=== PATIENT | male | born 1960 | race American Indian/Alaskan Native ===

== ENCOUNTER 2019-12-16 12:21 | Outpatient (CLI) | payer MEDICARE, MEDICAID, SELFPAY ==
--- NOTE | ~2019-12-16 | MR_ITS ---
EXAMINATION: MR lumbar spine wo con DATE: 12/16/2019 13:30 INDICATION: Lumbar radiculopathy. TECHNIQUE: Magnetic resonance imaging (MRI) of the lumbar spine was performed without intravenous con trast. Sequences included sagittal T2-weighted FSE, sagittal T2-weighted FS FSE, sagittal T1-weighted FSE, and axial T2-weighted FSE. COMPARISON: Lumbar spine MRI 11/07/2010 FINDINGS: Bone alignment is normal. Vertebral body heights are normal. There is mildly decreased disc height at L4-L5 and L5-S1. The distal spinal cord signal intensity is normal. The conus medullaris i s at L1. The following disc levels are specifically discussed: L1-L2: The disc does not extend beyond the endplate margin. There is mild bilateral facet joint osteo arthritis. There is no neural foraminal stenosis. There is no central canal stenosis. L2-L3: The disc is mildly bulging. There is mild bilateral facet joint osteoarthritis. There is mild bilateral neural foraminal stenosis. There is no central canal stenosis. L3-L4: The disc is bulging. There is mild bilateral facet joint osteoarthritis. There is mild bilater al neural foraminal stenosis. There is mild central canal stenosis. L4-L5: The disc is bulging with superimposed right central extrusion with 1.8 cm inferior extension. There is severe right and moderate left facet joint osteoarthritis. There is moderate right and mild left neural foraminal stenosis. There is mild central canal stenosis. L5-S1: The disc is bulging and has an annular fissure. There is severe bilateral facet joint osteoart hritis. There is moderate right and mild left neural foraminal stenosis. There is mild central canal stenosis. IMPRESSION: 1. Moderate lumbar spondylosis, worsened from 11/07/2010. Reviewed, dictated and finalized at location A.
== END 2019-12-16 12:22 | disposition home or self-care (01) ==
PROVIDERS: PCP Family Medicine; Visit Provider Psychiatry & Neurology Neurology
DX: M47.26 Other spondylosis with radiculopathy, lumbar region (principal)
CPT/HCPCS: 72148

== ENCOUNTER 2020-03-28 00:32 | Emergency (ER) | payer MEDICARE, MEDICAID, SELFPAY ==
--- NOTE | ~2020-03-28 | CT_ITS ---
EXAMINATION: CT abdomen pelvis wo con DATE: 03/28/2020 03:44 INDICATION: Left lower quadrant pain TECHNIQUE: Computed tomography (CT) of the abdomen and pelvis was performed without intravenous contr ast. The dose-length product (DLP) was 881.45 mGy-cm. Automated exposure control and iterative recons truction technique were employed. COMPARISON: 04/08/2019 FINDINGS: The lung bases are clear. The heart size is normal. Low attenuation of the left ventricular blood pool relative to the myometrium can be seen in the setting of anemia. There are surgical gillis es in the stomach. There is chronic atrophy and head of the pancreas. The liver, spleen, and right ad renal gland are normal. There is mild chronic nodularity of the left adrenal gland. The gallbladder i s surgically absent. There is a 3.6 cm cyst of the right kidney upper pole. The left kidney is unrema rkable. There is edematous fat stranding anterior to the distal descending colon and proximal sigmoid colon. A moderate volume of colonic stool is present. There is no free intraperitoneal gas or eviden ce of bowel obstruction. Chronic mild retroperitoneal lymphadenopathy is identified, likely reactive. There are mildly prominent lymph nodes of the small bowel mesentery with mild kt appearance of th e small bowel mesentery. IMPRESSION: 1. Fast stranding anterior to the distal descending/proximal sigmoid colon, consistent with focal col itis, diverticulitis, or possibly an epiploic appendagitis. 2. Kt appearance of the small bowel mesentery with prominent but nonenlarged mesenteric lymph node s, possibly related to prior pancreatitis versus sclerosing mesenteritis. Reviewed, dictated and finalized at location B. IMPRESSION: 1. Fast stranding anterior to the distal descending/proximal sigmoid colon, con sistent with focal colitis, diverticulitis, or possibly an epiploic appendagiti s. 2. Kt appearance of the small bowel mesentery with prominent but nonenlarged mesenteric lymph nodes, possibly related to prior pancreatitis versus sclerosi ng mesenteritis.
[2020-03-28 00:34] VITALS: BP 123/74; PULSE 78; RESP 18; TEMP 36.8; O2SAT 99
[2020-03-28 00:58] LABS: Basophils Absolute Auto 0.1 K/mm3 (0.0-0.1); Basophils Percent Auto 0.5 % (0.2-1.2); Eosinophils Absolute Auto 0.2 K/mm3 (0-0.3); Eosinophils Percent Auto 1.7 % (0-4.4); Hematocrit 31.1 % (42.0-52.0); Hemoglobin 9.6 g/dL (14.0-18.0); Immature Granulocyte Absolute 0.03 K/mm3 (0.00-0.031); Immature Granulocyte Percent A 0.3 % (0-0.5); Lymphocytes Absolute Auto 1.59 K/mm3 (0.9-3.2); Lymphocytes Percent Auto 17.2 % (18.3-44.2); Mean Corpuscular HGB Conc 30.9 g/dl (32-36); Mean Corpuscular Hemoglobin 21.5 pg (26-34); Mean Corpuscular Volume 69.6 fl (80-100); Monocytes Absolute Auto 0.8 K/mm3 (0.1-0.6); Monocytes Percent Auto 8.3 % (2.6-8.5); Neutrophils Absolute Auto 6.7 K/mm3 (1.3-6.7); Platelet Count Result 240 k/mm3 (150-375); Red Blood Count 4.47 M/mm3 (4.6-6.20); Red Cell Distribution Width 22.1 % (11.5-14.5); White Blood Count 9.3 K/mm3 (4.5-10.0)
[2020-03-28 01:02] LABS: Add Urine Microscopic? YES; Appearance Urine Cloudy (Clear); Bacteria Urine Trace /hpf; Bilirubin Urine Negative (Negative); Blood Urine Negative (Negative); Color Urine Yellow (Yellow); Glucose Urine UA 2+ mg/dL (Negative); Ketones Urine Trace mg/dL (Negative); Leukocyte Esterase Ur 3+ LEU/UL (Negative); Nitrate Urine Positive (Negative); Protein Urine Negative (Negative); RBC Urine 0-2 /hpf (0-2); Specific Grav Ur 1.018 (1.001-1.035); Squamous Epithelial Cell Urine Rare /hpf (Few); WBC Urine >75 /hpf
[2020-03-28 01:14] LABS: Alanine Aminotransferase 55 U/L (4-50); Albumin Level 3.8 g/dL (3.5-5.1); Alkaline Phosphatase 170 U/L (38-126); Anion Gap 9 mmol/L (8-16); Aspartate Amino Transferase 44 U/L (17-59); Bilirubin,Total 0.6 mg/dL (0.2-1.3); Blood Urea Nitrogen 14 mg/dL (9-20); Calcium 8.4 mg/dL (8.4-10.2); Carbon Dioxide 24 mmol/L (22-30); Chloride 103 mmol/L (98-107); Estimated CRCL calculation 55 ml/min; Estimated Glomerular Filt Rate 57; Glucose 198 mg/dL (75-110); Lipase 272 U/L (23-300); Potassium 4.4 mmol/L (3.4-5.0); Sodium 136 mmol/L (137-145)
--- NOTE | 2020-03-28 02:49 | ED.ABDPAIN ---
HPI - Abdominal Pain General Chief Complaint: Abdominal Pain Stated Complaint: abd pain Time Seen by Provider: 03/28/20 02:48 History of Present Illness HPI narrative: 60 yo male w/ h/o pancreatitis presents to the ED for Abdominal pain. Pain in the LLQ for the past 3 days. Started when he felt a pop. Radiates into the back. Associated with mild nausea. Feels somewhat like pancreatitis pain, but in slightly different location. He was treated for a UTI 3 weeks ago. Related Data Allergies Allergy/AdvReac Type Severity Reaction Status Date / Time ferumoxytol Allergy Severe Anaphylactic Verified 03/09/19 07:29 Shock iron dextran complex Allergy Severe Anaphylactic Verified 03/09/19 07:29 Shock Contrast Media Allergy Severe ANAPHYLACTIC Uncoded 03/09/19 07:29 SHOCK SHELLFISH Allergy Severe ANAPHYLACTIC Uncoded 03/09/19 07:29 SHOCK Review of Systems Review of Systems: All systems reviewed & are unremarkable except as noted in HPI and below Constitutional: Constitutional: Denies chills and Denies fever(s) Cardiovascular: Cardiovascular: Denies chest pain Respiratory: Respiratory: Denies dyspnea Gastrointestinal: Gastrointestinal: Reports abdominal pain, Reports diarrhea and Reports nausea Genitourinary: Genitourinary: Denies dysuria Neurologic: Denies weakness PMFSH Past Medical History Medical History (Updated 03/29/20 @ 00:00 by Rafia Pastrana) Pancreatitis Social History Social History (Updated 03/28/20 @ 03:39 by Keith Prabhakar MD) Smoking status: Never smoker Exam Const: General: healthy appearing, no acute distress and alert Orientation/consciousness: patient oriented x3 HENMT: Head: normal to inspection Resp: Effort & Inspection: normal respiratory effort Auscultation: clear to auscultation bilaterally, no rales, no rhonchi and no wheezes Cardio: Jugular venous distension: no JVD Rate: regular rate Rhythm: regular rhythm Heart sounds: no murmurs GI: Inspection: non-distended GI Palp: Yes Soft to palpation and Yes Tenderness to palpation present (GI) (LLQ ) Skin: General skin exam: normal color Neuro: General: patient oriented x3 and moves all extremities Speech: normal speech Extrem: General: no edema Psych: Appearance: well kempt Affect: normal affect Course Vital Signs Vital signs: Vital Signs Temperature 36.8 C 03/28/20 00:34 Pulse Rate 78 03/28/20 00:34 Respiratory Rate 18 03/28/20 00:34 Blood Pressure 123/74 03/28/20 00:34 Pulse Oximetry 99 03/28/20 00:34 Temperature 36.6 C 03/28/20 04:40 Pulse Rate 76 03/28/20 04:40 Respiratory Rate 16 03/28/20 04:40 Blood Pressure 124/79 03/28/20 04:40 Pulse Oximetry 100 03/28/20 04:40 MDM - Abdominal Pain MDM Narrative Medical decision making narrative: UA concerning for UTI. Lipase normal. Will obtain CT to rule out kidney stone or other abdominal pathology. CT shows signs of inflammation that could indicate diverticulitis. I will add flagyl to the treatment for his UTI. Medical Records Attestation: I reviewed the patient's medical records. Lab Data Attestation: I reviewed the patient's lab results. Result diagrams: 03/28/20 00:46 03/28/20 00:46 Labs: Lab Results 03/28/20 03/28/20 03/28/20 Range/Units 00:46 00:46 00:50 WBC 9.3 (4.5-10.0) K/mm3 RBC 4.47 L (4.6-6.20) M/mm3 Hgb 9.6 L (14.0-18.0) g/dL Hct 31.1 L (42.0-52.0) % MCV 69.6 L (80-100) fl MCH 21.5 L (26-34) pg MCHC 30.9 L (32-36) g/dl RDW 22.1 H (11.5-14.5) % Plt Count 240 (150-375) k/mm3 MPV TNP Immature Gran % (Auto) 0.3 (0-0.5) % Neut % (Auto) 72.0 (45.5-73.1) % Lymph % (Auto) 17.2 L (18.3-44.2) % [place] % (Auto) 8.3 (2.6-8.5) % Eos % (Auto) 1.7 (0-4.4) % Baso % (Auto) 0.5 (0.2-1.2) % Lymph # (Auto) 1.59 (0.9-3.2) K/mm3 [place] # (Auto) 0.8 H (0.1-0.6) K/mm3 Eos # (Auto) 0.2
[2020-03-28] MEDS: KETOROLAC (*BKC) 60 MG/2 ML VIAL IM (04:00)
[2020-03-28] MEDS: CEFDINIR 300 MG CAPSULE PO (04:01)
[2020-03-28 04:14] VITALS: BP 124/78; PULSE 78; RESP 16; O2SAT 98
[2020-03-28 04:40] VITALS: BP 124/79; PULSE 76; RESP 16; TEMP 36.6; O2SAT 100
[2020-03-28] MEDS: metroNIDAZOLE 250 MG TABLET 500 MG PO (04:40)
== END 2020-03-28 04:41 | disposition home or self-care (01) ==
PROVIDERS: Emergency Provider Emergency Medicine; PCP Family Medicine
DX: N39.0 Urinary tract infection, site not specified (principal); R93.3 Abnormal findings on diagnostic imaging of other parts of digestive tract
CPT/HCPCS: 36415; 74176; 80053; 81001; 83690; 85025; 85055; 87077; 87086; 87088; 87186; 96372; 99284; A9270; J1885

== ENCOUNTER 2020-04-06 16:49 | Emergency (ER) | payer MEDICARE, MEDICAID, SELFPAY ==
--- NOTE | ~2020-04-06 | NM_ITS ---
EXAMINATION: NM pulmonary perfusion DATE: 04/06/2020 19:37 INDICATION: Shortness of breath. TECHNIQUE: 5.1 mCi Tc-99m MAA was administered intravenously for perfusion images. Scintigraphic sudheer ges of the chest were obtained. COMPARISON: Chest single view 04/06/2020 FINDINGS: Perfusion images show a small defect in the posterobasal segment left lower lobe. ] IMPRESSION: 1. Pulmonary embolism absent (very low probability). Reviewed, dictated and finalized at location A.
--- NOTE | ~2020-04-06 | XR_ITS ---
EXAMINATION: XR chest 1V portable DATE: 04/06/2020 18:11 INDICATION: Shortness of breath. TECHNIQUE: A single frontal view of the chest was obtained. COMPARISON: Chest 2 views 04/12/2019, CT abdomen and pelvis 03/28/2020 FINDINGS: The chest demonstrates clear lungs without pneumonia, pleural effusion, or pneumothorax. Th e heart size is normal. IMPRESSION: 1. No acute cardiopulmonary disease. Reviewed, dictated and finalized at location A.
--- NOTE | ~2020-04-06 | CT_ITS ---
EXAMINATION: CT brain wo con DATE: 04/06/2020 17:45 INDICATION: Dizziness. TECHNIQUE: Computed tomography (CT) of the head was performed without intravenous contrast. The mA wa s adjusted according to patient size. Iterative reconstruction technique was employed. The dose-lengt h product was 605.33 mGy-cm. COMPARISON: Head CT 04/12/2019 FINDINGS: There is no intracranial hemorrhage, acute infarction, or abnormal intracranial mass lesion . The ventricles are normal in size. There is mild mucosal thickening in the paranasal sinuses. The o rbits are normal. The mastoid air cells are normal. IMPRESSION: 1. Normal brain. Reviewed, dictated and finalized at location A. IMPRESSION: 1. Normal brain.
[2020-04-06 16:50] VITALS: BP 156/90; PULSE 89; RESP 24; TEMP 36.8; O2SAT 99
[2020-04-06 16:54] VITALS: O2SAT 98
--- NOTE | 2020-04-06 17:03 | ECG_ITS ---
Measurements Intervals [place] Rate: 69 P: 53 ME: 185 QRS: 41 QRSD: 90 T: 39 QT: 398 QTc: 428 Interpretive Statements SINUS RHYTHM BASELINE ARTIFACT- I, II, III NORMAL ECG Electronically Signed On 04-06-2020 20:10:59 CDT by Damian Randhawa D.O.
--- NOTE | 2020-04-06 17:05 | ED.GENADULT ---
HPI - General Adult General Chief complaint: Shortness of Breath/Dyspnea <Radha Lara MD - Last Filed: 04/07/20 15:06> Stated complaint: sob/weakness <Radha Lara MD - Last Filed: 04/07/20 15:06> Time Seen by Provider: 04/06/20 16:51 <Radha Lara MD - Last Filed: 04/07/20 15:06> Source: patient <Radha Lara MD - Last Filed: 04/07/20 15:06> History of Present Illness HPI narrative: Patient is a 60 y/o male complaining of shortness of breaths starting 3 days ago. He states that his SOB was severe earlier today, but it's moderate at this time. He states that oxygen helped some when EMS applied oxygen on him. He has no fever or cough. He has been having intermittent diarrhea, dizziness and confusion for last 2 weeks. He was tested for COVID at an express facility and the result is still pending. <Radha Lara MD - Last Filed: 04/07/20 15:06> Related Data Home medications: Home Medications Medication Instructions Recorded Confirmed alprazolam 04/06/20 citalopram mg 04/06/20 ergocalciferol (vitamin D2) 04/06/20 furosemide 04/06/20 insulin aspart U-100 [Novolog 04/06/20 U-100 Insulin aspart] losartan 04/06/20 metformin mg PO 04/06/20 oxycodone 04/06/20 <Radha Lara MD - Last Filed: 04/07/20 15:06> Allergies/adverse reactions: Allergies Allergy/AdvReac Type Severity Reaction Status Date / Time ferumoxytol Allergy Severe Anaphylactic Verified 04/06/20 17:09 Shock iron dextran complex Allergy Severe Anaphylactic Verified 04/06/20 17:09 Shock Contrast Media Allergy Severe ANAPHYLACTIC Uncoded 04/06/20 17:09 SHOCK SHELLFISH Allergy Severe ANAPHYLACTIC Uncoded 04/06/20 17:09 SHOCK <Radha Lara MD - Last Filed: 04/07/20 15:06> Review of Systems Constitutional: Constitutional: Denies chills, Denies fever(s), Denies headache(s) and Denies weakness <Radha Lara MD - Last Filed: 04/07/20 15:06> Eyes: Eyes: Denies blurry vision <Radha Lara MD - Last Filed: 04/07/20 15:06> ENT: Denies headache(s) and Denies neck pain <Radha Lara MD - Last Filed: 04/07/20 15:06> Cardiovascular: Cardiovascular: Denies chest pain and Reports dyspnea <Radha Laar MD - Last Filed: 04/07/20 15:06> Respiratory: Respiratory: Denies cough and Reports dyspnea <Radha Lara MD - Last Filed: 04/07/20 15:06> Gastrointestinal: Gastrointestinal: Denies abdominal pain, Reports diarrhea, Denies nausea and Denies vomiting <Radha Lara MD - Last Filed: 04/07/20 15:06> Genitourinary: Genitourinary: Denies hematuria and Denies dysuria <Radha Lara MD - Last Filed: 04/07/20 15:06> Musculoskeletal: Musculoskeletal: Denies back pain and Denies neck pain <Radha Lara MD - Last Filed: 04/07/20 15:06> Neurologic: Reports dizziness, Denies headache(s) and Denies weakness <Radha Lara MD - Last Filed: 04/07/20 15:06> PMFSH Past Medical History Medical History: Medical History Pancreatitis <Radha Lara MD - Last Filed: 04/07/20 15:06> Social History Social History: Social History Smoking status: Never smoker <Radha Lara MD - Last Filed: 04/07/20 15:06> Exam Const: General: no acute distress and well developed <Radha Lara MD - Last Filed: 04/07/20 15:06> Orientation/consciousness: oriented to person, oriented to place, oriented to time and patient oriented x3 <Radha Lara MD - Last Filed: 04/07/20 15:06> HENMT: Head: normocephalic <Radha Lara MD - Last Filed: 04/07/20 15:06> Ears: external ears normal <Radha Lara MD - Last Filed: 04/07/20 15:06> General nose exam: Normal external nose present <Radha Lara MD - Last Filed: 04/07/20 15:06> Eyes: General: appearance normal, both eyes and all related structures <Radha Lara MD - Last Filed: 04/07/20 15:06> Conjunctivae: conju
[2020-04-06 17:09] VITALS: PULSE 79
[2020-04-06 17:29] LABS: Basophils Percent Auto 0.3 % (0.2-1.2); Eosinophils Percent Auto 0.6 % (0-4.4); Hematocrit 32.3 % (42.0-52.0); Hemoglobin 10.2 g/dL (14.0-18.0); Immature Granulocyte Absolute 0.02 K/mm3 (0.00-0.031); Immature Granulocyte Percent A 0.3 % (0-0.5); Immature Platelet Fraction Pct 7.5 % (0.9-11.2); Lymphocytes Absolute Auto 1.19 K/mm3 (0.9-3.2); Mean Corpuscular HGB Conc 31.6 g/dl (32-36); Mean Corpuscular Hemoglobin 21.7 pg (26-34); Mean Corpuscular Volume 68.6 fl (80-100); Monocytes Absolute Auto 0.5 K/mm3 (0.1-0.6); Neutrophils Absolute Auto 4.5 K/mm3 (1.3-6.7); Neutrophils Percent Auto 71.8 % (45.5-73.1); Platelet Count Result 331 k/mm3 (150-375); Red Blood Count 4.71 M/mm3 (4.6-6.20); Red Cell Distribution Width 22.5 % (11.5-14.5); White Blood Count 6.3 K/mm3 (4.5-10.0)
[2020-04-06 17:34] LABS: D Dimer 0.89 ug/mL (<0.48)
[2020-04-06 17:35] LABS: Alanine Aminotransferase 49 U/L (4-50); Albumin Level 3.6 g/dL (3.5-5.1); Alkaline Phosphatase 112 U/L (38-126); Anion Gap 10 mmol/L (8-16); Aspartate Amino Transferase 66 U/L (17-59); Bilirubin,Total 0.6 mg/dL (0.2-1.3); Blood Urea Nitrogen 18 mg/dL (9-20); Calcium 8.6 mg/dL (8.4-10.2); Carbon Dioxide 24 mmol/L (22-30); Chloride 101 mmol/L (98-107); Estimated Glomerular Filt Rate 52; Glucose 219 mg/dL (75-110); Potassium 4.4 mmol/L (3.4-5.0); Sodium 135 mmol/L (137-145)
[2020-04-06 17:46] LABS: NT Pro B Type Natriuretic Pept 54 PG/ML (5-100); Troponin I 0.019 ng/mL (0.000-0.034)
[2020-04-06 19:07] VITALS: BP 142/85; PULSE 70; RESP 12; O2SAT 98
[2020-04-06 19:57] VITALS: BP 168/92; PULSE 75; RESP 16; O2SAT 97
[2020-04-06 20:24] VITALS: BP 167/97; PULSE 73; RESP 20; O2SAT 98
== END 2020-04-06 20:25 | disposition home or self-care (01) ==
PROVIDERS: Emergency Medicine; Emergency Provider Emergency Medicine; PCP Family Medicine
DX: R06.02 Shortness of breath (principal); Z79.4 Long term (current) use of insulin; Z79.84 Long term (current) use of oral hypoglycemic drugs; Z20.828 Contact with and (suspected) exposure to other viral communicable diseases
CPT/HCPCS: 36415; 70450; 71045; 78580; 80053; 83880; 84484; 85025; 85055; 85380; 93005; 99284; A9540

== ENCOUNTER 2020-06-27 08:43 | Emergency (ER) | payer MEDICARE, MEDICAID, SELFPAY ==
--- NOTE | ~2020-06-27 | CT_ITS ---
EXAMINATION: CT abdomen pelvis wo con DATE: 06/27/2020 09:17 INDICATION: Upper abdominal pain TECHNIQUE: Computed tomography (CT) of the abdomen and pelvis was performed without intravenous contr ast. Automated exposure control and iterative reconstruction technique were employed. Exam dose: 802 .23 mGy-cm total exam DLP. COMPARISON: 03/28/2020 CT abdomen pelvis 04/08/2019 CT abdomen pelvis FINDINGS: The lung bases are clear of infiltrate or consolidation. Normal heart size. No pericardial or pleural effusion. Small sliding hiatal hernia. Postoperative change of the stomach. There is a drainage catheter extending from the pancreas into th e gastric lumen. Status post cholecystectomy. The liver, spleen appear unremarkable. The pancreatic head and neck are atrophic or possibly resected surgically. Recommend correlation with surgical history. Unremarkable adrenal glands. Probable 3.7 cm upper pole right renal cyst. No urinary tract calculus or hydroureteronephrosis. There is moderate prostate enlargement and calcification. There is moderate diffuse thickening of the urinary bladder wall. No bowel obstruction or intraperitoneal free air. Resolution of probable focal prominent soft tissue infiltration of the pericolic fat along the descending colon since 03/28/2020. There is normal caliber of the abdominal aorta, with mild atherosclerotic calcification. Persistent extensive shotty mesenteric, periaortic and aortocaval lymph nodes are again noted. Diffuse idiopathic skeletal hyperostosis of the included lower thoracic spine. No suspicious osteolytic or osteoblastic lesions are noted. IMPRESSION: Resolution of inflammatory changes adjacent to the descending colon since 03/28/2020; oth erwise no significant change Reviewed, dictated and finalized at Location [facility]. Reviewed, dictated and finalized at location A. [employer] IMPRESSION: Resolution of inflammatory changes adjacent to the descending colo n since 03/28/2020; otherwise no significant change
[2020-06-27 08:50] VITALS: BP 108/64; PULSE 85; RESP 20; TEMP 36.6; O2SAT 100
[2020-06-27] MEDS: SODIUM CHLORIDE 0.9% IV 1,000 ML 999 ML IV CONT (09:11)
--- NOTE | 2020-06-27 09:11 | PC.NURSE ---
Pt to CT scan via stretcher w/ fluids infusing.
[2020-06-27 09:17] LABS: Hematocrit 32.8 % (42.0-52.0); Hemoglobin 9.9 g/dL (14.0-18.0); Immature Platelet Fraction Pct 14.9 % (0.9-11.2); Mean Corpuscular HGB Conc 30.2 g/dl (32-36); Mean Corpuscular Hemoglobin 20.5 pg (26-34); Platelet Count Result 197 k/mm3 (150-375); Red Blood Count 4.82 M/mm3 (4.6-6.20); Red Cell Distribution Width 20.6 % (11.5-14.5); White Blood Count 9.9 K/mm3 (4.5-10.0)
[2020-06-27 09:25] LABS: Add Urine Microscopic? YES; Appearance Urine Cloudy (Clear); Bacteria Urine 3+ /hpf; Bilirubin Urine Negative (Negative); Blood Urine Negative (Negative); Color Urine Yellow (Yellow); Glucose Urine UA 2+ mg/dL (Negative); Ketones Urine Trace mg/dL (Negative); Leukocyte Esterase Ur 3+ LEU/UL (Negative); Mucus Urine Rare /lpf; Nitrate Urine Positive (Negative); Protein Urine 1+ mg/dL (Negative); Urobilinogen Urine Negative mg/dL (<2.0); WBC Clumps Urine Present /HPF; WBC Urine >75 /hpf
[2020-06-27 09:28] LABS: Alanine Aminotransferase 132 U/L (4-50); Albumin Level 4.1 g/dL (3.5-5.1); Alkaline Phosphatase 562 U/L (38-126); Anion Gap 8 mmol/L (8-16); Aspartate Amino Transferase 74 U/L (17-59); Bilirubin,Total 0.9 mg/dL (0.2-1.3); Blood Urea Nitrogen 15 mg/dL (9-20); Carbon Dioxide 28 mmol/L (22-30); Chloride 98 mmol/L (98-107); Estimated CRCL calculation 59 ml/min; Estimated Glomerular Filt Rate > 60; Glucose 287 mg/dL (75-110); Lipase 300 U/L (23-300); Potassium 4.6 mmol/L (3.4-5.0); Sodium 134 mmol/L (137-145)
[2020-06-27 09:40] LABS: Band Neutrophils Percent 5 % (0-6); Eosinophils Absolute Manual 0.19 K/mm3 (0.02-0.5); Eosinophils Percent Manual 2 % (0-4); Lymphocytes Absolute Manual 1.48 K/mm3 (1.1-4.5); Monocytes Absolute Manual 0.69 K/mm3 (0.1-0.90); Monocytes Percent Manual 7 % (3-9); Neutrophils Absolute Manual 7.52 K/mm3 (1.3-6.7); Neutrophils Percent Manual 71 % (46-73); Total Cells Counted 100
[2020-06-27 09:41] LABS: Hypochromasia 2+ (NORMAL); Large Platelets Present; Platelet Estimate Adequate (Adequate); Stomatocytes 1+ (NORMAL)
[2020-06-27 09:46] LABS: Atypical Lymphocytes Present
[2020-06-27] MEDS: FAMOTIDINE 20 MG/2 ML VIAL IV PUSH (10:05)
[2020-06-27 10:08] VITALS: BP 107/48; PULSE 65; RESP 17; O2SAT 100
--- NOTE | 2020-06-27 10:53 | ED.GENADULT ---
HPI - General Adult General Chief complaint: Abdominal Pain Stated complaint: ABD Pain Time Seen by Provider: 06/27/20 08:54 Source: patient and old records reviewed Mode of arrival: ambulatory Limitations: no limitations History of Present Illness HPI narrative: Patient is a 60-year-old male who presents to emergency department for evaluation of periumbilical abdominal pain patient with complicated history followed by GI at [facility] patient notes discomfort over the last 2 days denies vomiting fever chills URI symptoms or other complaints patient has not taken anything other than his prescribed medicines patient notes that he has had blood glucoses that typically run around 200. Patient denies rectal bleeding or melena. Patient notes on arrival moderate discomfort of the abdomen patient does not appear uncomfortable or distressed Related Data Home Medications Medication Instructions Recorded Confirmed alprazolam 04/06/20 citalopram mg 04/06/20 ergocalciferol (vitamin D2) 04/06/20 furosemide 04/06/20 insulin aspart U-100 [Novolog 04/06/20 U-100 Insulin aspart] losartan 04/06/20 metformin mg PO 04/06/20 oxycodone 04/06/20 Allergies Allergy/AdvReac Type Severity Reaction Status Date / Time ferumoxytol Allergy Severe Anaphylactic Verified 06/27/20 09:03 Shock Iodinated Contrast Media Allergy Severe Anaphylactic Verified 06/27/20 09:03 Shock iron dextran complex Allergy Severe Anaphylactic Verified 06/27/20 09:03 Shock shellfish derived Allergy Severe Anaphylactic Verified 06/27/20 09:03 Shock Review of Systems Review of Systems: All systems reviewed & are unremarkable except as noted in HPI and below PMFSH Past Medical History Medical History (Updated 06/27/20 @ 10:58 by Derrell Mccullough PA-C) Diabetes mellitus Pancreatitis Surgical History Surgical History History of gastric bypass Social History Social History Smoking status: Never smoker Exam Narrative: Exam Narrative: GENERAL: Well-appearing, well-nourished, and in no acute distress. HEAD: Normocephalic, atraumatic. EYES: PERRLA and EOMI. ENT: Nares clear, no rhinorrhea or epistaxis. Mucous membranes moist. CHEST: Clear to auscultation. No respiratory distress. No wheezes rales or rhonchi HEART: Regular rate and rhythm. No murmur heard. Normal peripheral pulses. ABDOMEN: Soft, tenderness in the upper abdomen no rebound or guarding, nondistended EXTREMITIES: Normal range of motion. No edema. SKIN: Warm, dry, no rash. NEURO: No focal deficits. Alert and oriented x3. PSYCH: Normal mood and affect. Course Course Emergency Course: Patient in the room in no distress made aware of his blood work and findings was given fluids and antibiotic in the emergency department will be treated for urinary tract infection advised that he needs to follow with his specialist by phone today to set up for reevaluation patient felt appropriate for outpatient reevaluation he is afebrile nontoxic-appearing no distress Vital Signs Vital signs: Vital Signs Temperature 97.8 F 06/27/20 08:50 Pulse Rate 85 06/27/20 08:50 Respiratory Rate 20 06/27/20 08:50 Blood Pressure 108/64 06/27/20 08:50 Pulse Oximetry 100 06/27/20 08:50 Temperature 97.8 F 06/27/20 08:50 Pulse Rate 64 06/27/20 11:04 Respiratory Rate 14 06/27/20 11:04 Blood Pressure 113/66 06/27/20 11:04 Pulse Oximetry 97 06/27/20 11:04 Medical Decision Making [facility] Narrative Medical decision making narrative: Patient found to have urinary tract infection as the etiology of his symptoms patient afebrile nontoxic-appearing no distress ABCs intact vital signs stable no emesis no rectal bleeding no other high risk changes in the blood work or imaging given medications in the emergency department and advised to follow with his
[2020-06-27 11:04] VITALS: BP 113/66; PULSE 64; RESP 14; O2SAT 97
[2020-06-27 11:36] VITALS: BP 105/60; PULSE 61; RESP 18; O2SAT 97
== END 2020-06-27 11:37 | disposition home or self-care (01) ==
PROVIDERS: Emergency Provider Emergency Medicine; PCP Family Medicine
DX: N39.0 Urinary tract infection, site not specified (principal); R10.33 Periumbilical pain; E11.9 Type 2 diabetes mellitus without complications; Z79.4 Long term (current) use of insulin; Z98.84 Bariatric surgery status
CPT/HCPCS: 36415; 74176; 80053; 81001; 83690; 85025; 85055; 87077; 87086; 87088; 87186; 96361; 96365; 96367; 96375; 99284; J0131; J0696; J7030

== ENCOUNTER 2020-07-28 19:03 | Emergency (ER) | payer MEDICARE, MEDICAID, SELFPAY ==
--- NOTE | ~2020-07-28 | CT_ITS ---
EXAMINATION: CT abdomen pelvis wo con DATE: 07/28/2020 20:12 INDICATION: Abdominal pain. Frequent urinary tract infections. TECHNIQUE: Computed tomography (CT) of the abdomen and pelvis was performed without intravenous contr ast. Automated exposure control and iterative reconstruction technique were employed. The dose-length product was 619.79 mGy-cm. COMPARISON: CT abdomen and pelvis 06/27/2020 FINDINGS: The visualized portions of the lung bases are clear without pneumonia or pleural effusion. The heart size is normal. No pericardial effusion. There are surgical changes of the stomach. There i s a stent from the pancreatic duct to the stomach. The gallbladder is absent. The adrenal glands and left kidney are normal. There is a 3.7 cm cyst in right kidney. There is no urolithiasis. The prostat e is mildly enlarged. There is a left inguinal hernia containing fat. There are no dilated loops of b owel. The appendix is not visualized. There is mild aortocaval, left para-aortic, mesenteric, and per iportal lymphadenopathy, likely reactive. There is a supraumbilical ventral hernia containing fat. Th ere is edema at the root of the small bowel mesentery and adjacent to the pancreas. There is no free intraperitoneal fluid. There is mild thoracolumbar spondylosis. IMPRESSION: 1. Mild abdominal lymphadenopathy, likely reactive. 2. Supraumbilical ventral hernia and left inguinal hernia containing fat. Reviewed, dictated and finalized at location A. NEATOR
[2020-07-28 19:13] VITALS: BP 195/97; PULSE 76; RESP 16; TEMP 36.6; O2SAT 100
--- NOTE | 2020-07-28 19:24 | PC.NURSE ---
pt c/o pain to right kidney starting 5 days ago and now having suprapubic pain and left flank pain as well. pt notes frequent urination and nausea. pt states he has an appointment with a urologist in August.
[2020-07-28 19:40] LABS: Add Urine Microscopic? YES; Amorphous Sediment Urine Few; Appearance Urine Cloudy (Clear); Bacteria Urine Trace /hpf; Bilirubin Urine Negative (Negative); Blood Urine Negative (Negative); Color Urine Yellow (Yellow); Glucose Urine UA Negative (Negative); Ketones Urine Negative (Negative); Leukocyte Esterase Ur 1+ LEU/UL (Negative); Mucus Urine Rare /lpf; Nitrate Urine Positive (Negative); Protein Urine Negative (Negative); RBC Urine 0-2 /hpf (0-2); Specific Grav Ur 1.018 (1.001-1.035); WBC Urine 31-50 /hpf
[2020-07-28 20:05] LABS: Basophils Percent Auto 0.6 % (0.2-1.2); Eosinophils Absolute Auto 0.2 K/mm3 (0-0.3); Hematocrit 28.3 % (42.0-52.0); Hemoglobin 8.2 g/dL (14.0-18.0); Immature Granulocyte Absolute 0.01 K/mm3 (0.00-0.031); Immature Granulocyte Percent A 0.2 % (0-0.5); Immature Platelet Fraction Pct 11.6 % (0.9-11.2); Mean Corpuscular Hemoglobin 20.4 pg (26-34); Mean Corpuscular Volume 70.6 fl (80-100); Monocytes Absolute Auto 0.7 K/mm3 (0.1-0.6); Monocytes Percent Auto 12.2 % (2.6-8.5); Neutrophils Absolute Auto 3.1 K/mm3 (1.3-6.7); Platelet Count Result 152 k/mm3 (150-375); Red Blood Count 4.01 M/mm3 (4.6-6.20); Red Cell Distribution Width 22.7 % (11.5-14.5); White Blood Count 5.4 K/mm3 (4.5-10.0)
[2020-07-28] MEDS: ONDANSETRON INJ 4 MG/2 ML VIAL IV PUSH (20:09)
[2020-07-28] MEDS: SODIUM CHLORIDE 0.9% IV 1,000 ML 999 ML IV CONT (20:20)
[2020-07-28 20:22] LABS: Alanine Aminotransferase 78 U/L (4-50); Albumin Level 3.8 g/dL (3.5-5.1); Alkaline Phosphatase 392 U/L (38-126); Anion Gap 6 mmol/L (8-16); Aspartate Amino Transferase 68 U/L (17-59); Bilirubin,Total 0.5 mg/dL (0.2-1.3); Blood Urea Nitrogen 19 mg/dL (9-20); Calcium 8.2 mg/dL (8.4-10.2); Carbon Dioxide 29 mmol/L (22-30); Chloride 102 mmol/L (98-107); Estimated CRCL calculation 52 ml/min; Estimated Glomerular Filt Rate 52; Glucose 136 mg/dL (75-110); Lipase 102 U/L (23-300); Potassium 4.6 mmol/L (3.4-5.0); Sodium 137 mmol/L (137-145)
[2020-07-28 20:24] LABS: Hypochromasia 1+ (NORMAL); Platelet Estimate Adequate (Adequate)
[2020-07-28 20:25] LABS: Target Cells 1+ (NORMAL)
--- NOTE | 2020-07-28 21:32 | ED.GENADULT ---
HPI - General Adult General Chief complaint: Urogenital-Male Stated complaint: I think i have a kidney infection Time Seen by Provider: 07/28/20 19:22 Source: RN notes reviewed History of Present Illness HPI narrative: Patient presents emergency department from home for possible UTI. Patient states that symptoms began approximately 5 days ago. He states he began to have some pain with urination as well as lower abdominal pain described as cramping. He states he does some radiation up into his right flank with some intermittent nausea. Patient states he does have a history of frequent UTIs and is scheduled to see a specialist at [facility] later this month. Patient states he is last treated for UTI back in June he denies any fevers or chills chest pain shortness of breath vomiting or any other symptoms. Related Data Home Medications Medication Instructions Recorded Confirmed alprazolam 04/06/20 citalopram mg 04/06/20 ergocalciferol (vitamin D2) 04/06/20 furosemide 04/06/20 insulin aspart U-100 [Novolog 04/06/20 U-100 Insulin aspart] losartan 04/06/20 metformin mg PO 04/06/20 Allergies Allergy/AdvReac Type Severity Reaction Status Date / Time ferumoxytol Allergy Severe Anaphylactic Verified 07/28/20 19:26 Shock Iodinated Contrast Media Allergy Severe Anaphylactic Verified 07/28/20 19:26 Shock iron dextran complex Allergy Severe Anaphylactic Verified 07/28/20 19:26 Shock shellfish derived Allergy Severe Anaphylactic Verified 07/28/20 19:26 Shock Review of Systems Review of Systems: Narrative: Gen.: Denies fevers or chills Eyes: Denies eye pain or visual change ENT: Denies congestion Respiratory: Denies shortness of breath or cough CV: Denies chest pain or palpitations GI: Reports abdominal pain and nausea denies emesis and diarrhea reports pain with urination Musculoskeletal: Denies back pain or muscle pain Neuro: Denies numbness, tingling, weakness or focal weakness Skin: Denies rash Except as documented, all other systems reviewed and negative REPLACED BY [facility] Past Medical History Medical History Diabetes mellitus Pancreatitis Surgical History Surgical History History of gastric bypass Social History Social History Smoking status: Never smoker Exam Narrative: Exam Narrative: APPEARANCE: No acute distress, nontoxic, resting in bed HEENT: Normocephalic, atraumatic, OMM RESPIRATORY: No respiratory distress, clear to auscultation bilaterally with no rhonchi wheezing or rales CARDIOVASCULAR: RRR s murmur ABDOMINAL: Soft, nondistended, tender palpation right lower quadrant left lower quadrant no tenderness in right upper quadrant left upper quadrant no rebound or guarding MUSCULOSKELETAl: Moves all extremities. No clubbing, cyanosis or edema. NEURO: Awake and alert. Following commands, speech normal, no focal deficits SKIN:: Warm, dry. Normal Color PSYCHIATRIC: Normal affect/mood Course Course Emergency Course: Reviewed patient's old records and patient with chronic anemia is microcytic. 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 Chavez for Dr. Panda agrees with plan for discharge request patient call the office for repeat follow-up visit this week and will recheck hemoglobin Discussed with patient results of workup and diagnosis. Discussed need for follow-up with primary care, proper use of medication, and reasons to return to the emergency department. Patient understands and agrees to current treatment plan Reviewed the
[2020-07-28] MEDS: AMOXICILLIN/CLAVULANATE K 875-125 MG TAB 1 TABLET PO (21:33)
[2020-07-28 21:37] VITALS: BP 137/85; PULSE 70; RESP 18; O2SAT 100
== END 2020-07-28 21:45 | disposition home or self-care (01) ==
PROVIDERS: Emergency Medicine Emergency Medical Services; Emergency Provider Emergency Medicine; PCP Family Medicine
DX: N39.0 Urinary tract infection, site not specified (principal); D50.9 Iron deficiency anemia, unspecified; E11.9 Type 2 diabetes mellitus without complications; K43.9 Ventral hernia without obstruction or gangrene; K40.90 Unilateral inguinal hernia, without obstruction or gangrene, not specified as recurrent; Z79.4 Long term (current) use of insulin
CPT/HCPCS: 36415; 74176; 80053; 81001; 83690; 85025; 85055; 87077; 87086; 87088; 87186; 96361; 96374; 96375; 99284; A9270; J0131; J2405; J7030

== ENCOUNTER 2020-09-04 21:59 | Emergency (ER) | payer MEDICARE, MEDICAID, SELFPAY ==
--- NOTE | ~2020-09-04 | XR_ITS ---
EXAMINATION: XR chest 1V portable EXAM DATE: 09/04/2020 22:22 INDICATION: Shortness of breath. Nausea tonight after taking iron infusion. TECHNIQUE: Portable AP frontal chest x-ray was obtained. Comparison is made to prior examination from 04/06/2020. FINDINGS: The lungs are clear. There are no pleural effusions. The cardiomediastinal silhouette is within normal limits. There is no pneumothorax suspected. The bones and soft tissues are unremarkab le. IMPRESSION: No acute cardiopulmonary findings. Reviewed, dictated and finalized at location A. TRUCTION ECONOMIST
[2020-09-04 22:02] VITALS: BP 149/82; PULSE 94; RESP 18; TEMP 37.6; O2SAT 100
[2020-09-04 22:40] LABS: Basophils Percent Auto 0.2 % (0.2-1.2); Hematocrit 33.9 % (42.0-52.0); Hemoglobin 10.3 g/dL (14.0-18.0); Immature Granulocyte Absolute 0.02 K/mm3 (0.00-0.031); Immature Granulocyte Percent A 0.3 % (0-0.5); Immature Platelet Fraction Pct 11.5 % (0.9-11.2); Lymphocytes Absolute Auto 0.51 K/mm3 (0.9-3.2); Lymphocytes Percent Auto 8.7 % (18.3-44.2); Mean Corpuscular HGB Conc 30.4 g/dl (32-36); Mean Corpuscular Hemoglobin 21.4 pg (26-34); Mean Corpuscular Volume 70.3 fl (80-100); Monocytes Absolute Auto 0.1 K/mm3 (0.1-0.6); Monocytes Percent Auto 1.2 % (2.6-8.5); Neutrophils Absolute Auto 5.3 K/mm3 (1.3-6.7); Neutrophils Percent Auto 89.6 % (45.5-73.1); Platelet Count Result 198 k/mm3 (150-375); Red Blood Count 4.82 M/mm3 (4.6-6.20); White Blood Count 5.9 K/mm3 (4.5-10.0)
[2020-09-04 22:59] LABS: NT Pro B Type Natriuretic Pept 71 PG/ML (5-100)
[2020-09-04 23:00] VITALS: BP 149/74; PULSE 85; RESP 18; O2SAT 98
[2020-09-04 23:03] LABS: Anion Gap 14 mmol/L (8-16); Blood Urea Nitrogen 15 mg/dL (9-20); Calcium 8.3 mg/dL (8.4-10.2); Carbon Dioxide 21 mmol/L (22-30); Chloride 101 mmol/L (98-107); Estimated CRCL calculation 55 ml/min; Estimated Glomerular Filt Rate 57; Glucose 557 mg/dL (75-110); Potassium 4.3 mmol/L (3.4-5.0); Sodium 136 mmol/L (137-145)
[2020-09-04 23:45] LABS: Glucose Point of Care 442 (65-105)
[2020-09-05 00:06] VITALS: BP 147/73; PULSE 87; RESP 14; O2SAT 100
[2020-09-05] MEDS: INSULIN HUMAN REGULAR (*BKC) 100 UNITS/ML 10 UNITS IV PUSH (00:07)
[2020-09-05 00:57] LABS: Glucose Point of Care 140 (65-105)
[2020-09-05 00:59] VITALS: BP 129/74; PULSE 94; RESP 20; O2SAT 100
--- NOTE | 2020-09-05 01:04 | ED.GENADULT ---
HPI - General Adult General Chief complaint: Shortness of Breath/Dyspnea Stated complaint: sob Time Seen by Provider: 09/04/20 22:00 Source: patient Mode of arrival: EMS Limitations: no limitations History of Present Illness HPI narrative: 60-year-old with a history of diabetes, iron deficiency anemia here with complaints of shortness of breath since last few hours. Patient states that he had a iron infusion earlier this afternoon at [facility] was later discharged home. Patient states that he was sitting in front of the computer started experiencing some shortness of breath thought it was anxiety took Xanax which did not help with his shortness of breath. Patient states that he was trying to climb the stairs felt extremely short winded. And then later called EMS was later brought here to the ER upon arrival she states that he is having mild symptoms however his much improved. He denied any chest pain, nausea or vomiting. Onset (ago): hour(s) (1) Radiation: non-radiation Severity: moderate Exacerbating factors: none Related Data Home Medications Medication Instructions Recorded Confirmed alprazolam 04/06/20 citalopram mg 04/06/20 ergocalciferol (vitamin D2) 04/06/20 furosemide 04/06/20 insulin aspart U-100 [Novolog 04/06/20 U-100 Insulin aspart] losartan 04/06/20 metformin mg PO 04/06/20 Allergies Allergy/AdvReac Type Severity Reaction Status Date / Time ferumoxytol Allergy Severe Anaphylactic Verified 07/28/20 19:26 Shock Iodinated Contrast Media Allergy Severe Anaphylactic Verified 07/28/20 19:26 Shock iron dextran complex Allergy Severe Anaphylactic Verified 07/28/20 19:26 Shock shellfish derived Allergy Severe Anaphylactic Verified 07/28/20 19:26 Shock Review of Systems Review of Systems: All systems reviewed & are unremarkable except as noted in HPI and below Constitutional: Constitutional: Reports no additional constitutional complaints Eyes: Eyes: Reports no additional eye complaints ENT: Reports system reviewed and no additional complaints, except as documented Cardiovascular: Cardiovascular: Reports no additional cardiovascular complaints Respiratory: Respiratory: Reports as per HPI Gastrointestinal: Gastrointestinal: Reports no additional gastrointestinal complaints Musculoskeletal: Musculoskeletal: Reports no additional musculoskeletal complaints Integumentary/Breasts: Skin/Breast: Reports system reviewed and no additional complaints, except as docu Neurologic: Reports system reviewed and no additional complaints, except as documented PMFSH Past Medical History Medical History Diabetes mellitus Pancreatitis Surgical History Surgical History History of gastric bypass Social History Social History Smoking status: Never smoker Exam Narrative: Exam Narrative: GENERAL: Well-appearing, well-nourished, and in no acute distress. HEAD: Normocephalic, atraumatic. EYES: PERRLA and EOMI.. NECK: Supple. CHEST: Clear to auscultation. No respiratory distress. HEART: Regular rate and rhythm. No murmur heard. Normal peripheral pulses. ABDOMEN: Soft, nontender, nondistended, normal active bowel sounds. EXTREMITIES: Normal range of motion. No edema. SKIN: Warm, dry, no rash. NEURO: No focal deficits. Alert and oriented x3. PSYCH: Normal mood and affect. Course Course Emergency Course: Patient started feeling much better without any intervention, informed him about his lab work however his sugars were elevated , I will give him bolus of insulin which brought him clinically. Normal see. Patient stated he is feeling better we will discharge him home advised him to continue his home medication Vital Signs Vital signs: Vital Signs Temperature 37.6 C H 09/04/20 22:02 Pulse Rate 94 09/04/20 2
== END 2020-09-05 01:25 | disposition home or self-care (01) ==
PROVIDERS: Emergency Provider Family Medicine; PCP Family Medicine
DX: R06.02 Shortness of breath (principal); F41.9 Anxiety disorder, unspecified; E11.65 Type 2 diabetes mellitus with hyperglycemia; Z98.84 Bariatric surgery status; Z79.4 Long term (current) use of insulin
CPT/HCPCS: 36415; 71045; 80048; 82948; 83880; 85025; 85055; 96374; 99284; J1815

== ENCOUNTER 2020-10-06 18:31 | Emergency (ER) | payer MEDICARE, MEDICAID, SELFPAY ==
--- NOTE | ~2020-10-06 | XR_ITS ---
Corrected Report See Bolded Text Order # associated XR hand RT min 3V DATE: 10/06/2020 19:15 INDICATION: Dog bite, laceration on the dorsum of the hand TECHNIQUE: 3 views of the right hand COMPARISON: None FINDINGS: There is a comminuted fracture of the tuft of the distal phalanx of the fifth digit. Adjacent soft tissue laceration is noted. No other fracture or dislocation is detected. No periosteal reaction or bone destruction. No erosive change or chondrocalcinosis. No radiopaque soft tissue foreign body is evident. IMPRESSION: Comminuted fracture of the tuft of the distal phalanx of the fifth digit, with evidence of adjacent soft tissue laceration; no radiopaque foreign body Reviewed, dictated and finalized at location A. MTDD IMPRESSION: Subcutaneous emphysema of the dorsum of the hand extending to the b ases of the second through fourth digits
--- NOTE | ~2020-10-06 | XR_ITS ---
Corrected Report See Bolded Text Order # associated XR hand LT min 3V DATE: 10/06/2020 19:15 INDICATION: Dog bite TECHNIQUE: 3 views of the left hand COMPARISON: None FINDINGS: There is subcutaneous emphysema of the dorsum of the hand and bases of the second through fourth digits, consistent with dog bite. No radiopaque soft tissue foreign body is evident. No fracture or dislocation, periosteal reaction or bone destruction. IMPRESSION: Subcutaneous emphysema of the dorsum of the hand extending to the bases of the second through fourth digits Reviewed, dictated and finalized at location A. MTDD IMPRESSION: Comminuted fracture of the tuft of the distal phalanx of the fifth digit, with evidence of adjacent soft tissue laceration; no radiopaque foreign body
[2020-10-06 18:31] VITALS: BP 207/95; PULSE 112; RESP 20; TEMP 36.4; O2SAT 100
--- NOTE | 2020-10-06 18:45 | ED.GENADULT ---
HPI - General Adult General Chief complaint: Wound/Laceration Stated complaint: dog bite Time Seen by Provider: 10/06/20 18:42 Source: patient and EMS Mode of arrival: EMS Limitations: no limitations History of Present Illness HPI narrative: Patient 60-year-old male who presents for EMS after sustaining dog bites to the left and right hand patient was cleaning up when his dog lunged at him biting him on the hand sustaining injury to the right pinky finger where there is avulsion of the proximal nail. Patient has flap laceration to the dorsal surface of the left hand. Patient has small puncture wound to the dorsal surface of the hand left-sided. Patient notes his tetanus is not up-to-date. Patient has not taken anything for pain. Patient denies other injuries or complaints Related Data Home Medications Medication Instructions Recorded Confirmed alprazolam 04/06/20 citalopram mg 04/06/20 ergocalciferol (vitamin D2) 04/06/20 furosemide 04/06/20 insulin aspart U-100 [Novolog 04/06/20 U-100 Insulin aspart] losartan 04/06/20 metformin mg PO 04/06/20 Allergies Allergy/AdvReac Type Severity Reaction Status Date / Time ferumoxytol Allergy Severe Anaphylactic Verified 10/06/20 18:35 Shock Iodinated Contrast Media Allergy Severe Anaphylactic Verified 10/06/20 18:35 Shock iron dextran complex Allergy Severe Anaphylactic Verified 10/06/20 18:35 Shock shellfish derived Allergy Severe Anaphylactic Verified 10/06/20 18:35 Shock Review of Systems Review of Systems: All systems reviewed & are unremarkable except as noted in HPI and below PMFSH Past Medical History Medical History Diabetes mellitus Pancreatitis Surgical History Surgical History History of gastric bypass Social History Social History Smoking status: Never smoker Exam Narrative: Exam Narrative: GENERAL: Well-appearing, well-nourished, and in no acute distress. HEAD: Normocephalic, atraumatic. EYES: PERRLA and EOMI. ENT: Nares clear, no rhinorrhea or epistaxis. Mucous membranes moist. CHEST: Clear to auscultation. No respiratory distress. No wheezes rales or rhonchi HEART: Regular rate and rhythm. No murmur heard. Normal peripheral pulses. EXTREMITIES: Normal range of motion. No edema. Flap laceration and puncture wound dorsal surface left hand. Nail avulsion laceration of the distal phalanx right pinky finger SKIN: Warm, dry, no rash. NEURO: No focal deficits. Alert and oriented x3. Cranial nerves II through XII grossly intact. Neurovascularly intact PSYCH: Normal mood and affect. Course Course Emergency Course: Patient's wounds were anesthetized cleaned in the emergency department and dressed patient will be following with plastic surgery. Patient is aware of recommendations of plastic surgery patient agrees with the treatment plan patient was given Ancef in the emergency department neurovascularly intact pre and post procedure Consultations Consultation #1: Discussed case with hand surgeon who will follow the patient in clinic gave recommendations on wound treatment would also like the patient to be placed on antibiotics Augmentin preferably case was discussed with Dr. Avalos Date: 10/06/20 Time: 20:01 Vital Signs Vital signs: Vital Signs Temperature 97.5 F L 10/06/20 18:31 Pulse Rate 112 H 10/06/20 18:31 Respiratory Rate 20 10/06/20 18:31 Blood Pressure 207/95 H 10/06/20 18:31 Pulse Oximetry 100 10/06/20 18:31 Temperature 97.5 F L 10/06/20 18:31 Pulse Rate 112 H 10/06/20 18:31 Respiratory Rate 20 10/06/20 18:31 Blood Pressure 207/95 H 10/06/20 18:31 Pulse Oximetry 100 10/06/20 18:31 Procedures Other Procedure Procedure 1: Other Procedure: Patient's left hand was prepped with technique care scrub
[2020-10-06] MEDS: MORPHINE SULFATE (*CRX) 2 MG/ML INJ IV PUSH (18:56)
[2020-10-06] MEDS: LORazepam INJ (*CRX) 2 MG/ML VIAL 1 MG IV PUSH (18:56)
[2020-10-06] MEDS: TETANUS,DIPHTHERIA,AC PERTUSSIS ADULT (0.5 ML) BOOSTRIX IM (18:56)
[2020-10-06] MEDS: ceFAZolin 2 GM/D5W 50 ML 2 GM/50 ML BAG IVPB (19:27)
[2020-10-06 20:25] VITALS: BP 142/79; PULSE 78; RESP 18; O2SAT 99
== END 2020-10-06 20:27 | disposition home or self-care (01) ==
PROVIDERS: Emergency Provider Emergency Medicine; PCP Family Medicine
DX: S62.636B Displaced fracture of distal phalanx of right little finger, initial encounter for open fracture (principal); S61.452A Open bite of left hand, initial encounter; T79.7XXA Traumatic subcutaneous emphysema, initial encounter; Z23 Encounter for immunization; E11.9 Type 2 diabetes mellitus without complications; Z79.4 Long term (current) use of insulin; Z98.84 Bariatric surgery status; W54.0XXA Bitten by dog, initial encounter
CPT/HCPCS: 11720; 12001; 73130; 90471; 90715; 96365; 96375; 99284; J0690; J2060; J2270

== ENCOUNTER → 2020-10-14 01:58 | Outpatient (CLI) | payer MEDICARE, MEDICAID, SELFPAY ==
[2020-10-14 20:13] LABS: SARS-CoV-2 RNA PCR Negative
== END ==
PROVIDERS: PCP Family Medicine; Visit Provider Plastic Surgery
DX: Z01.812 Encounter for preprocedural laboratory examination (principal); Z20.822 Contact with and (suspected) exposure to COVID-19
CPT/HCPCS: C9803; U0003; U0005

== ENCOUNTER 2020-10-15 09:55 | Outpatient (CLI) | payer MEDICARE, MEDICAID, SELFPAY ==
[2020-10-15 10:49] LABS: INR 1.1; Partial Thromboplastin Time 25.7 SECONDS (22.3-36.8); Prothrombin Time 15.2 Seconds (11.1-14.7)
== END 2020-10-15 09:56 | disposition home or self-care (01) ==
LOC: ANHSURGERY 09:59
PROVIDERS: Anesthesiology; PCP Family Medicine; Visit Provider Plastic Surgery
DX: N18.9 Chronic kidney disease, unspecified (principal); Z01.818 Encounter for other preprocedural examination
CPT/HCPCS: 36415; 85610; 85730

== ENCOUNTER 2020-10-17 02:01 | Day surgery (SDC) | payer MEDICARE, MEDICAID, SELFPAY ==
[2020-10-14 13:39] VITALS: BMI 28.6
--- NOTE | ~2020-10-17 | XR_ITS ---
EXAMINATION: XR surgery orthopedic EXAM DATE: 10/17/2020 14:18 INDICATION: Right 5th finger ORIF. TECHNIQUE: Fluoroscopy used during right 5th distal phalangeal fracture ORIF performed by Dr. Paulino Avalos MD. Radiologist was not present for the imaging or procedure. Total fluoroscopic time of 0.8 minutes. A total of 2 images obtained for the exam. The DAP for this procedure was 0.0037 mGym2 . Correlation was made with right hand x-ray 10/06/2020. FINDINGS: Frontal and lateral projections demonstrate to fixation wires bridging right 5th tuft frac ture. One of the wires also traverses the distal interphalangeal joint. There is swelling overlying t he distal phalanx. Correlate with procedure note. IMPRESSION: Fluoroscopy used during right 5th distal phalangeal ORIF. Reviewed, dictated and finalized at location A.
--- NOTE | 2020-10-17 07:30 | WPDHPUPDATE1 ---
History and Physical Update Update Date/Time: 10/17/20 07:30 History and Physical has been reviewed, including an updated exam of the patient. There are NO changes in the patient's condition. Risks, benefits, and alternatives have been discussed and questions answered. Patient agrees to proceed with procedure.
--- NOTE | 2020-10-17 12:02 | P.PNAN_ITS ---
Anes - Initial Pre Proc Eval Procedure: Operation Date: 10/17/20 13:15 Proposed Procedures p Open Reduction Internal Fixation Of The Right Fifth Finger - Paulino Avalos MD Date/Time: 10/17/20 12:02 Surgeon: Paulino Avalos MD Pre Op Diagnosis: fx of right 5th finger Patient Data Age: 60 Gender: M Height: 1.75 m Weight: 88 kg Allergies Allergy/AdvReac Type Severity Reaction Status Date / Time ferumoxytol Allergy Severe Anaphylactic Verified 10/14/20 13:33 Shock Iodinated Contrast Media Allergy Severe Anaphylactic Verified 10/14/20 13:33 Shock iodine Allergy Severe Anaphylactic Verified 10/14/20 14:05 Shock iron dextran complex Allergy Severe Anaphylactic Verified 10/14/20 13:33 Shock shellfish derived Allergy Severe Anaphylactic Verified 10/14/20 13:33 Shock Home Medications Medication Instructions Recorded Confirmed Type alprazolam [Xanax] 0.25 mg PO DAILY PRN 04/06/20 10/14/20 History citalopram 20 mg PO DAILY 04/06/20 10/14/20 History ergocalciferol (vitamin D2) 1,250 mcg PO WEEKLY 04/06/20 10/14/20 History furosemide 20 mg PO DAILY PRN 04/06/20 10/14/20 History insulin aspart U-100 [Novolog See Rx Instructions .ROUTE .COMPLEX 04/06/20 10/14/20 History U-100 Insulin aspart] losartan 100 mg PO DAILY 04/06/20 10/14/20 History metformin 1,000 mg PO DAILY 04/06/20 10/14/20 History aspirin 81 mg PO DAILY 10/14/20 10/14/20 History calcium 1,200 mg PO DAILY 10/14/20 10/14/20 History ondansetron HCl [Zofran] 4 mg PO Q8H PRN 10/14/20 10/14/20 History testosterone cypionate 100 mg IM WEEKLY 10/14/20 10/14/20 History Patient hx anesthesia problems: none Family hx anesthesia problems: none PMFSH Past Medical History Medical History (Updated 10/17/20 @ 12:04 by Navneet Dumont MD) CKD (chronic kidney disease) stage 2, GFR 60-89 ml/min Diabetes mellitus HTN (hypertension) Pancreatitis TIA (transient ischemic attack) Surgical History Surgical History (System 10/08/20 @ 09:34 by Umm Trujillo) History of gastric bypass Social History Social History (System 10/08/20 @ 09:34 by Umm Trujillo) Smoking packs per day: 1 Smoking cigarettes per day: 20.0 Years smoked: 13 Smoking pack-years: 13.00 Smoking status: Never smoker Smoking end date: 07/25/94 Alcohol intake: never Substance use: never Substance use type: does not use Living arrangements: alone Spiritual care concerns: No Anes - Eval Final PreProcedure Day of Procedure 10/17/20 12:02 Patient weight: overweight Heart: regular rate and rhythm Lungs: clear to auscultation and normal air movement Airway: Mallampati scale class II Neurological: alert and oriented Last oral intake: >/= 8 hours ASA classification: III Emergent: no Anesthetic plan: proceed Anesthesia type and monitoring: general GIVS and LMA Informed Consent: The patient's anesthetic plan and its attendant risks and b enefits were discussed with the patient/family/POA. Questions were solicited and answers provided to the satisfaction of the patient/family/POA.
[2020-10-17] MEDS: LACTATED RINGERS 1,000 ML 30 ML IV CONT (12:15)
[2020-10-17 12:29] LABS: Glucose Point of Care 208 (65-105)
[2020-10-17 12:39] VITALS: BP 118/81; PULSE 82; TEMP 37.1; O2SAT 100
[2020-10-17] MEDS: ceFAZolin 2 GM/D5W 50 ML 2 GM/50 ML BAG IVPB (12:39)
[2020-10-17] MEDS: LIDO 1%/EPINEPHRINE 1:100,000 50 ML VIAL 10 ML INFILTRATE (12:39)
[2020-10-17 14:10] VITALS: BP 85/38; PULSE 70; RESP 14; O2SAT 97
--- NOTE | 2020-10-17 14:10 | PM.OP ---
Procedure Note - Brief Procedure Note - Brief Date of procedure: 10/17/20 Pre-op diagnosis: fx of right 5th finger Post-op diagnosis: same Procedure performed: Open reduction and internal pin fixation of distal phalanx, right fifth finger. Implants: 0.028 c-wire. 0.035 c-wire. Anesthesia: MAC Surgeon: Paulino Avalos MD Radio Mechanic Apprentice: Reba Kat Estimated blood loss (mL): 1 Drains: No Packing: No Pathology: none sent Complications: No immediate complications Condition: stable Disposition: PACU
--- NOTE | 2020-10-17 14:16 | PM.PROC ---
Procedure Note - Detailed Date of procedure: 10/17/20 Pre-op diagnosis: fx of right 5th finger Open, displaced fracture of the shaft of the distal phalanx of the right 5th small finger. Post-op diagnosis: same Procedure performed: ORIF with c-wires on open displaced shaft fracture of the right small finger distal phalanx. Description of procedure: The right 5th finger was marked in the holding area as an IV was being started. The patient was then taken to the operating room placed supine on the operating table. A time-out was held and confirmed. He was given IV anesthesia and the hand was prepped and draped the usual fashion. An intrathecal digital block was placed with 1% lidocaine with epinephrine. No tourniquet was used. The fracture site was opened to remove fracture clot. Comminution was minimal. Multiple attempts were made to place a 0.0 2 8 C wire from distal to proximal. The eventually a stable pin was placed through the distal fragment from within the wound. The fracture was reduced and the pin was driven proximally. This provided sufficient stability to place our 2nd pin which was a 0.035 in C-wire. Multiple images were taken. The fracture is now fixed and the joint is stabilized with a traversing C-wire. The pins were cut short beneath the skin. The existing skin wounds were reclosed with interrupted 4-0 nylon. The pin sites were closed with interrupted 5 0 nylon. A Xeroform and gauze dressing were applied with Coban wrap. He is being discharged with instructions in wound care and follow-up. He also has prescriptions for cephalexin 500 mg t.i.d. for 5 days and Percocet 5/325 10. Anesthesia: MAC Surgeon: Paulino Avalos MD Belting And Webbing Inspector: Reba Kat Estimated blood loss (mL): 2 Drains: No Packing: No Pathology: none sent Complications: No immediate complications Condition: stable Disposition: same day
[2020-10-17 14:31] LABS: Glucose Point of Care 185 (65-105)
[2020-10-17 14:40] VITALS: BP 82/45; PULSE 63; RESP 14; O2SAT 99
[2020-10-17 15:15] VITALS: BP 100/61; PULSE 62; RESP 14
[2020-10-17 15:45] VITALS: BP 93/76; PULSE 69; RESP 14
== END 2020-10-17 16:06 | disposition home or self-care (01) ==
PROVIDERS: PCP Family Medicine; Visit Provider Plastic Surgery
PROC: (CPT 26765; principal; 2020-10-17 13:15)
DX: S62.636B Displaced fracture of distal phalanx of right little finger, initial encounter for open fracture (principal); W54.0XXA Bitten by dog, initial encounter; I12.9 Hypertensive chronic kidney disease with stage 1 through stage 4 chronic kidney disease, or unspecified chronic kidney disease; N18.2 Chronic kidney disease, stage 2 (mild); E11.22 Type 2 diabetes mellitus with diabetic chronic kidney disease; Z86.73 Personal history of transient ischemic attack (TIA), and cerebral infarction without residual deficits; Z87.891 Personal history of nicotine dependence; Z98.84 Bariatric surgery status; Z79.4 Long term (current) use of insulin; Z79.84 Long term (current) use of oral hypoglycemic drugs; Z79.82 Long term (current) use of aspirin
CPT/HCPCS: 26765; A9270; C1713; J0690; J1100; J2250; J2405; J2704; J3010; J7120

== ENCOUNTER 2020-12-09 12:03 | Outpatient (CLI) | payer MEDICARE, MEDICAID, SELFPAY ==
--- NOTE | ~2020-12-09 | XR_ITS ---
XR finger 5th RT min 2V 12/09/2020 12:29 Indication: Follow-up right fifth finger fracture Procedure: 4 views right fourth finger Comparison: 10/06/2020 Findings: There is a fracture involving the distal aspect of the right fifth distal phalanx transfixe d by 2 K wires. There is near-anatomic alignment. Mild soft tissue swelling. No significant osseous b ridging or callus formation. Mild polyarticular osteoarthritis. Impression: 1: Status post internal fixation of transverse fracture right fifth distal phalanx with 2 K wires. Fr acture fragments in near-anatomic alignment post reduction. Reviewed, dictated and finalized at location A. Impression: 1: Status post internal fixation of transverse fracture right fifth distal phal anx with 2 K wires. Fracture fragments in near-anatomic alignment post reductio n.
== END 2020-12-09 12:04 | disposition home or self-care (01) ==
LOC: ANHIMG 12:08
PROVIDERS: PCP Family Medicine; Visit Provider Plastic Surgery
DX: S62.636D Displaced fracture of distal phalanx of right little finger, subsequent encounter for fracture with routine healing (principal); Z98.890 Other specified postprocedural states
CPT/HCPCS: 73140

== ENCOUNTER 2021-01-02 14:06 | Inpatient (IN) | payer MEDICARE, MEDICAID, SELFPAY ==
[2021-01-02] VITALS (20 sets, daily range): BP systolic 135–168; BP diastolic 60–92; PULSE 85–108; RESP 10–18; TEMP 36.8–37.1; O2SAT 97–100; BMI 28.5
--- NOTE | ~2021-01-02 | XR_ITS ---
EXAMINATION: XR chest 2V EXAM DATE: 01/02/2021 14:35 INDICATION: Chest pain, pressure. TECHNIQUE: Frontal and lateral projections of the chest obtained and reviewed. Comparison is made to prior examination from 09/04/2020. FINDINGS: The lungs are clear. There are no pleural effusions. The cardiomediastinal silhouette is within normal limits. There is no pneumothorax suspected. There are mild bony degenerative changes. IMPRESSION: No acute cardiopulmonary findings. Reviewed, dictated and finalized at location B.
--- NOTE | 2021-01-02 14:21 | ED.CHESTPAIN ---
HPI - Chest Pain General Chief Complaint: Chest Pain Stated Complaint: CP Time Seen by Provider: 01/02/21 14:09 History of Present Illness HPI narrative: Left sided chest pain for about 30 minutes. Radiates down left arm. Feels like squeezing. Associated with SOB. Started while exercising. Improved mildly with aspirin and nitro per EMS. Related Data Home Medications Medication Instructions Recorded Confirmed alprazolam [Xanax] 0.25 mg PO DAILY PRN 04/06/20 10/24/20 citalopram 20 mg PO DAILY 04/06/20 10/24/20 ergocalciferol (vitamin D2) 1,250 mcg PO WEEKLY 04/06/20 10/24/20 furosemide 20 mg PO DAILY PRN 04/06/20 10/24/20 insulin aspart U-100 [Novolog See Rx Instructions .ROUTE .COMPLEX 04/06/20 10/24/20 U-100 Insulin aspart] losartan 100 mg PO DAILY 04/06/20 10/24/20 metformin 1,000 mg PO DAILY 04/06/20 10/24/20 aspirin 81 mg PO DAILY 10/14/20 10/24/20 calcium 1,200 mg PO DAILY 10/14/20 10/24/20 ondansetron HCl [Zofran] 4 mg PO Q8H PRN 10/14/20 10/24/20 testosterone cypionate 100 mg IM WEEKLY 10/14/20 10/24/20 gabapentin 400 mg capsule 400 mg PO TID 10/24/20 10/24/20 Allergies Allergy/AdvReac Type Severity Reaction Status Date / Time ferumoxytol Allergy Severe Anaphylactic Verified 01/02/21 14:19 Shock Iodinated Contrast Media Allergy Severe Anaphylactic Verified 01/02/21 14:19 Shock iodine Allergy Severe Anaphylactic Verified 01/02/21 14:19 Shock iron dextran complex Allergy Severe Anaphylactic Verified 01/02/21 14:19 Shock shellfish derived Allergy Severe Anaphylactic Verified 01/02/21 14:19 Shock Review of Systems Review of Systems: All systems reviewed & are unremarkable except as noted in HPI and below Constitutional: Constitutional: Denies chills and Denies fever(s) ENT: Reports system reviewed and no additional complaints, except as documented Cardiovascular: Cardiovascular: Reports chest pain and Reports radiating jaw, neck or arm pain Respiratory: Respiratory: Reports dyspnea Gastrointestinal: Gastrointestinal: Denies abdominal pain, Denies nausea and Denies vomiting Genitourinary: Genitourinary: Reports no additional male genitourinary complaints Neurologic: Reports system reviewed and no additional complaints, except as documented [facility] Past Medical History Medical History CKD (chronic kidney disease) stage 2, GFR 60-89 ml/min Diabetes mellitus HTN (hypertension) Pancreatitis TIA (transient ischemic attack) Surgical History Surgical History H/O laminectomy History of cholecystectomy History of gastric bypass Social History Social History Social History: former smoker Smoking packs per day: 1 Smoking cigarettes per day: 20.0 Years smoked: 13 Smoking pack-years: 13.00 Smoking status: Former smoker Smoking end date: 07/25/94 Alcohol intake: never Substance use: never Substance use type: does not use Spiritual care concerns: No Exam Const: General: no acute distress and alert Orientation/consciousness: patient oriented x3 Other: diaphoretic HENMT: Head: normal to inspection Neck: Neck: normal visual inspection Chest: Chest palpation & inspection: no tenderness Resp: Effort & Inspection: normal respiratory effort Auscultation: clear to auscultation bilaterally Cardio: Rate: regular rate Rhythm: regular rhythm GI: GI Palp: Yes Soft to palpation and No Tenderness to palpation present (GI) Skin: General skin exam: normal color Other: diaphoresis Neuro: General: patient oriented x3, moves all extremities and CN's II-XI intact bilaterally Extrem: General: normal to inspection Course Vital Signs Vital signs: Vital Signs Temperature 37.1 C 01/02/21 14:08 Pulse Rate 108 H 01/02/21 14:08 Respiratory Rate 12 01/02/21 14:08 Blood Pressure 147/
--- NOTE | 2021-01-02 14:22 | ECG_ITS ---
Measurements Intervals [place] Rate: 108 P: 65 MO: 152 QRS: 47 QRSD: 89 T: 63 QT: 325 QTc: 437 Interpretive Statements SINUS TACHYCARDIA ST ELEVATION IN ANTERIOR LEADS- CONSIDER ACUTE INFARCT ABNORMAL ECG Electronically Signed On 01-02-2021 16:11:05 CDT by Damian Randhawa D.O.
--- NOTE | 2021-01-02 14:50 | PC.NURSE ---
Pt given 1x nitro sublingual prior to going to the construction laborer per dr heredia
[2021-01-02 14:55] LABS: Basophils Percent Auto 0.5 % (0.2-1.2); Eosinophils Absolute Auto 0.1 K/mm3 (0-0.3); Eosinophils Percent Auto 1.1 % (0-4.4); Hematocrit 37.9 % (42.0-52.0); Hemoglobin 12.2 g/dL (14.0-18.0); Immature Granulocyte Absolute 0.05 K/mm3 (0.00-0.031); Immature Granulocyte Percent A 0.6 % (0-0.5); Lymphocytes Absolute Auto 1.25 K/mm3 (0.9-3.2); Lymphocytes Percent Auto 14.3 % (18.3-44.2); Mean Corpuscular HGB Conc 32.2 g/dl (32-36); Mean Corpuscular Hemoglobin 25.6 pg (26-34); Mean Corpuscular Volume 79.6 fl (80-100); Mean Platelet Volume 11.5 fl (7.4-10.4); Monocytes Absolute Auto 0.5 K/mm3 (0.1-0.6); Monocytes Percent Auto 5.3 % (2.6-8.5); Neutrophils Absolute Auto 6.8 K/mm3 (1.3-6.7); Neutrophils Percent Auto 78.2 % (45.5-73.1); Platelet Count Result 335 k/mm3 (150-375); Red Blood Count 4.76 M/mm3 (4.6-6.20); White Blood Count 8.7 K/mm3 (4.5-10.0)
[2021-01-02 15:04] LABS: INR 1.1; Prothrombin Time 14.8 Seconds (11.1-14.7)
[2021-01-02 15:10] LABS: Anion Gap 17 mmol/L (8-16); Blood Urea Nitrogen 19 mg/dL (9-20); Calcium 9.6 mg/dL (8.4-10.2); Carbon Dioxide 22 mmol/L (22-30); Chloride 100 mmol/L (98-107); Estimated CRCL calculation 43 ml/min; Estimated Glomerular Filt Rate 39; Glucose 97 mg/dL (75-110); Potassium 4.2 mmol/L (3.4-5.0); Sodium 139 mmol/L (137-145)
[2021-01-02 15:24] LABS: Troponin I 0.041 ng/mL (0.000-0.034)
--- NOTE | 2021-01-02 15:43 | WPDCARDPROC ---
Cardiac Cath Procedure Note Date of procedure:: 01/02/21 Performing physician:: Bernard Carter MD Indication:: Suspected acute anterior MN Brief clinical history:: this is a 60-year-old patient with no previous history of cardiac problems. He does have significant medical problems including a history of hemorrhagic pancreatitis which has resulted in the need for insulin pump. He started to have chest discomfort earlier today after a workout at a local health club. Prior to the Exercise he takes some sort of energy products. in the emergency room he was found to have some precordial ST elevation but with no reciprocal ST depression. In this setting and emergency angiogram has been recommended. He does report a contrast allergy and has been given 125 mg of Solu-Medrol upon being prepped in the biological lab technician. Procedure Procedure performed:: Emergency coronary angiogram emergency left ventriculogram femoral angiogram Sedation/Medication given:: no sedation 125 mg Solu-Medrol case start time 3:02 p.m. case end time 3:22 p.m. Access site:: right femoral artery Estimated blood loss:: 15-20 cc Procedure note:: patient was brought to the cardiac catheterization lab in the emergency setting described above. Patient was agitated because of ongoing chest pain and procedural anxiety. Because of the stated contrast allergy I gave him steroids prior to starting the case and did not sedate him with anything else. Following this the femoral triangle was prepped and draped in the usual fashion 1% lidocaine was infiltrated locally. Using modified Seldinger technique the femoral artery was punctured and a 6 Sammarinese vascular sheath was placed. After this I used a 5 Sammarinese JR4 catheter to engage and inject the right coronary artery in orthogonal projections. After this I engaged and injected the left coronary artery in multiple projections using a standard 5 Sammarinese FL4 catheter. After this the cineangiograms were reviewed I then performed a left ventriculogram using a 5 Sammarinese angled pigtail catheter and documented left-sided hemodynamics. After this I performed 1 more left coronary angiogram in the AP cranial projection. The case was then terminated angiogram was done of the femoral artery through the sheath after which it was determined the puncture was not suitable for Angio-Seal and I appearance for improve the ICU bed with has been arranged for him for procedure recovery and sheath removal. There was no evidence of a groin hematoma upon leaving the biological lab technician Findings:: hemodynamics: Central aortic pressure was 148 over 80 left ventricle 148 over to end-diastolic 16. No systolic gradient across the aortic valve upon pullback. Left ventricle: The apex of the left ventricle is hypodynamic this is a very small region of apical hypokinesia the remainder of the LV contracts well in all segments global ejection fraction is 55-60%. The left main coronary artery is nicely patent the LAD is a moderate caliber artery and appears to be smooth free of disease extends down to the apex. There is no atherosclerosis in the LAD the circumflex is a moderate caliber artery extending down to the lateral wall providing the marginal branch is the circumflex is smooth and angiographically free of disease. The right coronary artery is large caliber dominant to the posterior circulation the right coronary is tortuous and does have proximal trejo's crook deformity. The vessel is angiographically smooth and free of disease however. Conclusion:: 1. Right coronary dominant circulation with no angiographic abnormalities 2. very small region of apical hypokinesia with overall normal left ventricular systolic function Bernard Carter MD FACC
--- NOTE | 2021-01-02 15:46 | PM.IMHP ---
H&P: HPI History of Present Illness Date/Time: 01/02/21 15:46 Chief Complaint: Chest pain, possible STEMI Narrative: Date of service: 01/02/2021 Mr. Torito Escamilla is a 60-year-old male who is being admitted to the emergency room with chest pain, possible STEMI. Mr. Escamilla has no history of heart disease. He was working out in the gym as usual, and had discomfort from his left ear radiating down his shoulders to his fingers and later had substernal chest discomfort like someone was sitting on him. He states he collapsed in front of the gym and was brought to the emergency room. EMS gave him aspirin and 2 TNGs; the 1st seemed to help but the 2nd did not. In the emergency room he is still having 2/10 Left-sided chest discomfort. No nausea, vomiting but some shortness of breath. His EKG shows some mild and atypical ST elevation anterolaterally which is new compared to his prior tracing. The patient has a history of hypertension, TIA, dyslipidemia with a low HDL and a family history of heart disease. He also has diabetes and has an insulin pump. Review of Systems Constitutional: Constitutional: Reports lethargy and Reports weakness Eyes: Eyes: Reports no additional eye complaints ENT: Denies epistaxis Cardiovascular: Cardiovascular: Reports chest pain, Denies leg edema, Reports lightheadedness and Denies palpitations Respiratory: Respiratory: Reports dyspnea and Reports dyspnea on exertion Gastrointestinal: Gastrointestinal: Denies abdominal pain and Denies hematochezia Genitourinary: Genitourinary: Denies hematuria Musculoskeletal: Musculoskeletal: Reports back pain and Reports neck pain Integumentary/Breasts: Skin/Breast: Denies rash Neurologic: Reports system reviewed and no additional complaints, except as documented Psychiatric: Psychiatric: Reports no additional psychiatric complaints [facility] Past Medical History Medical History (Updated 01/02/21 @ 16:05 by Katie Hall MD) CKD (chronic kidney disease) stage 2, GFR 60-89 ml/min CKD stage 3 secondary to diabetes Diabetes mellitus has an insulin pump Dyslipidemia low HDL History of TIA (transient ischemic attack) 2010 HTN (hypertension) THOMPSON (nonalcoholic steatohepatitis) Pancreatitis hemorrhagic pancreatitis in 2012 leaving him with diabetes Spinal stenosis Surgical History Surgical History H/O laminectomy History of cholecystectomy History of gastric bypass Family History Family History (Updated 01/02/21 @ 15:52 by Katie Hall MD) Father No problems noted. Mother Heart disease Social History Social History (Updated 01/02/21 @ 15:55 by Katie Hall MD) Social History: former smoker, quit 1994. Infrequent alcohol, no drug use. He is accompanied by his personal lines sales executive, Giorgi. Smoking packs per day: 1 Smoking cigarettes per day: 20.0 Years smoked: 13 Smoking pack-years: 13.00 Smoking status: Former smoker Smoking end date: 07/25/94 Alcohol intake: never Substance use: never Substance use type: does not use Spiritual care concerns: No Meds Home Medications and Allergies Home Medications Medication Instructions Recorded Confirmed Type alprazolam [Xanax] 0.25 mg PO DAILY PRN 04/06/20 10/24/20 History citalopram 20 mg PO DAILY 04/06/20 10/24/20 History ergocalciferol (vitamin D2) 1,250 mcg PO WEEKLY 04/06/20 10/24/20 History furosemide 20 mg PO DAILY PRN 04/06/20 10/24/20 History insulin aspart U-100 [Novolog See Rx Instructions .ROUTE .COMPLEX 04/06/20 10/24/20 History U-100 Insulin aspart] losartan 100 mg PO DAILY 04/06/20 10/24/20 History metformin 1,000 mg PO DAILY 04/06/20 10/24/20 History aspirin 81 mg PO DAILY 10/14/20 10/24/20 History calcium 1,200 mg PO DAILY 10/14/20 10/24/20 History ondansetron HCl [Zofran] 4 mg PO Q8H PRN 10/14/20 10/24/20 History
--- NOTE | 2021-01-02 16:20 | PC.NURSE ---
This patient, Torito Escamilla III, was admitted to Intensive Care Unit-11. Patient/family oriented to hospital policies and general routines including ID bracelet, bed and alarms, visiting hours, pain management, procedures, bathroom and other care routines, personal items, smoking policy, room service/diet, and visiting hours. Information on how to activate the Rapid Response Team has been discussed. Patient/Family are encouraged to report perceived risks to care and to ask questions if they do not understand what they are told or what they should do.
[2021-01-02] MEDS: SODIUM CHLORIDE 0.9% IV 1,000 ML 125 ML IV CONT (17:08)
[2021-01-02 17:46] LABS: Glucose Point of Care 147 mg/dl (65-105)
--- NOTE | 2021-01-02 18:35 | PC.NURSE ---
REPORT OFF GIVEN TO JEREMIAH Friend RN AFTER SHEATH PULL R. GROIN SITE AND HEMOSTASIS ACHIEVED AFTER 35 MINUTES MANUAL PRESSURE HOLD BY THIS RN AND LOUIS ALLEN RN. OBSERVED R.GROIN SITE TOGETHER. BEDREST ACTIVITY RESTRICTIONS HAVE BEEN REVIEWED W/ PT. VOICED UNDERSTANDING.
[2021-01-02 19:28] LABS: Troponin I 0.056 ng/mL (0.000-0.034)
[2021-01-02 21:26] LABS: Glucose Point of Care 312 mg/dl (65-105)
[2021-01-02 21:38] LABS: Troponin I 0.057 ng/mL (0.000-0.034)
[2021-01-02] MEDS: GABAPENTIN 400 MG CAPSULE PO (23:02)
[2021-01-03] VITALS (11 sets, daily range): BP systolic 135–148; BP diastolic 48–84; PULSE 72–85; RESP 16–18; TEMP 36.6–36.8; O2SAT 97–100
--- NOTE | 2021-01-03 05:00 | ECG_ITS ---
Measurements Intervals [place] Rate: 79 P: 62 [place]: 185 QRS: 42 QRSD: 98 T: 51 QT: 377 QTc: 432 Interpretive Statements SINUS RHYTHM ST ELEVATION IN ANTEROLATERAL LEADS- PROBABLY EARLY REPOLAZIATION ABNORMALITY BORDERLINE ECG Electronically Signed On 01-03-2021 13:19:33 CDT by Damian Randhawa D.O.
[2021-01-03 05:03] LABS: Anion Gap 11 mmol/L (8-16); Blood Urea Nitrogen 24 mg/dL (9-20); Calcium 8.2 mg/dL (8.4-10.2); Carbon Dioxide 25 mmol/L (22-30); Chloride 99 mmol/L (98-107); Cholesterol 106 mg/dL (0-200); Estimated CRCL calculation 45 ml/min; Estimated Glomerular Filt Rate 44; Glucose 292 mg/dL (75-110); Potassium 5.2 mmol/L (3.4-5.0); Sodium 135 mmol/L (137-145)
--- NOTE | 2021-01-03 07:04 | PM.IMCN ---
Assessment and Plan Assessment and plan (1) ST elevation (STEMI) myocardial infarction: Qualifiers: Involved coronary artery: unspecified coronary artery Qualified Code(s): I21.3 - ST elevation (STEMI) myocardial infarction of unspecified site Code(s): I21.3 - ST elevation (STEMI) myocardial infarction of unspecified site Status: Acute Assessment and Plan: No significant coronary disease on catheterization. Management per primary service. (2) Diabetes mellitus: Qualifiers: Diabetes mellitus complication status: with other specified complication Diabetes mellitus type: type 1 Qualified Code(s): E10.69 - Type 1 diabetes mellitus with other specified complication Code(s): E11.9 - Type 2 diabetes mellitus without complications Status: Acute Assessment and Plan: The patient is moderately hyperglycemic this in part due to his insulin pump being removed during procedure and in part due to receiving Solu-Medrol prior to contrast administration. The patient's insulin pump has been resumed with his home settings. His glucoses are down to 191 this morning after reinstitution of his insulin pump. The patient's insulin infusion is 1 unit per hour for 12 hours a day and 0.9 units for the other 12 hours. His insulin to carb ratio is 1 unit for every 8 g of carbs. He receives 1 unit of insulin for every 35 mg/dL his glucoses above 125 as a correction factor. The patient's metformin will be placed on hold given his acute on chronic renal insufficiency. (3) CKD stage 3 secondary to diabetes: Code(s): E11.22 - Type 2 diabetes mellitus with diabetic chronic kidney disease; N18.30 - Chronic kidney disease, stage 3 unspecified Status: Acute Assessment and Plan: The patient's creatinine is mildly elevated above baseline. But his repeat levels for this morning have improved slightly. Would continue to hold metformin until discussed with nephrology and Endocrinology as outpatient. I have advised the patient to avoid excessive workout supplements or exceedingly high protein diet. HPI Data of Consult Consult date: 01/03/21 Requesting Physician: Katie Hall MD Primary Care Provider: Jaja ChowdaryMD Consult Narrative Reason for consult: Diabetes management Narrative: Torito Escamilla III is a 60 year old male with a past medical history of anxiety, obesity status post gastric bypass, insulin-dependent diabetes due to hemorrhagic pancreatitis and chronic kidney disease who presented to the ER after developing chest pain. The patient had been working out for about 3 hours when he had sudden onset of substernal chest pain that radiated down his left arm. He took an 81 mg aspirin at home and received 3 more aspirin per EMS. He received 2 nitro with little relief in his chest pain. When he presented to the ER it was felt that he had some ST elevation in his precordial leads. He had no reciprocal ST depression. He had an emergent cardiac catheterization which demonstrated dominant right coronary circulation without angiographic abnormalities and a very small region of apical hypokinesis with overall normal left ventricular systolic function. Had a recurrence of his chest pain. The patient had received IV Solu-Medrol prior to his procedure because he reported a contrast allergy. The patient has had diabetes since 2011 when he had hemorrhagic pancreatitis that required extensive debridement. His hemoglobin A1c is been somewhere around 8. His baseline creatinine is around 1.3-1.4. He denies any change in urinary frequency, dysuria, difficulty emptying his bladder. Review of Systems Review of Systems: Narrative: 12 systems were reviewed with pertinent positives and negatives per HPI. Except as documented in the HPI, all other systems were reviewed and are negative. [facility] Past Medical History Medical History (Updated 01/03/21 @ 08:54 by Monty Alvarez
--- NOTE | 2021-01-03 08:45 | WPDCNINT ---
Assessment and Plan Assessment and plan (1) ST elevation (STEMI) myocardial infarction: Qualifiers: Involved coronary artery: unspecified coronary artery Qualified Code(s): I21.3 - ST elevation (STEMI) myocardial infarction of unspecified site Code(s): I21.3 - ST elevation (STEMI) myocardial infarction of unspecified site Status: Acute Assessment and Plan: Patient presented with chest pain, EKG showed mild anterolateral ST-elevation, was taken for cardiac catheterization. There was no angiographic abnormalities. Is very small region of apical hypokinesia with overall normal LV systolic function, EF 55-60% -patient has been started on clopidogrel, aspirin, beta-ja and losartan (2) Diabetes mellitus: Qualifiers: Diabetes mellitus type: type 1 Diabetes mellitus complication status: with other specified complication Qualified Code(s): E10.69 - Type 1 diabetes mellitus with other specified complication Code(s): E11.9 - Type 2 diabetes mellitus without complications Status: Acute Assessment and Plan: Patient has an insulin pump as well as dexcom, (3) Acute on chronic renal failure: Code(s): N17.9 - Acute kidney failure, unspecified; N18.9 - Chronic kidney disease, unspecified Status: Acute Assessment and Plan: Patient with history of chronic kidney disease stage 3, (last creatinine was 1.3 on 09/04/2020) -patient received adequate fluids, urine output has been good, creatinine trending down (4) Dyslipidemia: Code(s): E78.5 - Hyperlipidemia, unspecified Status: Acute Assessment and Plan: Discussed with cardiology, status will be ordered Additional Plan Discussed with patient updated with his condition plan of care. Code status: Full code Critical care time spent: 39 minutes This dictation may have been done utilizing a voice recognition system. Attempts have been made to correct errors. However, there may be uncorrected grammatical, spelling, and recognition errors present. Due to a high probability of clinically significant, life threatening deterioration, the patient required my highest level of preparedness to intervene emergently and I personally spent this critical care time directly and personally managing the patient. This critical care time included obtaining a history; examining the patient; pulse oximetry; ordering and review of studies; arranging urgent treatment with development of a management plan; evaluation of patient's response to treatment; frequent reassessment; and discussions with other providers. It was exclusive of separately billable procedures and treating other patients and teaching time. Please see Assessment and Plan section and the rest of the note for further information on patient assessment and treatment [employer] Director Consult Note Consult date: 01/03/21 Time Seen: 07:09 Reason for consult: Chest pain, possible STEMI HPI: Torito Escamilla III is a 60 year old male with past medical history of chronic kidney disease stage 3, diabetes, as insulin pump, dyslipidemia, history of TIA, essential hypertension, THOMPSON, hemorrhagic pancreatitis, spinal stenosis presented the ED on 01/02/2021 with complains of chest pain while he was working out in the gym as usual. He started having discomfort on the left side of his ER and radiating down to his shoulder, to his fingers and later he had substernal chest discomfort as if someone was sitting on him. He stated he collapsed front of the gym and was brought to the ER his EKG showed mild and atypical ST-elevation anterolaterally, patient was taken for emergent cardiac catheterization angiographic abnormalities, small region of the apical hypokinesia with overall normal LV systolic function of 55-60 %. Patient was transferred to the ICU for further management Patient seen and examined the ICU this morning, denies any chest pain, shortness of breath, abdominal pain, nausea vomi
[2021-01-03] MEDS: GABAPENTIN 400 MG CAPSULE PO (08:59)
[2021-01-03] MEDS: CLOPIDOGREL BISULFATE 75 MG TABLET PO (08:59)
[2021-01-03] MEDS: LOSARTAN POTASSIUM 100 MG TABLET PO (08:59)
[2021-01-03] MEDS: ASPIRIN 81 MG CHEWABLE TABLET PO (08:59)
[2021-01-03] MEDS: CALCIUM CARBONATE (OSCAL) 500 MG TABLET 1000 MG PO (08:59)
--- NOTE | 2021-01-03 08:59 | PM.PNCARD ---
Progress Note: A&P Additional Plan 60-year-old man with: Acute coronary event in the absence of any obstructive coronary artery disease angiographically. Given his background of diabetes and hypertension he will be treated medically. Aspirin and clopidogrel have been started. He is already taking losartan for hypertension. I will start him on a modest dose of metoprolol and atorvastatin as well. Given the minimal amount of myocardial injury that has occurred he can safely be discharged later today. We will arrange follow-up in the office with Dr. Hall and he will continue to follow with his PCP of [facility] and his heel seat pounder regarding his diabetes. Bernard Carter MD [facility] Subjective Date/time seen: Date of service: 01/03/21 08:59 Interval history: Follow-up visit in this 60-year-old man with: Acute myocardial infarction occurring yesterday unusual situation. Patient presented with chest pain that began after his workout at a health club. He presented to the emergency room feeling unwell with some chest pain and anterior precordial ST elevation. There was no reciprocal depression. Emergency angiography did not show any coronary artery occlusions. He has a tiny region of akinesis at the apex of his left ventricle. Troponin levels were minimally elevated at 0.05 and remained flat. He is currently asymptomatic. Patient has history of hypertension and diabetes following an episode of hemorrhagic pancreatitis a number of years ago. He is on insulin pump for that reason. Exam Const: General: comfortable and no acute distress Other: Cooperative white male no apparent distress denies any ongoing chest pain HENMT: Mouth: Yes moist mucous membranes Eyes: Sclera: sclerae normal Pupils: Equal, round and reactive pupils present Neck: Neck: supple and no JVD Resp: Effort & Inspection: normal respiratory effort Auscultation: clear to auscultation bilaterally Cardio: Rate: regular rate Rhythm: regular rhythm GI: GI Palp: Yes Soft to palpation Auscultation: normal bowel sounds Skin: General skin exam: normal color Neuro: Cognition (Neuro): normal cognition Extrem: General: normal to inspection Other: Right groin puncture site looks fine normal pulse no hematoma no ecchymosis no bruit Objective Data Vital Signs Vital Signs: Vital Signs - 24 hr 01/02/21 14:08 01/02/21 16:00 01/02/21 16:02 Temperature 37.1 C Pulse Rate 108 H 93 93 Pulse Rate [Right Pedal (Dorsalis Pedis) Palpation] Respiratory Rate 12 13 13 Blood Pressure 147/92 H 144/76 H Pulse Oximetry 100 98 100 01/02/21 16:13 01/02/21 16:39 01/02/21 16:58 Temperature Pulse Rate 93 89 93 Pulse Rate [Right Pedal (Dorsalis Pedis) Palpation] Respiratory Rate 17 10 L 13 Blood Pressure 151/77 H 149/74 H 140/73 Pulse Oximetry 97 98 97 01/02/21 17:22 01/02/21 17:55 01/02/21 18:00 Temperature Pulse Rate 85 87 92 Pulse Rate [Right Pedal (Dorsalis Pedis) Palpation] Respiratory Rate 18 18 18 Blood Pressure 158/86 H 157/85 H 143/87 H Pulse Oximetry 97 99 98 01/02/21 18:10 01/02/21 18:15 01/02/21 18:25 Temperature Pulse Rate 90 90 91 Pulse Rate [Right Pedal (Dorsalis Pedis) Palpation] Respiratory Rate 18 18 18 Blood Pressure 144/85 H 145/80 H 168/79 H Pulse Oximetry 98 99 99 01/02/21 18:35 01/02/21 18:45 01/02/21 19:00 Temperature Pulse Rate 89 86 93 Pulse Rate [Right Pedal (Dorsalis Pedis) Palpation] Respiratory Rate 16 18 13 Blood Pressure 165/86 H 137/84 155/90 H Pulse Oximetry 98 99 98 01/02/21 20:00 01/02/21 21:00 01/02/21 22:00 Temperature 36.8 C 36.8 C Pulse Rate 89 90 85 Pulse Rate [Right Pedal (Dorsalis Pedis) Palpation] 90 90 Respiratory Rate 16 16 16 Blood Pressure 145/79 H 140/81 141/79 H Pulse Oximetry 99 100 100 01/02/21 22:30 01/02/21 23:54 01/03/21 00:00 Temperature Pulse Rate 85 85 83 Pulse Rate [Right Pedal (Dorsalis Pedis) Palpation] 90 90 Respiratory Rate 16 16 16
[2021-01-03] MEDS: METOPROLOL SUCCINATE EXT REL 25 MG TABCR PO (09:39)
[2021-01-03] MEDS: ATORVASTATIN 10 MG TABLET PO (09:40)
--- NOTE | 2021-01-03 12:25 | PM.DS ---
DS: Admitting Diagnosis Admitting Diagnosis Admitting Diagnosis: ST-elevation OR DS: Discharge Diagnosis Discharge Diagnosis (1) ST elevation (STEMI) myocardial infarction: Qualifiers: Involved coronary artery: unspecified coronary artery Qualified Code(s): I21.3 - ST elevation (STEMI) myocardial infarction of unspecified site Code(s): I21.3 - ST elevation (STEMI) myocardial infarction of unspecified site Status: Acute DS: Summary Hospital Course Reason for hospitalization: Chest pain Hospital Course: This is a 60-year-old man who came to the hospital on the afternoon of admission with chest pain that began while he was working out at a gym. Following the workout he began to experience feeling unwell with some chest pain he also had some symptoms of poor memory of what was going on and was pre syncopal outside of the gym. 911 was called and he was brought to the emergency room for evaluation. His electrocardiogram showed a sinus mechanism with some anterior ST elevation which by morphology looked suspicious for early repolarization. 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 He has medical background of hypertension and insulin-requiring diabetes. The patient has no pancreatic function because of a previous history of hemorrhagic pancreatitis. Emergency coronary angiogram did not show any significant coronary lesions. The patient had a small very discrete region of akinesis at the apex of left ventricle overall good LV systolic function. Troponin level was very slightly elevated at 0.05 and remained flat. It was presumed that he had a very small acute coronary event but once again no evidence of any significant large vessel coronary disease. He was therefore treated medically. Today he is asymptomatic and feeling well. He was placed on aspirin and clopidogrel as well as beta-ja therapy and atorvastatin. He had a ready been on losartan for hypertension. Today the patient is asymptomatic and free of complaints due to his minimal troponin rise and negative coronary angiogram I thought he was a acceptable candidate for discharge this afternoon. He will followed up in the office by Dr. 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 Status at Discharge Functional status at discharge: independent ambulation Overall status at discharge: patient is back to baseline Time Spent with Patient Time attestation: Total time spent providing and/or coordinating discharge services: Exam Const: General: comfortable and no acute distress HENMT: Mouth: Yes moist mucous membranes Eyes: Sclera: sclerae normal Pupils: Equal, round and reactive pupils present Neck: Neck: supple and no JVD Resp: Effort & Inspection: normal respiratory effort Auscultation: clear to auscultation bilaterally Cardio: Rate: regular rate Rhythm: regular rhythm Other: No murmur no gallop no rub GI: GI Palp: Yes Soft to palpation Auscultation: normal bowel sounds Skin: General skin exam: normal color Neuro: General: gait normal Extrem: General: normal to inspection Other: Right groin puncture site looks fine no hematoma no bruit no ecchymosis DS: Data Data Completed and Pending Labs on day of discharge: Labs from last 24 hours 01/03/21 01/02/21 01/02/21 04:19 21:12 20:58 WBC RBC Hgb Hct MCV MCH MCHC RDW Plt Count MPV Immature Gran % (Auto) Neut % (Auto) Lymph % (Auto) Falls % (Auto) Eos % (Auto) Baso % (Auto) Lymph # (Auto) Falls # (Auto) Eos # (Auto) Baso # (Auto) Abs Immat Gran (auto) Absolute Neuts (auto) Absolute Nucleated RBC Nucleated RBC % PT INR APTT Sodium 135 L Potassium 5.2 H Chloride 99 Carbon Dioxide 25
== END 2021-01-03 14:05 | disposition home or self-care (01) | DRG 281 ==
LOC: ANHED 14:40 → ANHCATHLAB 14:59 → ANHED 15:41 → ANHICU 01-03 09:41
PROVIDERS: Admitting Provider Internal Medicine Cardiovascular Disease; Emergency Provider Emergency Medicine; PCP Family Medicine; Visit Provider Specialist
PROC: 4A023N7 Measurement of Cardiac Sampling and Pressure, Left Heart, Percutaneous Approach (ICD-10-PCS; CPT 93452; principal; 2021-01-02 14:45)
DX: I21.3 ST elevation (STEMI) myocardial infarction of unspecified site (principal); N17.9 Acute kidney failure, unspecified; E10.22 Type 1 diabetes mellitus with diabetic chronic kidney disease; I12.9 Hypertensive chronic kidney disease with stage 1 through stage 4 chronic kidney disease, or unspecified chronic kidney disease; N18.30 Chronic kidney disease, stage 3 unspecified; K75.81 Nonalcoholic steatohepatitis (NASH); E78.5 Hyperlipidemia, unspecified; F41.8 Other specified anxiety disorders; Z96.41 Presence of insulin pump (external) (internal); Z79.4 Long term (current) use of insulin; Z79.899 Other long term (current) drug therapy; Z86.73 Personal history of transient ischemic attack (TIA), and cerebral infarction without residual deficits; Z87.891 Personal history of nicotine dependence; Z91.041 Radiographic dye allergy status
CPT/HCPCS: 36415; 71046; 80048; 82465; 82948; 84484; 85025; 85610; 85730; 93005; 93458; 99291; A9270; C1887; C1894; J0171; J0461; J1644; J2930; J7030; J7040

== ENCOUNTER 2021-01-06 19:46 | Observation (INO) | payer MEDICARE, MEDICAID, SELFPAY ==
--- NOTE | ~2021-01-06 | XR_ITS ---
EXAMINATION: XR chest 1V portable DATE: 01/06/2021 20:07 INDICATION: Shortness of breath. TECHNIQUE: A single frontal view of the chest was obtained. COMPARISON: Chest 2 views 01/02/2021, CT abdomen and pelvis 07/28/2020 FINDINGS: The chest demonstrates clear lungs without pneumonia, pleural effusion, or pneumothorax. Th e heart size is normal. IMPRESSION: 1. No acute cardiopulmonary disease. Reviewed, dictated and finalized at location A.
--- NOTE | ~2021-01-06 | NM_ITS ---
EXAMINATION: NM pulmonary perfusion DATE: 01/07/2021 13:10 INDICATION: Shortness of breath TECHNIQUE: 5.4 mCi Tc-99m MAA by intravenous route. Scintigraphic images of the chest were obtained. COMPARISON: Chest radiograph dated 01/06/2021 and pulmonary perfusion study dated 04/06/2020 FINDINGS: There is relatively homogeneous perfusion throughout the lungs. No discrete ventilation and perfusio n mismatch is identified. IMPRESSION: 1. Low probability for pulmonary embolism. Reviewed, dictated and finalized at location A.
[2021-01-06 19:46] VITALS: BP 134/76; PULSE 92; RESP 18; TEMP 36.8; O2SAT 97
--- NOTE | 2021-01-06 19:58 | ECG_ITS ---
Measurements Intervals [place] Rate: 91 P: 53 GA: 173 QRS: 17 QRSD: 96 T: 39 QT: 362 QTc: 447 Interpretive Statements SINUS RHYTHM BASELINE ARTIFACT- V1, V3-V5 NORMAL ECG Electronically Signed On 01-07-2021 6:26:08 CDT by Damian Randhawa D.O.
[2021-01-06 20:18] LABS: Basophils Percent Auto 0.3 % (0.2-1.2); Eosinophils Absolute Auto 0.2 K/mm3 (0-0.3); Eosinophils Percent Auto 1.9 % (0-4.4); Hematocrit 37.6 % (42.0-52.0); Immature Granulocyte Percent A 0.9 % (0-0.5); Lymphocytes Absolute Auto 1.57 K/mm3 (0.9-3.2); Lymphocytes Percent Auto 13.4 % (18.3-44.2); Mean Corpuscular HGB Conc 31.9 g/dl (32-36); Mean Corpuscular Hemoglobin 25.6 pg (26-34); Mean Corpuscular Volume 80.2 fl (80-100); Mean Platelet Volume 11.9 fl (7.4-10.4); Monocytes Absolute Auto 0.9 K/mm3 (0.1-0.6); Monocytes Percent Auto 7.4 % (2.6-8.5); Neutrophils Percent Auto 76.1 % (45.5-73.1); Platelet Count Result 300 k/mm3 (150-375); Red Blood Count 4.69 M/mm3 (4.6-6.20); Red Cell Distribution Width 20.3 % (11.5-14.5); White Blood Count 11.8 K/mm3 (4.5-10.0)
[2021-01-06 20:23] LABS: Alanine Aminotransferase 44 U/L (4-50); Albumin Level 3.9 g/dL (3.5-5.1); Alkaline Phosphatase 93 U/L (38-126); Anion Gap 16 mmol/L (8-16); Aspartate Amino Transferase 40 U/L (17-59); Bilirubin,Total 0.6 mg/dL (0.2-1.3); Blood Urea Nitrogen 19 mg/dL (9-20); Calcium 8.3 mg/dL (8.4-10.2); Carbon Dioxide 19 mmol/L (22-30); Chloride 103 mmol/L (98-107); Estimated CRCL calculation 51 ml/min; Estimated Glomerular Filt Rate 52; Glucose 203 mg/dL (75-110); Sodium 138 mmol/L (137-145)
[2021-01-06 20:37] LABS: Troponin I 0.046 ng/mL (0.000-0.034)
--- NOTE | 2021-01-06 20:51 | ED.GENADULT ---
HPI - General Adult General Chief complaint: Shortness of Breath/Dyspnea Stated complaint: sob-similar episode fri (seen here) Time Seen by Provider: 01/06/21 20:22 Source: patient History of Present Illness HPI narrative: Patient is a 60 y/o male complaining of severe SOB starting 1 1/2 hour ago. There is no known alleviating or exacerbating factor. However, his SOB has improved spontaneously. He states that he was talking with a friend when it happened. He has no chest pain, cough or fever. Related Data Home Medications Medication Instructions Recorded Confirmed alprazolam [Xanax] 0.25 mg PO BID PRN 04/06/20 01/07/21 ergocalciferol (vitamin D2) 1,250 mcg PO QTUTH 04/06/20 01/07/21 furosemide 20 mg PO DAILY PRN 04/06/20 01/07/21 insulin aspart U-100 [Novolog See Rx Instructions .ROUTE .COMPLEX 04/06/20 01/07/21 U-100 Insulin aspart] losartan 100 mg PO DAILY 04/06/20 01/07/21 metformin 1,000 mg PO DAILY 04/06/20 01/07/21 ondansetron HCl [Zofran] 4 mg PO Q8H PRN 10/14/20 01/07/21 testosterone cypionate 100 mg IM WEEKLY 10/14/20 01/07/21 gabapentin 400 mg capsule 400 mg PO TID 10/24/20 01/07/21 Creon 2 cap PO TIDWM 01/02/21 01/07/21 aspirin 81 mg PO DAILY 01/02/21 01/07/21 calcium carbonate-vitamin D3 1 tablet PO DAILY 01/02/21 01/07/21 oxycodone 10 mg PO Q6H PRN 01/07/21 01/07/21 Allergies Allergy/AdvReac Type Severity Reaction Status Date / Time ferumoxytol Allergy Severe Anaphylactic Verified 01/02/21 14:19 Shock Iodinated Contrast Media Allergy Severe Anaphylactic Verified 01/02/21 14:19 Shock iodine Allergy Severe Anaphylactic Verified 01/02/21 14:19 Shock iron dextran complex Allergy Severe Anaphylactic Verified 01/02/21 14:19 Shock shellfish derived Allergy Severe Anaphylactic Verified 01/02/21 14:19 Shock Review of Systems Constitutional: Constitutional: Denies chills, Denies fever(s), Denies headache(s) and Denies weakness Eyes: Eyes: Denies blurry vision ENT: Denies headache(s) and Denies neck pain Cardiovascular: Cardiovascular: Denies chest pain and Reports dyspnea Respiratory: Respiratory: Denies cough and Reports dyspnea Gastrointestinal: Gastrointestinal: Denies abdominal pain, Denies diarrhea, Denies nausea and Denies vomiting Genitourinary: Genitourinary: Denies hematuria and Denies dysuria Musculoskeletal: Musculoskeletal: Denies back pain and Denies neck pain Neurologic: Denies headache(s) and Denies weakness COUNTS INCLUDE 234 BEDS AT THE [facility] Past Medical History Medical History CKD stage 3 secondary to diabetes Depression with anxiety Diabetes mellitus has an insulin pump Dyslipidemia low HDL Essential hypertension History of TIA (transient ischemic attack) (~2010) Iron deficiency anemia With iron infusions q.3 months THOMPSON (nonalcoholic steatohepatitis) Osteopenia Pancreatitis (~2011) Resulting in insulin-dependent diabetes and exocrine pancreatic insufficiency Psoriasis Spinal stenosis Vitamin D deficiency Surgical History Surgical History H/O laminectomy (~02/2007) History of appendectomy History of cholecystectomy (~04/2012) History of colonoscopy with polypectomy History of gastric bypass (~05/2003) History of rotator cuff surgery Bilateral Status post biliopancreatic diversion with duodenal switch (~05/2003) Family History Family History Father Congestive heart failure Mother Heart disease Social History Social History Social History: He has a former smoker, quit 1994. Infrequent alcohol, no drug use. He is accompanied by his personal investment adviser, Giorgi. 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 Smoking packs per day: 1 Smoking cigarettes per day: 20.0 Years smoked: 13 Smoking pack-years: 1
[2021-01-06 23:31] LABS: NT Pro B Type Natriuretic Pept 222 pg/mL (5-100)
[2021-01-07] VITALS (16 sets, daily range): BP systolic 105–149; BP diastolic 61–85; PULSE 64–88; RESP 16–18; TEMP 36.2–36.6; O2SAT 98–100; BMI 28.6
--- NOTE | 2021-01-07 | ECHO_ITS ---
Patient Info Name: Torito Escamilla Age: 60 years : 1960 Gender: Male Ht: 70 in Wt: 196 lbs BSA: 2.11 m2 HR: 71 bpm BP: 124 / 61 mmHg Heart Rhythm: Sinus Rhythm Technical Quality: Good Exam Date: 01/07/2021 10:49 AM Exam Location: [facility] Patient Status: Outpatient Admit Date: 01/07/2021 Staff Ordering Physician: Norm Hernandez MD Craft Coordinator: Vidal Rosa, CHERI, RT Attending Provider: Azam Frederick MD Exam Type: CA echo doppler color flow Study Info Indications R06.02 - Shortness of breath Complete two-dimensional, color flow and Doppler transthoracic echocardiogram is performed. Strain analysis performed. Summary 1. Complete two-dimensional, color flow and Doppler transthoracic echocardiogram is performed. 2. Normal LV size, [id number] LVH; normal LV systolic function, LVEF about 55-60%. Grade 1 diastolic dysfunction. Mild left atrial enlargement. Trivial MR. Mildly sclerotic aortic valve, no stenosis. Trivial TR, unable to assess RVSP due to inadequate TR jet. Echogenic pericardium with trivial pericardial effusion. Sinus rhythm. Left Ventricle Left ventricular chamber dimension is normal. Left ventricular systolic function is normal, estimated at 55-60%. There is mildly increased left ventricular wall thickness. The left ventricular diastolic function is grade I diastolic dysfunction. Left Atria Left atrial chamber dimension is mildly enlarged. Right Atria Right atrial chamber dimension is normal. Aortic Valve There is mild aortic valve sclerosis. There is no aortic valve stenosis. Pulmonic Valve The pulmonic valve is normal. Mitral Valve The mitral valve has normal leaflets. There is trace mitral valve regurgitation. Tricuspid Valve The tricuspid valve leaflets are normal. There is trace tricuspid valve regurgitation. Pericardium/Pleural The pericardium appears increased echogenicity of the pericardium. There is trivial pericardial effusion. Inferior Vena Cava Normal inferior vena cava with >50% collapse upon inspiration consistent with normal right atrial pressure, 8 mmHg. Aorta The aortic root size at the sinus of Valsalva is normal. Left Ventricular Outflow Tract Name Value Normal LVOT 2D LVOT Diameter 2.1 cm LVOT Doppler LVOT Peak Gradient 4 mmHg LVOT Mean Gradient 2 mmHg LVOT VTI 18 cm LVOT VTI/AV VTI Ratio 0.9 LVOT Stroke Volume 61 ml LVOT CO 4.4 l/min LVOT CI 2.1 l/min/m2 Mitral Valve Name Value Normal MV Doppler MV Decel Alpine 262 cm/s2 MV PHT 52 ms MV Area (PHT) 4.2 cm2
--- NOTE | 2021-01-07 01:00 | ADMGEN ---
This patient, Torito Escamilla III, was admitted to IMU Room 209-01. Patient/family oriented to hospital policies and general routines including ID bracelet, bed and alarms, visiting hours, pain management, procedures, bathroom and other care routines, personal items, smoking policy, room service/diet, and visiting hours. Information on how to activate the Rapid Response Team has been discussed. Patient/Family are encouraged to report perceived risks to care and to ask questions if they do not understand what they are told or what they should do.
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
[2021-01-07 05:25] LABS: Troponin I 0.081 ng/mL (0.000-0.034)
[2021-01-07] MEDS: ASPIRIN 81 MG ENTERIC TABLET PO (07:43)
[2021-01-07] MEDS: CLOPIDOGREL BISULFATE 75 MG TABLET PO (07:44)
[2021-01-07] MEDS: METOPROLOL SUCCINATE EXT REL 25 MG TABCR PO (07:44)
[2021-01-07] MEDS: metFORMIN HCL XR 500 MG TAB.SR.24H 1000 MG PO (07:44)
[2021-01-07] MEDS: LIPASE/AMYLASE/PROTEASE 12,000 UNITS CAP 6 CAP PO ×3 (07:44→16:00)
[2021-01-07] MEDS: FUROSEMIDE 20 MG TABLET PO (07:45)
[2021-01-07] MEDS: ERGOCALCIFEROL 50,000 UNIT CAPSULE 50000 UNITS PO (07:45)
[2021-01-07] MEDS: LOSARTAN POTASSIUM 100 MG TABLET PO (07:45)
[2021-01-07] MEDS: ATORVASTATIN 10 MG TABLET PO (07:45)
[2021-01-07] MEDS: GABAPENTIN 400 MG CAPSULE PO ×3 (07:45→16:00)
--- NOTE | 2021-01-07 08:19 | PM.CNCAR ---
Assessment and Plan Assessment and plan (1) Shortness of breath: Code(s): R06.02 - Shortness of breath Status: Acute Assessment and Plan: 60-year-old male with past medical history of diabetes mellitus secondary to hemorrhagic pancreatitis, CKD. Recent hospitalization for chest pain with nonspecific ST changes and minimal troponin elevation. Coronary angiogram did not show any obstructive CAD; overall LV EF reported to be normal with apical hypokinesis. Patient presented with sudden shortness of breath. D-dimer is mildly elevated. V/Q scan is pending. Patient has been on medical treatment including dual antiplatelet therapy, beta-ja. No current symptoms of chest pain. Continue current medical treatment. Echocardiogram has been ordered, results are pending. No further cardiac testing would be anticipated if echocardiogram is unremarkable. Patient was advised to follow up as an outpatient. Patient was irritable and angry at the time of evaluation. (2) Elevated troponin: Code(s): R77.8 - Other specified abnormalities of plasma proteins Status: Acute Assessment and Plan: See above History of Present Illness History of Present Illness Consult date/time: 01/07/21 08:19 DATE OF CONSULT: 01/07/2021 REASON FOR CONSULT: Elevated troponin REQUESTING PHYSICIAN:MD Mary CHIEF COMPLAINT: Shortness of breath HPI: 60-year-old male with past medical history of hemorrhagic pancreatitis, CKD. Patient was recently hospitalized on 01/02/2021 with chest pain while he was doing exercise in the gym. His EKG showed nonspecific ST segment abnormality in the anterior leads. Emergent coronary angiogram did not show any significant obstructive CAD; LVEF was overall normal with mild apical hypokinesis. Troponins were minimally elevated. He was managed medically with medications including antiplatelets and beta-ja. Yesterday, patient states that he was sitting at home when he started having sudden shortness of breath that lasted for about 15 minutes. His symptoms were not associated with chest pain, palpitation, dizziness or syncope. His EKG upon arrival which I personally evaluated showed sinus rhythm with any significant ST-T abnormalities. Troponins minimally elevated, which is likely daily and of the recent troponin elevation. Patient's D-dimer is mildly elevated. Patient's symptoms have resolved since admission to the hospital. Reason For Visit: SOB Review of Systems Review of Systems: Narrative: General: Negative for fever, chills, fatigue Psychological: Positive for history of anxiety Ophthalmic: negative for loss of vision ENT: Negative for epistaxis, headaches Allergy and immunology: Negative for hives, nasal congestion Hematologic and lymphatic: Negative for overt bleeding problems Endocrine: Negative for hot flashes, palpitations Respiratory: Positive for shortness of breath Cardiovascular: Negative for chest pain Gastrointestinal: Negative for abdominal pain Musculoskeletal: Negative for myalgia, joint pains Neurological: Negative for weakness Dermatological: Negative for rash, skin discoloration PMFSH Past Medical History Medical History CKD stage 3 secondary to diabetes Depression with anxiety Diabetes mellitus has an insulin pump Dyslipidemia low HDL Essential hypertension History of TIA (transient ischemic attack) (~2010) Iron deficiency anemia With iron infusions q.3 months THOMPSON (nonalcoholic steatohepatitis) Osteopenia Pancreatitis (~2011) Resulting in insulin-dependent diabetes and exocrine pancreatic insufficiency Psoriasis Spinal stenosis Vitamin D deficiency Surgical History Surgical History H/O laminectomy (~02/2007) History of appendectomy History of cholecystectomy (~04/2012) History of colonoscopy with polypectomy History of gastric bypass
[2021-01-07 08:20] LABS: Glucose Point of Care 178 mg/dl (65-105)
[2021-01-07 12:32] LABS: Glucose Point of Care 154 mg/dl (65-105)
[2021-01-07] MEDS: ENOXAPARIN 40 MG/0.4 ML SYRINGE SUB-Q ×2 (13:06→21:04)
--- NOTE | 2021-01-07 13:15 | PM.IMPN ---
Progress Note: A&P Assessment and Plan (1) Shortness of breath: Code(s): R06.02 - Shortness of breath Status: Acute Assessment and Plan: Plan to obtain V/Q scan to evaluate the possible T of PE (2) Elevated troponin: Code(s): R77.8 - Other specified abnormalities of plasma proteins Status: Acute Assessment and Plan: Consult cardiology Patient had recent cardiac catheterization Aspirin, statin,, beta-ja, (3) Acute on chronic renal failure: Code(s): N17.9 - Acute kidney failure, unspecified; N18.9 - Chronic kidney disease, unspecified Status: Acute Assessment and Plan: Monitor renal functions and electrolytes Subjective Date/time seen: 01/07/21 13:15 Patient is resting comfortably denies any active complaint Exam Const: General: cooperative and no acute distress HENMT: Head: normal to inspection Eyes: General: appearance normal, both eyes and all related structures Neck: Neck: normal visual inspection Chest: Chest palpation & inspection: normal inspection of the chest Resp: Effort & Inspection: normal respiratory effort Cardio: Jugular venous distension: no JVD Rate: regular rate GI: Inspection: normal to inspection and non-distended Objective Data Vital Signs Vital Signs: Vital Signs - 24 hr 01/06/21 19:46 01/07/21 00:45 01/07/21 01:17 Temperature 98.2 F 97.4 F L Pulse Rate 92 67 72 Respiratory Rate 18 18 16 Blood Pressure 134/76 105/70 138/79 Pulse Oximetry 97 98 100 01/07/21 02:00 01/07/21 03:56 01/07/21 04:00 Temperature 97.8 F Pulse Rate 78 78 74 Respiratory Rate 16 16 Blood Pressure 124/61 Pulse Oximetry 100 100 01/07/21 05:47 01/07/21 07:44 01/07/21 08:00 Temperature 97.1 F L Pulse Rate 74 67 72 Respiratory Rate 16 Blood Pressure 131/67 Pulse Oximetry 100 01/07/21 10:00 01/07/21 12:00 Temperature 97.6 F Pulse Rate 73 67 Respiratory Rate 18 Blood Pressure 143/64 H Pulse Oximetry 100 Intake/Output Intake/Output: Intake & Output 01/04/21 01/05/21 01/06/21 01/07/21 23:59 23:59 23:59 23:59 Intake Total 240 Output Total 0 Balance 240 Meds/Results Medications: Active Medications Generic Name Dose Route Start Last Admin Trade Name Rolandq PRN Reason Stop Dose Admin Alprazolam 0.25 mg 01/07/21 03:44 Alprazolam (*Crx) 0.25 Mg Tablet PO BID PRN Anxiety Lipase/Protease/Amylase 6 cap 01/07/21 08:00 01/07/21 13:06 Lipase/Amylase/Protease 12,000 Units Cap PO 02/06/21 08:01 6 cap TIDWM KATLIN Administration Aspirin 81 mg 01/07/21 09:00 01/07/21 07:43 Aspirin 81 Mg Enteric Tablet PO 81 mg DAILY KATLIN Administration Atorvastatin Calcium 10 mg 01/07/21 09:00 01/07/21 07:45 Atorvastatin 10 Mg Tablet PO 10 mg DAILY KATLIN Administration Calcium Carbonate 500 mg 01/07/21 09:00 01/07/21 07:45 Calcium/Vitamin D 500 Mg Tablet PO 02/06/21 09:01 500 mg DAILY KATLIN Administration Clopidogrel Bisulfate 75 mg 01/07/21 09:00 01/07/21 07:44 Clopidogrel Bisulfate 75 Mg Tablet PO 75 mg QAM KATLIN Administration Enoxaparin Sodium 40 mg 01/07/21 09:00 01/07/21 13:06 Enoxaparin 40 Mg/0.4 Ml Syringe SUB-Q 40 mg Q12HR KATLIN Administration Ergocalciferol 50,000 unit 01/07/21 09:00 01/07/21 07:45 Ergocalciferol 50,000 Unit Capsule PO 50,000 unit TuTh@0900 KATLIN Administration Furosemide 20 mg 01/07/21 03:44 01/07/21 07:45 Furosemide 20 Mg Tablet PO 20 mg DAILY PRN Administration Edema Gabapentin 400 mg 01/07/21 09:00 01/07/21 13:06 Gabapentin 400 Mg Capsule PO 400 mg TID KATLIN Administration Insulin Aspart 0 units 01/07/21 06:00 01/07/21 13:06 Insulin Aspart (*Bkc) 100 Units/Ml XX Not Given Q8HR [facility] Losartan Potassium 100 mg 01/07/21 09:00 01/07/21 07:45 Losartan Potassium 100 Mg Tablet PO 100 mg DAILY KATLIN Administration Metformin HCl 1,000 mg 01/07/21 08:00
[2021-01-07] MEDS: LIPASE/AMYLASE/PROTEASE 12,000 UNITS CAP 3 CAP PO (18:37)
[2021-01-08] VITALS (8 sets, daily range): BP systolic 136–142; BP diastolic 69–72; PULSE 66–80; RESP 14–18; TEMP 36.4–36.6; O2SAT 98–100
[2021-01-08] MEDS: LIPASE/AMYLASE/PROTEASE 12,000 UNITS CAP 3 CAP PO (00:05)
[2021-01-08 05:00] LABS: Basophils Percent Auto 0.5 % (0.2-1.2); Eosinophils Absolute Auto 0.2 K/mm3 (0-0.3); Hematocrit 37.1 % (42.0-52.0); Immature Granulocyte Absolute 0.06 K/mm3 (0.00-0.031); Immature Granulocyte Percent A 0.8 % (0-0.5); Lymphocytes Absolute Auto 1.97 K/mm3 (0.9-3.2); Lymphocytes Percent Auto 25.7 % (18.3-44.2); Mean Corpuscular HGB Conc 32.3 g/dl (32-36); Mean Corpuscular Hemoglobin 25.8 pg (26-34); Mean Corpuscular Volume 79.6 fl (80-100); Mean Platelet Volume 10.6 fl (7.4-10.4); Monocytes Absolute Auto 0.5 K/mm3 (0.1-0.6); Monocytes Percent Auto 6.9 % (2.6-8.5); Neutrophils Absolute Auto 4.9 K/mm3 (1.3-6.7); Neutrophils Percent Auto 63.1 % (45.5-73.1); Platelet Count Result 260 k/mm3 (150-375); Red Blood Count 4.66 M/mm3 (4.6-6.20); Red Cell Distribution Width 20.7 % (11.5-14.5); White Blood Count 7.7 K/mm3 (4.5-10.0)
[2021-01-08 05:15] LABS: Anion Gap 10 mmol/L (8-16); Blood Urea Nitrogen 20 mg/dL (9-20); Calcium 8.1 mg/dL (8.4-10.2); Carbon Dioxide 28 mmol/L (22-30); Chloride 101 mmol/L (98-107); Estimated CRCL calculation 52 ml/min; Estimated Glomerular Filt Rate 52; Glucose 187 mg/dL (75-110); Phosphorus 3.9 mg/dL (2.5-4.5); Potassium 4.3 mmol/L (3.4-5.0); Sodium 139 mmol/L (137-145)
[2021-01-08 05:29] LABS: Troponin I 0.048 ng/mL (0.000-0.034)
[2021-01-08] MEDS: GABAPENTIN 400 MG CAPSULE PO ×2 (07:51→12:16)
[2021-01-08] MEDS: LIPASE/AMYLASE/PROTEASE 12,000 UNITS CAP 6 CAP PO ×2 (07:51→12:16)
[2021-01-08] MEDS: metFORMIN HCL XR 500 MG TAB.SR.24H 1000 MG PO (07:51)
[2021-01-08] MEDS: LOSARTAN POTASSIUM 100 MG TABLET PO (07:52)
[2021-01-08] MEDS: ATORVASTATIN 10 MG TABLET PO (07:52)
[2021-01-08] MEDS: ASPIRIN 81 MG ENTERIC TABLET PO (07:52)
[2021-01-08] MEDS: METOPROLOL SUCCINATE EXT REL 25 MG TABCR PO (07:52)
[2021-01-08] MEDS: CLOPIDOGREL BISULFATE 75 MG TABLET PO (07:52)
[2021-01-08] MEDS: ENOXAPARIN 40 MG/0.4 ML SYRINGE SUB-Q (07:52)
[2021-01-08 08:42] LABS: Glucose Point of Care 183 mg/dl (65-105)
--- NOTE | 2021-01-08 09:38 | PM.PNCARD ---
Progress Note: A&P Assessment and Plan (1) Shortness of breath: Code(s): R06.02 - Shortness of breath Status: Acute Assessment and Plan: 60-year-old male with past medical history of diabetes mellitus secondary to hemorrhagic pancreatitis, CKD. Recent hospitalization for chest pain with nonspecific ST changes and minimal troponin elevation. Coronary angiogram did not show any obstructive CAD; overall LV EF reported to be normal with apical hypokinesis. Patient presented with sudden shortness of breath. D-dimer is mildly elevated. Patient has been on medical treatment including dual antiplatelet therapy, beta-aj. No current symptoms of chest pain. Continue current medical treatment. Echocardiogram has been reviewed. Because of Pericardial echogenic material seen, will discontinue his clopidogrel but continue aspirin. Patient was advised to follow up as an outpatient. . discontinue enoxaparin (2) Elevated troponin: Code(s): R77.8 - Other specified abnormalities of plasma proteins Status: Acute Assessment and Plan: Possible myopericarditis. Consider colchicine For recurrent symptoms Okay for discharge (3) CKD stage 3 secondary to diabetes: Code(s): E11.22 - Type 2 diabetes mellitus with diabetic chronic kidney disease; N18.30 - Chronic kidney disease, stage 3 unspecified Status: Acute Assessment and Plan: will need to follow Subjective Date/time seen: 01/08/21 09:38 Interval history: 60-year-old admitted for shortness of breath. Date of service 01/08/2021: Feels well. No chest pain or shortness of breath. Review of Systems Review of Systems: All systems reviewed & are unremarkable except as noted in HPI and below Constitutional: Constitutional: Denies weakness Eyes: Eyes: Denies blurry vision ENT: Reports Normal hearing present Cardiovascular: Cardiovascular: Denies chest pain Respiratory: Respiratory: Denies dyspnea Gastrointestinal: Gastrointestinal: Denies abdominal pain Genitourinary: Genitourinary: Denies dysuria Musculoskeletal: Musculoskeletal: Denies neck pain Integumentary/Breasts: Skin/Breast: Denies dry skin Neurologic: Denies headache(s) Psychiatric: Psychiatric: Denies anxiety Endocrine: Endocrine: Denies change in body appearance Hematologic/Lymphatic: Hematologic/Lymphatic: Denies easy bleeding Allergic/Immunologic: Allergic/Immunologic: Denies GI upset with certain foods Exam Narrative: Exam Narrative: PHYSICAL EXAMINATION: GENERAL: Alert, oriented, no acute distress MENTAL STATUS: Alert, Irritable, angry EYES: Extraocular movements intact, no pallor EARS: External ears appear normal, hearing grossly normal NOSE: Normal and patent, no discharge MOUTH: Mucous membranes moist, tongue normal NECK: Supple, no JVD CHEST: Good respiratory effort, clear to auscultation HEART: Normal rate, regular rhythm, normal S1 and S2, no audible murmurs ABDOMEN: Soft, nontender NEUROLOGICAL: Alert, oriented, normal speech, no gross motor deficits MUSCULOSKELETAL: No major deformity, no amputation EXTREMITIES: No pedal edema, no clubbing, no cyanosis SKIN: no rash on the exposed area, no cyanosis PSYCHIATRIC: Irritable, angry Objective Data Vital Signs Vital Signs: Vital Signs - 24 hr 01/07/21 10:00 01/07/21 12:00 01/07/21 14:00 Temperature 36.4 C Pulse Rate 73 70 75 Respiratory Rate 18 Blood Pressure 143/64 H Pulse Oximetry 100 01/07/21 16:00 01/07/21 18:00 01/07/21 20:00 Temperature 36.4 C L 36.4 C L Pulse Rate 84 77 79 Respiratory Rate 18 16 Blood Pressure 147/85 H 141/80 H Pulse Oximetry 100 100 01/07/21 21:34 01/07/21 23:22 01/08/21 00:00 Temperature 36.4 C Pulse Rate 78 75 78 Respiratory Rate 18 Blood Pressure 149/75 H Pulse Oximetry 100 01/08/21 01:38 01/08/21 04:00 01/08/21 06:00 Temperature 36.4 C Pulse Rate 66 73 68 Respiratory R
--- NOTE | 2021-01-08 11:52 | PM.DS ---
DS: Admitting Diagnosis Admitting Diagnosis Admitting Diagnosis: Chest pain Shortness of breath DS: Discharge Diagnosis Discharge Diagnosis (1) Shortness of breath: Code(s): R06.02 - Shortness of breath Status: Acute Assessment and Plan: Echo and V/Q scan unremarkable (2) Elevated troponin: Code(s): R77.8 - Other specified abnormalities of plasma proteins Status: Acute Assessment and Plan: Consult cardiology Patient had recent cardiac catheterization Aspirin, statin,, beta-ja, (3) Acute on chronic renal failure: Code(s): N17.9 - Acute kidney failure, unspecified; N18.9 - Chronic kidney disease, unspecified Status: Acute Assessment and Plan: Stable DS: Summary Hospital Course Reason for hospitalization: Chest pain Hospital Course: Patient presented with shortness of breath and chest discomfort, associated with mildly elevated troponin, patient had recent cardiac catheterization, cardiology were consulted, they did not recommend any invasive intervention, patient symptoms resolved during this hospitalization. Echo and V/Q scan were unremarkable. Patient had a creatinine of 1.6 that improved to 1.4 at the time of discharge Patient will follow-up with cardiology, Nephrology, and PCP as an outpatient. Patient denies any active complaints at the time of discharge, and he is stable for discharge. Time Spent with Patient Time attestation: Total time spent providing and/or coordinating discharge services: Time spent: Greater than 30 minutes Exam Const: General: cooperative and no acute distress HENMT: Head: normal to inspection Eyes: General: appearance normal, both eyes and all related structures Neck: Neck: normal visual inspection Chest: Chest palpation & inspection: normal inspection of the chest Resp: Effort & Inspection: normal respiratory effort Cardio: Jugular venous distension: no JVD Rate: regular rate GI: Inspection: normal to inspection and non-distended DS: Data Data Completed and Pending Labs on day of discharge: Labs from last 24 hours 01/08/21 01/08/21 01/08/21 07:52 04:33 04:33 WBC 7.7 RBC 4.66 Hgb 12.0 L Hct 37.1 L MCV 79.6 L MCH 25.8 L MCHC 32.3 RDW 20.7 H Plt Count 260 MPV 10.6 H Immature Gran % (Auto) 0.8 H Neut % (Auto) 63.1 Lymph % (Auto) 25.7 [place] % (Auto) 6.9 Eos % (Auto) 3.0 Baso % (Auto) 0.5 Lymph # (Auto) 1.97 [place] # (Auto) 0.5 Eos # (Auto) 0.2 Baso # (Auto) 0.0 Abs Immat Gran (auto) 0.06 H Absolute Neuts (auto) 4.9 Absolute Nucleated RBC 0.0 Nucleated RBC % 0.0 Sodium 139 Potassium 4.3 Chloride 101 Carbon Dioxide 28 Anion Gap 10 BUN 20 Creatinine 1.40 H Estim Creat Clear Calc 52 Estimated GFR 52 L Glucose 187 H POC Capillary Glucose 183 H Calcium 8.1 L Phosphorus 3.9 Magnesium 2.0 Troponin I 0.048 H* 01/07/21 11:48 WBC RBC Hgb Hct MCV MCH MCHC RDW Plt Count MPV Immature Gran % (Auto) Neut % (Auto) Lymph % (Auto) [place] % (Auto) Eos % (Auto) Baso % (Auto) Lymph # (Auto) [place] # (Auto) Eos # (Auto) Baso # (Auto) Abs Immat Gran (auto) Absolute Neuts (auto) Absolute Nucleated RBC Nucleated RBC % Sodium Potassium Chloride Carbon Dioxide Anion Gap BUN Creatinine Estim Creat Clear Calc Estimated GFR Glucose POC Capillary Glucose 154 H Calcium Phosphorus Magnesium Troponin I Discharge Plan Discharge Consulting providers: Bernard Carter Discharging Clinician: Azam Frederick Patient Disposition: Home, Self-Care Activity: as tolerated Diet: regular Patient Instructions: Chronic Hypertension (DC), Type 2 Diabetes in the Older Adult (DC) Stand Alone Forms: General Discharge Information Follow-up/Referrals: Bernard Carter MD [Physician] - 2 Weeks Discharge Medications: Cont
== END 2021-01-08 13:30 | disposition home or self-care (01) ==
LOC: ANHED 20:22 → ANHIMU 01-07 00:21
PROVIDERS: Admitting Provider Internal Medicine; Emergency Provider Emergency Medicine; PCP Family Medicine; Visit Provider Emergency Medicine
DX: R06.02 Shortness of breath (principal); R77.8 Other specified abnormalities of plasma proteins; I12.9 Hypertensive chronic kidney disease with stage 1 through stage 4 chronic kidney disease, or unspecified chronic kidney disease; E11.22 Type 2 diabetes mellitus with diabetic chronic kidney disease; E78.5 Hyperlipidemia, unspecified; N18.30 Chronic kidney disease, stage 3 unspecified; Z79.02 Long term (current) use of antithrombotics/antiplatelets; Z87.891 Personal history of nicotine dependence; Z86.73 Personal history of transient ischemic attack (TIA), and cerebral infarction without residual deficits; Z96.41 Presence of insulin pump (external) (internal); Z79.4 Long term (current) use of insulin
CPT/HCPCS: 36415; 71045; 78580; 80048; 80053; 82948; 83735; 83880; 84100; 84484; 85025; 93005; 93306; 96372; 99285; A9270; A9540; G0378; J1650

== ENCOUNTER 2021-01-22 12:02 | Emergency (ER) | payer MEDICARE, MEDICAID, SELFPAY ==
--- NOTE | ~2021-01-22 | US_ITS ---
EXAMINATION: US venous doppler LE RT DATE: 01/22/2021 14:08 INDICATION: Right lower limb swelling. TECHNIQUE: Grayscale ultrasound images without and with compression and Doppler ultrasound images of the right lower extremity veins were obtained. COMPARISON: Ultrasound 03/15/2016 FINDINGS: The visualized portions of right common femoral vein, profunda (deep) femoral vein, femoral vein, pop liteal vein, peroneal veins, posterior tibial veins, and greater saphenous vein outflow are patent. IMPRESSION: 1. No deep venous thrombosis. Reviewed, dictated and finalized at location A.
--- NOTE | ~2021-01-22 | NM_ITS ---
EXAMINATION: NM pulmonary perfusion DATE: 01/22/2021 14:32 INDICATION: Shortness of breath and chest pain. TECHNIQUE: 4.7 mCi Tc-99m MAA was administered intravenously for perfusion images. Scintigraphic sudheer ges of the chest were obtained. COMPARISON: Chest 2 views 01/22/2021, perfusion scintigraphy 01/07/2021 FINDINGS: Perfusion images show no defects. IMPRESSION: 1. Normal perfusion. Pulmonary embolism absent. Reviewed, dictated and finalized at location A.
--- NOTE | ~2021-01-22 | XR_ITS ---
EXAMINATION: XR chest 2V DATE: 01/22/2021 12:35 INDICATION: Midsternal chest pain. Shortness of breath. TECHNIQUE: Frontal and lateral views of the chest were obtained. COMPARISON: Chest single view 01/06/2021 FINDINGS: The chest demonstrates clear lungs without pneumonia, pleural effusion, or pneumothorax. Th e heart size is normal. A stent overlies the stomach. There is mild chronic anterior wedging of multi ple thoracic vertebral bodies. IMPRESSION: 1. No acute cardiopulmonary disease. Reviewed, dictated and finalized at location A.
--- NOTE | 2021-01-22 12:06 | ECG_ITS ---
Measurements Intervals [place] Rate: 85 P: 55 [place]: 161 QRS: 28 QRSD: 96 T: 35 QT: 368 QTc: 439 Interpretive Statements SINUS RHYTHM POSSIBLE LEFT ATRIAL ENLARGEMENT BORDERLINE ECG Electronically Signed On 01-23-2021 11:30:16 CDT by Damian Randhawa D.O.
[2021-01-22 12:19] VITALS: BP 152/77; PULSE 86; RESP 17; TEMP 36.9; O2SAT 100
[2021-01-22 12:29] LABS: Basophils Percent Auto 0.4 % (0.2-1.2); Eosinophils Absolute Auto 0.1 K/mm3 (0-0.3); Hemoglobin 11.5 g/dL (14.0-18.0); Immature Granulocyte Absolute 0.05 K/mm3 (0.00-0.031); Immature Granulocyte Percent A 0.7 % (0-0.5); Lymphocytes Absolute Auto 0.94 K/mm3 (0.9-3.2); Lymphocytes Percent Auto 12.3 % (18.3-44.2); Mean Corpuscular HGB Conc 31.9 g/dl (32-36); Mean Corpuscular Hemoglobin 26.3 pg (26-34); Mean Corpuscular Volume 82.2 fl (80-100); Mean Platelet Volume 11.3 fl (7.4-10.4); Monocytes Absolute Auto 0.4 K/mm3 (0.1-0.6); Monocytes Percent Auto 5.5 % (2.6-8.5); Neutrophils Absolute Auto 6.1 K/mm3 (1.3-6.7); Neutrophils Percent Auto 80.1 % (45.5-73.1); Platelet Count Result 232 k/mm3 (150-375); Red Blood Count 4.38 M/mm3 (4.6-6.20); White Blood Count 7.6 K/mm3 (4.5-10.0)
[2021-01-22 12:36] LABS: Chloride 99 mmol/L (98-107)
[2021-01-22 12:37] LABS: INR 1.3; Partial Thromboplastin Time 25.9 SECONDS (22.3-36.8); Prothrombin Time 15.5 Seconds (11.1-14.7)
[2021-01-22 12:45] LABS: Anion Gap 14 mmol/L (8-16); Blood Urea Nitrogen 14 mg/dL (9-20); Carbon Dioxide 23 mmol/L (22-30); Estimated CRCL calculation 51 ml/min; Estimated Glomerular Filt Rate 52; Glucose 148 mg/dL (75-110); Potassium 4.1 mmol/L (3.4-5.0); Sodium 136 mmol/L (137-145)
[2021-01-22 12:52] LABS: Troponin I 0.043 ng/mL (0.000-0.034)
[2021-01-22 13:06] VITALS: PULSE 75
[2021-01-22 13:11] VITALS: BP 147/74; PULSE 76; RESP 13; O2SAT 100
--- NOTE | 2021-01-22 14:59 | ED.CHESTPAIN ---
HPI - Chest Pain General Chief Complaint: Chest Pain Stated Complaint: chest pain Time Seen by Provider: 01/22/21 13:05 History of Present Illness HPI narrative: Patient is a 60-year-old male who presents ER with left-sided chest pain. Occurred while at home shortly after being at the gym working out doing curls. Pain was sharp and radiated to his back. Different than the chest pain that brought him in several weeks ago. Patient was diagnosed with myopericarditis after having a cardiac catheterization that was free of coronary disease. Patient also was ruled out for pulmonary embolism. However patient reports new swelling in the right leg since he is not wearing a compression stocking. Briefly associated with nausea and dizziness. No loss of consciousness. Denies fevers or chills or sweats or productive cough. He is afebrile. Reports having his second Covid vaccination in November. Related Data Home Medications Medication Instructions Recorded Confirmed alprazolam [Xanax] 0.25 mg PO BID PRN 04/06/20 01/07/21 ergocalciferol (vitamin D2) 1,250 mcg PO QTUTH 04/06/20 01/07/21 furosemide 20 mg PO DAILY PRN 04/06/20 01/07/21 insulin aspart U-100 [Novolog See Rx Instructions .ROUTE .COMPLEX 04/06/20 01/07/21 U-100 Insulin aspart] losartan 100 mg PO DAILY 04/06/20 01/07/21 metformin 1,000 mg PO DAILY 04/06/20 01/07/21 ondansetron HCl [Zofran] 4 mg PO Q8H PRN 10/14/20 01/07/21 testosterone cypionate 100 mg IM WEEKLY 10/14/20 01/07/21 gabapentin 400 mg capsule 400 mg PO TID 10/24/20 01/07/21 Creon 2 cap PO TIDWM 01/02/21 01/07/21 aspirin 81 mg PO DAILY 01/02/21 01/07/21 calcium carbonate-vitamin D3 1 tablet PO DAILY 01/02/21 01/07/21 oxycodone 10 mg PO Q6H PRN 01/07/21 01/07/21 Allergies Allergy/AdvReac Type Severity Reaction Status Date / Time ferumoxytol Allergy Severe Anaphylactic Verified 01/02/21 14:19 Shock Iodinated Contrast Media Allergy Severe Anaphylactic Verified 01/02/21 14:19 Shock iodine Allergy Severe Anaphylactic Verified 01/02/21 14:19 Shock iron dextran complex Allergy Severe Anaphylactic Verified 01/02/21 14:19 Shock shellfish derived Allergy Severe Anaphylactic Verified 01/02/21 14:19 Shock Review of Systems Review of Systems: All systems reviewed & are unremarkable except as noted in HPI and below Constitutional: Constitutional: Denies chills, Denies fever(s) and Denies weakness ENT: Denies nasal congestion and Denies sore throat Cardiovascular: Cardiovascular: Reports chest pain, Denies rapid heart rate and Denies radiating jaw, neck or arm pain Respiratory: Respiratory: Denies cough, Denies dyspnea and Denies wheezing Gastrointestinal: Gastrointestinal: Denies abdominal pain and Reports nausea Musculoskeletal: Musculoskeletal: Denies back pain, Denies joint swelling and Denies muscle cramps Comments: Right leg swelling PMFSH Past Medical History Medical History CKD stage 3 secondary to diabetes Depression with anxiety Diabetes mellitus has an insulin pump Dyslipidemia low HDL Essential hypertension History of TIA (transient ischemic attack) (~2010) Iron deficiency anemia With iron infusions q.3 months THOMPSON (nonalcoholic steatohepatitis) Osteopenia Pancreatitis (~2011) Resulting in insulin-dependent diabetes and exocrine pancreatic insufficiency Psoriasis Spinal stenosis Vitamin D deficiency Surgical History Surgical History H/O laminectomy (~02/2007) History of appendectomy History of cholecystectomy (~04/2012) History of colonoscopy with polypectomy History of gastric bypass (~05/2003) History of rotator cuff surgery Bilateral Status post biliopancreatic diversion with duodenal switch (~05/2003) Family History Family History Father Congestive heart failure Mother Heart disease Social History
[2021-01-22 15:37] VITALS: BP 132/56; PULSE 73; RESP 13; O2SAT 100
== END 2021-01-22 16:09 | disposition home or self-care (01) ==
PROVIDERS: Emergency Provider Emergency Medicine; PCP Family Medicine
DX: I31.9 Disease of pericardium, unspecified (principal); E11.22 Type 2 diabetes mellitus with diabetic chronic kidney disease; I12.9 Hypertensive chronic kidney disease with stage 1 through stage 4 chronic kidney disease, or unspecified chronic kidney disease; N18.30 Chronic kidney disease, stage 3 unspecified; Z79.4 Long term (current) use of insulin; Z96.41 Presence of insulin pump (external) (internal); E78.5 Hyperlipidemia, unspecified; Z86.73 Personal history of transient ischemic attack (TIA), and cerebral infarction without residual deficits; D50.9 Iron deficiency anemia, unspecified; K75.81 Nonalcoholic steatohepatitis (NASH); M85.80 Other specified disorders of bone density and structure, unspecified site; E55.9 Vitamin D deficiency, unspecified; F41.8 Other specified anxiety disorders; Z98.84 Bariatric surgery status; Z87.891 Personal history of nicotine dependence; R94.31 Abnormal electrocardiogram [ECG] [EKG]
CPT/HCPCS: 36415; 71046; 78580; 80048; 84484; 85025; 85610; 85730; 93005; 93971; 99284; A9540

== ENCOUNTER 2021-01-30 14:04 | Observation (INO) | payer MEDICARE, MEDICAID, SELFPAY ==
[2021-01-30] VITALS (17 sets, daily range): BP systolic 127–142; BP diastolic 61–68; PULSE 78–93; RESP 14–16; TEMP 36.3–37; O2SAT 98–100; BMI 29.2
--- NOTE | ~2021-01-30 | NM_ITS ---
EXAMINATION: NM pulmonary perfusion DATE: 01/30/2021 18:17 INDICATION: Chest pain and syncope TECHNIQUE: 4.3 mCi Tc-99m MAA by intravenous route. Scintigraphic images of the chest were obtained. COMPARISON: Chest radiograph dated 01/30/2021 and pulmonary perfusion scan dated 01/22/2021 FINDINGS: No interval change in the homogeneous perfusion throughout the lungs. No discrete perfusion defects identified. IMPRESSION: 1. Normal perfusion. No findings to suggest pulmonary embolism. Reviewed, dictated and finalized at location A.
--- NOTE | ~2021-01-30 | XR_ITS ---
XR chest 2V DATE: 01/30/2021 14:29 INDICATION: Chest pain TECHNIQUE: PA and lateral views COMPARISON: 01/22/2021 pulmonary perfusion scan PA and lateral chest FINDINGS: Normal heart size. No hilar or mediastinal enlargement. No pulmonary infiltrate or consolidation, pleural effusion or pulmonary vascular congestion or pneumo thorax. Degenerative spurring and mild dextro scoliosis of the thoracic spine. IMPRESSION: No active cardiopulmonary disease or significant change since 01/22/2021 Reviewed, dictated and finalized at location A. IMPRESSION: No active cardiopulmonary disease or significant change since 021
--- NOTE | 2021-01-30 14:10 | ECG_ITS ---
Measurements Intervals [place] Rate: 84 P: 54 CT: 174 QRS: 31 QRSD: 98 T: 36 QT: 371 QTc: 440 Interpretive Statements SINUS RHYTHM NORMAL ECG Electronically Signed On 01-31-2021 7:03:42 CDT by Damian Randhawa D.O.
--- NOTE | 2021-01-30 14:22 | ED.CHESTPAIN ---
HPI - Chest Pain General Chief Complaint: Chest Pain Stated Complaint: Chest Pain Time Seen by Provider: 01/30/21 14:12 Source: RN notes reviewed History of Present Illness HPI narrative: Patient presents emergency department via EMS for chest pain and syncope. 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 States he is with his banking assistant and asked has a system to drive him across the street the fire department I got the fire department patient had a syncopal episode. States the chest pain is resolved at this time denies any fevers or chills abdominal pain nausea vomiting or any other symptoms. Patient recently had a cardiac catheter that showed no coronary artery disease and was diagnosed with myocarditis he is in here for chest pain on 01/22/2021 work-up for pulmonary embolism at that time that was normal Related Data Home Medications Medication Instructions Recorded Confirmed alprazolam [Xanax] 0.25 mg PO BID PRN 04/06/20 01/07/21 ergocalciferol (vitamin D2) 1,250 mcg PO QTUTH 04/06/20 01/07/21 furosemide 20 mg PO DAILY PRN 04/06/20 01/07/21 insulin aspart U-100 [Novolog See Rx Instructions .ROUTE .COMPLEX 04/06/20 01/07/21 U-100 Insulin aspart] losartan 100 mg PO DAILY 04/06/20 01/07/21 metformin 1,000 mg PO DAILY 04/06/20 01/07/21 ondansetron HCl [Zofran] 4 mg PO Q8H PRN 10/14/20 01/07/21 testosterone cypionate 100 mg IM WEEKLY 10/14/20 01/07/21 gabapentin 400 mg capsule 400 mg PO TID 10/24/20 01/07/21 Creon 2 cap PO TIDWM 01/02/21 01/07/21 aspirin 81 mg PO DAILY 01/02/21 01/07/21 calcium carbonate-vitamin D3 1 tablet PO DAILY 01/02/21 01/07/21 Allergies Allergy/AdvReac Type Severity Reaction Status Date / Time ferumoxytol Allergy Severe Anaphylactic Verified 01/27/21 15:47 Shock Iodinated Contrast Media Allergy Severe Anaphylactic Verified 01/27/21 15:47 Shock iodine Allergy Severe Anaphylactic Verified 01/27/21 15:47 Shock iron dextran complex Allergy Severe Anaphylactic Verified 01/27/21 15:47 Shock shellfish derived Allergy Severe Anaphylactic Verified 01/27/21 15:47 Shock Review of Systems Review of Systems: Narrative: Gen.: Denies fevers or chills ENT: Denies congestion Respiratory: Denies shortness of breath or cough CV: See HPI GI: Denies abdominal pain nausea, emesis or diarrhea denies burning, urgency, frequency or hematuriMusculoskeletal: Denies back pain or muscle pain Neuro: Denies numbness, tingling, weakness or focal weakness Skin: Denies rash Except as documented, all other systems reviewed and negative PMFSH Past Medical History Medical History CKD stage 3 secondary to diabetes Depression with anxiety Diabetes mellitus has an insulin pump Dyslipidemia low HDL Essential hypertension History of TIA (transient ischemic attack) (~2010) Iron deficiency anemia With iron infusions q.3 months THOMPSON (nonalcoholic steatohepatitis) Osteopenia Pancreatitis (~2011) Resulting in insulin-dependent diabetes and exocrine pancreatic insufficiency Psoriasis Spinal stenosis Vitamin D deficiency Surgical History Surgical History H/O laminectomy (~02/2007) History of appendectomy History of cholecystectomy (~04/2012) History of colonoscopy with polypectomy History of gastric bypass (~05/2003) History of rotator cuff surgery Bilateral Status post biliopancreatic diversion with duodenal switch (~05/2003) Family History Family History Father Congestive heart failure Mother Heart disease Social History Social History Social History: He has a former smoker, quit 1994. Infrequent alcohol, no drug use. He is accompanied by his celebrity chef entrepreneur media personality, Giorgi. 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
[2021-01-30 14:25] LABS: Basophils Percent Auto 0.1 % (0.2-1.2); Hematocrit 37.6 % (42.0-52.0); Hemoglobin 12.1 g/dL (14.0-18.0); Immature Granulocyte Absolute 0.11 K/mm3 (0.00-0.031); Immature Granulocyte Percent A 0.7 % (0-0.5); Immature Platelet Fraction Pct 9.5 % (0.9-11.2); Lymphocytes Percent Auto 3.3 % (18.3-44.2); Mean Corpuscular HGB Conc 32.2 g/dl (32-36); Mean Corpuscular Hemoglobin 26.8 pg (26-34); Mean Corpuscular Volume 83.2 fl (80-100); Mean Platelet Volume 11.5 fl (7.4-10.4); Monocytes Absolute Auto 0.3 K/mm3 (0.1-0.6); Monocytes Percent Auto 1.7 % (2.6-8.5); Neutrophils Absolute Auto 14.2 K/mm3 (1.3-6.7); Neutrophils Percent Auto 94.2 % (45.5-73.1); Platelet Count Result 251 k/mm3 (150-375); Red Blood Count 4.52 M/mm3 (4.6-6.20); Red Cell Distribution Width 22.5 % (11.5-14.5); White Blood Count 15.1 K/mm3 (4.5-10.0)
[2021-01-30] MEDS: ASPIRIN 81 MG CHEWABLE TABLET 324 MG PO (14:46)
[2021-01-30 15:18] LABS: Anion Gap 9 mmol/L (8-16); Blood Urea Nitrogen 17 mg/dL (9-20); Calcium 8.9 mg/dL (8.4-10.2); Carbon Dioxide 27 mmol/L (22-30); Chloride 101 mmol/L (98-107); Estimated CRCL calculation 48 ml/min; Estimated Glomerular Filt Rate 48; Glucose 101 mg/dL (75-110); Potassium 4.4 mmol/L (3.4-5.0); Sodium 137 mmol/L (137-145)
[2021-01-30 15:19] LABS: INR 1.3; Prothrombin Time 16.1 Seconds (11.1-14.7)
[2021-01-30 15:22] LABS: Partial Thromboplastin Time 31.2 SECONDS (22.3-36.8)
[2021-01-30 15:29] LABS: Troponin I 0.028 ng/mL (0.000-0.034)
[2021-01-30 15:29] LABS: Platelet Estimate Adequate (Adequate)
[2021-01-30 16:52] LABS: D Dimer 1.16 ug/mL (<0.48)
[2021-01-30 16:56] LABS: Add Urine Microscopic? YES; Appearance Urine Clear (Clear); Bacteria Urine Trace /hpf; Bilirubin Urine Negative (Negative); Blood Urine 2+ (Negative); Color Urine Yellow (Yellow); Glucose Urine UA 2+ mg/dL (Negative); Ketones Urine Negative (Negative); Leukocyte Esterase Ur Trace LEU/UL (Negative); Mucus Urine Rare /lpf; Nitrate Urine Negative (Negative); Protein Urine 1+ mg/dL (Negative); Specific Grav Ur 1.013 (1.001-1.035); Squamous Epithelial Cell Urine Rare /hpf (Few); WBC Urine 0-3 /hpf
[2021-01-30 17:23] LABS: Lactic Acid Reflex 1.2 mmol/L (0.7-2.1)
[2021-01-30 17:36] LABS: Troponin I 0.029 ng/mL (0.000-0.034)
--- NOTE | 2021-01-30 19:32 | ADMGEN ---
This patient, Torito Escamilla III, was admitted to IMU Room 202-01 at 1726. Patient/family oriented to hospital policies and general routines including ID bracelet, bed and alarms, visiting hours, pain management, procedures, bathroom and other care routines, personal items, smoking policy, room service/diet, and visiting hours. Information on how to activate the Rapid Response Team has been discussed. Patient/Family are encouraged to report perceived risks to care and to ask questions if they do not understand what they are told or what they should do.
[2021-01-30 19:53] LABS: Troponin I 0.027 ng/mL (0.000-0.034)
--- NOTE | 2021-01-30 20:25 | PM.IMHP ---
H&P: HPI History of Present Illness Date/Time: 01/30/21 20:25 this is a 60-year-old male patient who was recently discharged from the hospital on 01/08/2021. The patient stated that he had restricted activity because he was told that he had myocardial pericarditis. The patient stated that he just started going back to the gym since he was discharged from here. The patient stated he was only doing 10 lb weights. He has an assistant product manager go with him to the gym and who typically follows some her own for several hours a day. The patient stated after he got done working out he was leaving the gym and started to have some pressure across the left side of his chest. He told his assistant product manager Giorgi to stop by the [employer] house which was not too far from the gym. The patient stated he got out of the car to go to the fire house and fainted. The patient stated he did not have any chest pain but rather he had chest pressure. The patient does have a history of having hemorrhagic never tired seeing pancreatitis. Which was corrected by surgical procedure. The patient had an echo last month which shows a preserved systolic function he has trivial pericardial effusion suggestive of pericarditis. He was diagnosed with mild pericarditis. The patient had a V/Q scan for an elevated D-dimer his last admission as well as this admission in both were negative for PE. This admission the patient had a negative troponin wears his last admission it had been slightly elevated. The patient did have a cardiac catheterization on 01/02/2021 please see the report( conclusion 1. Right coronary dominant circulation with no angiographic abnormalities 2. very small region of apical hypokinesia with overall normal left ventricular systolic function) patient's white count was 15.1 which could be stress reactive. His creatinine was 1.5 which is his baseline. Both sets of troponin are found to be negative today. The patient was given aspirin in the emergency room. His pain is now resolved. Cardiology has been consulted. The patient is being admitted to observation status on the date of service of 01/30/2021. Chief Complaint: chest pain Review of Systems Review of Systems: All systems reviewed & are unremarkable except as noted in HPI and below Constitutional: Constitutional: Reports as per HPI and Reports no additional constitutional complaints Eyes: Eyes: Reports as per HPI and Reports no additional eye complaints ENT: Reports system reviewed and no additional complaints, except as documented and Reports Normal hearing present Cardiovascular: Cardiovascular: Reports no additional cardiovascular complaints Respiratory: Respiratory: Reports no additional respiratory complaints and Reports no additional respiratory complaints Gastrointestinal: Gastrointestinal: Reports as per HPI and Reports no additional gastrointestinal complaints Musculoskeletal: Musculoskeletal: Reports no additional musculoskeletal complaints Integumentary/Breasts: Skin/Breast: Reports system reviewed and no additional complaints, except as docu and Reports as per HPI Neurologic: Reports system reviewed and no additional complaints, except as documented, Reports as per HPI and Reports Normal hearing present Psychiatric: Psychiatric: Reports no additional psychiatric complaints and Reports as per HPI Endocrine: Endocrine: Reports no additional endocrine complaints Hematologic/Lymphatic: Hematologic/Lymphatic: Reports no additional hematologic/lymphatic complaints Allergic/Immunologic: Allergic/Immunologic: Reports no additional allergic/immunologic complaints [facility] Past Medical History Medical History (Updated 01/30/21 @ 20:50 by Kiarra Correa NP) CKD stage 3 secondary to diabetes Depression with anxiety Diabetes mellitus has an insulin pump Diabetes type 1, controlled Dyslipidemia low HDL Essential hypertension History of TIA (transient ischemic attack) (~2010) Iron deficiency anemi
[2021-01-30 22:42] LABS: Troponin I 0.027 ng/mL (0.000-0.034)
[2021-01-30 23:15] LABS: Hemoglobin A1C 7.7 % (<5.7)
[2021-01-31] VITALS (11 sets, daily range): BP systolic 118–132; BP diastolic 52–72; PULSE 72–85; RESP 14–18; TEMP 36.5–37; O2SAT 99–100; BMI 29.2
[2021-01-31 00:26] LABS: Glucose Point of Care 214 mg/dl (65-105)
[2021-01-31 05:21] LABS: Basophils Percent Auto 0.4 % (0.2-1.2); Eosinophils Absolute Auto 0.1 K/mm3 (0-0.3); Hematocrit 31.8 % (42.0-52.0); Hemoglobin 10.4 g/dL (14.0-18.0); Immature Granulocyte Absolute 0.06 K/mm3 (0.00-0.031); Immature Granulocyte Percent A 0.6 % (0-0.5); Immature Platelet Fraction Pct 10.1 % (0.9-11.2); Lymphocytes Absolute Auto 1.11 K/mm3 (0.9-3.2); Lymphocytes Percent Auto 11.3 % (18.3-44.2); Mean Corpuscular HGB Conc 32.7 g/dl (32-36); Mean Corpuscular Hemoglobin 26.5 pg (26-34); Mean Corpuscular Volume 80.9 fl (80-100); Mean Platelet Volume 11.6 fl (7.4-10.4); Monocytes Absolute Auto 0.9 K/mm3 (0.1-0.6); Neutrophils Absolute Auto 7.6 K/mm3 (1.3-6.7); Neutrophils Percent Auto 77.7 % (45.5-73.1); Platelet Count Result 198 k/mm3 (150-375); Red Blood Count 3.93 M/mm3 (4.6-6.20); Red Cell Distribution Width 22.4 % (11.5-14.5); White Blood Count 9.8 K/mm3 (4.5-10.0)
[2021-01-31 05:36] LABS: Anion Gap 5 mmol/L (8-16); Blood Urea Nitrogen 16 mg/dL (9-20); Calcium 8.4 mg/dL (8.4-10.2); Carbon Dioxide 28 mmol/L (22-30); Chloride 101 mmol/L (98-107); Estimated CRCL calculation 48 ml/min; Estimated Glomerular Filt Rate 48; Glucose 298 mg/dL (75-110); Potassium 4.6 mmol/L (3.4-5.0); Sodium 134 mmol/L (137-145)
--- NOTE | 2021-01-31 06:00 | ECHO_ITS ---
Patient Info Name: Torito Escamilla Age: 60 years : 1960 Gender: Male Ht: 69 in Wt: 197 lbs BSA: 2.11 m2 HR: 81 bpm BP: 132 / 56 mmHg Technical Quality: Good Exam Date: 01/31/2021 10:13 AM Exam Location: [facility] Patient Status: Outpatient Admit Date: 01/30/2021 Staff Ordering Physician: Paulino Kelly DO Occupational Medicine Officer: Vidal Rosa RDCS, RT Attending Provider: Jose Harris MD Referring Physician: Leticia BOYKIN; Exam Type: CA echo doppler color flow Study Info Indications R07.9 - Chest pain, unspecified Complete two-dimensional, color flow and Doppler transthoracic echocardiogram is performed. Strain analysis performed. Summary 1. Complete two-dimensional, color flow and Doppler transthoracic echocardiogram is performed. 2. Left ventricular chamber dimension is normal. 3. Left ventricular wall thickness is mildly increased. 4. Left atrial chamber dimension is moderately enlarged. 5. There is trace tricuspid valve regurgitation. 6. The mitral valve has thickened leaflets. 7. There is trace mitral valve regurgitation. 8. Left ventricular systolic function is normal with an estimated ejection fraction of 5055.0 %. Left Ventricle Left ventricular wall thickness is mildly increased. Left ventricular chamber dimension is normal. Left ventricular systolic function is normal with an estimated ejection fraction of 5055.0 %. Left Atria Left atrial chamber dimension is moderately enlarged. Aortic Valve Aortic valve is not well visualized. Mitral Valve The mitral valve has thickened leaflets. There is trace mitral valve regurgitation. Tricuspid Valve There is trace tricuspid valve regurgitation. Estimated right atrial pressure is 31 mmHg. Left Ventricular Outflow Tract Name Value Normal LVOT 2D LVOT Diameter 2.0 cm LVOT Doppler LVOT Peak Gradient 4 mmHg LVOT Mean Gradient 2 mmHg LVOT VTI 19 cm LVOT VTI/AV VTI Ratio 0.8 LVOT Stroke Volume 60 ml LVOT CO 5.0 l/min LVOT CI 2.4 l/min/m2 Mitral Valve Name Value Normal MV Doppler MV Peak Gradient 1 mmHg MV Mean Gradient 1 mmHg MV Decel [place] 643 cm/s2 MV PHT 35 ms MV Area (PHT) 6.4 cm2 4.0-5.0 MV Area (Cont Eq VTI) 4.6 cm2 MV Regurgitation Doppler MR Volume (Cont Eq) 101 ml MR Fraction (Cont Eq) 63 % MV Diastolic Function
[2021-01-31] MEDS: LIPASE/AMYLASE/PROTEASE 12,000 UNITS CAP 6 CAP PO ×3 (08:52→18:50)
[2021-01-31] MEDS: METOPROLOL SUCCINATE EXT REL 25 MG TABCR PO (08:53)
[2021-01-31] MEDS: LOSARTAN POTASSIUM 100 MG TABLET PO (08:53)
[2021-01-31] MEDS: GABAPENTIN 400 MG CAPSULE PO ×3 (08:53→18:51)
[2021-01-31] MEDS: metFORMIN HCL XR 500 MG TAB.SR.24H 1000 MG PO (08:53)
[2021-01-31] MEDS: ASPIRIN 81 MG ENTERIC TABLET PO (08:53)
[2021-01-31] MEDS: INSULIN ASPART (*BKC) 100 UNITS/ML SUB-Q ×2 (08:53→13:35)
[2021-01-31] MEDS: ATORVASTATIN 10 MG TABLET PO (08:53)
[2021-01-31 09:50] LABS: Glucose Point of Care 302 mg/dl (65-105)
[2021-01-31 13:10] LABS: Glucose Point of Care 272 mg/dl (65-105)
--- NOTE | 2021-01-31 13:10 | PCNSR ---
On 01/31/21, the student,Kamila Morales, provided care and completed [facility] documentation on this patient. I have reviewed the student's documentation and agree with the findings.
--- NOTE | 2021-01-31 16:06 | PM.CNCAR ---
Assessment and Plan Assessment and plan (1) Essential hypertension: Code(s): I10 - Essential (primary) hypertension Status: Chronic Assessment and Plan: BP well controlled cont current meds (2) Chest pain: Code(s): R07.9 - Chest pain, unspecified Status: Acute Assessment and Plan: Appears atypical 4 sets of CE negative. EKG without acute changes. showed early repolarization. ECHO showed low normal LV systolic funciton (LVEF 50-55%). Presence of very minimal, physiologic pericardial effusion. recent cath negative cont medical management and risk factor modification. (3) Syncope: Code(s): R55 - Syncope and collapse Status: Acute Assessment and Plan: Pt with syncopal episode after workout in gym. Known hx of DM. Before episode received iron infusion. He uses some energy products as well. UA abnormal suggesting UTI. Probably metabolic in nature. (4) Leukocytosis: Code(s): D72.829 - Elevated white blood cell count, unspecified Status: Acute (5) Acute on chronic renal failure: Code(s): N17.9 - Acute kidney failure, unspecified; N18.9 - Chronic kidney disease, unspecified Status: Acute Assessment and Plan: Cr at baseline (1.5) (6) Diabetes mellitus: Qualifiers: Diabetes mellitus complication status: with other specified complication Diabetes mellitus type: type 1 Qualified Code(s): E10.69 - Type 1 diabetes mellitus with other specified complication Code(s): E11.9 - Type 2 diabetes mellitus without complications Status: Acute Assessment and Plan: Glucose elevated (initially 300). Hgba1c 7.7. Management per correctional corporal Thank you for consult. Pt was instructed to fu if desired in 1-2 weeks. History of Present Illness History of Present Illness Consult date/time: 01/31/21 16:06 Mr Escamilla is a pleasant 60 y/o male with PMH of DM, pancreatitis, anemia who presented to [facility] yesterday PM after syncopal episode. Pt states that his did workout in the gym for his triceps and then felt tired, had mild chest discomfort. Came to closest [employer] when felt weak and dizzy and then experienced syncopal episode. States that his glucose level was fine (120 per his measuremet). Does not recall that his BP was high. He denies fever of chills but had night sweats. Before going to gym pt had iron infusion. Claims that this time had less side effects from this therapy than before. Pt was just recently admitted with similar symptoms. Due to borderline troponin underwent cath which showed normal coronaries. ECHO showed preserved LV systolic function. Pericarditis due to trace pericardial effusion was suspected. Pt states that is being followed by correctional corporal at [facility] and has insulin pump. His glucose night of admission was 300. Hgba1c 7.7 (states that before used to be 100. hIS wbc WAS ELEVATED (wbc 15K). He is known to have CRI. Was given Benadyl before iron infusion. Pt was seen and examined, chart was reviewed, case was d/w pt's nurse. Reason For Visit: chest pain,syncope,myocarditis Review of Systems Review of Systems: All systems reviewed & are unremarkable except as noted in HPI and below Constitutional: Constitutional: Reports as per HPI Eyes: Eyes: Reports as per HPI ENT: Reports system reviewed and no additional complaints, except as documented and Reports as per HPI Cardiovascular: Cardiovascular: Reports as per HPI Respiratory: Respiratory: Reports as per HPI Gastrointestinal: Gastrointestinal: Reports as per HPI Genitourinary: Genitourinary: Reports as per HPI Musculoskeletal: Musculoskeletal: Reports as per HPI [facility] Past Medical History Medical History (Updated 01/30/21 @ 20:50 by Kiarra Correa NP) CKD stage 3 secondary to diabetes Depression with anxiety Diabetes mellitus has an insulin pump Diabetes type 1, controlled Dyslipidemia low HDL E
[2021-01-31 17:23] LABS: Glucose Point of Care 83 mg/dl (65-105)
--- NOTE | 2021-01-31 18:13 | PM.DS ---
DS: Admitting Diagnosis Admitting Diagnosis Admitting Diagnosis: Chest pain, syncope DS: Discharge Diagnosis Discharge Diagnosis (1) Syncope: Code(s): R55 - Syncope and collapse Status: Acute (2) Chest pain: Code(s): R07.9 - Chest pain, unspecified Status: Acute (3) Pericarditis: Code(s): I31.9 - Disease of pericardium, unspecified Status: Chronic (4) Leukocytosis: Code(s): D72.829 - Elevated white blood cell count, unspecified Status: Acute (5) Diabetes type 1, controlled: Code(s): E10.9 - Type 1 diabetes mellitus without complications Status: Chronic (6) CKD stage 3 secondary to diabetes: Code(s): E11.22 - Type 2 diabetes mellitus with diabetic chronic kidney disease; N18.30 - Chronic kidney disease, stage 3 unspecified Status: Acute (7) Dyslipidemia: Code(s): E78.5 - Hyperlipidemia, unspecified Status: Chronic (8) Essential hypertension: Code(s): I10 - Essential (primary) hypertension Status: Chronic (9) Depression with anxiety: Code(s): F41.8 - Other specified anxiety disorders Status: Chronic DS: Summary Hospital Course Reason for hospitalization: 60yo male with DM and recent dx with pericarditis here for chest pain and syncope. Please see H&P for details. Hospital Course: Patient was recently discharged from the hospital about 3 weeks ago for pericarditis. 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 He drove to the fire station and on the way he began to feel short of breath and diaphoretic. When he stood up out of the car, he was lightheaded. He then fell to the ground on all fours and believes he passed out for 1-2 minutes. Patient was brought to the emergency room for evaluation. Patient was hemodynamically stable. White count is elevated 15,000 but on repeat normalized. He was not treated with antibiotics. Hemoglobin is 12 and dropped to 10.4. Platelet count remained normal. Basic metabolic panel normal except for creatinine 1.5. Glucose was 101. Troponin was negative x3. UA not consistent with UTI and did not prompted culture. Blood cultures were collected and no growth to date. EKG was read as normal. chest x-ray was clear. V/Q scan was negative for PE. Echo shows EF of 50-55% without mention of diastolic function. No significant valvular disease. We continued a majority of his home medications. Cardiology was consulted. Patient had fired the [facility] so cardiology consult had to be changed to a different group. Patient has had a recent heart catheterization that was negative. His other chest pain is atypical and not related to ischemia. Regarding the syncope, patient had recently been exercising and is a diabetic. He may have had transient hypotension possibly. He had no recurrent symptoms here. He felt well. No complaints today. He feels comfortable with discharge. The plan is to follow-up with the pillow filler at [place] who he will be establishing with. Patient overall did well later discharged home 01/31/2021. Status at Discharge Cognitive/behavioral status at discharge: stable Time Spent with Patient Time attestation: Total time spent providing and/or coordinating discharge services: 35 minutes Time spent: Greater than 30 minutes Exam Narrative: Exam Narrative: AF 98.3 118/65 72 14 100%ra Gen - NARD Chest - CTA bilaterally, nml RR CV - RRR S1/S2 Abd - Soft, NT/ND, Positive BS Ext - No pedal edema Psych - Nml mood and affect Skin - Warm and dry DS: Data Data Completed and Pending Labs on day of discharge: Labs from last 24 hours 01/31/21 01/31/21 01/31/21 16:03 12:14 08:04 WBC RBC Hgb Hct MCV MCH MCHC RDW Plt Count MPV Immature Gran % (Auto) Neut % (Auto) Lymph % (Auto) [place] % (Auto) Eos % (Auto) Baso % (A
--- NOTE | 2021-02-06 12:11 | PC.NURSE ---
Blood cx are negative. Dr. Jhonathan mckeon.
== END 2021-01-31 19:25 | disposition home or self-care (01) ==
LOC: ANHED 14:32 → ANHIMU 17:20 → ANH3MEDSUR 02-04 10:14 → ANHIMU 02-04 10:14
PROVIDERS: Nurse Practitioner; Admitting Provider Internal Medicine; Emergency Provider Emergency Medicine; PCP Family Medicine; Visit Provider Internal Medicine
DX: R07.9 Chest pain, unspecified (principal); R55 Syncope and collapse; I31.9 Disease of pericardium, unspecified; N17.9 Acute kidney failure, unspecified; D72.829 Elevated white blood cell count, unspecified; I12.9 Hypertensive chronic kidney disease with stage 1 through stage 4 chronic kidney disease, or unspecified chronic kidney disease; N18.30 Chronic kidney disease, stage 3 unspecified; E11.22 Type 2 diabetes mellitus with diabetic chronic kidney disease; E78.5 Hyperlipidemia, unspecified; F41.8 Other specified anxiety disorders; D50.9 Iron deficiency anemia, unspecified; K75.81 Nonalcoholic steatohepatitis (NASH); M85.80 Other specified disorders of bone density and structure, unspecified site; E55.9 Vitamin D deficiency, unspecified; L40.9 Psoriasis, unspecified; M48.00 Spinal stenosis, site unspecified; Z86.73 Personal history of transient ischemic attack (TIA), and cerebral infarction without residual deficits; Z98.84 Bariatric surgery status; Z87.891 Personal history of nicotine dependence; Z79.4 Long term (current) use of insulin; Z79.84 Long term (current) use of oral hypoglycemic drugs; Z79.82 Long term (current) use of aspirin
CPT/HCPCS: 36415; 71046; 78580; 80048; 81001; 82948; 83036; 83605; 84484; 85025; 85055; 85380; 85610; 85730; 87040; 93005; 93306; 99285; A9270; A9540; G0378; J1815

== ENCOUNTER 2021-02-21 11:52 | Emergency (ER) | payer MEDICARE, MEDICAID, SELFPAY ==
--- NOTE | ~2021-02-21 | XR_ITS ---
XR chest 2V DATE: 02/21/2021 13:01 INDICATION: Chest pain over left breast. Heart flutter. TECHNIQUE: PA and lateral views COMPARISON: 01/30/2021 2 view chest FINDINGS: Normal heart size. No hilar or mediastinal enlargement. No pulmonary infiltrate or consolid ation, pleural effusion or pulmonary vascular congestion or pneumothorax. Dextroscoliosis and degenerative spurring of the thoracic spine. IMPRESSION: No active cardiopulmonary disease or significant change since 01/30/2021 Reviewed, dictated and finalized at location B. IMPRESSION: No active cardiopulmonary disease or significant change since 2020
[2021-02-21 12:07] VITALS: BP 148/66; PULSE 95; RESP 20; TEMP 36.8; O2SAT 100
--- NOTE | 2021-02-21 12:38 | ECG_ITS ---
Measurements Intervals [place] Rate: 89 P: 60 CA: 164 QRS: 42 QRSD: 104 T: 55 QT: 358 QTc: 436 Interpretive Statements SINUS RHYTHM ST ELEVATION IN ANTEROLATERAL LEADS- PROBABLY EARLY REPOLARIZATION ABNORMALITY BORDERLINE ECG Electronically Signed On 02-21-2021 13:00:59 CDT by Damian Randhawa D.O.
[2021-02-21] MEDS: ASPIRIN 81 MG CHEWABLE TABLET 324 MG PO (13:10)
--- NOTE | 2021-02-21 13:17 | ED.ARRPALP ---
HPI - Arrhythmia/Palpitations General Chief Complaint: Arrhythmia/Palpitations Stated Complaint: palpitations Time Seen by Provider: 02/21/21 12:02 Source: patient, RN notes reviewed and old records reviewed Mode of arrival: ambulatory Limitations: no limitations History of Present Illness HPI narrative: This is a 61 year old male who presents for evaluation of palpitations. He states today he was at the gym giving instructions when he developed palpitations. He describes flutter in his chest but no racing, and it lasted for 15 minutes. He also reports midsternal chest pain that was sharp. This pain last only minutes and he states it was nonradiating. He denies associated nausea, vomiting or shortness of breath. He states his palpitations and chest pain resolved prior to coming to ER. He has been evaluated at hospital multiple times over past 2 months for episodes of chest and palpitations. He had a cardiac cath in December 2020 that was negative. He had an ECHO this week that was unremarkable other than mild mitral valve regurgitation. MD complaint: palpitations Related Data Home Medications Medication Instructions Recorded Confirmed alprazolam [Xanax] 0.25 mg PO BID PRN 04/06/20 02/21/21 ergocalciferol (vitamin D2) 1,250 mcg PO QTUTH 04/06/20 02/21/21 furosemide 20 mg PO DAILY PRN 04/06/20 02/21/21 insulin aspart U-100 [Novolog See Rx Instructions .ROUTE .COMPLEX 04/06/20 02/21/21 U-100 Insulin aspart] losartan 100 mg PO DAILY 04/06/20 02/21/21 metformin 1,000 mg PO DAILY 04/06/20 02/21/21 ondansetron HCl [Zofran] 4 mg PO Q8H PRN 10/14/20 02/21/21 testosterone cypionate 100 mg IM WEEKLY 10/14/20 02/21/21 gabapentin 400 mg capsule 400 mg PO TID 10/24/20 02/21/21 Creon 2 cap PO TIDWM 01/02/21 02/21/21 aspirin 81 mg PO DAILY 01/02/21 02/21/21 Allergies Allergy/AdvReac Type Severity Reaction Status Date / Time ferumoxytol Allergy Severe Anaphylactic Verified 02/21/21 12:10 Shock Iodinated Contrast Media Allergy Severe Anaphylactic Verified 02/21/21 12:10 Shock iodine Allergy Severe Anaphylactic Verified 02/21/21 12:10 Shock iron dextran complex Allergy Severe Anaphylactic Verified 02/21/21 12:10 Shock shellfish derived Allergy Severe Anaphylactic Verified 02/21/21 12:10 Shock prednisone Allergy Hives Verified 02/21/21 12:10 Review of Systems Review of Systems: All systems reviewed & are unremarkable except as noted in HPI and below PMFSH Past Medical History Medical History CKD stage 3 secondary to diabetes Depression with anxiety Diabetes mellitus has an insulin pump Diabetes type 1, controlled Dyslipidemia low HDL Essential hypertension History of TIA (transient ischemic attack) (~2010) Iron deficiency anemia With iron infusions q.3 months THOMPSON (nonalcoholic steatohepatitis) Osteopenia Pancreatitis (~2011) Resulting in insulin-dependent diabetes and exocrine pancreatic insufficiency Pericarditis Psoriasis Spinal stenosis Vitamin D deficiency Surgical History Surgical History H/O laminectomy (~02/2007) History of appendectomy History of cholecystectomy (~04/2012) History of colonoscopy with polypectomy History of gastric bypass (~05/2003) History of rotator cuff surgery Bilateral Status post biliopancreatic diversion with duodenal switch (~05/2003) Family History Family History Father Congestive heart failure Mother Heart disease Diabetes mellitus Social History Social History (Updated 01/30/21 @ 20:36 by Kiarra Correa NP) Social History: He has a former smoker, quit 1994. Infrequent alcohol, no drug use. He is accompanied by his personal banking assistant, Giorgi. 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 the patient has no children
[2021-02-21 13:23] LABS: Basophils Percent Auto 0.3 % (0.2-1.2); Eosinophils Percent Auto 0.3 % (0-4.4); Hematocrit 40.2 % (42.0-52.0); Hemoglobin 12.7 g/dL (14.0-18.0); Immature Granulocyte Absolute 0.04 K/mm3 (0.00-0.031); Immature Granulocyte Percent A 0.4 % (0-0.5); Lymphocytes Absolute Auto 1.09 K/mm3 (0.9-3.2); Lymphocytes Percent Auto 11.6 % (18.3-44.2); Mean Corpuscular HGB Conc 31.6 g/dl (32-36); Mean Corpuscular Hemoglobin 27.4 pg (26-34); Mean Corpuscular Volume 86.6 fl (80-100); Mean Platelet Volume 11.2 fl (7.4-10.4); Monocytes Absolute Auto 0.6 K/mm3 (0.1-0.6); Monocytes Percent Auto 6.4 % (2.6-8.5); Neutrophils Absolute Auto 7.6 K/mm3 (1.3-6.7); Platelet Count Result 286 k/mm3 (150-375); Red Blood Count 4.64 M/mm3 (4.6-6.20); Red Cell Distribution Width 21.9 % (11.5-14.5); White Blood Count 9.4 K/mm3 (4.5-10.0)
[2021-02-21 13:31] LABS: Anion Gap 10 mmol/L (8-16); Blood Urea Nitrogen 17 mg/dL (9-20); Carbon Dioxide 25 mmol/L (22-30); Chloride 97 mmol/L (98-107); Estimated CRCL calculation 58 ml/min; Estimated Glomerular Filt Rate > 60; Glucose 71 mg/dL (65-110); Magnesium 1.9 mg/dL (1.6-2.3); Potassium 4.4 mmol/L (3.4-5.0); Sodium 132 mmol/L (137-145)
[2021-02-21 13:40] LABS: Prothrombin Time 13.1 Seconds (11.1-14.7)
[2021-02-21 13:41] VITALS: BP 139/80; PULSE 78; RESP 20; O2SAT 99
[2021-02-21 13:41] LABS: Partial Thromboplastin Time 23.9 SECONDS (22.3-36.8)
[2021-02-21 13:45] LABS: Troponin I 0.028 ng/mL (0.000-0.034)
[2021-02-21 15:07] VITALS: BP 156/108; PULSE 79; RESP 20; O2SAT 100
[2021-02-21 15:47] VITALS: BP 149/79; PULSE 78; RESP 20; O2SAT 100
[2021-02-21 16:33] LABS: Troponin I 0.026 ng/mL (0.000-0.034)
[2021-02-21 17:01] VITALS: BP 141/79; PULSE 73; RESP 20; O2SAT 100
== END 2021-02-21 17:10 | disposition home or self-care (01) ==
PROVIDERS: Emergency Provider General Practice; PCP Family Medicine
DX: R00.2 Palpitations (principal); E10.22 Type 1 diabetes mellitus with diabetic chronic kidney disease; I12.9 Hypertensive chronic kidney disease with stage 1 through stage 4 chronic kidney disease, or unspecified chronic kidney disease; N18.30 Chronic kidney disease, stage 3 unspecified; Z79.4 Long term (current) use of insulin; Z79.82 Long term (current) use of aspirin; F41.8 Other specified anxiety disorders; E78.5 Hyperlipidemia, unspecified; K75.81 Nonalcoholic steatohepatitis (NASH); D50.9 Iron deficiency anemia, unspecified; M85.80 Other specified disorders of bone density and structure, unspecified site; E55.9 Vitamin D deficiency, unspecified; Z98.84 Bariatric surgery status; Z87.891 Personal history of nicotine dependence; R94.31 Abnormal electrocardiogram [ECG] [EKG]
CPT/HCPCS: 36415; 71046; 80048; 83735; 84484; 85025; 85610; 85730; 93005; 99284; A9270

== ENCOUNTER 2021-05-12 13:36 | Emergency (ER) | payer MEDICARE, MEDICAID, SELFPAY ==
--- NOTE | ~2021-05-12 | US_ITS ---
EXAMINATION: US scrotum doppler EXAM DATE: 05/12/2021 15:25 INDICATION: Testicular pain and swelling. Reportedly pain since April 28, was started on antibiotic s and took last dose today. Pain has been increasing last couple of days. TECHNIQUE: Multiple grayscale and Doppler images of the testicles and scrotum were obtained bilateral ly. There is no prior study for comparison. FINDINGS: Right testicle measures 2.7 x 2.3 x 2.2 cm and is morphologically normal. Low resistance Doppler castillo w confirmed. The epididymis is hypervascular There is no hydrocele or varicocele. Left testicle measures 3.1 x 2.7 x 1.9 cm and is morphologically normal. Low resistance Doppler flow confirmed. Epididymis is enlarged and hypervascular There is no hydrocele or varicocele. IMPRESSION: Findings suspicious for bilateral epididymitis. Reviewed, dictated and finalized at location B.
[2021-05-12 13:40] VITALS: BP 128/71; PULSE 79; RESP 19; TEMP 36.6; O2SAT 100
--- NOTE | 2021-05-12 14:01 | ED.GENADULT ---
HPI - General Adult General Chief complaint: Unspecified Stated complaint: worsening Epididymitis Time Seen by Provider: 05/12/21 13:50 Source: patient Mode of arrival: ambulatory Limitations: no limitations History of Present Illness HPI narrative: Patient is a 61-year-old male presenting with chief complaint of bilateral testicular pain and swelling that extends up into his groin that has been worsening. Patient reports that the symptoms began on 04-19-21 and he saw his primary care provider on 05-05-21 and was started on Levaquin which she finished yesterday. Patient reports that the swelling and pain has not remitted. He reports pain in his penis area and discomfort with urination and urinary frequency. He denies concern for STDs such as gonorrhea and chlamydia as he is not sexually active. Patient does report that he has type 1 diabetes. Related Data Home Medications Medication Instructions Recorded Confirmed alprazolam [Xanax] 0.25 mg PO BID PRN 04/06/20 02/21/21 ergocalciferol (vitamin D2) 1,250 mcg PO QTUTH 04/06/20 02/21/21 furosemide 20 mg PO DAILY PRN 04/06/20 02/21/21 insulin aspart U-100 [Novolog See Rx Instructions .ROUTE .COMPLEX 04/06/20 02/21/21 U-100 Insulin aspart] losartan 100 mg PO DAILY 04/06/20 02/21/21 metformin 1,000 mg PO DAILY 04/06/20 02/21/21 ondansetron HCl [Zofran] 4 mg PO Q8H PRN 10/14/20 02/21/21 testosterone cypionate 100 mg IM WEEKLY 10/14/20 02/21/21 Creon 2 cap PO TIDWM 01/02/21 02/21/21 aspirin 81 mg PO DAILY 01/02/21 02/21/21 Allergies Allergy/AdvReac Type Severity Reaction Status Date / Time ferumoxytol Allergy Severe Anaphylactic Verified 02/21/21 12:10 Shock Iodinated Contrast Media Allergy Severe Anaphylactic Verified 02/21/21 12:10 Shock iodine Allergy Severe Anaphylactic Verified 02/21/21 12:10 Shock iron dextran complex Allergy Severe Anaphylactic Verified 02/21/21 12:10 Shock shellfish derived Allergy Severe Anaphylactic Verified 02/21/21 12:10 Shock prednisone Allergy Hives Verified 02/21/21 12:10 Review of Systems Review of Systems: CONSTITUTIONAL: Denies fever, chills, or sweats. EYES: Denies visual changes, redness, or discharge. ENT: Denies rhinorrhea, congestion, sore throat, or otalgia. CARDIOVASCULAR: Denies chest pain, palpitations, or edema. RESPIRATORY: Denies cough or dyspnea. GASTROINTESTINAL: Denies abdominal pain, nausea, vomiting, or diarrhea. GENITOURINARY: Reports testicular pain and swelling denies dysuria or hematuria. SKIN: Denies rash or itching. MUSCULOSKELETAL: Denies back pain, joint pain, or myalgia. NEUROLOGIC: Denies headache, numbness, dizziness, or weakness. PSYCHIATRIC: Denies anxiety or depression. [facility] Past Medical History Medical History CKD stage 3 secondary to diabetes Depression with anxiety Diabetes mellitus has an insulin pump Diabetes type 1, controlled Dyslipidemia low HDL Essential hypertension History of TIA (transient ischemic attack) (~2010) Iron deficiency anemia With iron infusions q.3 months THOMPSON (nonalcoholic steatohepatitis) Osteopenia Pancreatitis (~2011) Resulting in insulin-dependent diabetes and exocrine pancreatic insufficiency Pericarditis Psoriasis Spinal stenosis Vitamin D deficiency Surgical History Surgical History H/O laminectomy (~02/2007) History of appendectomy History of cholecystectomy (~04/2012) History of colonoscopy with polypectomy History of gastric bypass (~05/2003) History of rotator cuff surgery Bilateral Status post biliopancreatic diversion with duodenal switch (~05/2003) Family History Family History Father Congestive heart failure Mother Heart disease Diabetes mellitus Social History Social History (Updated 01/30/21 @ 20:36 by Kiarra Correa NP) Social History: He has a
--- NOTE | 2021-05-12 14:49 | PC.NURSE ---
Pt gone to ultrasound
[2021-05-12 14:57] LABS: Add Urine Microscopic? YES; Appearance Urine Cloudy (Clear); Bilirubin Urine Negative (Negative); Blood Urine Negative (Negative); Color Urine Amber (Yellow); Glucose Urine UA 3+ mg/dL (Negative); Ketones Urine Negative (Negative); Leukocyte Esterase Ur Negative LEU/UL (Negative); Mucus Urine Few /lpf; Nitrate Urine Negative (Negative); Protein Urine 1+ mg/dL (Negative); Specific Grav Ur 1.027 (1.001-1.035); Squamous Epithelial Cell Urine Rare /hpf (Few); WBC Urine 0-3 /hpf
[2021-05-12] MEDS: MORPHINE SULFATE (*CRX) 2 MG/ML INJ IV PUSH (15:15)
[2021-05-12 15:48] LABS: Basophils Percent Auto 0.5 % (0.2-1.2); Eosinophils Absolute Auto 0.1 K/mm3 (0-0.3); Eosinophils Percent Auto 0.8 % (0-4.4); Hematocrit 35.5 % (42.0-52.0); Immature Granulocyte Absolute 0.03 K/mm3 (0.00-0.031); Immature Granulocyte Percent A 0.5 % (0-0.5); Lymphocytes Absolute Auto 0.91 K/mm3 (0.9-3.2); Mean Corpuscular HGB Conc 33.8 g/dl (32-36); Mean Corpuscular Hemoglobin 29.3 pg (26-34); Mean Corpuscular Volume 86.8 fl (80-100); Mean Platelet Volume 11.1 fl (7.4-10.4); Monocytes Absolute Auto 0.4 K/mm3 (0.1-0.6); Monocytes Percent Auto 6.8 % (2.6-8.5); Neutrophils Absolute Auto 4.6 K/mm3 (1.3-6.7); Neutrophils Percent Auto 76.4 % (45.5-73.1); Platelet Count Result 191 k/mm3 (150-375); Red Blood Count 4.09 M/mm3 (4.6-6.20); Red Cell Distribution Width 18.1 % (11.5-14.5); White Blood Count 6.1 K/mm3 (4.5-10.0)
[2021-05-12 16:06] LABS: Alanine Aminotransferase 79 U/L (4-50); Albumin Level 3.9 g/dL (3.5-5.1); Alkaline Phosphatase 138 U/L (38-126); Anion Gap 11 mmol/L (8-16); Aspartate Amino Transferase 72 U/L (17-59); Bilirubin,Total 1.1 mg/dL (0.2-1.3); Blood Urea Nitrogen 19 mg/dL (9-20); CRP < 0.5 mg/dL (<1.0); Calcium 8.8 mg/dL (8.4-10.2); Carbon Dioxide 23 mmol/L (22-30); Chloride 99 mmol/L (98-107); Estimated CRCL calculation 60 ml/min; Estimated Glomerular Filt Rate > 60; Glucose 257 mg/dL (65-110); Potassium 4.6 mmol/L (3.4-5.0); Sodium 133 mmol/L (137-145)
[2021-05-12 16:34] LABS: Erythrocyte Sedimentation Rate 11 mm/hr (0-20)
[2021-05-12] MEDS: KETOROLAC 15 MG/ML VIAL (*BKC) IV PUSH (17:49)
[2021-05-12] MEDS: ONDANSETRON INJ 4 MG/2 ML VIAL IV PUSH (17:51)
[2021-05-12 18:29] VITALS: BP 136/72; PULSE 68; RESP 18; O2SAT 100
== END 2021-05-12 18:39 | disposition home or self-care (01) ==
PROVIDERS: Physician Assistant; Emergency Provider Emergency Medicine; PCP Family Medicine
DX: N45.1 Epididymitis (principal); E10.22 Type 1 diabetes mellitus with diabetic chronic kidney disease; N18.30 Chronic kidney disease, stage 3 unspecified; E78.5 Hyperlipidemia, unspecified; I12.9 Hypertensive chronic kidney disease with stage 1 through stage 4 chronic kidney disease, or unspecified chronic kidney disease; D50.9 Iron deficiency anemia, unspecified; K75.81 Nonalcoholic steatohepatitis (NASH); E55.9 Vitamin D deficiency, unspecified; F41.8 Other specified anxiety disorders; Z79.4 Long term (current) use of insulin; Z79.82 Long term (current) use of aspirin; Z79.84 Long term (current) use of oral hypoglycemic drugs; Z96.41 Presence of insulin pump (external) (internal); Z98.84 Bariatric surgery status; Z87.891 Personal history of nicotine dependence
CPT/HCPCS: 36415; 76870; 80053; 81001; 85025; 85652; 86140; 87491; 87591; 93976; 96365; 96375; 99284; J0696; J1885; J2270; J2405

== ENCOUNTER 2021-05-20 10:31 | Emergency (ER) | payer MEDICARE, MEDICAID, SELFPAY ==
--- NOTE | ~2021-05-20 | US_ITS ---
EXAMINATION: US scrotum doppler EXAM DATE: 05/20/2021 12:05 INDICATION: Bilateral testicular pain. TECHNIQUE: Multiple grayscale and Doppler images of the testicles and scrotum were obtained bilateral ly. Comparison is made to prior examination from 05/12/2021. FINDINGS: Right testicle measures 2.9 x 1.7 x 2.7 cm and is morphologically normal. Low resistance Doppler castillo w confirmed. The epididymis is unremarkable. There is no hydrocele or varicocele. Left testicle measures 3.6 x 1.6 x 2.6 cm and is morphologically normal. Low resistance Doppler flow confirmed. The epididymis is unremarkable. There is no hydrocele or varicocele. IMPRESSION: 1. Normalization of previously seen bilateral epididymal hypervascularity. 2. Mild left persistent epididymal edema. 3. Low resistance testicular arterial flow confirmed bilaterally. Reviewed, dictated and finalized at location A.
[2021-05-20 10:59] VITALS: BP 126/76; PULSE 85; RESP 14; TEMP 36.6; O2SAT 100
[2021-05-20 11:10] VITALS: BP 137/61; PULSE 77; RESP 14; TEMP 36.9; O2SAT 100
[2021-05-20] MEDS: KETOROLAC (*BKC) 60 MG/2 ML VIAL IM (11:59)
--- NOTE | 2021-05-20 12:00 | ED.GENADULT ---
HPI - General Adult General Chief complaint: Urogenital-Male Stated complaint: epididymitis Time Seen by Provider: 05/20/21 11:11 Source: patient, RN notes reviewed and old records reviewed Mode of arrival: ambulatory Limitations: no limitations History of Present Illness HPI narrative: This is a 61 year old male who presents for evaluation bilateral testicular pain. He has been having pain for 4 weeks. Initially he was started on antibiotics by his primary care provider but his symptoms did not improve. He was evaluated here in ED 1 week ago. He was diagnosed with epididymitis and prescribed one dose Rocephin and doxycycline for 1 week. He reports his pain seemed to improved but it never resolved. Today he states his testicles seem more swollen and inflamed. He denies fever, nausea, vomiting, abdominal pain or dysuria. He is taking naproxen for his pain. He was given referral to urologist but he has not called to make a follow up appointment. Related Data Home Medications Medication Instructions Recorded Confirmed alprazolam [Xanax] 0.25 mg PO BID PRN 04/06/20 02/21/21 ergocalciferol (vitamin D2) 1,250 mcg PO QTUTH 04/06/20 02/21/21 furosemide 20 mg PO DAILY PRN 04/06/20 02/21/21 insulin aspart U-100 [Novolog See Rx Instructions .ROUTE .COMPLEX 04/06/20 02/21/21 U-100 Insulin aspart] losartan 100 mg PO DAILY 04/06/20 02/21/21 metformin 1,000 mg PO DAILY 04/06/20 02/21/21 ondansetron HCl [Zofran] 4 mg PO Q8H PRN 10/14/20 02/21/21 testosterone cypionate 100 mg IM WEEKLY 10/14/20 02/21/21 Creon 2 cap PO TIDWM 01/02/21 02/21/21 aspirin 81 mg PO DAILY 01/02/21 02/21/21 Allergies Allergy/AdvReac Type Severity Reaction Status Date / Time ferumoxytol Allergy Severe Anaphylactic Verified 02/21/21 12:10 Shock Iodinated Contrast Media Allergy Severe Anaphylactic Verified 02/21/21 12:10 Shock iodine Allergy Severe Anaphylactic Verified 02/21/21 12:10 Shock iron dextran complex Allergy Severe Anaphylactic Verified 02/21/21 12:10 Shock shellfish derived Allergy Severe Anaphylactic Verified 02/21/21 12:10 Shock prednisone Allergy Hives Verified 02/21/21 12:10 Review of Systems Review of Systems: All systems reviewed & are unremarkable except as noted in HPI and below PMFSH Past Medical History Medical History CKD stage 3 secondary to diabetes Depression with anxiety Diabetes mellitus has an insulin pump Diabetes type 1, controlled Dyslipidemia low HDL Essential hypertension History of TIA (transient ischemic attack) (~2010) Iron deficiency anemia With iron infusions q.3 months THOMPSON (nonalcoholic steatohepatitis) Osteopenia Pancreatitis (~2011) Resulting in insulin-dependent diabetes and exocrine pancreatic insufficiency Pericarditis Psoriasis Spinal stenosis Vitamin D deficiency Surgical History Surgical History H/O laminectomy (~02/2007) History of appendectomy History of cholecystectomy (~04/2012) History of colonoscopy with polypectomy History of gastric bypass (~05/2003) History of rotator cuff surgery Bilateral Status post biliopancreatic diversion with duodenal switch (~05/2003) Family History Family History Father Congestive heart failure Mother Heart disease Diabetes mellitus Social History Social History (Updated 01/30/21 @ 20:36 by Kiarra Correa NP) Social History: He has a former smoker, quit 1994. Infrequent alcohol, no drug use. He is accompanied by his personal fitness manager, Giorgi. 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 the patient has no children and he is not . The patient is currently on disability. Smoking packs per day: 1 Smoking cigarettes per day: 20.0 Years smoked: 13 Smoking pack-years: 13.00 Smoki
[2021-05-20 12:09] LABS: Add Urine Microscopic? YES; Appearance Urine Cloudy (Clear); Bacteria Urine Trace /hpf; Bilirubin Urine Negative (Negative); Blood Urine Negative (Negative); Color Urine Amber (Yellow); Glucose Urine UA 3+ mg/dL (Negative); Ketones Urine Trace mg/dL (Negative); Leukocyte Esterase Ur Trace LEU/UL (Negative); Mucus Urine Rare /lpf; Nitrate Urine Negative (Negative); Protein Urine 1+ mg/dL (Negative); Specific Grav Ur 1.026 (1.001-1.035); Squamous Epithelial Cell Urine Rare /hpf (Few)
[2021-05-20 14:26] VITALS: BP 132/69; PULSE 74; RESP 14; TEMP 36.5; O2SAT 100
--- NOTE | 2021-05-20 19:09 | PC.NURSE ---
Dilauded wasted with AVIVA Horn @ [id number]
== END 2021-05-20 14:28 | disposition home or self-care (01) ==
PROVIDERS: Emergency Medicine; Emergency Provider General Practice; PCP Family Medicine
DX: N50.812 Left testicular pain (principal); N50.811 Right testicular pain; I12.9 Hypertensive chronic kidney disease with stage 1 through stage 4 chronic kidney disease, or unspecified chronic kidney disease; E10.22 Type 1 diabetes mellitus with diabetic chronic kidney disease; N18.30 Chronic kidney disease, stage 3 unspecified; Z79.4 Long term (current) use of insulin; Z96.41 Presence of insulin pump (external) (internal); F32.9 Major depressive disorder, single episode, unspecified; F41.9 Anxiety disorder, unspecified; E78.5 Hyperlipidemia, unspecified; Z86.73 Personal history of transient ischemic attack (TIA), and cerebral infarction without residual deficits
CPT/HCPCS: 76870; 81001; 87086; 93976; 96372; 99284; J1170; J1885

== ENCOUNTER 2021-06-08 06:32 | Emergency (ER) | payer MEDICARE, MEDICAID, SELFPAY ==
--- NOTE | ~2021-06-08 | US_ITS ---
EXAMINATION: US scrotum doppler EXAM DATE: 06/08/2021 09:41 INDICATION: Bilateral scrotal pain. TECHNIQUE: Multiple grayscale and Doppler images of the testicles and scrotum were obtained bilateral ly. Comparison is made to prior examination from 05/20/2021. FINDINGS: Right testicle measures 3.1 x 2.2 x 2.2 cm and is morphologically normal. Low resistance Doppler castillo w confirmed. The epididymis is unremarkable. Small varicocele. Left testicle measures 3.3 x 2.3 x 1.9 cm and is morphologically normal. Low resistance Doppler flow confirmed. There is a small varicocele. The body of the epididymis also appears to have hypervascula rity, possible epididymitis. IMPRESSION: Small bilateral varicoceles. Possible left epididymitis. No torsion. Reviewed, dictated and finalized at location A. 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 Possible left epididymitis. No torsion .
[2021-06-08 06:39] VITALS: BP 110/59; PULSE 75; RESP 18; TEMP 36.2; O2SAT 98
--- NOTE | 2021-06-08 07:01 | PC.NURSE ---
Pt to ED 1 in . Reports he has hx of epididymitis x 1 month and has been on 5 rounds of abx. c/o increasing pain today, along with swelling of both testicles, with pain radiating up into bilateral hips. On arrival, appears anxious and rates pain 10/10. Uses cane at baseline. denies STD exposure. Reports is awaiting urology consult appt. Urinated just relief captain. pt reports pain in his abd muscles that increases when he changes position.
--- NOTE | 2021-06-08 07:19 | ED.MALEGU ---
HPI - Male Genitourinary General Chief complaint: Urogenital-Male Stated complaint: Lower abd pain, groin pain, urinary symptoms Time Seen by Provider: 06/08/21 07:07 Source: patient Mode of arrival: ambulatory Limitations: no limitations History of Present Illness HPI Narrative: Patient is a 61-year-old male complaining of urinary frequency and burning x1 week accompanied by bilateral testicular swelling and pain times more than a month . Patient states that he is seeing his primary care physician recently for the above symptoms was diagnosed with epididymitis and currently taking Levaquin. Patient states that this is his second treatment was seen here 3 weeks ago for the same complaint, was given Rocephin and doxycycline at that time. Patient has had 2 testicular ultrasound within the last month both showed epididymal edema, epididymitis, no testicular torsion. Patient denies any abdominal pain, nausea, vomiting, fever or chills. Related Data Home Medications Medication Instructions Recorded Confirmed alprazolam [Xanax] 0.25 mg PO BID PRN 04/06/20 02/21/21 ergocalciferol (vitamin D2) 1,250 mcg PO QTUTH 04/06/20 02/21/21 furosemide 20 mg PO DAILY PRN 04/06/20 02/21/21 insulin aspart U-100 [Novolog See Rx Instructions .ROUTE .COMPLEX 04/06/20 02/21/21 U-100 Insulin aspart] losartan 100 mg PO DAILY 04/06/20 02/21/21 metformin 1,000 mg PO DAILY 04/06/20 02/21/21 ondansetron HCl [Zofran] 4 mg PO Q8H PRN 10/14/20 02/21/21 testosterone cypionate 100 mg IM WEEKLY 10/14/20 02/21/21 Creon 2 cap PO TIDWM 01/02/21 02/21/21 aspirin 81 mg PO DAILY 01/02/21 02/21/21 Allergies Allergy/AdvReac Type Severity Reaction Status Date / Time ferumoxytol Allergy Severe Anaphylactic Verified 06/08/21 06:45 Shock Iodinated Contrast Media Allergy Severe Anaphylactic Verified 06/08/21 06:45 Shock iodine Allergy Severe Anaphylactic Verified 06/08/21 06:45 Shock iron dextran complex Allergy Severe Anaphylactic Verified 06/08/21 06:45 Shock shellfish derived Allergy Severe Anaphylactic Verified 06/08/21 06:45 Shock prednisone Allergy Hives Verified 06/08/21 06:45 Review of Systems Review of Systems: All systems reviewed & are unremarkable except as noted in HPI and below Constitutional: Constitutional: Denies body ache(s), Denies chills, Denies excessive sweating, Denies fatigue, Denies fever(s), Denies headache(s), Denies lethargy, Denies malaise, Denies weakness and Denies weight loss Eyes: Eyes: Denies blurry vision, Denies change in vision and Denies loss of vision ENT: Denies dizziness, Denies ear discharge, Denies headache(s), Denies lip swelling, Denies epistaxis, Denies nasal congestion, Denies neck pain, Denies throat swelling and Denies tongue swelling Cardiovascular: Cardiovascular: Denies chest pain, Denies chest pain at rest, Denies chest pain with activity, Denies diaphoresis, Denies rapid heart rate, Denies edema, Denies irregular heart rhythm, Denies lightheadedness, Denies palpitations, Denies dyspnea and Denies dyspnea on exertion Respiratory: Respiratory: Denies chest congestion, Denies cough, Denies hemoptysis, Denies dyspnea and Denies dyspnea on exertion Gastrointestinal: Gastrointestinal: Denies abdominal pain, Denies melena, Denies hematochezia, Denies diarrhea, Denies nausea, Denies vomiting and Denies hematemesis Musculoskeletal: Musculoskeletal: Denies abnormal gait, Denies deformity, Denies joint swelling, Denies limited range of motion, Denies neck pain and Denies numbness Neurologic: Denies Abnormal speech present, Denies abnormal gait, Denies confusion, Denies dizziness, Denies headache(s), Denies focal weakness, Denies loss of vision, Denies numbness, Denies Other visual disturbances, Denies Sensory deficit (Neuro) and Denies weakness Psychiatric: Psychiatric: Denies confusion, Denies depression, Denies auditory hallucinations, Denies homicidal ideation and Denies suicidal ideation Endocrine: End
[2021-06-08 07:54] LABS: Basophils Percent Auto 0.4 % (0.2-1.2); Eosinophils Absolute Auto 0.4 K/mm3 (0-0.3); Eosinophils Percent Auto 7.9 % (0-4.4); Hematocrit 36.2 % (42.0-52.0); Hemoglobin 12.2 g/dL (14.0-18.0); Immature Granulocyte Absolute 0.03 K/mm3 (0.00-0.031); Immature Granulocyte Percent A 0.6 % (0-0.5); Lymphocytes Absolute Auto 0.78 K/mm3 (0.9-3.2); Lymphocytes Percent Auto 14.6 % (18.3-44.2); Mean Corpuscular HGB Conc 33.7 g/dl (32-36); Mean Corpuscular Hemoglobin 28.6 pg (26-34); Mean Corpuscular Volume 84.8 fl (80-100); Mean Platelet Volume 11.1 fl (7.4-10.4); Monocytes Absolute Auto 0.5 K/mm3 (0.1-0.6); Monocytes Percent Auto 8.8 % (2.6-8.5); Neutrophils Absolute Auto 3.6 K/mm3 (1.3-6.7); Neutrophils Percent Auto 67.7 % (45.5-73.1); Platelet Count Result 181 k/mm3 (150-375); Red Blood Count 4.27 M/mm3 (4.6-6.20); Red Cell Distribution Width 17.5 % (11.5-14.5); White Blood Count 5.4 K/mm3 (4.5-10.0)
[2021-06-08 08:03] LABS: Anion Gap 8 mmol/L (8-16); Blood Urea Nitrogen 17 mg/dL (9-20); Calcium 8.7 mg/dL (8.4-10.2); Carbon Dioxide 30 mmol/L (22-30); Chloride 99 mmol/L (98-107); Estimated CRCL calculation 58 ml/min; Estimated Glomerular Filt Rate > 60; Glucose 211 mg/dL (65-110); Sodium 137 mmol/L (137-145)
[2021-06-08 08:13] LABS: Add Urine Microscopic? YES; Appearance Urine Clear (Clear); Bilirubin Urine Negative (Negative); Blood Urine Negative (Negative); Color Urine Yellow (Yellow); Glucose Urine UA 3+ mg/dL (Negative); Ketones Urine Negative (Negative); Leukocyte Esterase Ur Trace LEU/UL (Negative); Mucus Urine Rare /lpf; Nitrate Urine Negative (Negative); Protein Urine 1+ mg/dL (Negative); Squamous Epithelial Cell Urine Rare /hpf (Few)
[2021-06-08 10:10] VITALS: BP 160/85; PULSE 89; RESP 16; O2SAT 100
[2021-06-08] MEDS: HYDROcodone/acetaminophen (*CRX) 5-325 MG TABLET 1 TAB PO (10:21)
[2021-06-08] MEDS: KETOROLAC 30 MG/ML VIAL (*BKC) IM (10:59)
== END 2021-06-08 11:45 | disposition home or self-care (01) ==
PROVIDERS: Emergency Provider Emergency Medicine; PCP Family Medicine
DX: N45.1 Epididymitis (principal); E10.22 Type 1 diabetes mellitus with diabetic chronic kidney disease; I12.9 Hypertensive chronic kidney disease with stage 1 through stage 4 chronic kidney disease, or unspecified chronic kidney disease; N18.30 Chronic kidney disease, stage 3 unspecified; E78.5 Hyperlipidemia, unspecified; D50.9 Iron deficiency anemia, unspecified; K75.81 Nonalcoholic steatohepatitis (NASH); M85.80 Other specified disorders of bone density and structure, unspecified site; E55.9 Vitamin D deficiency, unspecified; Z86.73 Personal history of transient ischemic attack (TIA), and cerebral infarction without residual deficits; Z79.4 Long term (current) use of insulin; Z79.84 Long term (current) use of oral hypoglycemic drugs; Z79.82 Long term (current) use of aspirin
CPT/HCPCS: 36415; 76870; 80048; 81001; 85025; 93976; 96372; 99284; A9270; J1885

== ENCOUNTER 2021-06-17 23:34 | Emergency (ER) | payer MEDICARE, MEDICAID, SELFPAY ==
[2021-06-17 23:39] VITALS: BP 134/69; PULSE 91; RESP 18; TEMP 36.5; O2SAT 99
[2021-06-18 01:40] VITALS: BP 150/76; PULSE 80; RESP 20; O2SAT 100
--- NOTE | 2021-06-18 01:44 | PC.NURSE ---
pt states he is not waiting any longer. pt ambulatory out ED doors.
== END 2021-06-18 02:09 | disposition left against medical advice (07) ==
LOC: ANHED 06-18 01:49
PROVIDERS: PCP Family Medicine
DX: N45.1 Epididymitis (principal)
CPT/HCPCS: 99199

== ENCOUNTER 2021-06-21 14:16 | Emergency (ER) | payer MEDICARE, MEDICAID, SELFPAY ==
[2021-06-21 14:18] VITALS: BP 162/86; PULSE 103; RESP 20; TEMP 36.7; O2SAT 100
--- NOTE | 2021-06-21 14:22 | PC.NURSE ---
RN asked pt. to take a seat in the waiting room pt. states How long is it going to be? RN informed pt. that wait times cannot be given out. Pt. states I am going home I am not going to wait here, I will just call an ambulance and see if they can get me in faster,
--- NOTE | 2021-06-21 14:23 | PC.NURSE ---
pt. ambulated out of ed w/ steady gait. and NAD.
== END 2021-06-22 01:51 | disposition left against medical advice (07) ==
PROVIDERS: Emergency Provider Emergency Medicine; PCP Family Medicine
DX: Z53.21 Procedure and treatment not carried out due to patient leaving prior to being seen by health care provider (principal)
CPT/HCPCS: 99199

== ENCOUNTER 2021-06-22 08:06 | Emergency (ER) | payer MEDICARE, MEDICAID, SELFPAY ==
[2021-06-22] VITALS (26 sets, daily range): BP systolic 124–148; BP diastolic 72–83; PULSE 60–84; RESP 15–18; TEMP 36.1; O2SAT 99–100
--- NOTE | ~2021-06-22 | CT_ITS ---
EXAMINATION: CT abdomen pelvis wo con DATE: 06/22/2021 11:36 INDICATION: Hematuria. Abdominal pain. TECHNIQUE: Computed tomography (CT) of the abdomen and pelvis was performed without intravenous contr ast. Automated exposure control and iterative reconstruction technique were employed. The dose-length product was 220.05 mGy-cm. COMPARISON: 07/28/2020 FINDINGS: Lung bases are clear. Heart size is normal. No pericardial or pleural effusion. Small sliding-type hi atal hernia. Postoperative changes with suture lines along the stomach and small bowel in the right u pper quadrant. There appears to be a stent extending between the main pancreatic duct in the stomach. There are a few small rounded regions of relatively high attenuation within the small bowel and the right upper quadrant likely related to ingested pills. No dilated bowel to suggest obstruction. Likel y normal appendix identified along the cecum. Intrahepatic biliary ductal dilation. Cholecystectomy c lips at the gallbladder fossa. Spleen, right adrenal glands and left kidney are normal. Unchanged nod ular thickening of the left adrenal gland. The prior large cyst at the upper pole of the right kidney appears to have collapsed. No urolithiasis or hydronephrosis. There is haziness to the mesenteric fa t with numerous enlarged mesenteric lymph nodes which appears to progressed since the prior CT. There is increased soft tissue density at the paty hepatis with loss of the fat planes between the densit y, the liver, portal vein and head of the pancreas. Assessment is limited by the lack of intravenous contrast. No pathologically enlarged pelvic lymphadenopathy. Small fluid collection versus a retracte d testis situated between the nonvisualized scrotum and the right inguinal canal. Tiny fat-containing left inguinal hernia. No free intraperitoneal gas or fluid. Mild thoracolumbar spondylosis. IMPRESSION: 1. No urolithiasis or hydronephrosis. 2. Increasing soft tissue density at the paty hepatis, with increasing mesenteric edema and mesenter ic lymphadenopathy. This could represent reactive lymphadenopathy but the patient also raises concern for either metastatic disease or lymphoma. Assessment is limited by the absence of intravenous contr ast and would consider MRI for further evaluation. 3. Postoperative changes in the upper abdomen consistent with a reported cholecystectomy, gastric byp ass and biliopancreatic diversion with duodenal switch. 4. Small amount of fluid versus retracted testis situated between the nonvisualized scrotum and the r ight inguinal canal. Correlate with physical exam and could consider scrotal ultrasound for further e valuation as clinically indicated. Reviewed, dictated and finalized at location A. OWS DESKTOP ENGINEER IMPRESSION: 1. No urolithiasis or hydronephrosis. 2. Increasing soft tissue density at the paty hepatis, with increasing mesente leticia edema and mesenteric lymphadenopathy. This could represent reactive lymphad enopathy but the patient also raises concern for either metastatic disease or l ymphoma. Assessment is limited by the absence of intravenous contrast and would consider MRI for further evaluation. 3. Postoperative changes in the upper abdomen consistent with a reported cholec ystectomy, gastric bypass and biliopancreatic diversion with duodenal switch. 4. Small amount of fluid versus retracted testis situated between the nonvisual ized scrotum and the right inguinal canal. Correlate with physical exam and cou ld consider scrotal ultrasound for further evaluation as clinically indicated.
[2021-06-22 09:23] LABS: Basophils Percent Auto 0.2 % (0.2-1.2); Eosinophils Absolute Auto 0.1 K/mm3 (0-0.3); Hematocrit 38.3 % (42.0-52.0); Hemoglobin 12.7 g/dL (14.0-18.0); Immature Granulocyte Absolute 0.02 K/mm3 (0.00-0.031); Immature Granulocyte Percent A 0.4 % (0-0.5); Lymphocytes Percent Auto 15.8 % (18.3-44.2); Mean Corpuscular HGB Conc 33.2 g/dl (32-36); Mean Corpuscular Hemoglobin 29.3 pg (26-34); Mean Corpuscular Volume 88.5 fl (80-100); Mean Platelet Volume 11.7 fl (7.4-10.4); Monocytes Absolute Auto 0.5 K/mm3 (0.1-0.6); Monocytes Percent Auto 9.5 % (2.6-8.5); Neutrophils Absolute Auto 3.7 K/mm3 (1.3-6.7); Neutrophils Percent Auto 72.1 % (45.5-73.1); Platelet Count Result 161 k/mm3 (150-375); Red Blood Count 4.33 M/mm3 (4.6-6.20); Red Cell Distribution Width 17.9 % (11.5-14.5); White Blood Count 5.1 K/mm3 (4.5-10.0)
[2021-06-22 09:34] LABS: INR 1.1; Prothrombin Time 13.6 Seconds (11.1-14.7)
[2021-06-22 09:36] LABS: Alanine Aminotransferase 74 U/L (4-50); Albumin Level 3.9 g/dL (3.5-5.1); Alkaline Phosphatase 214 U/L (38-126); Anion Gap 11 mmol/L (8-16); Aspartate Amino Transferase 75 U/L (17-59); Bilirubin,Total 0.9 mg/dL (0.2-1.3); Blood Urea Nitrogen 19 mg/dL (9-20); Calcium 8.8 mg/dL (8.4-10.2); Carbon Dioxide 29 mmol/L (22-30); Chloride 98 mmol/L (98-107); Estimated CRCL calculation 46 ml/min; Estimated Glomerular Filt Rate 44; Glucose 111 mg/dL (65-110); Potassium 4.3 mmol/L (3.4-5.0); Sodium 138 mmol/L (137-145)
[2021-06-22] MEDS: SODIUM CHLORIDE 0.9% IV 1,000 ML 150 ML IV CONT (09:44)
[2021-06-22] MEDS: ONDANSETRON INJ 4 MG/2 ML VIAL IV PUSH (09:44)
[2021-06-22] MEDS: MORPHINE SULFATE (*CRX) 4 MG/ML INJ IV PUSH ×2 (09:46→11:54)
--- NOTE | 2021-06-22 10:03 | PC.NURSE ---
06/22 10:01. straight cath performed by pt. per RN approval. Aseptic technique was not properly performed
[2021-06-22 10:18] LABS: Add Urine Microscopic? YES; Appearance Urine Clear (Clear); Bilirubin Urine Negative (Negative); Blood Urine 2+ (Negative); Color Urine Yellow (Yellow); Glucose Urine UA 3+ mg/dL (Negative); Ketones Urine Negative (Negative); Leukocyte Esterase Ur Trace LEU/UL (Negative); Nitrate Urine Negative (Negative); Protein Urine 1+ mg/dL (Negative); RBC Urine >75 /hpf (0-2); Specific Grav Ur 1.017 (1.001-1.035); Squamous Epithelial Cell Urine Rare /hpf (Few)
--- NOTE | 2021-06-22 11:26 | PC.NURSE ---
pt. to ct.
--- NOTE | 2021-06-22 13:24 | ED.GENADULT ---
HPI - General Adult General Chief complaint: Urogenital-Male Stated complaint: Epididymitis Time Seen by Provider: 06/22/21 08:34 Source: patient Mode of arrival: ambulatory Limitations: no limitations History of Present Illness HPI narrative: 61-year-old with a history of insulin-dependent diabetic, hypertension, urinary problems here with complaints of lower abdominal and testicular pain. Patient states that he was in the ER but was unable to wait as the wait time was too long. He presently denies any fever or chills. He states that this pain is been ongoing for quite some time. He also states his left testicle is been painful he is scheduled to see a urologist at [facility] sometime this month. Patient states that the urology group here in this hospital will not take his insurance. No history of nausea or vomiting or fever. Related Data Home Medications Medication Instructions Recorded Confirmed alprazolam [Xanax] 0.25 mg PO BID PRN 04/06/20 02/21/21 ergocalciferol (vitamin D2) 1,250 mcg PO QTUTH 04/06/20 02/21/21 furosemide 20 mg PO DAILY PRN 04/06/20 02/21/21 insulin aspart U-100 [Novolog See Rx Instructions .ROUTE .COMPLEX 04/06/20 02/21/21 U-100 Insulin aspart] losartan 100 mg PO DAILY 04/06/20 02/21/21 metformin 1,000 mg PO DAILY 04/06/20 02/21/21 ondansetron HCl [Zofran] 4 mg PO Q8H PRN 10/14/20 02/21/21 testosterone cypionate 100 mg IM WEEKLY 10/14/20 02/21/21 Creon 2 cap PO TIDWM 01/02/21 02/21/21 aspirin 81 mg PO DAILY 01/02/21 02/21/21 Allergies Allergy/AdvReac Type Severity Reaction Status Date / Time ferumoxytol Allergy Severe Anaphylactic Verified 06/22/21 08:21 Shock Iodinated Contrast Media Allergy Severe Anaphylactic Verified 06/22/21 08:21 Shock iodine Allergy Severe Anaphylactic Verified 06/22/21 08:21 Shock iron dextran complex Allergy Severe Anaphylactic Verified 06/22/21 08:21 Shock shellfish derived Allergy Severe Anaphylactic Verified 06/22/21 08:21 Shock prednisone Allergy Hives Verified 06/22/21 08:21 Review of Systems Review of Systems: All systems reviewed & are unremarkable except as noted in HPI and below Constitutional: Constitutional: Reports no additional constitutional complaints Eyes: Eyes: Reports no additional eye complaints ENT: Reports system reviewed and no additional complaints, except as documented Cardiovascular: Cardiovascular: Reports no additional cardiovascular complaints Respiratory: Respiratory: Reports no additional respiratory complaints Gastrointestinal: Gastrointestinal: Reports as per HPI Genitourinary: Genitourinary: Reports as per HPI Musculoskeletal: Musculoskeletal: Reports no additional musculoskeletal complaints Integumentary/Breasts: Skin/Breast: Reports system reviewed and no additional complaints, except as docu Neurologic: Reports system reviewed and no additional complaints, except as documented PMFSH Past Medical History Medical History CKD stage 3 secondary to diabetes Depression with anxiety Diabetes mellitus has an insulin pump Diabetes type 1, controlled Dyslipidemia low HDL Essential hypertension History of TIA (transient ischemic attack) (~2010) Iron deficiency anemia With iron infusions q.3 months THOMPSON (nonalcoholic steatohepatitis) Osteopenia Pancreatitis (~2011) Resulting in insulin-dependent diabetes and exocrine pancreatic insufficiency Pericarditis Psoriasis Spinal stenosis Vitamin D deficiency Surgical History Surgical History H/O laminectomy (~02/2007) History of appendectomy History of cholecystectomy (~04/2012) History of colonoscopy with polypectomy History of gastric bypass (~05/2003) History of rotator cuff surgery Bilateral Status post biliopancreatic diversion with duodenal switch (~05/2003) Family History Family History (Reviewed 06/22/21 @ 13:2
== END 2021-06-22 14:04 | disposition home or self-care (01) ==
PROVIDERS: Emergency Provider Family Medicine; PCP Family Medicine
DX: N39.0 Urinary tract infection, site not specified (principal); R31.9 Hematuria, unspecified; R10.9 Unspecified abdominal pain; Z87.891 Personal history of nicotine dependence; K75.81 Nonalcoholic steatohepatitis (NASH); I12.9 Hypertensive chronic kidney disease with stage 1 through stage 4 chronic kidney disease, or unspecified chronic kidney disease; E11.9 Type 2 diabetes mellitus without complications; Z79.4 Long term (current) use of insulin
CPT/HCPCS: 36415; 51701; 74176; 80053; 81001; 85025; 85610; 96361; 96365; 96375; 96376; 99284; J0696; J2270; J2405; J7030

== ENCOUNTER 2021-07-11 07:06 | Inpatient (IN) | payer MEDICARE, MEDICAID, SELFPAY ==
[2021-07-11] VITALS (39 sets, daily range): BP systolic 77–123; BP diastolic 42–74; PULSE 73–125; RESP 9–24; TEMP 36.3–36.5; O2SAT 94–100; BMI 25.2
--- NOTE | ~2021-07-11 | CT_ITS ---
EXAMINATION: CTA chest PE protocol DATE: 07/15/2021 09:50 INDICATION: Shortness of breath. COVID positive. TECHNIQUE: Computed tomography (CT) pulmonary angiogram of the chest was performed with 100 mL Omnipa que-350 intravenous contrast. Additional 3D reconstructions utilizing coronal maximum intensity proje ction (MIP) were performed. Automated exposure control and iterative reconstruction technique were em ployed. The dose-length product was 395.32 mGy-cm. COMPARISON: None FINDINGS: Excellent contrast opacification of the pulmonary arteries. There is mild streak artifact from dense contrast in the superior vena cava and right atrium. There is severe motion artifact predominantly in the mid and lower lung zones where it renders evaluation in the bilateral lower lobar segmental and subsegmental pulmonary arteries essentially nondiagnostic. Sensitivities only mildly decreased in the subsegmental pulmonary arteries in the lingula and bilateral upper lobes and moderately decreased in the segmental and subsegmental pulmonary arteries of the right middle lobe. No definitive pulmonary embolism. Thickened bandlike region of consolidation in the left lower lobe likely due primarily to a telectasis although there are some subtle surrounding nodular airspace opacities which are more consi stent with pneumonia. Remaining lobes of the lungs are clear. No pulmonary edema or pleural effusion. Heart size is normal. No pericardial effusion. Thoracic aorta is normal in caliber with no dissectio n. No pathologically enlarged thoracic lymphadenopathy. Assessment of the upper abdomen is similarly markedly limited by motion artifact. Moderate thoracic spondylosis with minimal to mild anterior wedg ing of a few mid thoracic vertebral bodies. There are bridging osteophytes at multiple levels in the spine, consistent with diffuse idiopathic skeletal hyperostosis (DISH). Indeterminate small sclerotic lesion at the T1 vertebral body. IMPRESSION: 1. No definite pulmonary embolism. Large amount of respiratory motion which decreases sensitivity in the segmental and subsegmental pulmonary arteries in the bilateral upper, right middle lobes and ling apolonia but renders evaluation essentially nondiagnostic in the segmental and subsegmental pulmonary yocasta nii in the bilateral lower lobes. 2. Nodular and bandlike opacities in the left lower lobe likely combination of pneumonia and atelecta sis. Reviewed, dictated and finalized at location A. SERVICE TECHNICIAN IMPRESSION: 1. No definite pulmonary embolism. Large amount of respiratory motion which dec reases sensitivity in the segmental and subsegmental pulmonary arteries in the bilateral upper, right middle lobes and lingula but renders evaluation essentia lly nondiagnostic in the segmental and subsegmental pulmonary arteries in the b ilateral lower lobes. 2. Nodular and bandlike opacities in the left lower lobe likely combination of pneumonia and atelectasis.
--- NOTE | ~2021-07-11 | XR_ITS ---
EXAMINATION: XR chest 2V DATE: 07/14/2021 10:19 INDICATION: Shortness of breath. TECHNIQUE: Frontal and lateral views of the chest were obtained. COMPARISON: Chest single view 07/11/[address] abdomen and pelvis 06/22/2021 FINDINGS: There are airspace opacities in left lower lung zone. No pleural effusion or pneumothorax. The heart size is normal. There are old healed right rib fractures. A stent overlies the pancreas and stomach. IMPRESSION: 1. Worsened airspace opacities in left lower lung zone, consistent with atelectasis versus pneumonia. Reviewed, dictated and finalized at location A. OWS DESKTOP ENGINEER IMPRESSION: 1. Worsened airspace opacities in left lower lung zone, consistent with atelect asis versus pneumonia.
--- NOTE | ~2021-07-11 | XR_ITS ---
XR chest 1V portable DATE: 07/11/2021 07:43 INDICATION: Shortness of breath TECHNIQUE: Portable upright AP chest on 07/07/2021 at 0739 hours COMPARISON: 02/21/2021 PA and lateral chest FINDINGS: There is patchy left lower lobe infiltrate suggesting left lower lobe pneumonia. The lungs otherwise appear clear. No pleural effusion or pulmonary vascular congestion or pneumothora x. Heart size is likely within normal limits considering magnification associated with AP projection. Catheter overlies medial left upper quadrant of abdomen. IMPRESSION: Left lower lobe infiltrates suggesting pneumonia Reviewed, dictated and finalized at location A. ICATION SYSTEMS ADMINISTRATOR
--- NOTE | ~2021-07-11 | NM_ITS ---
EXAMINATION: NM pulmonary perfusion DATE: 07/14/2021 10:21 INDICATION: Shortness of breath. TECHNIQUE: 4.97 mCi Tc-99m MAA was administered intravenously for perfusion images. Scintigraphic im ages of the chest were obtained. COMPARISON: Chest 2 views 07/14/2021, perfusion scintigraphy 01/30/2021 FINDINGS: Perfusion images show a small defect in right lower lobe. There is a large defect in posterobasal seg ment left lower lobe. IMPRESSION: 1. Nondiagnostic (intermediate probability for pulmonary embolism). Reviewed, dictated and finalized at location A. GER CLINICAL
--- NOTE | ~2021-07-11 | US_ITS ---
EXAMINATION: US venous doppler LE DATE: 07/11/2021 16:30 INDICATION: Shortness of breath. Elevated d-dimer. TECHNIQUE: Grayscale ultrasound images without and with compression and Doppler ultrasound images of the bilateral lower extremity veins were obtained. COMPARISON: None. FINDINGS: The visualized portions of right common femoral vein, profunda (deep) femoral vein, femoral vein, pop liteal vein, posterior tibial veins, peroneal veins, gastrocnemius vein and greater saphenous vein ou tflow are patent. The visualized portions of left common femoral vein, profunda femoral vein, femoral vein, popliteal v ein, posterior tibial veins, peroneal veins, gastrocnemius vein and greater saphenous vein outflow ar e patent. IMPRESSION: 1. No deep venous thrombosis in either lower limb. Reviewed, dictated and finalized at location H. ER JOINTER RETURNER
--- NOTE | 2021-07-11 07:30 | ECG_ITS ---
Measurements Intervals [place] Rate: 82 P: 242 MA: 286 QRS: 37 QRSD: 97 T: 37 QT: 374 QTc: 438 Interpretive Statements ATRIAL FIBRILLATION ST ELEVATION IN ANTEROLATERAL LEADS- PROBABLY EARLY REPOLARIZATION ABNORMALITY BASELINE ARTIFACT- I, II, AVR, AVL, AVF ABNORMAL ECG Electronically Signed On 07-11-2021 16:52:16 RELASTER by Damian Randhawa D.O.
--- NOTE | 2021-07-11 07:32 | ECG_ITS ---
Measurements Intervals [place] Rate: 120 P: AR: 0 QRS: 48 QRSD: 100 T: 64 QT: 347 QTc: 490 Interpretive Statements ATRIAL FIBRILLATION WITH RAPID VENTRICULAR RESPONSE VENTRICULAR PREMATURE COMPLEX ST ELEVATION IN ANTEROLATERAL LEADS- PROBABLY EARLY REPOLARIZATION BASELINE ARTIFACT- II, III, AVR, AVF, V2-V6 ABNORMAL ECG Electronically Signed On 07-11-2021 8:35:36 BARRATTE OPERATOR by Damian Randhawa D.O.
--- NOTE | 2021-07-11 07:41 | ED.SOB ---
HPI - SOB/Dyspnea General Chief Complaint: Shortness of Breath/Dyspnea Stated Complaint: SOB Time Seen by Provider: 07/11/21 07:20 Source: patient Limitations: no limitations History of Present Illness HPI Narrative: Patient presents with shortness of breath that started early this morning, on arrival to the emergency room heart rate was A. fib with RVR. Patient did not have any history of A. fib before. History of hypertension, diabetes, chronic kidney infection currently on antibiotics. Patient denies smoking, drinking or using drugs. Patient is not vaccinated for COVID. Related Data Home Medications Medication Instructions Recorded Confirmed alprazolam [Xanax] 0.25 mg PO BID PRN 04/06/20 02/21/21 ergocalciferol (vitamin D2) 1,250 mcg PO QTUTH 04/06/20 02/21/21 furosemide 20 mg PO DAILY PRN 04/06/20 02/21/21 insulin aspart U-100 [Novolog See Rx Instructions .ROUTE .COMPLEX 04/06/20 02/21/21 U-100 Insulin aspart] losartan 100 mg PO DAILY 04/06/20 02/21/21 metformin 1,000 mg PO DAILY 04/06/20 02/21/21 ondansetron HCl [Zofran] 4 mg PO Q8H PRN 10/14/20 02/21/21 testosterone cypionate 100 mg IM WEEKLY 10/14/20 02/21/21 Creon 2 cap PO TIDWM 01/02/21 02/21/21 aspirin 81 mg PO DAILY 01/02/21 02/21/21 Allergies Allergy/AdvReac Type Severity Reaction Status Date / Time ferumoxytol Allergy Severe Anaphylactic Verified 06/22/21 08:21 Shock Iodinated Contrast Media Allergy Severe Anaphylactic Verified 06/22/21 08:21 Shock iodine Allergy Severe Anaphylactic Verified 06/22/21 08:21 Shock iron dextran complex Allergy Severe Anaphylactic Verified 06/22/21 08:21 Shock shellfish derived Allergy Severe Anaphylactic Verified 06/22/21 08:21 Shock prednisone Allergy Hives Verified 06/22/21 08:21 Review of Systems Review of Systems: CONSTITUTIONAL: Denies fever, chills, or sweats. EYES: Denies visual changes, redness, or discharge. ENT: Denies rhinorrhea, congestion, sore throat, or otalgia. CARDIOVASCULAR: Denies chest pain, palpitations, or edema. RESPIRATORY: Shortness of breath GASTROINTESTINAL: Denies abdominal pain, nausea, vomiting, or diarrhea. GENITOURINARY: Denies dysuria or hematuria. SKIN: Denies rash or itching. MUSCULOSKELETAL: Denies back pain, joint pain, or myalgia. NEUROLOGIC: Denies headache, numbness, or weakness. PSYCHIATRIC: Denies anxiety or depression. [facility] Past Medical History Medical History CKD stage 3 secondary to diabetes Depression with anxiety Diabetes mellitus has an insulin pump Diabetes type 1, controlled Dyslipidemia low HDL Essential hypertension History of TIA (transient ischemic attack) (~2010) Iron deficiency anemia With iron infusions q.3 months THOMPSON (nonalcoholic steatohepatitis) Osteopenia Pancreatitis (~2011) Resulting in insulin-dependent diabetes and exocrine pancreatic insufficiency Pericarditis Psoriasis Spinal stenosis Vitamin D deficiency Surgical History Surgical History H/O laminectomy (~02/2007) History of appendectomy History of cholecystectomy (~04/2012) History of colonoscopy with polypectomy History of gastric bypass (~05/2003) History of rotator cuff surgery Bilateral Status post biliopancreatic diversion with duodenal switch (~05/2003) Family History Family History Father Congestive heart failure Mother Heart disease Diabetes mellitus Social History Social History Social History: He has a former smoker, quit 1994. Infrequent alcohol, no drug use. He is accompanied by his administrative personal assistant, Giorgi. 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 the patient has no children and he is not . The patient is currently on disability. Smoking packs per day:
[2021-07-11 07:50] LABS: Basophils Absolute Auto 0.1 K/mm3 (0.0-0.1); Basophils Percent Auto 0.8 % (0.2-1.2); Eosinophils Absolute Auto 0.1 K/mm3 (0-0.3); Eosinophils Percent Auto 1.6 % (0-4.4); Hematocrit 36.6 % (42.0-52.0); Hemoglobin 12.2 g/dL (14.0-18.0); Immature Granulocyte Absolute 0.25 K/mm3 (0.00-0.031); Lymphocytes Absolute Auto 1.29 K/mm3 (0.9-3.2); Lymphocytes Percent Auto 20.7 % (18.3-44.2); Mean Corpuscular HGB Conc 33.3 g/dl (32-36); Mean Corpuscular Hemoglobin 28.9 pg (26-34); Mean Corpuscular Volume 86.7 fl (80-100); Mean Platelet Volume 12.2 fl (7.4-10.4); Monocytes Absolute Auto 0.5 K/mm3 (0.1-0.6); Monocytes Percent Auto 8.7 % (2.6-8.5); Neutrophils Percent Auto 64.2 % (45.5-73.1); Platelet Count Result 235 k/mm3 (150-375); Red Blood Count 4.22 M/mm3 (4.6-6.20); Red Cell Distribution Width 18.6 % (11.5-14.5); White Blood Count 6.2 K/mm3 (4.5-10.0)
[2021-07-11 07:58] LABS: INR 1.1; Prothrombin Time 14.3 Seconds (11.1-14.7)
[2021-07-11 07:59] LABS: Partial Thromboplastin Time 28.4 SECONDS (22.3-36.8)
[2021-07-11 08:00] LABS: Alanine Aminotransferase 85 U/L (4-50); Albumin Level 3.3 g/dL (3.5-5.1); Alkaline Phosphatase 151 U/L (38-126); Anion Gap 10 mmol/L (8-16); Aspartate Amino Transferase 88 U/L (17-59); Bilirubin,Total 0.5 mg/dL (0.2-1.3); Blood Urea Nitrogen 23 mg/dL (9-20); Calcium 8.2 mg/dL (8.4-10.2); Carbon Dioxide 27 mmol/L (22-30); Chloride 98 mmol/L (98-107); Estimated Glomerular Filt Rate 41; Glucose 169 mg/dL (65-110); Potassium 4.3 mmol/L (3.4-5.0); Sodium 135 mmol/L (137-145)
[2021-07-11 08:12] LABS: NT Pro B Type Natriuretic Pept 1440 pg/mL (5-100); Troponin I 0.022 ng/mL (0.000-0.034)
[2021-07-11] MEDS: ONDANSETRON INJ 4 MG/2 ML VIAL 8 MG IV PUSH (08:17)
[2021-07-11] MEDS: dilTIAZem HCl INJ 25 MG/5 ML VIAL 10 MG IV PUSH (08:22)
--- NOTE | 2021-07-11 09:15 | PC.NURSE ---
After administering IVP diltiazem, pt's heart rate slowed down to 68, and maintained 70-80's, continued to remain irregular. BP also lower. MD Christina made aware of two lower blood pressures of 89/49 and 77/60. Pt appears more comfortable and reports some improvement of symptoms after the IVP dose. Discussed with MD Christina, per MD, hold off on the dilt drip. Plan for repeat EKG.
--- NOTE | 2021-07-11 10:15 | ECG_ITS ---
Measurements Intervals [place] Rate: 77 P: [place]: 0 QRS: 40 QRSD: 100 T: 37 QT: 397 QTc: 451 Interpretive Statements ATRIAL FIBRILLATION ST ELEVATION IN ANTEROLATERAL LEADS- PROBABLY EARLY REPOLARIZATION ABNORMALITY ABNORMAL ECG Electronically Signed On 07-11-2021 16:53:00 CEMENT BASED MATERIALS PUMP TENDER by Damian Randhawa D.O.
[2021-07-11 10:29] LABS: Add Urine Microscopic? YES; Appearance Urine Clear (Clear); Bilirubin Urine 1+ (Negative); Blood Urine Negative (Negative); Color Urine Amber (Yellow); Glucose Urine UA 2+ mg/dL (Negative); Ketones Urine Trace mg/dL (Negative); Leukocyte Esterase Ur 1+ LEU/UL (Negative); Mucus Urine Rare /lpf; Nitrate Urine Negative (Negative); Protein Urine 1+ mg/dL (Negative); Specific Grav Ur 1.027 (1.001-1.035); Squamous Epithelial Cell Urine Occasional /hpf (Few)
--- NOTE | 2021-07-11 10:47 | PC.NURSE ---
Repeat EKG completed and 3-hr troponin drawn and sent. Pt requesting anxiety medication, states that he takes Xanax at home PRN. Discussed this with MD Christina and showed MD Christina repeat EKG. Per MD Christina, give 1 mg Lorazepam PO for his anxiety.
[2021-07-11] MEDS: LORazepam (*CRX) 1 MG TABLET PO (10:59)
[2021-07-11 11:12] LABS: Troponin I 0.023 ng/mL (0.000-0.034)
[2021-07-11 11:43] LABS: EDCOVIDSCREEN Positive (Negative)
[2021-07-11] MEDS: SODIUM CHLORIDE 0.9% IV 1,000 ML 125 ML IV CONT ×2 (12:54→21:28)
[2021-07-11] MEDS: ENOXAPARIN 80 MG/0.8 ML SYRINGE SUB-Q ×2 (12:54→23:55)
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
[2021-07-11 15:06] LABS: Hemoglobin A1C 8.3 % (<5.7)
[2021-07-11 15:09] LABS: Creatine Kinase 292 U/L (55-170); Lactate Dehydrogenase 551 U/L (313-618); Magnesium 2.2 mg/dL (1.6-2.3)
[2021-07-11 15:10] LABS: Alanine Aminotransferase 94 U/L (4-50); Albumin Level 3.4 g/dL (3.5-5.1); Alkaline Phosphatase 167 U/L (38-126); Aspartate Amino Transferase 103 U/L (17-59); Bilirubin,Total 0.6 mg/dL (0.2-1.3); D Dimer 1.16 ug/mL (<0.48)
[2021-07-11 15:21] LABS: Troponin I 0.019 ng/mL (0.000-0.034)
[2021-07-11 15:57] LABS: Free T4 Free Thyroxine 1.05 ng/mL (0.78-2.19)
--- NOTE | 2021-07-11 16:05 | ECG_ITS ---
Measurements Intervals [place] Rate: 79 P: 52 [place]: 161 QRS: 33 QRSD: 92 T: 37 QT: 390 QTc: 449 Interpretive Statements SINUS RHYTHM POSSIBLE LEFT ATRIAL ENLARGEMENT BORDERLINE ECG Electronically Signed On 07-12-2021 7:43:43 DENTAL HYGIENE TEACHER by Damian Randhawa D.O.
--- NOTE | 2021-07-11 16:57 | ADMGEN ---
This patient, Torito Escamilla III, was admitted to IMU Room 201-01 @ 1430 Patient oriented to hospital policies and general routines including ID bracelet, bed and alarms, visiting hours, pain management, procedures, bathroom and other care routines, personal items, smoking policy, room service/diet, and visiting hours. Information on how to activate the Rapid Response Team has been discussed. Patient are encouraged to report perceived risks to care and to ask questions if they do not understand what they are told or what they should do.
[2021-07-11 18:18] LABS: Glucose Point of Care 212 mg/dl (65-105)
[2021-07-11 21:17] LABS: Glucose Point of Care 190 mg/dl (65-105)
[2021-07-11] MEDS: GABAPENTIN 300 MG CAPSULE 600 MG PO (21:28)
[2021-07-11] MEDS: ALPRAZolam (*CRX) 0.25 MG TABLET PO (21:28)
[2021-07-12] VITALS (18 sets, daily range): BP systolic 97–147; BP diastolic 58–79; PULSE 63–89; RESP 16–21; TEMP 36.3–36.9; O2SAT 97–100
[2021-07-12 05:19] LABS: Hematocrit 35.4 % (42.0-52.0); Hemoglobin 11.8 g/dL (14.0-18.0); Mean Corpuscular HGB Conc 33.3 g/dl (32-36); Mean Corpuscular Hemoglobin 28.9 pg (26-34); Mean Corpuscular Volume 86.8 fl (80-100); Mean Platelet Volume 12.7 fl (7.4-10.4); Platelet Count Result 205 k/mm3 (150-375); Red Blood Count 4.08 M/mm3 (4.6-6.20); Red Cell Distribution Width 18.6 % (11.5-14.5); White Blood Count 3.9 K/mm3 (4.5-10.0)
[2021-07-12 05:35] LABS: Alanine Aminotransferase 78 U/L (4-50); Albumin Level 2.9 g/dL (3.5-5.1); Alkaline Phosphatase 141 U/L (38-126); Anion Gap 8 mmol/L (8-16); Aspartate Amino Transferase 69 U/L (17-59); Bilirubin,Total 0.5 mg/dL (0.2-1.3); Blood Urea Nitrogen 17 mg/dL (9-20); Calcium 7.7 mg/dL (8.4-10.2); Carbon Dioxide 23 mmol/L (22-30); Chloride 103 mmol/L (98-107); Estimated CRCL calculation 52 ml/min; Estimated Glomerular Filt Rate 52; Glucose 142 mg/dL (65-110); Magnesium 2.2 mg/dL (1.6-2.3); Potassium 4.3 mmol/L (3.4-5.0); Sodium 134 mmol/L (137-145)
[2021-07-12 08:49] LABS: Glucose Point of Care 183 mg/dl (65-105)
[2021-07-12] MEDS: METOPROLOL SUCCINATE EXT REL 25 MG TABCR PO (08:52)
[2021-07-12] MEDS: ASPIRIN 81 MG ENTERIC TABLET PO (08:52)
[2021-07-12] MEDS: LOSARTAN POTASSIUM 100 MG TABLET PO (08:52)
[2021-07-12] MEDS: GABAPENTIN 300 MG CAPSULE 600 MG PO ×3 (08:52→17:23)
[2021-07-12] MEDS: LIPASE/AMYLASE/PROTEASE 12,000 UNITS CAP 6 CAP PO ×3 (08:53→17:23)
[2021-07-12] MEDS: ALPRAZolam (*CRX) 0.25 MG TABLET PO (09:05)
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
[2021-07-12] MEDS: ENOXAPARIN 80 MG/0.8 ML SYRINGE SUB-Q ×2 (12:11→23:04)
[2021-07-12 12:39] LABS: Glucose Point of Care 270 mg/dl (65-105)
[2021-07-12 16:37] LABS: Glucose Point of Care 125 mg/dl (65-105)
--- NOTE | 2021-07-12 20:43 | PC.NURSE ---
1845 Report given to Martha RN- pt transferred to room 300 via bed accompanied by staff- personal belongings with pt
[2021-07-13] VITALS (13 sets, daily range): BP systolic 89–145; BP diastolic 58–113; PULSE 30–85; RESP 16–20; TEMP 36.3–36.8; O2SAT 97–100
[2021-07-13 02:15] LABS: Glucose Point of Care 153 mg/dl (65-105)
[2021-07-13 06:18] LABS: Basophils Percent Auto 0.5 % (0.2-1.2); Hematocrit 33.9 % (42.0-52.0); Hemoglobin 11.4 g/dL (14.0-18.0); Immature Granulocyte Percent A 2.4 % (0-0.5); Lymphocytes Absolute Auto 1.08 K/mm3 (0.9-3.2); Lymphocytes Percent Auto 26.1 % (18.3-44.2); Mean Corpuscular HGB Conc 33.6 g/dl (32-36); Mean Corpuscular Hemoglobin 28.5 pg (26-34); Mean Corpuscular Volume 84.8 fl (80-100); Mean Platelet Volume 12.5 fl (7.4-10.4); Monocytes Absolute Auto 0.4 K/mm3 (0.1-0.6); Monocytes Percent Auto 9.4 % (2.6-8.5); Neutrophils Absolute Auto 2.5 K/mm3 (1.3-6.7); Neutrophils Percent Auto 60.6 % (45.5-73.1); Platelet Count Result 211 k/mm3 (150-375); Red Cell Distribution Width 18.2 % (11.5-14.5); White Blood Count 4.1 K/mm3 (4.5-10.0)
[2021-07-13 06:53] LABS: Anion Gap 9 mmol/L (8-16); Blood Urea Nitrogen 15 mg/dL (9-20); Calcium 7.5 mg/dL (8.4-10.2); Carbon Dioxide 22 mmol/L (22-30); Chloride 102 mmol/L (98-107); Estimated CRCL calculation 52 ml/min; Estimated Glomerular Filt Rate 52; Glucose 307 mg/dL (65-110); Potassium 4.3 mmol/L (3.4-5.0); Sodium 133 mmol/L (137-145)
[2021-07-13 07:50] LABS: Glucose Point of Care 141 mg/dl (65-105)
[2021-07-13] MEDS: ASPIRIN 81 MG ENTERIC TABLET PO (09:55)
[2021-07-13] MEDS: GABAPENTIN 300 MG CAPSULE 600 MG PO ×3 (09:55→16:03)
[2021-07-13] MEDS: LIPASE/AMYLASE/PROTEASE 12,000 UNITS CAP 6 CAP PO ×3 (09:55→16:01)
[2021-07-13] MEDS: LOSARTAN POTASSIUM 100 MG TABLET PO (09:56)
[2021-07-13] MEDS: METOPROLOL SUCCINATE EXT REL 25 MG TABCR PO (09:56)
[2021-07-13] MEDS: ENOXAPARIN 80 MG/0.8 ML SYRINGE SUB-Q ×2 (09:57→22:22)
[2021-07-13 11:35] LABS: Glucose Point of Care 253 mg/dl (65-105)
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
[2021-07-13 16:29] LABS: Glucose Point of Care 114 mg/dl (65-105)
[2021-07-14] VITALS (17 sets, daily range): BP systolic 96–129; BP diastolic 46–98; PULSE 31–147; RESP 16–20; TEMP 36.3–37.1; O2SAT 96–100
--- NOTE | 2021-07-14 01:48 | ECG_ITS ---
Measurements Intervals [place] Rate: 139 P: [place]: 0 QRS: 42 QRSD: 96 T: 31 QT: 295 QTc: 449 Interpretive Statements ATRIAL FIBRILLATION WITH RAPID VENTRICULAR RESPONSE NONSPECIFIC T-WAVE ABNORMALITY- INFERIOR LEADS ABNORMAL ECG Electronically Signed On 07-14-2021 6:36:23 WEATHER STRIPPER by Damian Randhawa D.O.
[2021-07-14] MEDS: SODIUM CHLORIDE 0.9% IV 250 ML IV CONT (03:30)
[2021-07-14] MEDS: dilTIAZem HCl INJ 25 MG/5 ML VIAL 10 MG IV PUSH (04:26)
--- NOTE | 2021-07-14 04:34 | PC.NURSE ---
This patient, Torito Escamilla III, was received from [facility] on 07/14/21 at 0345. Patient/family oriented to unit policies and routines
[2021-07-14] MEDS: dilTIAZem 100 MG/100 ML 100 MG/100 ML BAG IV CONT (04:52)
[2021-07-14 05:12] LABS: Basophils Absolute Auto 0.1 K/mm3 (0.0-0.1); Basophils Percent Auto 0.8 % (0.2-1.2); Eosinophils Absolute Auto 0.1 K/mm3 (0-0.3); Hematocrit 38.7 % (42.0-52.0); Hemoglobin 12.7 g/dL (14.0-18.0); Immature Granulocyte Absolute 0.11 K/mm3 (0.00-0.031); Immature Granulocyte Percent A 1.8 % (0-0.5); Lymphocytes Absolute Auto 1.79 K/mm3 (0.9-3.2); Lymphocytes Percent Auto 28.7 % (18.3-44.2); Mean Corpuscular HGB Conc 32.8 g/dl (32-36); Mean Corpuscular Hemoglobin 28.2 pg (26-34); Mean Corpuscular Volume 85.8 fl (80-100); Monocytes Absolute Auto 0.6 K/mm3 (0.1-0.6); Monocytes Percent Auto 9.3 % (2.6-8.5); Neutrophils Absolute Auto 3.7 K/mm3 (1.3-6.7); Neutrophils Percent Auto 58.4 % (45.5-73.1); Platelet Count Result 312 k/mm3 (150-375); Red Blood Count 4.51 M/mm3 (4.6-6.20); Red Cell Distribution Width 18.2 % (11.5-14.5); White Blood Count 6.2 K/mm3 (4.5-10.0)
[2021-07-14 05:29] LABS: Anion Gap 8 mmol/L (8-16); Blood Urea Nitrogen 15 mg/dL (9-20); Calcium 7.8 mg/dL (8.4-10.2); Carbon Dioxide 26 mmol/L (22-30); Chloride 104 mmol/L (98-107); Estimated CRCL calculation 56 ml/min; Estimated Glomerular Filt Rate 56; Glucose 159 mg/dL (65-110); Potassium 4.6 mmol/L (3.4-5.0); Sodium 138 mmol/L (137-145)
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
[2021-07-14 09:26] LABS: Glucose Point of Care 151 mg/dl (65-105)
[2021-07-14] MEDS: GABAPENTIN 300 MG CAPSULE 600 MG PO ×3 (09:45→17:21)
[2021-07-14] MEDS: ASPIRIN 81 MG ENTERIC TABLET PO (09:45)
[2021-07-14] MEDS: METOPROLOL SUCCINATE EXT REL 25 MG TABCR PO (09:46)
[2021-07-14] MEDS: LIPASE/AMYLASE/PROTEASE 12,000 UNITS CAP 6 CAP PO ×2 (11:53→17:21)
[2021-07-14] MEDS: ENOXAPARIN 80 MG/0.8 ML SYRINGE SUB-Q (11:53)
[2021-07-14] MEDS: LOSARTAN POTASSIUM 100 MG TABLET PO (11:53)
--- NOTE | 2021-07-14 16:57 | PM.CNCAR ---
Assessment and Plan Additional Plan This is a 61-year-old man who is known not to have any coronary disease by virtue of a negative angiogram about 6 months ago. He is bothered mostly by chronic problems related to his previous history of hemorrhagic pancreatitis in the fact that he is now a type 1 diabetic because of this. He enters the hospital with about a 2 week history of coughing and then severe shortness of breath obviously related to coronavirus. In this setting he has AFib of new onset. He is anticoagulate Lovenox. I am going to start him on some flecainide and to try to restore sinus rhythm. We will follow him with you during this hospitalization. Bernard Carter MD [facility] History of Present Illness History of Present Illness Consult date/time: 07/14/21 16:57 Consult reason: atrial fibrillation Reason For Visit: new onset a fib,pneumonia,covid infection,unvaccin Narrative: This is a 61-year-old man I am seeing this evening at the request of the hospitalist because of atrial fibrillation. The patient is known to me from a previous emergency procedure that was done in the cardiac catheterization lab about 6 months ago but I do not think I have seen him much since then. This is a gentleman without any prior history of atrial fibrillation who came to the hospital on several days ago with complaints of severe shortness of breath that was preceded by about 2 weeks of a nonproductive cough at home. 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 His rapid coronavirus test was positive he was admitted for further evaluation and management. The patient was in atrial fibrillation with rapid ventricular response on admission. It looks like he was given some IV diltiazem and the next EKG showed that he was back in sinus rhythm. He is currently back in atrial fibrillation but with controlled heart rate in the 80 and 90 range and is not symptomatic with this or aware of it. The patient does not have any significant cardiac problems prior to this he was admitted here as an emergency back in December of this year when he was having some symptoms of epigastric and some chest pain his ECG showed some nonspecific upward trending of his ST segments in the precordial leads so this was interpreted and the ER as a acute ST-elevation [facility]. He is brought emergently to the cardiac catheterization lab where he was found to have right coronary dominant circulation with no evidence of coronary disease. His principal other major health problems stem from diabetes related to hemorrhagic pancreatitis that occurred back in 2012. He was in the hospital for a long time at [facility] ultimately he says the diagnosis was that he had gallstone pancreatitis and was in the hospital for more than 6 months. The rest of his medical care is delivered at that institution and after his original hospitalization here about 6 months ago he was following with a state wildlife officer at [facility] but I do not really think any additional pathology was identified according to the patient. In addition to the diltiazem he has been placed on enoxaparin for systemic anticoagulation. Review of Systems Constitutional: Constitutional: Reports fatigue and Reports lethargy Eyes: Eyes: Reports no additional eye complaints ENT: Reports system reviewed and no additional complaints, except as documented Cardiovascular: Cardiovascular: Reports no additional cardiovascular complaints Respiratory: Respiratory: Reports cough and Reports dyspnea on exertion Gastrointestinal: Gastrointestinal: Reports no additional gastrointestinal complaints Musculoskeletal: Musculoskeletal: Reports no additional musculoskeletal complaints Integumentary/Breasts: Skin/Breast: Reports system reviewed and no additional complaints, except as docu Neurologic: Reports system reviewed and no additional compl
[2021-07-14 17:49] LABS: Glucose Point of Care 204 mg/dl (65-105)
[2021-07-14 17:49] LABS: Glucose Point of Care 202 mg/dl (65-105)
[2021-07-14] MEDS: FLECAINIDE ACETATE 100 MG TABLET PO (18:58)
[2021-07-14] MEDS: predniSONE 40 MG, predniSONE 10 MG 50 MG PO (20:42)
[2021-07-15] VITALS (13 sets, daily range): BP systolic 109–168; BP diastolic 67–78; PULSE 72–96; RESP 12–20; TEMP 36.3–36.6; O2SAT 99–100
[2021-07-15] MEDS: ENOXAPARIN 80 MG/0.8 ML SYRINGE SUB-Q (00:37)
[2021-07-15] MEDS: predniSONE 40 MG, predniSONE 10 MG 50 MG PO ×2 (02:55→08:46)
[2021-07-15 05:23] LABS: Basophils Percent Auto 0.4 % (0.2-1.2); Hematocrit 45.4 % (42.0-52.0); Hemoglobin 14.6 g/dL (14.0-18.0); Immature Granulocyte Percent A 1.9 % (0-0.5); Lymphocytes Absolute Auto 0.76 K/mm3 (0.9-3.2); Lymphocytes Percent Auto 14.3 % (18.3-44.2); Mean Corpuscular HGB Conc 32.2 g/dl (32-36); Mean Corpuscular Hemoglobin 28.5 pg (26-34); Mean Corpuscular Volume 88.5 fl (80-100); Mean Platelet Volume 12.5 fl (7.4-10.4); Monocytes Absolute Auto 0.1 K/mm3 (0.1-0.6); Monocytes Percent Auto 1.3 % (2.6-8.5); Neutrophils Absolute Auto 4.4 K/mm3 (1.3-6.7); Neutrophils Percent Auto 82.1 % (45.5-73.1); Platelet Count Result 300 k/mm3 (150-375); Red Blood Count 5.13 M/mm3 (4.6-6.20); Red Cell Distribution Width 18.6 % (11.5-14.5); White Blood Count 5.3 K/mm3 (4.5-10.0)
[2021-07-15 05:43] LABS: Anion Gap 7 mmol/L (8-16); Blood Urea Nitrogen 17 mg/dL (9-20); Calcium 8.5 mg/dL (8.4-10.2); Carbon Dioxide 30 mmol/L (22-30); Chloride 99 mmol/L (98-107); Estimated CRCL calculation 56 ml/min; Estimated Glomerular Filt Rate 56; Glucose 237 mg/dL (65-110); Magnesium 2.5 mg/dL (1.6-2.3); Potassium 5.1 mmol/L (3.4-5.0); Sodium 136 mmol/L (137-145)
[2021-07-15] MEDS: GABAPENTIN 300 MG CAPSULE 600 MG PO ×2 (08:46→12:22)
[2021-07-15] MEDS: FLECAINIDE ACETATE 100 MG TABLET PO (08:46)
[2021-07-15] MEDS: diphenhydrAMINE HCl INJ 50 MG/ML VIAL IV PUSH (08:46)
[2021-07-15] MEDS: METOPROLOL SUCCINATE EXT REL 25 MG TABCR PO (08:47)
[2021-07-15] MEDS: ASPIRIN 81 MG ENTERIC TABLET PO (08:47)
--- NOTE | 2021-07-15 09:57 | PM.PNCARD ---
Progress Note: A&P Assessment and Plan (1) Atrial fibrillation with rapid ventricular response: Code(s): I48.91 - Unspecified atrial fibrillation Status: Acute Assessment and Plan: New onset atrial fibrillation that was recognized on admission to the hospital. He was given IV diltiazem and and initially converted to sinus rhythm. However, he subsequently reverted back to atrial fibrillation. Therefore, yesterday he was initiated on flecainide and now is in normal sinus rhythm once again. He is being anticoagulated with therapeutic dose of Lovenox for the time being. He does have a [id number] score of 2 (HTN, diabetes) therefore anticoagulation is indicated. Will shift him to Xarelto 20mg daily (does not require renal dosing, CrCl above 50). EKG now to check QTc. (2) Pneumonia due to COVID-19 virus: Code(s): U07.1 - COVID-19; J12.82 - Pneumonia due to coronavirus disease 2018 Status: Acute Assessment and Plan: Stable, not requiring any supplemental O2. Management per primary service. (3) Chronic kidney disease, stage 3: Code(s): N18.30 - Chronic kidney disease, stage 3 unspecified Status: Acute Assessment and Plan: This is stable. Continue to monitor. (4) Insulin dependent type 2 diabetes mellitus: Code(s): E11.9 - Type 2 diabetes mellitus without complications; Z79.4 - senior care (current) use of insulin Status: Acute Assessment and Plan: H/o hemorrhagic pancreatitis. Now insulin dependent as a result of this. Management per primary service Subjective Date/time seen: 07/15/21 09:57 Interval history: Cardiology follow up for atrial fibrillation Date of service 07/15/2021: Feeling better today. Not having any chest pain, palpitations, shortness of breath. Remains stable on room air. He is maintaining sinus rhythm now on flecainide. Review of Systems Constitutional: Constitutional: Reports fatigue and Reports lethargy Eyes: Eyes: Reports no additional eye complaints ENT: Reports system reviewed and no additional complaints, except as documented Cardiovascular: Cardiovascular: Reports no additional cardiovascular complaints and Reports dyspnea on exertion Respiratory: Respiratory: Reports cough and Reports dyspnea on exertion Gastrointestinal: Gastrointestinal: Reports no additional gastrointestinal complaints Musculoskeletal: Musculoskeletal: Reports no additional musculoskeletal complaints Integumentary/Breasts: Skin/Breast: Reports system reviewed and no additional complaints, except as docu Neurologic: Reports system reviewed and no additional complaints, except as documented Psychiatric: Psychiatric: Reports no additional psychiatric complaints Endocrine: Endocrine: Reports no additional endocrine complaints and Reports fatigue Hematologic/Lymphatic: Hematologic/Lymphatic: Reports no additional hematologic/lymphatic complaints Allergic/Immunologic: Allergic/Immunologic: Reports no additional allergic/immunologic complaints Exam Const: General: comfortable and no acute distress Other: Pleasant gentleman lying in bed comfortably in no distress. Alert and oriented. HENMT: Mouth: Yes moist mucous membranes Eyes: Sclera: sclerae normal Pupils: Equal, round and reactive pupils present Neck: Neck: supple and no JVD Resp: Effort & Inspection: normal respiratory effort Cardio: Rate: regular rate Rhythm: regular rhythm Heart sounds: no murmurs GI: Auscultation: normal bowel sounds Skin: General skin exam: normal color Neuro: Cranial nerves: Yes Equal, round and reactive pupils present Cognition (Neuro): normal cognition Extrem: General: normal to inspection Objective Data Vital Signs Vital Signs: Vital Signs - 24 hr 07/14/21 10:00 07/14/21 12:00 07/14/21 13:54 Temperature 36.3 C L Pulse Rate 81 57 L 58 L Respiratory Rate 18 Blood Pressure 129/98 H Pulse Oximetry 100 07/14/21 14:00
--- NOTE | 2021-07-15 10:01 | ECG_ITS ---
Measurements Intervals [place] Rate: 86 P: 52 [place]: 171 QRS: 32 QRSD: 100 T: 29 QT: 389 QTc: 466 Interpretive Statements SINUS RHYTHM BASELINE WANDER- AVR, AVL, AVF, V1 NORMAL ECG Electronically Signed On 07-15-2021 11:47:15 [employer] by Damian Randhawa D.O.
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
[2021-07-15] MEDS: ERGOCALCIFEROL 50,000 UNIT CAPSULE 50000 UNITS PO (12:22)
[2021-07-15] MEDS: LIPASE/AMYLASE/PROTEASE 12,000 UNITS CAP 6 CAP PO (12:22)
[2021-07-15] MEDS: LOSARTAN POTASSIUM 100 MG TABLET PO (12:22)
--- NOTE | 2021-07-15 12:49 | PM.DS ---
DS: Admitting Diagnosis Discharge Date 07/15/2021 Admitting Diagnosis Shortness of breath DS: Discharge Diagnosis Discharge Diagnosis (1) Atrial fibrillation with rapid ventricular response: Code(s): I48.91 - Unspecified atrial fibrillation Status: Acute Assessment and Plan: On admission however converted to normal sinus rhythm after receiving IV diltiazem 10 mg IV push x1 in the emergency department. This May have been precipitated by underlying COVID infection however pulmonary embolism is a consideration as well. As his D-dimer is elevated allergy to IV contrast he was empirically started on therapeutic dose Lovenox and continued until further elucidation with V/Q scan and venous Doppler ultrasound Venous Doppler came back negative V/Q scan was indeterminate and hence CTA was performed after premedication CTA came back negative for PE however did show left lower lobe pneumonia. He further went into atrial fibrillation with rapid ventricular rate on 07/14/2021 and was started on diltiazem drip. Cardiology was consulted at that time and was started on flecainide after which he converted back to sinus rhythm and remained on sinus rhythm. His plan to continue on flecainide at discharge and his full-dose Lovenox was switched to Xarelto at the time of discharge. He will need a follow-up EKG in 1 week and follow up with Cardiology for his atrial fibrillation. (2) Pneumonia due to COVID-19 virus: Code(s): U07.1 - COVID-19; J12.82 - Pneumonia due to coronavirus disease 2019 Status: Acute Assessment and Plan: Chest x-ray shows pneumonia predominantly in the left lower lobe which is a bit atypical for COVID however his rapid test was indeed positive. He does not meet criteria for dexamethasone or remdesivir as his SpO2 is in the upper 90s on room air. Continue azithromycin and ceftriaxone, pending sputum culture and procalcitonin. Procalcitonin was normal CTA negative for PE as V/Q was indeterminate CTA showed left lower lobe pneumonia will treat with antibiotics for suspected bacterial pneumonia But does have positive COVID appearance in the CT does not resemble COVID however not impossible If finished 3 days course of azithromycin during the hospital stay Will change his ceftriaxone to cefdinir at the time of discharge for 4 more days for bacterial pneumonia (3) Insulin dependent type 2 diabetes mellitus: Code(s): E11.9 - Type 2 diabetes mellitus without complications; Z79.4 - job coach (current) use of insulin Status: Acute Assessment and Plan: Patient may use his own insulin pump. Initiate hypoglycemic protocol. (4) Chronic kidney disease, stage 3: Code(s): N18.30 - Chronic kidney disease, stage 3 unspecified Status: Acute Assessment and Plan: Creatinine is stable on review of previous labs. Mild WENDI on admission which improved and back to his baseline by the time of discharge (5) Chronic anemia: Code(s): D64.9 - Anemia, unspecified Status: Acute Assessment and Plan: Hemoglobin and hematocrit are stable on review of previous labs and will be monitored. DS: Summary Hospital Course Hospital Course: See above Time Spent with Patient Time attestation: Total time spent providing and/or coordinating discharge services: 45 minutes Exam Narrative: General: Not in acute distress, male sitting up in bed. HEENT: PERRL, EOMI. Sclerae anicteric. Tacky mucous membranes. Oropharynx clear. Neck: Supple. No adenopathy or JVD. Respiratory: Mild conversational dyspnea. He appears in no acute respiratory distress. He has faint crackles at the left base. Cardiovascular: Sinus rhythm with S1-S2. No murmur, rub, or gallop. Gastrointestinal: Abdomen is soft, nontender, and nondistended with positive bowel sounds. Skin: Warm and dry. No rash or lesions on limited exam. Extremities: No cyanosis, clubbing, or edema. Radial and pedal pulses
[2021-07-26 10:54] LABS: Procalcitonin 0.1 ng/mL
== END 2021-07-15 15:20 | disposition home or self-care (01) | DRG 177 ==
LOC: ANHED 08:05 → ANHIMU 14:00 → ANH3MEDSUR 07-17 08:14 → ANHIMU 07-17 08:14
PROVIDERS: Physician Assistant; Admitting Provider Family Medicine; Emergency Provider Emergency Medicine; PCP Family Medicine; Visit Provider Internal Medicine
DX: U07.1 COVID-19 (principal); J12.82 Pneumonia due to coronavirus disease 2019; J15.9 Unspecified bacterial pneumonia; I12.9 Hypertensive chronic kidney disease with stage 1 through stage 4 chronic kidney disease, or unspecified chronic kidney disease; I48.91 Unspecified atrial fibrillation; E11.22 Type 2 diabetes mellitus with diabetic chronic kidney disease; N18.30 Chronic kidney disease, stage 3 unspecified; F41.8 Other specified anxiety disorders; D50.9 Iron deficiency anemia, unspecified; M85.80 Other specified disorders of bone density and structure, unspecified site; K75.81 Nonalcoholic steatohepatitis (NASH); L40.9 Psoriasis, unspecified; E86.0 Dehydration; M48.00 Spinal stenosis, site unspecified; E78.5 Hyperlipidemia, unspecified; E55.9 Vitamin D deficiency, unspecified; Z86.73 Personal history of transient ischemic attack (TIA), and cerebral infarction without residual deficits; Z79.4 Long term (current) use of insulin; Z98.84 Bariatric surgery status; Z90.49 Acquired absence of other specified parts of digestive tract; Z87.891 Personal history of nicotine dependence
CPT/HCPCS: 36415; 71045; 71046; 71275; 78580; 80048; 80053; 80076; 81001; 82550; 82728; 82948; 83036; 83615; 83735; 83880; 84145; 84439; 84443; 84484; 85025; 85027; 85380; 85610; 85730; 87040; 87086; 87426; 93005; 93970; 96365; 96375; 99285; A9270; A9540; C9803; J0456; J0696; J1200; J1650; J2405; J7030; J7050; J7512; Q9967

== ENCOUNTER 2021-07-21 11:46 | Emergency (ER) | payer MEDICARE, MEDICAID, SELFPAY | END 2021-07-22 04:31 | disposition left against medical advice (07) | DX: Z53.21 Procedure and treatment not carried out due to patient leaving prior to being seen by health care provider (principal) | CPT/HCPCS: 99199 ==

== ENCOUNTER 2021-08-21 10:29 | Emergency (ER) | payer MEDICARE, MEDICAID, SELFPAY ==
--- NOTE | ~2021-08-21 | US_ITS ---
EXAMINATION: US scrotum doppler DATE: 08/21/2021 12:36 INDICATION: Scrotal pain TECHNIQUE: Testicular sonogram utilizing grayscale and Doppler COMPARISON: None. FINDINGS: The right testis measures 2.9 x 2.3 x 2.3 cm. The left testis measures 3.4 x 2.4 x 2.3 cm. Symmetric normal grayscale appearance to both testes. There is normal vascular flow to both testes. There is th ickening of the right epididymis with heterogeneous decreased echogenicity and prominent increased va scular flow on color Doppler consistent with epididymitis. The left epididymis is normal with normal vascular flow. There is no varicocele. Small right hydrocele. IMPRESSION: 1. Thickened, edematous and hypervascular right epididymis consistent with epididymitis. No evident associated or colitis. 2. Likely reactive small right hydrocele. Reviewed, dictated and finalized at location A. [employer]ER IMPRESSION: 1. Thickened, edematous and hypervascular right epididymis consistent with epi didymitis. No evident associated or colitis. 2. Likely reactive small right hydrocele.
--- NOTE | ~2021-08-21 | CT_ITS ---
EXAMINATION: CT abdomen pelvis wo con DATE: 08/21/2021 11:51 INDICATION: Urinary retention. TECHNIQUE: Computed tomography (CT) of the abdomen and pelvis was performed without intravenous contr ast. Automated exposure control and iterative reconstruction technique were employed. The dose-length product was 407.46 mGy-cm. COMPARISON: CT abdomen and pelvis 06/22/2021, 06/27/2012 FINDINGS: The visualized portions of the lung bases demonstrate groundglass opacities and mild atelec tasis in left lower lobe. No pleural effusion. The heart size is normal. No pericardial effusion. The re is a small sliding hiatal hernia. There are surgical changes of the stomach. The pancreas demonstr ates enlargement of the head and calcifications in the tail, consistent with chronic pancreatitis. Th e liver and spleen are normal. There are changes of cholecystectomy. The adrenal glands and kidneys a re normal. There is no urolithiasis. The rectum is distended. The appendix is not visualized. There i s mild mesenteric lymphadenopathy. There is no free intraperitoneal fluid. There is prominent fat in the left inguinal canal that may be a hernia. There is mild thoracic and lumbar spondylosis. IMPRESSION: 1. Normal kidneys. No urolithiasis or hydronephrosis. Bladder decompressed by a Palafox catheter. 2. Mildly distended rectum containing stool. 3. Chronic pancreatitis. 4. Mild mesenteric lymphadenopathy, likely reactive. Reviewed, dictated and finalized at location E. [employer] T[employer]PER
[2021-08-21 10:36] VITALS: BP 144/98; PULSE 105; RESP 20; TEMP 36.9; O2SAT 100
--- NOTE | 2021-08-21 10:49 | ED.GENADULT ---
HPI - General Adult General Chief complaint: Urogenital-Male <Yolanda Sifuentes PA-C - Last Filed: 08/21/21 15:24> Stated complaint: testicle pain <Yolanda Sifuentes PA-C - Last Filed: 08/21/21 15:24> Time Seen by Provider: 08/21/21 10:31 <Yolanda Sifuentes PA-C - Last Filed: 08/21/21 15:24> Source: patient <Yolanda Sifuentes PA-C - Last Filed: 08/21/21 15:24> Mode of arrival: ambulatory <Yolanda Sifuentes PA-C - Last Filed: 08/21/21 15:24> Limitations: no limitations <Yolanda Sifuentes PA-C - Last Filed: 08/21/21 15:24> History of Present Illness HPI narrative: Patient is a 61 yo male with CC of pelvic pain from his lower abdomen into his scrotum. Patient has history of diabetes and epididymitis. Patient has been sen in this ED multiple times for epididymitis since 05/08 and prescribed multiple antibiotics and referred to urology. Patient reports he has been seen by urology the last time was in July. Patient reports that he had to see urology at [facility] due to insurance issues. Patient reports he began having urinary retention in July and was instructed to straight cath by his urologist while they repaired to schedule a TURP procedure due to enlarged prostate. Patient reports 2 to 3 weeks ago he felt that he was able to relax enough to urinate without straight cathing himself so he decreased the amount of straight cathing he performed. Patient reports that he talk to his primary care about decreasing his number of straight cast and was instructed that that was not recommended as he could possibly be retaining. Patient reports that over the past 2 weeks he has noticed increased pressure in his bladder and has noted more resistance when attempting to straight cath himself. Patient reports yesterday he did so and believes he was a little too forceful because he noticed some bleeding. Patient denies foul-smelling urine. Patient reports that he feels tenderness over his bladder and pain down into his scrotum. Patient reports that his testicles are not red, hot or swollen as they have been in the past but they are still painful. Patient has not had any fevers, chills, nausea, vomiting, diarrhea. Patient reports he has not contacted his urologist- Dr. Cam Pascual at [facility] regarding his symptoms stating the pain has really escalated starting yesterday.Patient reports taking naproxen for his symptoms. <Yolanda Sifuentes PA-C - Last Filed: 08/21/21 15:24> Related Data Home medications: Home Medications Medication Instructions Recorded Confirmed alprazolam [Xanax] 0.25 mg PO BID PRN 04/06/20 07/11/21 ergocalciferol (vitamin D2) 1,250 mcg PO QTUTH 04/06/20 07/11/21 furosemide 20 mg PO DAILY PRN 04/06/20 07/11/21 insulin aspart U-100 [Novolog See Rx Instructions .ROUTE .COMPLEX 04/06/20 07/11/21 U-100 Insulin aspart] losartan 100 mg PO DAILY 04/06/20 07/11/21 metformin 1,000 mg PO DAILY 04/06/20 07/11/21 testosterone cypionate 100 mg IM WEEKLY 10/14/20 07/11/21 Creon 2 cap PO TIDWM 01/02/21 07/11/21 aspirin 81 mg PO DAILY 01/02/21 07/11/21 gabapentin 600 mg PO TID 07/11/21 07/11/21 <Yolanda Sifuentes PA-C - Last Filed: 08/21/21 15:24> Allergies/adverse reactions: Allergies Allergy/AdvReac Type Severity Reaction Status Date / Time ferumoxytol Allergy Severe Anaphylactic Verified 07/11/21 11:51 Shock Iodinated Contrast Media Allergy Severe Anaphylactic Verified 07/11/21 11:51 Shock iodine Allergy Severe Anaphylactic Verified 07/11/21 11:51 Shock iron dextran complex Allergy Severe Anaphylactic Verified 07/11/21 11:51 Shock shellfish derived Allergy Severe Anaphylactic Verified 07/11/21 11:51 Shock prednisone Allergy Hives Verified 07/11/21 11:51 <Yolanda Sifuentes PA-C - Last Filed: 08/21/21 15:24> Review of Systems Review of Systems: CONSTITUTIONAL: Denies fever, chills, or sweats. EYES: Denies visual changes, redness, or discharge. ENT: Denies rhinorrhea, rudy
[2021-08-21 10:56] LABS: Basophils Percent Auto 0.4 % (0.2-1.2); Eosinophils Percent Auto 0.4 % (0-4.4); Hematocrit 37.5 % (42.0-52.0); Hemoglobin 12.3 g/dL (14.0-18.0); Immature Granulocyte Absolute 0.02 K/mm3 (0.00-0.031); Immature Granulocyte Percent A 0.4 % (0-0.5); Lymphocytes Absolute Auto 1.57 K/mm3 (0.9-3.2); Lymphocytes Percent Auto 29.5 % (18.3-44.2); Mean Corpuscular HGB Conc 32.8 g/dl (32-36); Mean Corpuscular Hemoglobin 27.5 pg (26-34); Mean Corpuscular Volume 83.7 fl (80-100); Mean Platelet Volume 11.2 fl (7.4-10.4); Monocytes Absolute Auto 0.4 K/mm3 (0.1-0.6); Monocytes Percent Auto 7.1 % (2.6-8.5); Neutrophils Absolute Auto 3.3 K/mm3 (1.3-6.7); Neutrophils Percent Auto 62.2 % (45.5-73.1); Platelet Count Result 256 k/mm3 (150-375); Red Blood Count 4.48 M/mm3 (4.6-6.20); White Blood Count 5.3 K/mm3 (4.5-10.0)
[2021-08-21 11:18] LABS: Alanine Aminotransferase 74 U/L (4-50); Alkaline Phosphatase 180 U/L (38-126); Anion Gap 10 mmol/L (8-16); Aspartate Amino Transferase 97 U/L (17-59); Bilirubin,Total 0.9 mg/dL (0.2-1.3); Blood Urea Nitrogen 14 mg/dL (9-20); CRP 0.9 mg/dL (<1.0); Calcium 8.9 mg/dL (8.4-10.2); Carbon Dioxide 26 mmol/L (22-30); Chloride 100 mmol/L (98-107); Estimated CRCL calculation 51 ml/min; Estimated Glomerular Filt Rate 56; Glucose 118 mg/dL (65-110); Potassium 3.6 mmol/L (3.4-5.0); Sodium 136 mmol/L (137-145)
[2021-08-21 11:25] LABS: Add Urine Microscopic? NO; Appearance Urine Clear (Clear); Bilirubin Urine Negative (Negative); Blood Urine Negative (Negative); Color Urine Yellow (Yellow); Glucose Urine UA Negative (Negative); Ketones Urine Negative (Negative); Leukocyte Esterase Ur Negative LEU/UL (Negative); Nitrate Urine Negative (Negative); Protein Urine Negative (Negative); Urobilinogen Urine Negative mg/dL (<2.0)
[2021-08-21 11:56] LABS: Specific Grav Ur 1.004 (1.001-1.035)
[2021-08-21] MEDS: HYDROcodone/acetaminophen (*CRX) 5-325 MG TABLET 1 TAB PO (11:59)
[2021-08-21] MEDS: KETOROLAC 15 MG/ML VIAL (*BKC) IV PUSH (12:22)
[2021-08-21 14:00] VITALS: BP 142/99; PULSE 96; RESP 20; O2SAT 100
[2021-08-21 15:00] VITALS: BP 164/100; PULSE 100; RESP 18; O2SAT 100
[2021-08-21 16:10] VITALS: BP 148/68; PULSE 93; RESP 18; O2SAT 99
== END 2021-08-21 16:15 | disposition home or self-care (01) ==
PROVIDERS: Physician Assistant; Emergency Provider Emergency Medicine; PCP Family Medicine
DX: N45.1 Epididymitis (principal); R33.9 Retention of urine, unspecified; E11.22 Type 2 diabetes mellitus with diabetic chronic kidney disease; N18.30 Chronic kidney disease, stage 3 unspecified; I12.9 Hypertensive chronic kidney disease with stage 1 through stage 4 chronic kidney disease, or unspecified chronic kidney disease; E78.5 Hyperlipidemia, unspecified; G89.4 Chronic pain syndrome; D50.9 Iron deficiency anemia, unspecified; K75.81 Nonalcoholic steatohepatitis (NASH); M85.80 Other specified disorders of bone density and structure, unspecified site; Z86.73 Personal history of transient ischemic attack (TIA), and cerebral infarction without residual deficits; E55.9 Vitamin D deficiency, unspecified; Z79.4 Long term (current) use of insulin; Z79.84 Long term (current) use of oral hypoglycemic drugs; Z79.82 Long term (current) use of aspirin; Z98.84 Bariatric surgery status; Z87.891 Personal history of nicotine dependence; K86.1 Other chronic pancreatitis
CPT/HCPCS: 36415; 51703; 74176; 76870; 80053; 81003; 85025; 86140; 93976; 96374; 99284; A9270; J1885

== ENCOUNTER 2021-09-07 06:46 | Emergency (ER) | payer MEDICARE, MEDICAID, SELFPAY ==
--- NOTE | ~2021-09-07 | US_ITS ---
US scrotum doppler INDICATION: Testicular pain and swelling TECHNIQUE: Testicular sonogram utilizing grayscale and color Doppler FINDINGS: The testes are normal in size and appearance. No focal lesions are seen. The right testes measures 3 x 2.9 x 2.6 cm centimeters, and the left testis measures 2.7 x 2.6 x 2.4 cm cm. There is n ormal vascular flow to both testes. There is thickening of the epididymis bilaterally with increased vascularity, consistent with epididy mitis. Small right hydrocele. IMPRESSION: 1. Thickened hypervascular bilateral epididymis, consistent with epididymitis. Reviewed, dictated and finalized at location A. K CLERK
[2021-09-07 06:53] VITALS: BP 119/74; PULSE 90; RESP 16; TEMP 36.2; O2SAT 100
[2021-09-07 07:39] LABS: Alanine Aminotransferase 37 U/L (4-50); Albumin Level 3.7 g/dL (3.5-5.1); Alkaline Phosphatase 138 U/L (38-126); Anion Gap 9 mmol/L (8-16); Aspartate Amino Transferase 54 U/L (17-59); Bilirubin,Total 0.5 mg/dL (0.2-1.3); Blood Urea Nitrogen 13 mg/dL (9-20); Calcium 8.4 mg/dL (8.4-10.2); Carbon Dioxide 25 mmol/L (22-30); Chloride 101 mmol/L (98-107); Estimated CRCL calculation 54 ml/min; Estimated Glomerular Filt Rate 56; Glucose 186 mg/dL (65-110); Sodium 135 mmol/L (137-145)
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
[2021-09-07 07:53] LABS: Basophils Percent Auto 0.6 % (0.2-1.2); Eosinophils Absolute Auto 0.1 K/mm3 (0-0.3); Eosinophils Percent Auto 1.7 % (0-4.4); Hematocrit 30.9 % (42.0-52.0); Immature Granulocyte Absolute 0.03 K/mm3 (0.00-0.031); Immature Granulocyte Percent A 0.6 % (0-0.5); Lymphocytes Absolute Auto 0.84 K/mm3 (0.9-3.2); Lymphocytes Percent Auto 17.6 % (18.3-44.2); Mean Corpuscular HGB Conc 32.4 g/dl (32-36); Mean Corpuscular Hemoglobin 27.3 pg (26-34); Mean Corpuscular Volume 84.4 fl (80-100); Monocytes Absolute Auto 0.4 K/mm3 (0.1-0.6); Monocytes Percent Auto 8.6 % (2.6-8.5); Neutrophils Absolute Auto 3.4 K/mm3 (1.3-6.7); Neutrophils Percent Auto 70.9 % (45.5-73.1); Platelet Count Result 208 k/mm3 (150-375); Red Blood Count 3.66 M/mm3 (4.6-6.20); Red Cell Distribution Width 17.6 % (11.5-14.5); White Blood Count 4.8 K/mm3 (4.5-10.0)
[2021-09-07 08:28] LABS: Add Urine Microscopic? YES; Appearance Urine Clear (Clear); Bacteria Urine 2+ /hpf; Bilirubin Urine Negative (Negative); Color Urine Yellow (Yellow); Glucose Urine UA 1+ mg/dL (Negative); Ketones Urine Negative (Negative); Leukocyte Esterase Ur 2+ LEU/UL (Negative); Mucus Urine Rare /lpf; Nitrate Urine Negative (Negative); Protein Urine 1+ mg/dL (Negative); RBC Urine 21-50 /hpf (0-2); WBC Urine 31-50 /hpf
[2021-09-07 08:29] LABS: Blood Urine Negative (Negative)
[2021-09-07] MEDS: CIPROFLOXACIN 500 MG TAB PO (10:17)
== END 2021-09-07 10:36 | disposition home or self-care (01) ==
PROVIDERS: Emergency Provider General Practice; PCP Family Medicine
DX: N45.1 Epididymitis (principal); R33.9 Retention of urine, unspecified; E11.22 Type 2 diabetes mellitus with diabetic chronic kidney disease; I12.9 Hypertensive chronic kidney disease with stage 1 through stage 4 chronic kidney disease, or unspecified chronic kidney disease; N18.30 Chronic kidney disease, stage 3 unspecified; D50.9 Iron deficiency anemia, unspecified; K75.81 Nonalcoholic steatohepatitis (NASH); M85.80 Other specified disorders of bone density and structure, unspecified site; E55.9 Vitamin D deficiency, unspecified; Z96.41 Presence of insulin pump (external) (internal); Z79.4 Long term (current) use of insulin; Z79.84 Long term (current) use of oral hypoglycemic drugs; Z79.82 Long term (current) use of aspirin; Z86.73 Personal history of transient ischemic attack (TIA), and cerebral infarction without residual deficits; Z87.891 Personal history of nicotine dependence; Z98.84 Bariatric surgery status
CPT/HCPCS: 36415; 51702; 76870; 80053; 81001; 85025; 87077; 87086; 87186; 93976; 99284; A9270

== ENCOUNTER 2021-09-08 15:38 | Emergency (ER) | payer MEDICARE, MEDICAID, SELFPAY ==
[2021-09-08 15:51] VITALS: BP 150/74; PULSE 100; RESP 18; TEMP 36.6; O2SAT 100
[2021-09-08 16:40] LABS: Anion Gap 8 mmol/L (8-16); Blood Urea Nitrogen 16 mg/dL (9-20); Calcium 8.7 mg/dL (8.4-10.2); Carbon Dioxide 26 mmol/L (22-30); Chloride 99 mmol/L (98-107); Estimated CRCL calculation 56 ml/min; Estimated Glomerular Filt Rate 56; Glucose 252 mg/dL (65-110); Potassium 4.9 mmol/L (3.4-5.0); Sodium 133 mmol/L (137-145)
--- NOTE | 2021-09-08 16:49 | PC.NURSE ---
patient up to desk and argumentative regarding visitor policy. patient informed it is our policy at this time that patients cannot have visitors in the waiting room due to our covid restrictions. patient unhappy.
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
--- NOTE | 2021-09-08 17:29 | PC.NURSE ---
Called pt back to discharge him and had no answer.
== END 2021-09-08 17:31 | disposition home or self-care (01) ==
LOC: ANHED 17:16
PROVIDERS: Emergency Provider Emergency Medicine; PCP Family Medicine
DX: E87.5 Hyperkalemia (principal); E11.22 Type 2 diabetes mellitus with diabetic chronic kidney disease; I12.9 Hypertensive chronic kidney disease with stage 1 through stage 4 chronic kidney disease, or unspecified chronic kidney disease; N18.30 Chronic kidney disease, stage 3 unspecified; D50.9 Iron deficiency anemia, unspecified; K75.81 Nonalcoholic steatohepatitis (NASH); E88.9 Metabolic disorder, unspecified; M85.80 Other specified disorders of bone density and structure, unspecified site; Z86.73 Personal history of transient ischemic attack (TIA), and cerebral infarction without residual deficits; Z87.891 Personal history of nicotine dependence; Z98.84 Bariatric surgery status; Z79.82 Long term (current) use of aspirin; Z79.4 Long term (current) use of insulin; Z79.84 Long term (current) use of oral hypoglycemic drugs
CPT/HCPCS: 36415; 80048; 99283

== ENCOUNTER 2021-11-07 10:38 | Emergency (ER) | payer MEDICARE, MEDICAID, SELFPAY ==
--- NOTE | ~2021-11-07 | CT_ITS ---
EXAMINATION: CT soft tissue neck wo con DATE: 11/07/2021 12:54 INDICATION: Neck injury. Neck pain. TECHNIQUE: Computed tomography (CT) of the neck was performed without intravenous contrast. Automated exposure control and iterative reconstruction technique were employed. The dose-length product was 5 60.39 mGy-cm. COMPARISON: CT cervical spine 01/23/2011 FINDINGS: There are no pathologically enlarged lymph nodes. The mastoid air cells are normal. There i s mild mucosal thickening in the paranasal sinuses. There is moderate cervical spondylosis. There is an old healed fracture of C7 spinous process. There are periapical lucencies around tooth 19. There i s lucency in tooth 8. There is a carious lesion of tooth 3 with periapical lucencies. IMPRESSION: 1. Dental disease. Lucency in tooth 8 may be a carious lesion or a fracture. Correlate with physical exam. Reviewed, dictated and finalized at location B. IMPRESSION: 1. Dental disease. Lucency in tooth 8 may be a carious lesion or a fracture. Co rrelate with physical exam.
[2021-11-07 10:47] VITALS: BP 111/64; PULSE 84; RESP 20; TEMP 36.6; O2SAT 100
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
[2021-11-07 13:40] VITALS: BP 116/80; PULSE 73; RESP 15; O2SAT 97
== END 2021-11-07 13:40 | disposition home or self-care (01) ==
PROVIDERS: Emergency Provider Emergency Medicine; PCP Family Medicine
DX: S10.91XA Abrasion of unspecified part of neck, initial encounter (principal); S50.311A Abrasion of right elbow, initial encounter; E11.22 Type 2 diabetes mellitus with diabetic chronic kidney disease; I12.9 Hypertensive chronic kidney disease with stage 1 through stage 4 chronic kidney disease, or unspecified chronic kidney disease; N18.30 Chronic kidney disease, stage 3 unspecified; E78.5 Hyperlipidemia, unspecified; M85.80 Other specified disorders of bone density and structure, unspecified site; G89.4 Chronic pain syndrome; D50.9 Iron deficiency anemia, unspecified; E55.9 Vitamin D deficiency, unspecified; F41.8 Other specified anxiety disorders; Z86.73 Personal history of transient ischemic attack (TIA), and cerebral infarction without residual deficits; Z79.82 Long term (current) use of aspirin; Z79.4 Long term (current) use of insulin; Y04.8XXA Assault by other bodily force, initial encounter
CPT/HCPCS: 70490; 99284

== ENCOUNTER 2022-06-27 08:35 | Inpatient (IN) | payer MEDICARE, MEDICAID, SELFPAY ==
[2022-06-27] VITALS (19 sets, daily range): BP systolic 110–128; BP diastolic 62–89; PULSE 57–82; RESP 14–19; TEMP 36.1–37.1; O2SAT 98–100; BMI 24.2
--- NOTE | ~2022-06-27 | CT_ITS ---
EXAMINATION: CTA chest PE protocol DATE: 06/28/2022 07:42 INDICATION: Chest pain with inspiration. TECHNIQUE: Computed tomography angiography (CTA) of the chest was performed with 100 mL Omnipaque-350 intravenous contrast timed to evaluate the pulmonary arteries. Coronal maximum intensity projection 3D-reconstructions were created by the technologist. Automated exposure control and iterative reconst ruction technique were employed. The dose-length product was 315.16 mGy-cm. COMPARISON: Chest CT 07/15/2021, CT abdomen and pelvis 06/27/2022 FINDINGS: There is mild scarring at the lung apices. There is mild atelectasis in left lower lobe. No pleural effusion. The heart size is normal. No pericardial effusion. There is no pulmonary embolus. There are surgical changes of the stomach. There is a small sliding hiatal hernia. There are changes of cholecystectomy. Partially visualized are 2 liver masses with the larger measuring 6.9 cm. There i s mild intrahepatic and extrahepatic biliary duct dilatation. There is a stent from the pancreatic du ct to the stomach lumen. There are calcifications in the pancreas with fat stranding around the pancr eas, consistent with chronic pancreatitis. There are bridging endplate osteophytes at multiple levels in the spine, consistent with diffuse idiopathic skeletal hyperostosis (DISH). There is mild chronic anterior wedging of multiple vertebral bodies. There is a sclerotic lesion in T1 vertebral body, sta ble from 07/15/2021, likely benign. IMPRESSION: 1. No pulmonary embolus. 2. Two liver masses with the larger measuring 6.9 cm. The differential diagnosis includes metastatic disease, abscesses, and hematomas. 3. Chronic pancreatitis with stent from the pancreatic duct to the stomach lumen. 4. Mild intrahepatic and extrahepatic biliary duct dilatation, which may be secondary to common duct stricture from chronic pancreatitis. Reviewed, dictated and finalized at location A. N UP WORKER IMPRESSION: 1. No pulmonary embolus. 2. Two liver masses with the larger measuring 6.9 cm. The differential diagnosi s includes metastatic disease, abscesses, and hematomas. 3. Chronic pancreatitis with stent from the pancreatic duct to the stomach lume n. 4. Mild intrahepatic and extrahepatic biliary duct dilatation, which may be sec ondary to common duct stricture from chronic pancreatitis.
--- NOTE | ~2022-06-27 | US_ITS ---
EXAMINATION: US biopsy liver DATE: 06/29/2022 14:37 INDICATION: Liver mass. TECHNIQUE: The procedure including the risks, benefits, and alternatives was discussed with the patie nt. Risks discussed included bleeding and infection. The patient understood the risks and agreed to p roceed. The skin overlying the right hepatic lobe was prepped and draped in usual sterile fashion. A nesthetic was administered with 1% lidocaine subcutaneously. An 18 gauge core biopsy needle was then used to obtain 3 core biopsy specimens under continuous sonographic guidance. The entry site was heaven aned and dressed. There were no immediate complications. FINDINGS: Ultrasound images demonstrate the needle in a 6.8 cm mass in right hepatic lobe. IMPRESSION: 1. Ultrasound-guided core needle biopsy of a liver mass. Reviewed, dictated and finalized at location A. SHADE ASSEMBLER
--- NOTE | ~2022-06-27 | XR_ITS ---
EXAMINATION: XR chest 2V DATE: 06/27/2022 09:19 INDICATION: Cough and shortness of breath TECHNIQUE: PA and lateral views of the chest were obtained. COMPARISON: Chest radiograph dated 07/14/[address] dated 07/15/2021 FINDINGS: The lungs are clear with no focal airspace opacities, pulmonary edema, pleural effusion or pneumothor ax. The cardiomediastinal silhouette is normal. Chronic mild anterior wedging at T7-T9 with bridging osteophytes at multiple levels consistent with diffuse idiopathic skeletal hyperostosis (DISH). Uncha nged stent projecting over the epigastric region. IMPRESSION: 1. No acute cardiopulmonary disease. Reviewed, dictated and finalized at location A. STIGATIONS CHIEF
--- NOTE | ~2022-06-27 | MR_ITS ---
EXAMINATION: MR abdomen wo/w con DATE: 06/28/2022 08:25 INDICATION: Liver masses. Right abdominal pain. TECHNIQUE: Magnetic resonance imaging (MRI) of the abdomen was performed without and with 15 mL Multi Jony intravenous contrast. COMPARISON: MRCP 06/30/2012, CT abdomen and pelvis 06/27/2022, 08/21/2021 FINDINGS: There are approximately 5 enhancing masses in the liver measuring up to 6.4 x 5.1 cm . There is mild intrahepatic bile duct dilatation. The common hepatic duct is dilated to 10 mm. There is a stricture of the common bile duct. The spleen is normal. The pancreas demonstrates heterogeneous signal intensi ty and main duct dilatation and surrounding fat stranding, consistent with chronic pancreatitis. The stent from the pancreatic duct to the stomach seen by CT is not well visualized by MRI. The adrenal g lands are normal. There are cysts in the kidneys measuring up to 7 mm on the left. There are no dilat ed loops of bowel. There is mild aortocaval and left aortic lymphadenopathy. There is no free intrape ritoneal fluid. IMPRESSION: 1. Five enhancing liver masses measuring up to 6.4 x 5.1 cm, new from 08/21/21, most likely metastatic disease. Ultrasound-guided core needle biopsy is recommended. 2. Chronic pancreatitis. 3. Chronic mild intrahepatic and extrahepatic biliary duct dilatation with common duct stricture, whi ch may be secondary to chronic pancreatitis. 4. Mild retroperitoneal lymphadenopathy. Reviewed, dictated and finalized at location A. Y GO ROUND OPERATOR IMPRESSION: 1. Five enhancing liver masses measuring up to 6.4 x 5.1 cm, new from 08/21/21, m ost likely metastatic disease. Ultrasound-guided core needle biopsy is recommen ded. 2. Chronic pancreatitis. 3. Chronic mild intrahepatic and extrahepatic biliary duct dilatation with comm on duct stricture, which may be secondary to chronic pancreatitis. 4. Mild retroperitoneal lymphadenopathy.
--- NOTE | ~2022-06-27 | CT_ITS ---
EXAMINATION: CT abdomen pelvis wo con DATE: 06/27/2022 11:10 INDICATION: Right flank pain TECHNIQUE: Computed tomography (CT) of the abdomen and pelvis was performed without intravenous contr ast. Automated exposure control and iterative reconstruction technique were employed. The dose-length product was 469.72 mGy-cm. COMPARISON: 08/21/2021 FINDINGS: Again seen is mild discoid atelectasis/scarring in the left lower lobe. Heart size is normal. No nishant cardial or pleural effusion. Small sliding-type hiatal hernia. Cholecystectomy clips the gallbladder fossa. There are postoperative changes along the stomach as well as a stent extending in a retrograde fashion along the main pancreatic duct into the stomach reportedly related to prior biliopancreatic diversion with duodenal switch. Intrahepatic biliary ductal dilation and dilated common bile duct whi ch tapers abruptly in the region of the head of the pancreas near the end of the previously noted jaz nt. There are couple hepatic peripherally hypodense masses measuring 6.3 x 5.5 cm and 5.4 x 4.2 cm in the right hepatic lobe concerning for metastatic disease. Scattered dystrophic calcifications along the head, body and tail the pancreas likely sequela of chronic pancreatitis. Spleen, bilateral kidney s and adrenal glands are normal.. There is diffuse wall thickening of the colon consistent with colitis. No bowel obstruction. Mild dif fuse wall thickening the bladder which could be seen with cystitis either acute or chronic. Prominent mesenteric edema along with numerous mesenteric lymph nodes. Small amount of nonloculated ascites in the pelvis. No evident abscess or free intraperitoneal gas. IMPRESSION: 1. Diffuse colonic wall thickening with pericolonic inflammatory stranding consistent with colitis wh ich could be infectious, inflammatory or ischemic in etiology. 2. 2 new large masses in the right hepatic lobe measuring 6.3 cm and 5.4 cm in maximal diameters was concerning for metastatic disease. Given the presence of colitis. Differential would also include hep atic abscesses. Correlate for history of prior malignancy and renal function allows consider further evaluation with postcontrast CT of the chest, abdomen and pelvis. Definitive determination may requir e percutaneous biopsy which could be performed with ultrasound guidance. 3. Increased intra and extra hepatic biliary ductal dilation with postoperative change of reported th e pancreatic diversion and duodenal switch with pancreaticogastric stent. Correlate with clinical/dipesh gical history. Postcontrast imaging would be helpful to better delineate the anatomy. Would also rubia elate with liver function tests. 4. Chronic dystrophic pancreatic calcifications consistent with sequela of chronic pancreatitis. 5. Diffuse mild bladder wall thickening which could be seen with cystitis either acute or chronic. Reviewed, dictated and finalized at location A. DER OPERATOR IMPRESSION: 1. Diffuse colonic wall thickening with pericolonic inflammatory stranding cons istent with colitis which could be infectious, inflammatory or ischemic in etio logy. 2. 2 new large masses in the right hepatic lobe measuring 6.3 cm and 5.4 cm in maximal diameters was concerning for metastatic disease. Given the presence of colitis. Differential would also include hepatic abscesses. Correlate for histo ry of prior malignancy and renal function allows consider further evaluation wi th postcontrast CT of the chest, abdomen and pelvis. Definitive determination m ay require percutaneous biopsy which could be performed with ultrasound sabino arana 3. Increased intra and extra hepatic biliary ductal dilation with postoperative change of reported the pancreatic diversion and duodenal switch with pancreati cogastric stent. C
--- NOTE | ~2022-06-27 | US_ITS ---
EXAMINATION: US venous doppler [facility] DATE: 06/28/2022 10:59 INDICATION: Chest pain. TECHNIQUE: Grayscale ultrasound images without and with compression and Doppler ultrasound images of the bilateral lower extremity veins were obtained. COMPARISON: None. FINDINGS: The visualized portions of right common femoral vein, profunda (deep) femoral vein, femoral vein, pop liteal vein, peroneal veins, posterior tibial veins, and greater saphenous vein outflow are patent. The visualized portions of left common femoral vein, profunda femoral vein, femoral vein, popliteal v ein, peroneal veins, posterior tibial veins, and greater saphenous vein outflow are patent. IMPRESSION: 1. No deep venous thrombosis. Reviewed, dictated and finalized at location A. STRY TECHNICAL OFFICER
--- NOTE | ~2022-06-27 | NM_ITS ---
EXAMINATION: NM pulmonary perfusion DATE: 06/27/2022 13:30 INDICATION: Shortness of breath. Elevated d-dimer. TECHNIQUE: 5.5 mCi Tc-99m MAA by intravenous route. Scintigraphic images of the chest were obtained. COMPARISON: VQ studies dated 07/14/2021 and 01/30/2021 and chest radiograph dated 06/27/2022 FINDINGS: There is homogeneous radiotracer activity throughout the lungs on the single breath ventilation seque nce. There is relatively homogeneous perfusion throughout the lungs. No discrete ventilation and pe rfusion mismatch is identified. IMPRESSION: 1. Low probability for pulmonary embolism. Reviewed, dictated and finalized at location A. Y CAPTAIN
--- NOTE | 2022-06-27 08:55 | ECG_ITS ---
Measurements Intervals [place] Rate: 70 P: 51 MT: 159 QRS: 39 QRSD: 107 T: 38 QT: 407 QTc: 440 Interpretive Statements SINUS RHYTHM WITH OCCASIONAL ATRIAL PREMATURE COMPLEXES COMPARED TO ECG 07/15/2021 11:22:20 NO SIGNIFICANT CHANGES Electronically Signed On 06-28-2022 8:13:44 [employer]EIGN EXCHANGE DEALER by Bernard Carter M.D.
--- NOTE | 2022-06-27 09:26 | ED.GENADULT ---
HPI - General Adult General Chief complaint: Unspecified Stated complaint: difficulty breathing Time Seen by Provider: 06/27/22 08:37 Source: patient, RN notes reviewed and old records reviewed Mode of arrival: ambulatory Limitations: no limitations History of Present Illness HPI narrative: This 62 year old male with history of anemia, DM, hypertension who presents for evaluation of right flank pain and cough. He states he developed a productive cough 10 days ago but it is now dry. He also reports hoarseness and decreased appetite. He denies fever but reports chills with out abdominal pain or diarrhea. He has an episode of nausea and vomiting on Wednesday. Last night and today he has noticed pain to his right flank. This pain is sharp and it worse with movement and inspiration. He denies chest pain but states he has some mild shortness of breath. He has not taken any medication for his pain this morning. He rates his pain as 4/10. Related Data Home Medications Medication Instructions Recorded Confirmed alprazolam 0.25 mg tablet (Xanax) 0.25 mg PO BID PRN Anxiety 04/06/20 06/27/22 ergocalciferol (vitamin D2) 1,250 1,250 mcg PO QTUTH 04/06/20 06/27/22 mcg (50,000 unit) capsule furosemide 20 mg tablet 20 mg PO DAILY PRN Edema 04/06/20 06/27/22 insulin aspart U-100 100 unit/mL See Rx Instructions .Route .COMPLEX 04/06/20 06/27/22 subcutaneous solution (Novolog U-100 Insulin aspart) losartan 100 mg tablet 100 mg PO DAILY 04/06/20 06/27/22 metformin 500 mg tablet,extended 1,000 mg PO DAILY 04/06/20 06/27/22 release 24 hr testosterone cypionate 200 mg/mL 100 mg IM WEEKLY 10/14/20 06/27/22 intramuscular oil aspirin 81 mg tablet,delayed 81 mg PO DAILY 01/02/21 06/27/22 release [id number]-[id number] 2 cap PO TIDWM 01/02/21 06/27/22 36,000-114,000-180,000 unit capsule,delay rel (Creon) gabapentin 600 mg tablet 600 mg PO TID 07/11/21 06/27/22 emtricitabine 200 mg-tenofovir 200 - 300 tablet PO DAILY 06/27/22 06/27/22 disoproxil fumarate 300 mg tablet oxycodone 10 mg tablet 10 mg PO Q6-8H PRN Pain 06/27/22 06/27/22 rivaroxaban 20 mg tablet (Xarelto) 20 mg PO DAILY 06/27/22 06/27/22 Allergies Allergy/AdvReac Type Severity Reaction Status Date / Time ferumoxytol Allergy Severe Anaphylactic Verified 06/27/22 13:52 Shock Iodinated Contrast Media Allergy Severe Anaphylactic Verified 06/27/22 16:07 Shock iodine Allergy Severe Anaphylactic Verified 06/27/22 16:07 Shock iron dextran complex Allergy Severe Anaphylactic Verified 06/27/22 16:07 Shock shellfish derived Allergy Severe Anaphylactic Verified 06/27/22 16:07 Shock prednisone Allergy Hives Verified 06/27/22 16:07 Review of Systems Review of Systems: All systems reviewed & are unremarkable except as noted in HPI and below Constitutional: Constitutional: Reports chills, Reports fatigue, Denies fever(s) and Reports poor appetite ENT: Reports change in voice and Reports nasal congestion Cardiovascular: Cardiovascular: Denies chest pain at rest, Denies chest pain with activity and Reports dyspnea Respiratory: Respiratory: Reports cough, Denies hemoptysis and Denies pain with cough Gastrointestinal: Gastrointestinal: Denies coffee ground emesis, Denies diarrhea and Reports nausea Genitourinary: Genitourinary: Denies dysuria, Reports flank pain and Denies urinary frequency [facility] Past Medical History Medical History (Updated 06/27/22 @ 18:45 by Yomaira Barnhart MD) Atrial fibrillation Chronic anemia Chronic kidney disease, stage 3 Creatinine ranges between 1.2 and 1.6. Chronic pain syndrome Depression with anxiety Dyslipidemia Low HDL Essential hypertension Insulin dependent type 2 diabetes mellitus On insulin pump. Hemoglobin A1c was 7.7% in January 2021. Iron deficiency anemia With iron infusions q.3 months. Nonalcoholic steatohepatitis ([place]) Osteopenia Pancreatitis (2011) History hemorrhagic pancreatitis resultin
[2022-06-27 09:50] LABS: Basophils Percent Auto 0.4 % (0.2-1.2); Eosinophils Absolute Auto 0.2 K/mm3 (0-0.3); Eosinophils Percent Auto 2.1 % (0-4.4); Hematocrit 29.2 % (42.0-52.0); Hemoglobin 8.8 g/dL (14.0-18.0); Immature Granulocyte Absolute 0.05 K/mm3 (0.00-0.031); Immature Granulocyte Percent A 0.6 % (0-0.5); Lymphocytes Absolute Auto 0.82 K/mm3 (0.9-3.2); Lymphocytes Percent Auto 10.4 % (18.3-44.2); Mean Corpuscular HGB Conc 30.1 g/dl (32-36); Mean Corpuscular Hemoglobin 22.3 pg (26-34); Mean Corpuscular Volume 74.1 fl (80-100); Mean Platelet Volume 10.8 fl (7.4-10.4); Monocytes Absolute Auto 0.9 K/mm3 (0.1-0.6); Neutrophils Percent Auto 75.5 % (45.5-73.1); Platelet Count Result 240 k/mm3 (150-375); Red Blood Count 3.94 M/mm3 (4.6-6.20); Red Cell Distribution Width 18.3 % (11.5-14.5); White Blood Count 7.9 K/mm3 (4.5-10.0)
[2022-06-27 10:02] LABS: INR 1.3; Prothrombin Time 15.9 Seconds (11.1-14.7)
[2022-06-27 10:03] LABS: Partial Thromboplastin Time 31.5 SECONDS (22.3-36.8)
[2022-06-27 10:06] LABS: D Dimer 2.86 ug/mL (<0.48)
[2022-06-27 10:13] LABS: Alanine Aminotransferase 20 U/L (6-50); Albumin Level 3.5 g/dL (3.5-5.1); Alkaline Phosphatase 185 U/L (38-126); Anion Gap 6 mmol/L (8-16); Aspartate Amino Transferase 27 U/L (17-59); Bilirubin,Total 0.4 mg/dL (0.2-1.3); Blood Urea Nitrogen 15 mg/dL (9-20); Calcium 7.6 mg/dL (8.4-10.2); Carbon Dioxide 27 mmol/L (22-30); Chloride 99 mmol/L (98-107); Estimated Glomerular Filt Rate 56; Glucose 305 mg/dL (65-110); Lipase 21 U/L (23-300); Potassium 4.2 mmol/L (3.4-5.0); Sodium 132 mmol/L (137-145)
[2022-06-27 10:26] LABS: Influenza A QL RT-PCR Negative (Negative); Influenza B QL RT-PCR Negative (Negative); SARS-CoV-2 RNA PCR Negative
[2022-06-27 11:55] LABS: Appearance Urine Clear (Clear); Bilirubin Urine Negative (Negative); Blood Urine Trace-lysed (Negative); Color Urine Yellow (Yellow); Glucose Urine UA 2+ mg/dL (Negative); Ketones Urine Negative (Negative); Leukocyte Esterase Ur 1+ LEU/UL (Negative); Nitrate Urine Positive (Negative); Protein Urine Negative (Negative); Urobilinogen Urine 0.2 mg/dL (<2.0); pH Urine 5.5 (5.0-9.0)
[2022-06-27 11:57] LABS: Add Urine Microscopic? YES
[2022-06-27 11:58] LABS: Bacteria Urine 4+ /hpf; Mucus Urine Rare /lpf; RBC Urine 0-2 /hpf (0-2); Squamous Epithelial Cell Urine Rare /hpf (Few); WBC Urine 31-50 /hpf
--- NOTE | 2022-06-27 13:36 | PM.IMHP ---
H&P: HPI History of Present Illness Date/Time: 06/27/22 13:36 Chief Complaint: Difficulty brain Narrative: This is a 62-year-old male patient with a history of iron deficiency anemia. Approximately every 3 months he does get a iron transfusion. He does see a copy room technician elsewhere. Patient came into the emergency room for evaluation of right flank pain and a cough. The patient stated that he has had a productive cough for 10 days. He also has some nausea vomiting last Wednesday. Last night he developed right flank pain. The pain is worse with movement and inspiration. The patient did not take any narcotics. His H&H is 8.8 and 29.2 which the patient tells me that is normal for him. He did not notice any blood in his stool and has not been vomiting any blood. His D-dimer was elevated to 2.86 sodium slightly low 132. His glucose was noted to be 305 with an anion gap of 6. Alkaline phosphatase is 185 and the rest of the liver enzymes are not elevated previously noted earlier this year. The patient does see a hand brim ironer and [place]. The patient has had a pancreatic stent in the past. Patient was negative for influenza A/B and COVID. Abdominal pelvis CT was read as the following. Diffuse colonic wall thickening with pericolonic inflammatory stranding consistent with colitis which could be infectious, inflammatory or ischemic in etiology. 2. 2 new large masses in the right hepatic lobe measuring 6.3 cm and 5.4 cm in maximal diameters was concerning for metastatic disease. Given the presence of colitis. Differential would also include hepatic abscesses. Correlate for history of prior malignancy and renal function allows consider further evaluation with postcontrast CT of the chest, abdomen and pelvis. Definitive determination may require percutaneous biopsy which could be performed with ultrasound guidance. 3. Increased intra and extra hepatic biliary ductal dilation with postoperative change of reported the pancreatic diversion and duodenal switch with pancreaticogastric stent. Correlate with clinical/surgical history. Postcontrast imaging would be helpful to better delineate the anatomy. Would also correlate with liver function tests. 4. Chronic dystrophic pancreatic calcifications consistent with sequela of chronic pancreatitis. 5. Diffuse mild bladder wall thickening which could be seen with cystitis either acute or chronic. The ED provider spoke with Dr. Carmona who suggested an MR of the abdomen. He did not recommend a biopsy at this time. The patient stated that he is aware that there is scarring in his pancreas. The patient is being admitted to observation status on the date of service of 06/27/2022. Review of Systems Review of Systems: See HPI All systems reviewed & are unremarkable except as noted in HPI and below Constitutional: Constitutional: Reports as per HPI and Reports no additional constitutional complaints Eyes: Eyes: Reports as per HPI and Reports no additional eye complaints ENT: Reports system reviewed and no additional complaints, except as documented and Reports Normal hearing present Cardiovascular: Cardiovascular: Reports no additional cardiovascular complaints Respiratory: Respiratory: Reports no additional respiratory complaints and Reports no additional respiratory complaints Gastrointestinal: Gastrointestinal: Reports as per HPI and Reports no additional gastrointestinal complaints Musculoskeletal: Musculoskeletal: Reports no additional musculoskeletal complaints Integumentary/Breasts: Skin/Breast: Reports system reviewed and no additional complaints, except as docu and Reports as per HPI Neurologic: Reports system reviewed and no additional complaints, except as documented, Reports as per HPI and Reports Normal hearing present Psychiatric: Psychiatric: Reports no additional psychiatric complaints and Reports as per HPI Endocrine: Endocrine: Reports no additional endocrine complaints Hematologic/Lymphatic:
--- NOTE | 2022-06-27 14:45 | ADMGEN ---
This patient, Torito Escamilla III, was admitted to Medical Room 340-01. Patient/family oriented to hospital policies and general routines including ID bracelet, bed and alarms, visiting hours, pain management, procedures, bathroom and other care routines, personal items, smoking policy, room service/diet, and visiting hours. Information on how to activate the Rapid Response Team has been discussed. Patient/Family are encouraged to report perceived risks to care and to ask questions if they do not understand what they are told or what they should do.
[2022-06-27 16:30] LABS: Hemoglobin 8.5 g/dL (14.0-18.0)
[2022-06-27 16:51] LABS: Hemoglobin A1C 9.9 % (<5.7)
[2022-06-27] MEDS: GABAPENTIN 300 MG CAPSULE 600 MG PO (17:40)
[2022-06-27] MEDS: LIPASE/AMYLASE/PROTEASE 12,000 UNITS CAP 6 CAP PO (17:41)
[2022-06-27 17:48] LABS: Glucose Point of Care 93 mg/dl (65-105)
[2022-06-27] MEDS: predniSONE 40 MG, predniSONE 10 MG 50 MG PO (18:00)
[2022-06-27] MEDS: oxyCODONE HCL (*CRX) 5 MG TAB IR 10 MG PO (19:29)
[2022-06-27] MEDS: FAMOTIDINE 20 MG/2 ML VIAL IV PUSH (21:27)
[2022-06-27] MEDS: FLECAINIDE ACETATE 100 MG TABLET PO (21:29)
[2022-06-27 22:05] LABS: Hematocrit 31.2 % (42.0-52.0); Hemoglobin 9.4 g/dL (14.0-18.0)
[2022-06-28] VITALS (7 sets, daily range): BP systolic 103–125; BP diastolic 58–75; PULSE 57–70; RESP 16–20; TEMP 35.7–36.7; O2SAT 98–100
[2022-06-28] MEDS: predniSONE 40 MG, predniSONE 10 MG 50 MG PO ×2 (00:08→06:05)
[2022-06-28] MEDS: diphenhydrAMINE HCl CAP 25 MG CAPSULE 50 MG PO (06:04)
[2022-06-28 06:12] LABS: Basophils Percent Auto 0.1 % (0.2-1.2); Hematocrit 31.7 % (42.0-52.0); Hemoglobin 9.4 g/dL (14.0-18.0); Immature Granulocyte Absolute 0.03 K/mm3 (0.00-0.031); Immature Granulocyte Percent A 0.4 % (0-0.5); Lymphocytes Absolute Auto 0.64 K/mm3 (0.9-3.2); Lymphocytes Percent Auto 9.2 % (18.3-44.2); Mean Corpuscular HGB Conc 29.7 g/dl (32-36); Mean Corpuscular Hemoglobin 21.6 pg (26-34); Mean Corpuscular Volume 72.9 fl (80-100); Mean Platelet Volume 11.4 fl (7.4-10.4); Monocytes Absolute Auto 0.1 K/mm3 (0.1-0.6); Monocytes Percent Auto 0.9 % (2.6-8.5); Neutrophils Absolute Auto 6.2 K/mm3 (1.3-6.7); Neutrophils Percent Auto 89.4 % (45.5-73.1); Platelet Count Result 280 k/mm3 (150-375); Red Blood Count 4.35 M/mm3 (4.6-6.20); Red Cell Distribution Width 18.4 % (11.5-14.5)
[2022-06-28 06:27] LABS: Alanine Aminotransferase 25 U/L (6-50); Albumin Level 3.8 g/dL (3.5-5.1); Alkaline Phosphatase 217 U/L (38-126); Anion Gap 9 mmol/L (8-16); Aspartate Amino Transferase 33 U/L (17-59); Bilirubin,Total 0.5 mg/dL (0.2-1.3); Blood Urea Nitrogen 22 mg/dL (9-20); Carbon Dioxide 26 mmol/L (22-30); Chloride 100 mmol/L (98-107); Estimated CRCL calculation 51 ml/min; Estimated Glomerular Filt Rate 52; Glucose 292 mg/dL (65-110); Potassium 4.2 mmol/L (3.4-5.0); Sodium 135 mmol/L (137-145)
[2022-06-28 06:49] LABS: Hypochromasia 3+ (NORMAL)
[2022-06-28 06:50] LABS: Helmet Cells 1+ (NORMAL); Platelet Estimate Adequate (Adequate); Schistocytes None Seen (NORMAL); Target Cells 1+ (NORMAL)
--- NOTE | 2022-06-28 07:32 | PC.NURSE ---
0720: transporter here for transfer via stretcher to CT, US AND MRI.
[2022-06-28] MEDS: LIPASE/AMYLASE/PROTEASE 12,000 UNITS CAP 6 CAP PO ×3 (08:49→16:53)
[2022-06-28] MEDS: EMTRICITABINE-TENOFOVIR 100 MG-150 MG TABLET 2 TAB PO (08:50)
[2022-06-28] MEDS: ASPIRIN 81 MG ENTERIC TABLET PO (08:50)
[2022-06-28] MEDS: FAMOTIDINE 20 MG/2 ML VIAL IV PUSH ×2 (08:50→22:01)
[2022-06-28] MEDS: METOPROLOL SUCCINATE EXT REL 25 MG TABCR PO (08:51)
[2022-06-28] MEDS: LOSARTAN POTASSIUM 100 MG TABLET PO (08:51)
[2022-06-28] MEDS: RIVAROXABAN 20 MG TABLET PO (08:52)
[2022-06-28] MEDS: GABAPENTIN 300 MG CAPSULE 600 MG PO ×3 (08:52→16:53)
[2022-06-28] MEDS: oxyCODONE HCL (*CRX) 5 MG TAB IR 10 MG PO ×2 (09:01→17:00)
[2022-06-28 09:43] LABS: Glucose Point of Care 310 mg/dl (65-105)
[2022-06-28] MEDS: FLECAINIDE ACETATE 100 MG TABLET PO ×2 (10:31→22:01)
[2022-06-28 10:38] LABS: Hematocrit 30.2 % (42.0-52.0)
--- NOTE | 2022-06-28 11:09 | WPDGICN ---
Assessment and Plan Assessment and plan (1) Colitis: Code(s): K52.9 - Noninfective gastroenteritis and colitis, unspecified Status: Acute Assessment and Plan: CT scan in the ER suggest diffuse thickening of the bowel wall. Patient has no significant diarrhea fever abdominal pain to correlate with this. I suspect this is spurious. Would recommend obtaining stool cultures if diarrhea is noted. (2) Chronic pancreatitis: Code(s): K86.1 - Other chronic pancreatitis Status: Acute Assessment and Plan: Patient with chronic pancreatitis after severe episode of necrotizing and bleeding into the pancreas 10 years ago. He has had several surgical cysts procedures as well as the stent. Currently followed by [facility]. Dr. mejía been currently. Patient should take Creon on a regular basis for this. (3) Liver masses: Code(s): R16.0 - Hepatomegaly, not elsewhere classified Status: Acute Assessment and Plan: CT scanning suggest possible liver masses. Follow-up with MR I of the liver today suggest 5 masses that her apparently or solid in suspicious for metastatic disease. Recommend ultrasound-guided liver biopsy anticoagulation of course will need to be held prior to this. (4) Elevated d-dimer: Code(s): R79.89 - Other specified abnormal findings of blood chemistry Status: Acute Assessment and Plan: Patient gives a history of elevated D-dimer and hypercoagulable state. He has been on Xarelto. This will need to be held in anticipation of liver biopsy. (5) UTI (urinary tract infection): Code(s): N39.0 - Urinary tract infection, site not specified Status: Acute Assessment and Plan: Patient was found to have a urinary tract infection on presentation to the emergency room. Perhaps this contributes to his right flank pain potentially pyelonephritis. Alternatively the liver masses may contribute to his right flank pain. Urine cultures and antibiotics according to primary care service encouraged. (6) Chronic anemia: Code(s): D64.9 - Anemia, unspecified Status: Acute Assessment and Plan: Patient known to have chronic iron deficiency anemia. He receives iron infusions frequently in [place]. I suspect this may be related to prior gastric surgeries. No evidence for bleeding present. Continue to monitor. Iron replacement as per his previous instructions. (7) History of gastric bypass: Onset Date: 05/2003 Code(s): Z98.84 - Bariatric surgery status Status: Acute Assessment and Plan: Patient with a distant history of gastric bypass surgery. GI Consult Note Consult date/time: 06/28/22 11:09 Reason for consult: Abnormal CT scan with liver masses. HPI: Torito Escamilla III is a 62 year old male I am asked to see at the request of the emergency room. Patient initially presented to the emergency room because of right flank pain. Apparently found to have a urinary tract infection. A CT scan was performed without contrast because of allergy to contrast and several masses in the liver were identified. Patient has an extensive past medical history. Patient has a history of gastric bypass surgery many years ago. Approximately 10 years ago developed acute pancreatitis with necrotizing and bleeding. Ultimately treated in [place] with several surgical procedures including pancreatic stent placement. Patient is chronically iron deficient subsequent to all this. He currently follows with service at [facility]. 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 Apparently felt have nonalcoholic fatty liver disease. He requires Creon because of chronic pancreatitis. He does have frequent scanning of the liver in liver masses have not been found previously according to his recollection. Patient states he had a loose stool several days ago. He has not had a fever recently. He does have some discomfort on deep
[2022-06-28 11:18] LABS: Carcinoembryonic Antigen 8.6 ng/mL (0.0-3.0)
[2022-06-28 12:56] LABS: Glucose Point of Care 366 mg/dl (65-105)
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
[2022-06-28 17:59] LABS: Glucose Point of Care 350 mg/dl (65-105)
[2022-06-29 05:56] VITALS: BP 118/62; PULSE 58; RESP 16; TEMP 36.7; O2SAT 100
[2022-06-29 08:50] VITALS: PULSE 56; RESP 16; O2SAT 98
[2022-06-29] MEDS: LIPASE/AMYLASE/PROTEASE 12,000 UNITS CAP 6 CAP PO ×3 (08:52→17:02)
[2022-06-29 08:53] VITALS: PULSE 56
[2022-06-29] MEDS: METOPROLOL SUCCINATE EXT REL 25 MG TABCR PO (08:53)
[2022-06-29] MEDS: LOSARTAN POTASSIUM 100 MG TABLET PO (08:53)
[2022-06-29 08:55] VITALS: PULSE 56
[2022-06-29] MEDS: FAMOTIDINE 20 MG/2 ML VIAL IV PUSH (08:55)
[2022-06-29] MEDS: GABAPENTIN 300 MG CAPSULE 600 MG PO ×3 (08:55→17:01)
[2022-06-29] MEDS: FLECAINIDE ACETATE 100 MG TABLET PO (08:55)
[2022-06-29] MEDS: EMTRICITABINE-TENOFOVIR 100 MG-150 MG TABLET 2 TAB PO (08:55)
[2022-06-29 08:58] LABS: Albumin Level 3.6 g/dL (3.5-5.1); Anion Gap 6 mmol/L (8-16); Blood Urea Nitrogen 26 mg/dL (9-20); Calcium 7.8 mg/dL (8.4-10.2); Carbon Dioxide 29 mmol/L (22-30); Chloride 99 mmol/L (98-107); Estimated CRCL calculation 48 ml/min; Estimated Glomerular Filt Rate 48; Glucose 173 mg/dL (65-110); Phosphorus 4.1 mg/dL (2.5-4.5); Potassium 4.1 mmol/L (3.4-5.0); Sodium 134 mmol/L (137-145)
[2022-06-29] MEDS: oxyCODONE HCL (*CRX) 5 MG TAB IR 10 MG PO ×2 (09:03→15:34)
--- NOTE | 2022-06-29 10:52 | WPDGIPROGNO ---
Progress Note: A&P Assessment and Plan (1) Liver masses: Code(s): R16.0 - Hepatomegaly, not elsewhere classified Status: Acute Assessment and Plan: Patient with 5 liver masses noted on MRI. Liver biopsy anticipated hopefully this can be performed after holding his anticoagulation for a day or 2. This can be performed tomorrow or perhaps later today. (2) History of gastric bypass: Onset Date: 05/2003 Code(s): Z98.84 - Bariatric surgery status Status: Acute (3) Chronic pancreatitis: Code(s): K86.1 - Other chronic pancreatitis Status: Acute Assessment and Plan: Patient with severe pancreatitis several years ago. Sequelae a of this is pancreatic insufficiency. He does have a pancreatic stent placed for drainage of pseudocyst in the past. (4) Atrial fibrillation: Code(s): I48.91 - Unspecified atrial fibrillation Status: Acute (5) Elevated d-dimer: Code(s): R79.89 - Other specified abnormal findings of blood chemistry Status: Acute Assessment and Plan: Patient with elevated D-dimer. Steptoe to be hypercoagulable. Anticoagulation on hold in anticipation of liver biopsy at present. Hold Xarelto until as determine what the nature of these liver masses are. Subjective Date/time seen: 06/29/22 10:52 Patient alert comfortable this morning. Continues to have a right flank discomfort. Patient reports no diarrhea except when he does not take his Creon which she has taken for pancreatic insufficiency. Review of Systems Review of Systems: Review of systems noncontributory. Exam Narrative: Physical exam reveals patient to be alert. Vital signs stable. HEENT exam reveals no icterus. Lungs are clear. Heart without murmur. Abdomen bowel sounds present soft nontender well-healed midline scar. Objective Data Vital Signs Vital Signs: Vital Signs - 24 hr 06/28/22 14:41 06/28/22 21:31 06/28/22 22:01 Temperature 96.3 F L 98.1 F Pulse Rate 69 69 70 Respiratory Rate 16 20 Blood Pressure 103/58 L 125/75 Pulse Oximetry 100 100 Oxygen Delivery 06/28/22 20:00 06/29/22 05:56 06/29/22 08:53 Temperature 98.1 F Pulse Rate 58 L 56 L Respiratory Rate 16 Blood Pressure 118/62 Pulse Oximetry 100 Oxygen Delivery Room Air 06/29/22 08:55 Temperature Pulse Rate 56 L Respiratory Rate Blood Pressure Pulse Oximetry Oxygen Delivery Intake/Output Intake/Output: Intake & Output 06/26/22 06/27/22 06/28/22 06/29/22 23:59 23:59 23:59 23:59 Intake Total 340 1220 100 Balance 340 1220 100 Meds/Results Medications: Active Medications Generic Name Dose Route Start Last Admin Trade Name Freq PRN Reason Stop Dose Admin Alprazolam 0.25 mg 06/27/22 15:50 Alprazolam (*Crx) 0.25 Mg Tablet PO BID PRN Anxiety Lipase/Protease/Amylase 6 cap 06/27/22 17:00 06/29/22 08:52 Lipase/Amylase/Protease 12,000 Units Cap PO 07/27/22 16:59 6 cap TIDWM KATLIN Administration Aspirin 81 mg 06/28/22 09:00 06/28/22 08:50 Aspirin 81 Mg Enteric Tablet PO 81 mg DAILY KATLIN Administration Dextrose 12.5 gm 06/27/22 15:49 Dextrose 50% 25 Gm/50 Ml Syringe IV PUSH PRN PRN Hypoglycemia Protocol Emtricitabine/Tenofovir 2 tab 06/28/22 09:00 06/29/22 08:55 Emtricitabine-Tenofovir 100 Mg-150 Mg Tablet PO 07/28/22 08:59 2 tab DAILY KATLIN Administration Ergocalciferol 50,000 units 06/30/22 09:00 Ergocalciferol 50,000 Units Capsule PO TuTh@0900 KATLIN Famotidine 20 mg 06/27/22 21:00 06/29/22 08:55 Famotidine 20 Mg/2 Ml Vial IV PUSH 20 mg Q12HR KATLIN Administration Flecainide Acetate 100 mg 06/27/22 21:00 06/29/22 08:55 Flecainide Acetate 100 Mg Tablet PO 100 mg Q12HR KATLIN Administration Furosemide 20 mg 06/27/22 15:50 Furosemide 20 Mg Tablet PO DAILY PRN Edema Gabapentin 600 mg 06/27/22 17:00 06/29/22 08:55 Gabapentin 300
[2022-06-29 13:39] LABS: INR 1.5; Prothrombin Time 17.8 Seconds (11.1-14.7)
[2022-06-29 13:40] LABS: Partial Thromboplastin Time 29.9 SECONDS (22.3-36.8)
[2022-06-29 14:00] VITALS: BP 109/86; PULSE 71; RESP 16; TEMP 36.7; O2SAT 100
--- NOTE | 2022-06-29 18:45 | PM.DS ---
DS: Admitting Diagnosis Discharge Date 06/29/22 Admitting Diagnosis Abdominal pain DS: Discharge Diagnosis Discharge Diagnosis (1) Colitis: Code(s): K52.9 - Noninfective gastroenteritis and colitis, unspecified Status: Acute (2) Elevated d-dimer: Code(s): R79.89 - Other specified abnormal findings of blood chemistry Status: Acute (3) Liver masses: Code(s): R16.0 - Hepatomegaly, not elsewhere classified Status: Acute (4) UTI (urinary tract infection): Code(s): N39.0 - Urinary tract infection, site not specified Status: Acute (5) Chronic anemia: Code(s): D64.9 - Anemia, unspecified Status: Acute (6) Chronic kidney disease, stage 3: Code(s): N18.30 - Chronic kidney disease, stage 3 unspecified Status: Acute (7) Chronic pain syndrome: Code(s): G89.4 - Chronic pain syndrome Status: Acute (8) Diabetes mellitus: Qualifiers: Diabetes mellitus type: type 1 Diabetes mellitus complication status: with other specified complication Qualified Code(s): E10.69 - Type 1 diabetes mellitus with other specified complication Code(s): E11.9 - Type 2 diabetes mellitus without complications Status: Acute (9) Chronic pancreatitis: Code(s): K86.1 - Other chronic pancreatitis Status: Acute (10) Essential hypertension: Code(s): I10 - Essential (primary) hypertension Status: Chronic (11) Atrial fibrillation: Code(s): I48.91 - Unspecified atrial fibrillation Status: Acute DS: Summary Hospital Course Reason for hospitalization: 62yo male with CKD, DM, chronic pancreatitis and AFib here for abdominal pain. Please see H&P for details Hospital Course: Patient presented with abdominal pain. CT of the abdomen pelvis was performed in the emergency room that showed diffuse colonic wall thickening consistent with colitis as well as 2 large liver masses consistent with metastatic disease versus hepatic abscess.?GI was consulted.? Patient was started on Zosyn.? Patient does not have significant abdominal pain to suggest colitis.? GI felt this was probably a spurious diagnosis.? UA noted and Urine culture growing relatively whitfield-sensitive [place].? Blood cultures are no growth to date.?Patient had an elevated D-dimer possibly related to UTI, colitis and/or malignancy.? Patient was on Xarelto on admission.? Lower extremity venous Dopplers were negative for DVT.? CTA of the chest was negative for PE. Regarding the liver masses, patient underwent abdominal MRI which showed 5 enhancing liver masses measuring up to 6.4 cm that are new from August most likely metastatic disease.?Xarelto was held and he underwent an ultrasound-guided biopsy 06/29. Patient has chronic anemia.? He sees a supervisor paper testing/oncologist in [place] (Dr Shipman, ).? He has frequent iron transfusions for this reason.? Hemoglobin stable in the 8-9 range.?The patient stated here he sees a rim turning finisher and he has chronic renal failure stage is 2-3.? His creatinine is stable here around 1.3-1.5. The patient wanted to manage his diabetes with his insulin pump but his glucose was in the 300's frequently and noncompliant with diet (he was eating hard candy and non-sugar free Gatorade at bedside). A1c 9.9. Encouraged patient to more aggressively control his glucose. Patient toelrated th ebiopsy well. He overall did well and was able to be discharged home on 06/29/22. Plan to forward the liver bipsy results to his supervisor paper testing/oncologist in [place] (Dr Shipman, ). Status at Discharge Cognitive/behavioral status at discharge: Stable Time Spent with Patient Time attestation: Total time spent providing and/or coordinating discharge services: 35 minutes Time spent: Greater than 30 minutes Exam Narrative: AF 98.0 109/86 71 16 100% ra Gen - NARD Chest - CTA bilaterally, nml RR CV - RRR S1/S2 Abd - Soft, NT/ND, P
--- NOTE | 2022-07-03 14:55 | PC.NURSE ---
Addendum entered by Darlene Mijares 07/06/22 09:26: Office did not receive fax due to low memory, no answer. Original Note: Liver bx results faxed to Dr. Shipman at [phone]. Office received faxed report.
--- NOTE | 2022-07-06 09:24 | PC.NURSE ---
Obtained correct fax number and faxed lab results to Dr. Shipman with receipt.
== END 2022-06-29 19:44 | disposition home or self-care (01) | DRG 442 ==
LOC: ANHED 08:59 → ANH3MED 13:43
PROVIDERS: Nurse Practitioner; Admitting Provider Internal Medicine; Emergency Provider General Practice; PCP Family Medicine; Visit Provider Internal Medicine
DX: R16.0 Hepatomegaly, not elsewhere classified (principal); K86.1 Other chronic pancreatitis; N39.0 Urinary tract infection, site not specified; B96.20 Unspecified Escherichia coli [E. coli] as the cause of diseases classified elsewhere; Z20.822 Contact with and (suspected) exposure to COVID-19; N18.30 Chronic kidney disease, stage 3 unspecified; G89.4 Chronic pain syndrome; I48.91 Unspecified atrial fibrillation; I12.9 Hypertensive chronic kidney disease with stage 1 through stage 4 chronic kidney disease, or unspecified chronic kidney disease; E11.22 Type 2 diabetes mellitus with diabetic chronic kidney disease; F41.8 Other specified anxiety disorders; E78.5 Hyperlipidemia, unspecified; D50.9 Iron deficiency anemia, unspecified; K75.81 Nonalcoholic steatohepatitis (NASH); D63.1 Anemia in chronic kidney disease; D63.8 Anemia in other chronic diseases classified elsewhere; M85.80 Other specified disorders of bone density and structure, unspecified site; R79.89 Other specified abnormal findings of blood chemistry; L40.9 Psoriasis, unspecified; M48.00 Spinal stenosis, site unspecified; E55.9 Vitamin D deficiency, unspecified; Z86.73 Personal history of transient ischemic attack (TIA), and cerebral infarction without residual deficits; Z90.49 Acquired absence of other specified parts of digestive tract; Z98.84 Bariatric surgery status; Z87.891 Personal history of nicotine dependence; Z79.01 Long term (current) use of anticoagulants
CPT/HCPCS: 36415; 47000; 71046; 71275; 74176; 74183; 76942; 78580; 80053; 80069; 81001; 82378; 82948; 83036; 83690; 85014; 85018; 85025; 85380; 85610; 85730; 87040; 87077; 87086; 87186; 87636; 88307; 88312; 88342; 93005; 93970; 96365; 96366; 96375; 96376; 99285; A9270; A9540; A9577; G0378; J2543; J7512; Q9967

== ENCOUNTER 2022-08-30 16:58 | Inpatient (IN) | payer MEDICARE, MEDICAID, SELFPAY ==
--- NOTE | ~2022-08-30 | XR_ITS ---
EXAMINATION: XR chest 1V portable Exam Date/Time: 08/30/2022 17:55 CAMERA MAKER HISTORY: Dyspnea, pain upper right chest Comparison: None available. RESULT: Lines, tubes, and devices: Mid upper abdominal stent/drain. Lungs and pleura: The patient is rotated towards the left. Right hemidiaphragm elevation with right costophrenic angle blunting and right mid and lower lung scar/atelectasis. Hazy opacity in the right lung base. Cardiomediastinal silhouette: Stable. Other: No acute osseous or upper abdominal finding. IMPRESSION: Right lower lung opacities may represent atelectasis/scar, infection not excluded. Possible small rig ht pleural effusion. Reviewed, dictated and finalized at location K. RA MAKER IMPRESSION: Right lower lung opacities may represent atelectasis/scar, infection not exclud ed. Possible small right pleural effusion.
--- NOTE | ~2022-08-30 | CT_ITS ---
EXAMINATION: CT diagnostic chest wo con DATE: 08/30/2022 19:10 INDICATION: Eval for right empyema TECHNIQUE: Computed tomography (CT) of the chest was performed without intravenous contrast. Automate d exposure control and iterative reconstruction technique were employed. The dose-length product was 182.00 mGy-cm. COMPARISON: [facility]PA 06/28/2022. FINDINGS: CHEST: Thoracic aorta: No significant dilation or calcification. Anemia. Lung parenchyma and airways: Mild dependent left lung scar/atelectasis. Moderate linear scar/atelecta sis in the right lower lobe. Thoracic inlet, axillae and chest wall: No thyroid or soft tissue mass. No axillary lymphadenopathy. Mediastinum: No mass or lymphadenopathy. Heart and pericardium: Normal heart size. No pericardial effusion. Coronary artery calcifications: . Pleura: Small posterior right pleural fluid collection measuring up to 6.4 cm, with a thick wall and surrounding pleural thickening. Upper abdomen: Redemonstration of two liver masses, chronic pancreatitis, gastropancreatic stent, per igastric surgical change, and bile duct dilation. Thoracic bones: No acute osseous finding in the chest. Old healed right posterior lower rib fractures . Sclerotic focus in T1, stable since 07/07/2021, likely benign. IMPRESSION: Loculated 6.4 cm thick-walled right posterior and inferior pleural collection, may represent an empye ma in the appropriate clinical context. Chronic and incidental findings detailed above. Reviewed, dictated and finalized at location K. IFIED LACTATION COUNSELOR IMPRESSION: Loculated 6.4 cm thick-walled right posterior and inferior pleural collection, may represent an empyema in the appropriate clinical context. Chronic and incid ental findings detailed above.
[2022-08-30 17:00] VITALS: BP 101/58; PULSE 100; RESP 18; TEMP 36.3; O2SAT 100
--- NOTE | 2022-08-30 17:07 | ECG_ITS ---
Measurements Intervals [place] Rate: 93 P: 49 [place]: 159 QRS: 27 QRSD: 98 T: 35 QT: 339 QTc: 422 Interpretive Statements SINUS RHYTHM COMPARED TO ECG 06/27/2022 09:04:32 NO SIGNIFICANT CHANGES Electronically Signed On 08-30-2022 18:42:37 INTEL ANALYST by Katie Hall M.D.
[2022-08-30 17:09] VITALS: O2SAT 98
--- NOTE | 2022-08-30 17:22 | ED.SOB ---
HPI - SOB/Dyspnea General Chief Complaint: Shortness of Breath/Dyspnea <Liborio Moser MD - Last Filed: 08/30/22 19:00> Stated Complaint: trouble breathing <Liborio Moser MD - Last Filed: 08/30/22 19:00> Time Seen by Provider: 08/30/22 17:05 <Liborio Moser MD - Last Filed: 08/30/22 19:00> History of Present Illness HPI Narrative: This is a 62-year-old male with past medical history of A-fib on aspirin, chronic kidney disease, who presents to the emergency department complaining of shortness of breath and right-sided chest pain. He states this has been going on for the past week, but has progressively worsened over the last 2 days. He describes the pain as sharp, rated 7 of 10, without radiation and aggravated by physical exertion and alleviated by rest. He states he was seen at a [facility] emergency department, where a chest x-ray showed improvement of a left-sided pleural effusion, development of a right-sided pleural effusion and consolidations concerning for pneumonia. He states he signed himself out against medical advice at the time due to anxiety. <Liborio Moser MD - Last Filed: 08/30/22 19:00> Related Data Home Medications: Home Medications Medication Instructions Recorded Confirmed alprazolam 0.25 mg tablet (Xanax) 0.25 mg PO BID PRN Anxiety 04/06/20 06/27/22 ergocalciferol (vitamin D2) 1,250 1,250 mcg PO QTUTH 04/06/20 06/27/22 mcg (50,000 unit) capsule furosemide 20 mg tablet 20 mg PO DAILY PRN Edema 04/06/20 06/27/22 insulin aspart U-100 100 unit/mL See Rx Instructions .Route .COMPLEX 04/06/20 06/27/22 subcutaneous solution (Novolog U-100 Insulin aspart) losartan 100 mg tablet 100 mg PO DAILY 04/06/20 06/27/22 metformin 500 mg tablet,extended 1,000 mg PO DAILY 04/06/20 06/27/22 release 24 hr testosterone cypionate 200 mg/mL 100 mg IM WEEKLY 10/14/20 06/27/22 intramuscular oil aspirin 81 mg tablet,delayed 81 mg PO DAILY 01/02/21 06/27/22 release rfvxtn-jbezfjwj-vddxdjp 2 cap PO TIDWM 01/02/21 06/27/22 36,000-114,000-180,000 unit capsule,delay rel (Creon) gabapentin 600 mg tablet 600 mg PO TID 07/11/21 06/27/22 emtricitabine 200 mg-tenofovir 200 - 300 tablet PO DAILY 06/27/22 06/27/22 disoproxil fumarate 300 mg tablet oxycodone 10 mg tablet 10 mg PO Q6-8H PRN Pain 06/27/22 06/27/22 rivaroxaban 20 mg tablet (Xarelto) 20 mg PO DAILY 06/27/22 06/27/22 <Liborio Moser MD - Last Filed: 08/30/22 19:00> Allergies/Adverse Reactions: Allergies Allergy/AdvReac Type Severity Reaction Status Date / Time ferumoxytol Allergy Severe Anaphylactic Verified 08/30/22 18:26 Shock Iodinated Contrast Media Allergy Severe Anaphylactic Verified 08/30/22 18:26 Shock iodine Allergy Severe Anaphylactic Verified 08/30/22 18:26 Shock iron dextran complex Allergy Severe Anaphylactic Verified 08/30/22 18:26 Shock shellfish derived Allergy Severe Anaphylactic Verified 08/30/22 18:26 Shock prednisone Allergy Hives Verified 08/30/22 18:26 <Liborio Moser MD - Last Filed: 08/30/22 19:00> Review of Systems Review of Systems: CONSTITUTIONAL: Fevers and chills denies sweats. EYES: Denies visual changes, redness, or discharge. ENT: Chronic rhinorrhea denies congestion, sore throat, or otalgia. CARDIOVASCULAR: Right-sided sharp chest pain denies palpitations, or edema. RESPIRATORY: Dry cough and dyspnea. GASTROINTESTINAL: Denies abdominal pain, nausea, vomiting, or diarrhea. GENITOURINARY: Denies dysuria or hematuria. SKIN: Denies rash or itching. MUSCULOSKELETAL: Denies back pain, joint pain, or myalgia. NEUROLOGIC: Denies headache, numbness, dizziness, or weakness. PSYCHIATRIC: Denies anxiety or depression. <Liborio Moser MD - Last Filed: 08/30/22 19:00> PMFSH Past Medical History Medical History: Medical History (Updated 08/30/22 @ 22:58 by Olivia Torres PA-C) Chronic anemia Chronic kidney disease, stage 3 Cr
[2022-08-30 17:41] LABS: Basophils Percent Auto 0.2 % (0.2-1.2); Eosinophils Absolute Auto 0.1 K/mm3 (0-0.3); Eosinophils Percent Auto 0.6 % (0-4.4); Hematocrit 36.2 % (42.0-52.0); Hemoglobin 11.2 g/dL (14.0-18.0); Immature Granulocyte Absolute 0.07 K/mm3 (0.00-0.031); Immature Granulocyte Percent A 0.9 % (0-0.5); Immature Platelet Fraction Pct 7.1 % (0.9-11.2); Lymphocytes Absolute Auto 1.02 K/mm3 (0.9-3.2); Lymphocytes Percent Auto 12.5 % (18.3-44.2); Mean Corpuscular HGB Conc 30.9 g/dl (32-36); Mean Corpuscular Hemoglobin 25.3 pg (26-34); Mean Corpuscular Volume 81.9 fl (80-100); Monocytes Absolute Auto 0.6 K/mm3 (0.1-0.6); Monocytes Percent Auto 7.1 % (2.6-8.5); Neutrophils Absolute Auto 6.4 K/mm3 (1.3-6.7); Neutrophils Percent Auto 78.7 % (45.5-73.1); Platelet Count Result 139 k/mm3 (150-375); Red Blood Count 4.42 M/mm3 (4.6-6.20); Red Cell Distribution Width 27.6 % (11.5-14.5); White Blood Count 8.1 K/mm3 (4.5-10.0)
[2022-08-30] MEDS: SODIUM CHLORIDE 0.9% IV 500 ML 999 ML IV CONT (17:43)
[2022-08-30 17:49] LABS: Lactic Acid Reflex 2.3 mmol/L (0.7-2.0)
[2022-08-30 17:53] LABS: Anisocytosis 1+ (NORMAL); Microcytosis 1+ (NORMAL); Ovalocytes 1+ (NORMAL); Schistocytes None Seen (NORMAL)
[2022-08-30 18:15] LABS: Troponin I < 0.012 ng/mL (0.000-0.034)
[2022-08-30 18:17] LABS: Influenza A QL RT-PCR Negative (Negative); Influenza B QL RT-PCR Negative (Negative); SARS-CoV-2 RNA PCR Negative
[2022-08-30] MEDS: cefTRIAXone 2 GM in SODIUM CHLORIDE 0.9% IV 100 ML 200 ML IVPB (18:23)
[2022-08-30] MEDS: AZITHROMYCIN 250 MG TABLET 500 MG PO (18:25)
[2022-08-30] MEDS: SODIUM CHLORIDE 0.9% IV 1,000 ML 999 ML IV CONT (18:47)
[2022-08-30 19:04] LABS: Alanine Aminotransferase 52 U/L (6-50); Albumin Level 3.1 g/dL (3.5-5.1); Alkaline Phosphatase 203 U/L (38-126); Anion Gap 2 mmol/L (8-16); Aspartate Amino Transferase 36 U/L (17-59); Bilirubin,Total 0.3 mg/dL (0.2-1.3); Blood Urea Nitrogen 23 mg/dL (9-20); Calcium 7.5 mg/dL (8.4-10.2); Carbon Dioxide 28 mmol/L (22-30); Chloride 101 mmol/L (98-107); Estimated CRCL calculation 63 ml/min; Estimated Glomerular Filt Rate > 60; Glucose 182 mg/dL (65-110); Magnesium 1.9 mg/dL (1.6-2.3); Potassium 4.3 mmol/L (3.4-5.0); Sodium 131 mmol/L (137-145)
[2022-08-30] MEDS: MORPHINE SULFATE (*CRX) 2 MG/ML INJ IV PUSH (19:05)
[2022-08-30 20:37] LABS: Reflex Lactic Acid Yes or No Add Lactic
--- NOTE | 2022-08-30 20:46 | PC.NURSE ---
Spoke with Ermelinda at [facility] transfer center. She states there is no beds at this time and she will keep us updated
[2022-08-30 21:09] LABS: Lactic Acid 0.9 mmol/L (0.7-2.0)
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
--- NOTE | 2022-08-30 22:37 | PC.NURSE ---
2211 - Assumed pt care from Kortney Burdick RN
[2022-08-30 23:00] VITALS: BP 107/58; PULSE 74; RESP 14; O2SAT 100
[2022-08-30 23:20] VITALS: BP 99/62; PULSE 77; RESP 13; O2SAT 100
--- NOTE | 2022-08-30 23:45 | ADMGEN ---
This patient, Torito Escamilla III, was admitted to Medical Room 345-01. Patient/family oriented to hospital policies and general routines including ID bracelet, bed and alarms, visiting hours, pain management, procedures, bathroom and other care routines, personal items, smoking policy, room service/diet, and visiting hours. Information on how to activate the Rapid Response Team has been discussed. Patient/Family are encouraged to report perceived risks to care and to ask questions if they do not understand what they are told or what they should do.
[2022-08-31] VITALS: PULSE 67
[2022-08-31] MEDS: MORPHINE SULFATE (*CRX) 2 MG/ML INJ IV PUSH ×5 (00:07→17:15)
[2022-08-31 04:00] VITALS: PULSE 67
[2022-08-31 05:43] LABS: Basophils Percent Auto 0.2 % (0.2-1.2); Eosinophils Absolute Auto 0.1 K/mm3 (0-0.3); Eosinophils Percent Auto 1.9 % (0-4.4); Hematocrit 32.3 % (42.0-52.0); Immature Granulocyte Absolute 0.05 K/mm3 (0.00-0.031); Immature Granulocyte Percent A 0.8 % (0-0.5); Immature Platelet Fraction Pct 5.7 % (0.9-11.2); Lymphocytes Absolute Auto 0.79 K/mm3 (0.9-3.2); Lymphocytes Percent Auto 12.3 % (18.3-44.2); Mean Corpuscular Hemoglobin 25.7 pg (26-34); Monocytes Absolute Auto 0.5 K/mm3 (0.1-0.6); Monocytes Percent Auto 8.3 % (2.6-8.5); Neutrophils Absolute Auto 4.9 K/mm3 (1.3-6.7); Neutrophils Percent Auto 76.5 % (45.5-73.1); Platelet Count Result 119 k/mm3 (150-375); Red Blood Count 3.89 M/mm3 (4.6-6.20); Red Cell Distribution Width 27.3 % (11.5-14.5); White Blood Count 6.4 K/mm3 (4.5-10.0)
[2022-08-31 05:49] VITALS: BP 121/68; PULSE 66; RESP 16; TEMP 36.7; O2SAT 100
[2022-08-31 05:53] LABS: Alanine Aminotransferase 56 U/L (6-50); Albumin Level 2.9 g/dL (3.5-5.1); Alkaline Phosphatase 207 U/L (38-126); Anion Gap 2 mmol/L (8-16); Aspartate Amino Transferase 47 U/L (17-59); Bilirubin,Total 0.4 mg/dL (0.2-1.3); Blood Urea Nitrogen 17 mg/dL (9-20); Calcium 7.1 mg/dL (8.4-10.2); Carbon Dioxide 31 mmol/L (22-30); Chloride 102 mmol/L (98-107); Estimated CRCL calculation 63 ml/min; Estimated Glomerular Filt Rate > 60; Glucose 133 mg/dL (65-110); Potassium 4.3 mmol/L (3.4-5.0); Sodium 135 mmol/L (137-145)
[2022-08-31 06:34] LABS: Anisocytosis 3+ (NORMAL); Hypochromasia 1+ (NORMAL)
[2022-08-31 06:35] LABS: Schistocytes None Seen (NORMAL)
[2022-08-31 08:40] LABS: Glucose Point of Care 103 mg/dl (65-105)
[2022-08-31 12:32] LABS: Glucose Point of Care 189 mg/dl (65-105)
[2022-08-31] MEDS: LIPASE/AMYLASE/PROTEASE 12,000 UNITS CAP 6 CAP PO ×2 (12:34→17:09)
[2022-08-31] MEDS: metFORMIN HCL XR 500 MG TAB.SR.24H 1000 MG PO (12:35)
[2022-08-31 12:36] VITALS: PULSE 73
[2022-08-31] MEDS: FLECAINIDE ACETATE 100 MG TABLET PO (12:36)
[2022-08-31] MEDS: GABAPENTIN 300 MG CAPSULE 600 MG PO ×2 (12:37→17:09)
[2022-08-31] MEDS: LOSARTAN POTASSIUM 100 MG TABLET PO (12:37)
[2022-08-31 12:38] VITALS: PULSE 73
[2022-08-31] MEDS: METOPROLOL SUCCINATE EXT REL 25 MG TABCR PO (12:38)
[2022-08-31] MEDS: EMTRICITABINE-TENOFOVIR 100 MG-150 MG TABLET 2 TAB PO (12:38)
--- NOTE | 2022-08-31 13:04 | PM.IMPN ---
Progress Note: A&P Assessment and Plan (1) Empyema of right pleural space: Code(s): J86.9 - Pyothorax without fistula Status: Acute Assessment and Plan: The patient presented with shortness of breath, fatigue, low-grade fever, and right-sided pleuritic chest pain,and decreased energy for several days. Chest CT showed a loculated 6.4 cm thick-walled pleural collection which is most consistent with empyema given his recent history. - Continue IV Vancomycin and Zosyn - Awaiting records for review from [place] - He has been accepted to [facility] in transfer at though they estimate a several day wait time. - He remains afebrile. No leukocytosis. No evidence of respiratory distress and is maintaining adequate oxygen saturations on room air - Will hold patient's aspirin and Xarelto in the event of possible intervention/procedure following transfer to [facility] (2) Pleuritic pain: Code(s): R07.81 - Pleurodynia Status: Acute Assessment and Plan: Likely secondary to above - PE unlikely as patient is not hypoxic and is maintained on Xarelto - Monitor symptoms (3) Insulin dependent type 2 diabetes mellitus: Code(s): E11.9 - Type 2 diabetes mellitus without complications; Z79.4 - shelter (current) use of insulin Status: Acute Assessment and Plan: last A1c was 9.9. blood sugars are fairly well controlled at this time - continue Accu-Cheks, sliding scale insulin, and hypoglycemic protocol - monitor glucose trends (4) Chronic kidney disease, stage 3: Code(s): N18.30 - Chronic kidney disease, stage 3 unspecified Status: Chronic Assessment and Plan: renal function is at baseline - monitor closely 0 while patient is on vancomycin and Zosyn combination therapy (5) Chronic anemia: Code(s): D64.9 - Anemia, unspecified Status: Chronic Assessment and Plan: remaining stable - continue to monitor (6) Paroxysmal atrial fibrillation: Code(s): I48.0 - Paroxysmal atrial fibrillation Status: Acute Assessment and Plan: rate is controlled at this time - patient reports this was COVID induced and has not had any subsequent episodes of atrial fibrillation in over 2 years - continue home metoprolol succinate - hold Xarelto at this time in the event a procedure is planned following transfer to [facility] Subjective Date/time seen: 08/31/22 13:04 Interval history: date of service: 08/31/2022 Torito Escamilla is a 62-year-old male with a history of CKD, chronic anemia, hyperlipidemia, hypertension, type 2 diabetes mellitus, chronic pancreatitis, THOMPSON, TIA, paroxysmal atrial fibrillation, and recent diagnosis of IgG4 deficiency, who is seen in follow-up for empyema. he has been accepted to [facility] for further evaluation his waiting on an available bed. At this time, he is feeling well. He does endorse dyspnea on exertion but is not symptomatic at rest. He endorses right-sided pleuritic chest discomfort. He had night sweats last night. He denies any fevers or chills. He has a nonproductive cough. Denies abdominal pain, nausea, vomiting, dizziness, lightheadedness, weakness. Review of Systems Review of Systems: All systems reviewed & are unremarkable except as noted in HPI and below Exam Narrative: General: Thin, well-appearing 62-year-old male, sitting up in bed, comfortable, NARD Neuro: awake, alert and oriented x4, speech clear, no focal neuro deficits noted HEENMT: normocephalic, atraumatic, EOMI, sclerae anicteric, moist oral mucosa Respiratory: clear to auscultation bilaterally, nonlabored breathing Cardio: regular rate, regular rhythm with S1-S2 Abdomen: nondistended, normoactive bowel sounds, soft, nontender to palpation Extremities: CGM in left arm, BLE no edema, erythema, or tenderness to palpation, DP pulses 2+ bilaterally Skin: no rashes or lesions, warm and dry Psych: appropriate mood and affect, judgment
[2022-08-31 14:00] VITALS: BP 110/59; PULSE 75; RESP 20; TEMP 36.9; O2SAT 99
[2022-08-31 14:06] VITALS: BMI 24.0
[2022-08-31 17:21] LABS: Glucose Point of Care 169 mg/dl (65-105)
--- NOTE | 2022-09-07 16:48 | PM.TDS ---
Transfer Discharge Sum: Prov Provider Date of admission: 08/31/22 07:30 Primary care physician: Jaja Chowdary, Admitting clinician: Jose Harris MD Receiving physician/facility: [facility] DS: Admitting Diagnosis Discharge Date 08/31/22 Admitting Diagnosis Empyema DS: Discharge Diagnosis Discharge Diagnosis (1) Empyema of right pleural space: Code(s): J86.9 - Pyothorax without fistula Status: Acute Assessment and Plan: The patient presented with shortness of breath, fatigue, low-grade fever, and right-sided pleuritic chest pain,and decreased energy for several days. Chest CT showed a loculated 6.4 cm thick-walled pleural collection which is most consistent with empyema given his recent history. - Continue IV Vancomycin and Zosyn - Awaiting records for review from [place] - He has been accepted to [place] in transfer at though they estimate a several day wait time. - He remains afebrile. No leukocytosis. No evidence of respiratory distress and is maintaining adequate oxygen saturations on room air - Will hold patient's aspirin and Xarelto in the event of possible intervention/procedure following transfer to [facility] (2) Pleuritic pain: Code(s): R07.81 - Pleurodynia Status: Acute Assessment and Plan: Likely secondary to above - PE unlikely as patient is not hypoxic and is maintained on Xarelto - Monitor symptoms (3) Insulin dependent type 2 diabetes mellitus: Code(s): E11.9 - Type 2 diabetes mellitus without complications; Z79.4 - parts counterman (current) use of insulin Status: Acute Assessment and Plan: last A1c was 9.9. blood sugars are fairly well controlled at this time - continue Accu-Cheks, sliding scale insulin, and hypoglycemic protocol - monitor glucose trends -continued home insulin pump during admission. Insulin pump agreement was signed (4) Chronic kidney disease, stage 3: Code(s): N18.30 - Chronic kidney disease, stage 3 unspecified Status: Chronic Assessment and Plan: renal function is at baseline - monitor closely 0 while patient is on vancomycin and Zosyn combination therapy (5) Chronic anemia: Code(s): D64.9 - Anemia, unspecified Status: Chronic Assessment and Plan: remaining stable - continue to monitor (6) Paroxysmal atrial fibrillation: Code(s): I48.0 - Paroxysmal atrial fibrillation Status: Acute Assessment and Plan: rate is controlled at this time - patient reports this was COVID induced and has not had any subsequent episodes of atrial fibrillation in over 2 years - continue home metoprolol succinate - hold Xarelto at this time in the event a procedure is planned following transfer to [facility] Transfer Discharge Sum: Med Medications Active and Home Medications: Home Medications alprazolam 0.25 mg tablet (Xanax) 0.25 mg PO BID PRN Anxiety 04/06/20 [History Confirmed 08/30/22] ergocalciferol (vitamin D2) 1,250 mcg (50,000 unit) capsule 1,250 mcg PO QTUTH 04/06/20 [History Confirmed 08/30/22] furosemide 20 mg tablet 20 mg PO DAILY PRN Edema 04/06/20 [History Confirmed 08/30/22] insulin aspart U-100 100 unit/mL subcutaneous solution (Novolog U-100 Insulin aspart) See Rx Instructions .Route .COMPLEX 04/06/20 [History Confirmed 08/31/22] losartan 100 mg tablet 100 mg PO DAILY 04/06/20 [History Confirmed 08/30/22] metformin 500 mg tablet,extended release 24 hr 1,000 mg PO DAILY 04/06/20 [History Confirmed 08/30/22] testosterone cypionate 200 mg/mL intramuscular oil 100 mg IM WEEKLY 10/14/20 [History Confirmed 08/31/22] aspirin 81 mg tablet,delayed release 81 mg PO DAILY 01/02/21 [History Confirmed 08/30/22] cwovqa-fsfevvls-vxvtduw 36,000-114,000-180,000 unit capsule,delay rel (Creon) 2 cap PO TIDWM 01/02/21 [History Confirmed 08/30/22] metoprolol succinate 25 mg tablet,extended release 24 hr (Toprol XL) 25 mg PO QAM #30 tabs 01/03/21 [Rx Confirmed
== END 2022-08-31 19:40 | disposition short-term general hospital (02) | DRG 178 ==
LOC: ANHED 20:52 → ANH3MED 23:04
PROVIDERS: Preventive Medicine Aerospace Medicine; Admitting Provider Internal Medicine; Emergency Provider Emergency Medicine; PCP Family Medicine; Visit Provider Physician Assistant
DX: J86.9 Pyothorax without fistula (principal); D80.3 Selective deficiency of immunoglobulin G [IgG] subclasses; E11.22 Type 2 diabetes mellitus with diabetic chronic kidney disease; N18.30 Chronic kidney disease, stage 3 unspecified; Z20.822 Contact with and (suspected) exposure to COVID-19; D64.9 Anemia, unspecified; I48.0 Paroxysmal atrial fibrillation; G89.4 Chronic pain syndrome; F41.8 Other specified anxiety disorders; E78.5 Hyperlipidemia, unspecified; D50.9 Iron deficiency anemia, unspecified; M85.80 Other specified disorders of bone density and structure, unspecified site; L40.9 Psoriasis, unspecified; Z79.4 Long term (current) use of insulin; Z86.73 Personal history of transient ischemic attack (TIA), and cerebral infarction without residual deficits; Z90.49 Acquired absence of other specified parts of digestive tract; Z98.84 Bariatric surgery status; Z87.891 Personal history of nicotine dependence
CPT/HCPCS: 36415; 71045; 71250; 80053; 82948; 83605; 83735; 84484; 85025; 85055; 87636; 93005; 96361; 96365; 96366; 96367; 96375; 96376; 99285; A9270; G0378; J0131; J0696; J2270; J2543; J3370; J7030; J7040

== ENCOUNTER 2023-06-27 15:04 | Emergency (ER) | payer MEDICARE, MEDICAID, SELFPAY ==
--- NOTE | ~2023-06-27 | XR_ITS ---
EXAM: XR shoulder RT min 2V DATE: 06/27/2023 16:04 HISTORY: Anterior shoulder pain-history of reconstruction . COMPARISON: None available. FINDINGS: Right shoulder arthroplasty. No osseous fracture. Normal alignment of the glenoid and celia ral prostheses. Considerably widened subacromial space. There is a gap between the glenoid prosthesis and the osseous surface of the glenoid. No perihilar hardware lucency or hardware fracture detected in the stem or screws of the glenoid prosthesis. IMPRESSION: Aligned glenoid and humeral prostheses. Wide gap between the glenoid prosthesis and the osseous glenoid surface, with widening of the subacro mial space. No definite hardware fracture or perihilar hardware lucency seen in the glenoid stem or s crews. Without postoperative comparison studies is not possible to adequately assess or exclude a august ft in hardware position. Reviewed, dictated and finalized at location [facility]. 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 Wide gap between the glenoid prosthesis and the osseous glenoid surface, with w idening of the subacromial space. No definite hardware fracture or perihilar knight rdware lucency seen in the glenoid stem or screws. Without postoperative compar carli studies is not possible to adequately assess or exclude a shift in hardwar e position.
[2023-06-27 15:17] VITALS: BP 127/55; PULSE 64; RESP 18; TEMP 37.3; O2SAT 99
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
== END 2023-06-27 17:27 | disposition home or self-care (01) ==
PROVIDERS: Emergency Provider Nurse Practitioner Family; PCP Family Medicine
DX: M25.511 Pain in right shoulder (principal); I12.9 Hypertensive chronic kidney disease with stage 1 through stage 4 chronic kidney disease, or unspecified chronic kidney disease; E11.22 Type 2 diabetes mellitus with diabetic chronic kidney disease; N18.30 Chronic kidney disease, stage 3 unspecified; I48.0 Paroxysmal atrial fibrillation; E78.5 Hyperlipidemia, unspecified; E55.9 Vitamin D deficiency, unspecified; D50.9 Iron deficiency anemia, unspecified; M85.80 Other specified disorders of bone density and structure, unspecified site; G89.4 Chronic pain syndrome; F41.8 Other specified anxiety disorders; F17.290 Nicotine dependence, other tobacco product, uncomplicated; Z86.14 Personal history of Methicillin resistant Staphylococcus aureus infection; Z86.73 Personal history of transient ischemic attack (TIA), and cerebral infarction without residual deficits; Z79.4 Long term (current) use of insulin; Z79.84 Long term (current) use of oral hypoglycemic drugs; Z79.01 Long term (current) use of anticoagulants; Z79.82 Long term (current) use of aspirin; Z90.49 Acquired absence of other specified parts of digestive tract; Z98.84 Bariatric surgery status
CPT/HCPCS: 73030; 99283; A4565

== ENCOUNTER 2023-07-28 18:58 | Emergency (ER) | payer MEDICARE, MEDICAID, SELFPAY ==
--- NOTE | ~2023-07-28 | XR_ITS ---
EXAM: XR shoulder RT min 2V DATE: 07/28/2023 20:32 HISTORY: PAIN TO RIGHT SHOULDER WITH SURGERY X 6 MONTHS AGO . COMPARISON: 06/27/2023. FINDINGS: Decreased mineralization. Right shoulder arthroplasty hardware. Persistent gap between the glenoid prosthesis and the osseous glenoid surface. Persistent subacromial widening. The glenoid and humeral prostheses remain aligned. No hardware fracture. No abnormal perihilar hardware lucency. No osseous fracture or dislocation. No lytic or blastic lesion. Joint spaces are maintained. No erosion or periosteal change. Soft tissues within normal limits. IMPRESSION: No acute osseous finding. Persistent subacromial space widening and persistent gap betwee n the glenoid prosthesis and the osseous glenoid surface. Reviewed, dictated and finalized at location [facility]. [employer]OLE [employer] IMPRESSION: No acute osseous finding. Persistent subacromial space widening and persistent gap between the glenoid prosthesis and the osseous glenoid surface.
[2023-07-28 19:27] VITALS: BP 116/69; PULSE 57; RESP 18; TEMP 36.2; O2SAT 97
--- NOTE | 2023-07-28 22:58 | PC.NURSE ---
pt eloped out of department prior to medications. provider ordered tramadol, pt states i was prescribed tramadol and and she can shove it up her ass
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
== END 2023-07-28 23:02 | disposition left against medical advice (07) ==
LOC: ANHED 22:17
PROVIDERS: Emergency Provider Physician Assistant; PCP Family Medicine
DX: M25.511 Pain in right shoulder (principal); Z79.82 Long term (current) use of aspirin; I12.9 Hypertensive chronic kidney disease with stage 1 through stage 4 chronic kidney disease, or unspecified chronic kidney disease; N18.30 Chronic kidney disease, stage 3 unspecified; E78.5 Hyperlipidemia, unspecified; E55.9 Vitamin D deficiency, unspecified; Z86.73 Personal history of transient ischemic attack (TIA), and cerebral infarction without residual deficits; I48.0 Paroxysmal atrial fibrillation; E11.22 Type 2 diabetes mellitus with diabetic chronic kidney disease; Z79.4 Long term (current) use of insulin; F17.290 Nicotine dependence, other tobacco product, uncomplicated
CPT/HCPCS: 73030; 99283

== ENCOUNTER 2023-12-11 16:59 | Emergency (ER) | payer OTHER, MEDICARE, MEDICAID, SELFPAY ==
--- NOTE | ~2023-12-11 | XR_ITS ---
Right Knee Technique: AP, lateral, and sunrise views were obtained. Clinical History: Pain Findings: Questionable mild irregularity at the medial femoral condyle. There is enthesopathic change at the patellar tendon origin. Joint spaces are preserved without degenerative or erosive change. Sm all joint effusion is seen. Impression: Suspected focal cortical irregularity of the medial femoral condyle. Avulsion injury related to the o rigin of the MCL is a consideration. Correlate for pain in this region. Consider CT or MR for further evaluation as indicated. Reviewed, dictated and finalized at location [facility]. Impression: Suspected focal cortical irregularity of the medial femoral condyle. Avulsion i njury related to the origin of the MCL is a consideration. Correlate for pain i n this region. Consider CT or MR for further evaluation as indicated.
[2023-12-11 17:01] VITALS: BP 115/96; PULSE 83; RESP 19; TEMP 36.7; O2SAT 100
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
--- NOTE | 2023-12-11 18:57 | PC.NURSE ---
Pt taken to x-ray
[2023-12-11] MEDS: MORPHINE SULFATE (*CRX) 4 MG/ML INJ IV PUSH (19:12)
[2023-12-11 19:15] VITALS: BP 152/72; PULSE 64; RESP 20; TEMP 36.7; O2SAT 100
== END 2023-12-11 20:09 | disposition home or self-care (01) ==
PROVIDERS: Emergency Provider Student in an Organized Health Care Education/Training Program
DX: S83.91XA Sprain of unspecified site of right knee, initial encounter (principal); I12.9 Hypertensive chronic kidney disease with stage 1 through stage 4 chronic kidney disease, or unspecified chronic kidney disease; E11.22 Type 2 diabetes mellitus with diabetic chronic kidney disease; N18.30 Chronic kidney disease, stage 3 unspecified; I48.0 Paroxysmal atrial fibrillation; E78.5 Hyperlipidemia, unspecified; E55.9 Vitamin D deficiency, unspecified; D50.9 Iron deficiency anemia, unspecified; G89.29 Other chronic pain; M85.80 Other specified disorders of bone density and structure, unspecified site; F41.8 Other specified anxiety disorders; F17.290 Nicotine dependence, other tobacco product, uncomplicated; Z98.84 Bariatric surgery status; Z86.14 Personal history of Methicillin resistant Staphylococcus aureus infection; Z86.73 Personal history of transient ischemic attack (TIA), and cerebral infarction without residual deficits; Z90.49 Acquired absence of other specified parts of digestive tract; Z79.01 Long term (current) use of anticoagulants; Z79.4 Long term (current) use of insulin; Z79.82 Long term (current) use of aspirin; Z79.84 Long term (current) use of oral hypoglycemic drugs; Z79.899 Other long term (current) drug therapy; W54.1XXA Struck by dog, initial encounter
CPT/HCPCS: 73562; 96374; 99284; J2270

== ENCOUNTER 2023-12-23 06:58 | Outpatient (CLI) | payer OTHER, MEDICARE, SELFPAY ==
--- NOTE | ~2023-12-23 | MR_ITS ---
MRI of the right knee Clinical history: Pain Technique: Coronal proton density and proton density-weighted images, sagittal proton-density and T2 fat-sat images, and axial proton-density fat-saturated images were acquired. Findings: Anterior and posterior cruciate ligaments are intact. Medial collateral ligament demonstrat es thickening and increased signal proximally. Lateral collateral ligament complex is intact. Poplite us tendon is intact. Medial and lateral menisci are intact, without evidence of tear. There is a mildly displaced avulsion fracture at the medial femoral condyle related to the origin of the MCL, with the fracture fragment measuring approximately 2.6 cm in craniocaudal extent, and approx imately 0.9 cm in transverse dimension, and 1.4 cm in AP dimension. There is surrounding marrow edema . Remaining osseous structures are intact. Articular cartilage is well preserved throughout the knee. Extensor mechanism is intact, though there is enthesopathic change or heterotopic ossification at the proximal patellar tendon. Moderate joint effusion present. There is prominent, diffuse subcutaneous soft tissue edema throughout the knee region. No Conklin's cyst. Impression: Acute mildly displaced avulsion fracture at the medial femoral condyle involving the MCL origin, as d etailed above. Associated thickening and increased signal of the proximal MCL, compatible with superimposed grade 1 MCL sprain versus mild grade 2 injury. Moderate joint effusion. Diffuse, prominent subcutaneous soft tissue edema about the knee. Reviewed, dictated and finalized at [facility]. Impression: Acute mildly displaced avulsion fracture at the medial femoral condyle involvin g the MCL origin, as detailed above. Associated thickening and increased signal of the proximal MCL, compatible with superimposed grade 1 MCL sprain versus mild grade 2 injury. Moderate joint effusion. Diffuse, prominent subcutaneous soft tissue edema about the knee.
== END 2023-12-23 06:59 ==
PROVIDERS: PCP Family Medicine; Visit Provider Orthopaedic Surgery
DX: M25.561 Pain in right knee (principal); S72.8X1A Other fracture of right femur, initial encounter for closed fracture; M25.461 Effusion, right knee; M79.89 Other specified soft tissue disorders
CPT/HCPCS: 73721

== ENCOUNTER 2024-01-13 17:33 | Inpatient (IN) | payer OTHER, MEDICARE, SELFPAY ==
[2024-01-13] VITALS (16 sets, daily range): BP systolic 109–167; BP diastolic 64–91; PULSE 73–138; RESP 15–28; TEMP 36.9–39.6; O2SAT 97–100
--- NOTE | ~2024-01-13 | US_ITS ---
EXAMINATION: US abdomen limited DATE: 01/13/2024 20:28 INDICATION: abnl lfts, pancreatic abnl on ct TECHNIQUE: Multiple grayscale and Doppler ultrasound images of limited portions of the abdomen were o btained. COMPARISON: CT abdomen pelvis, same date. FINDINGS: Pancreas obscured by bowel gas. Echogenic liver parenchyma. No surface nodularity. Turbulen t flow in the main portal vein, which measures 2.1 cm. The gallbladder is surgically absent. The comm on bile duct measures 8 mm. IMPRESSION: Echogenic liver, most commonly due to steatosis but also can be seen with hepatitis and fibrosis. Tur didi flow within a dilated portal vein, may reflect presence of portal hypertension. Mildly dilated common bile duct, likely secondary to post surgical change. Reviewed, dictated and finalized at location [facility]. IMPRESSION: Echogenic liver, most commonly due to steatosis but also can be seen with hepat itis and fibrosis. Turbulent flow within a dilated portal vein, may reflect pre sence of portal hypertension. Mildly dilated common bile duct, likely secondary to post surgical change.
--- NOTE | ~2024-01-13 | CT_ITS ---
EXAMINATION: CT abdomen pelvis wo con DATE: 01/13/2024 18:26 INDICATION: b/l flank pain TECHNIQUE: Computed tomography (CT) of the abdomen and pelvis was performed without intravenous contr ast. Automated exposure control and iterative reconstruction technique were employed. The dose-length product was 736.68 mGy-cm. COMPARISON: 06/27/2022; MR abdomen 06/28/2022. FINDINGS: Lower thorax: Lobulated 2.3 cm right lower lobe pulmonary nodule. Bibasilar scar/atelectasis. Liver: Ill-defined right lobe hypodensities, smaller than the prior study, likely relating to interva l treatment changes in the previously described hepatic masses. Biliary/Gallbladder: Gallbladder is absent. Mild common bile duct dilation likely related to surgical changes. Pancreas: Drain in the main pancreatic duct extending to the stomach. Fatty stranding about the head of the pancreas. No mass or duct dilation. Scattered calcifications consistent with chronic pancreati tis. Spleen: Normal. Adrenals:No mass. Kidneys: No suspicious mass, obstructing stone, or hydronephrosis. GI tract: Prior gastric surgery. Uncomplicated appearing small bowel anastomosis. Diffuse mild coloni c wall thickening. No small or large bowel dilation. Appendix not confidently visualized. Mesentery/Peritoneum: Central mesenteric stranding. Multiple enlarged mesenteric lymph nodes with fat halos. Retroperitoneum: No mass. Atherosclerotic abdominal aortic and/or arterial calcifications. Pelvis: Moderate bladder wall thickening in a partially distended urinary bladder. Mild prostatomegal y. Soft Tissues: Soft tissues and body wall unremarkable. Bones: No acute osseous finding. IMPRESSION: 2.3 cm right lower lobe pulmonary nodule, recommend follow-up low-dose noncontrast CT of the chest in 3 months, PET/CT, or tissue sampling. Peripancreatic inflammatory changes, may represent chronic or acute on chronic hepatitis, correlate w ith pancreatic labs. Upper/central mesenteric stranding with mesenteric lymphadenopathy, may be reactive to the pancreatic process or related to mesenteric panniculitis. Chronic colonic wall thickening may represent chronic colitis or recurrent acute colitis. Cystitis versus bladder wall thickening from chronic outlet obstruction. Reviewed, dictated and finalized at location K. IMPRESSION: 2.3 cm right lower lobe pulmonary nodule, recommend follow-up low-dose noncontr ast CT of the chest in 3 months, PET/CT, or tissue sampling. Peripancreatic inflammatory changes, may represent chronic or acute on chronic hepatitis, correlate with pancreatic labs. Upper/central mesenteric stranding with mesenteric lymphadenopathy, may be reac tive to the pancreatic process or related to mesenteric panniculitis. Chronic colonic wall thickening may represent chronic colitis or recurrent acut e colitis. Cystitis versus bladder wall thickening from chronic outlet obstruction.
--- NOTE | ~2024-01-13 | MR_ITS ---
EXAMINATION: MR MRCP wo/w con/w 3D wo ind DATE: 01/14/2024 13:14 INDICATION: Hyperbilirubinemia TECHNIQUE: Magnetic resonance imaging (MRI) of the abdomen was performed without and with 18 mL Multi nneka intravenous contrast. Sequences included coronal T2-weighted SS-FSE, coronal T2-weighted FS SS- FSE, coronal T2-weighted FS FIESTA, axial T2-weighted FS FIESTA, axial T2-weighted FIESTA, sagittal T 2-weighted SS-FSE, axial T1-weighted dual-echo FSPGR, axial T2-weighted SS-FSE, axial T1-weighted LAV A, axial T2-weighted STIR FSE. Thick-slab T2-weighted FRFSE-XL images were obtained for magnetic reso nance cholangiopancreatography (MRCP). Rotating maximum intensity projection 3-D reconstructions of t he volumetric data were created by the technologist. Postcontrast sequences included a time course of axial T1-weighted LAVA. COMPARISON: CT abdomen and pelvis dated 01/13/24 FINDINGS: Evaluation is limited by varying degrees of motion artifact on multiple sequences. Cardiomegaly. No p ericardial effusion. Consolidation in the right lower lobe which could represent atelectasis or pneum onia. Additional more linear discoid atelectasis in both lower lobes. Spleen, bilateral adrenal gland s and right kidney are normal. 8 mm T2 hyperintense nonenhancing cyst at the upper pole of the left k idney. No dilated bowel in the visualized abdomen to suggest obstruction. No pathologically enlarged abdominal lymphadenopathy. Mild to moderate spondylosis in the thoracic and lower lumbar spine. Gallbladder is not visualized consistent with prior cholecystectomy with surgical clips better apprec iated on the prior CT. There is dilation of the common bile duct which measures up to 14 mm which tap ers distally at the head of the pancreas. This occurs in the same location as a focal stricture in th e main portal vein with low signal intensity intraluminal contrast which suggests possibility of a hi gh velocity jet. No intraluminal filling defect to suggest choledocholithiasis. There is also mild intrahepatic biliary ductal dilation which is most prominent in segment 5 of the l iver. There is a stricture with no discernible fluid signal within a segment of the bile duct extendi ng to segment 5. There also appears to be occlusion of the portal vein branch to segment 5 with secon vinny transient hepatic attenuation difference with increased arterial phase enhancement in segment 5. There is also parenchymal atrophy with retraction of the overlying liver capsule in segment 5. Findi ngs are concerning for malignancy specifically gynecologic carcinoma but could also be related to seq uela of likely prior since resolved hepatic abscesses. Correlate with clinical history and results fr om prior biopsy on 06/29/2022. Small amount of perihepatic ascites. Linear low signal magnetic field artifact along the proximal stomach such with a gastric bypass proce dure which is better appreciated on the prior CT. There is dilation of the main pancreatic duct in th e body and tail of the pancreas. At the body the pancreas there is a subtle tiny tract of increased s ignal extending between the main pancreatic duct and the body of the stomach along which passes a whitfield creatic ductal stent on the prior CT which is unable be clearly discerned on the MR imaging. There is a spiculated pattern of the stranding centered about the site of the termination of the dilated main pancreatic duct and the stricture of the common bile duct and main portal vein but without a clearly defined mass and assess at the site of stricture the bile duct extending to segment 5 this could be either malignant in etiology or scarring as sequela prior inflammation. IMPRESSION: 1. Evaluation mildly limited by motion artifact of varying severity on multiple sequences. 2. Status post cholecystectomy and gastric bypass procedure. It is unclear from the MR imaging but ap pears likely based on CT imaging that there is no l
--- NOTE | ~2024-01-13 | CT_ITS ---
Non-contrast Head CT History: Altered mental status COMPARISON: 04/05/2020 Technique: Axial non-contrast imaging of the brain was performed. Dose reduction technique was used on this scan by utilizing automated exposure control and iterative reconstruction technique. The dose -length product (DLP) was 681.00 mGy-cm. Findings: There is no evidence of intracranial hemorrhage, mass lesion, or acute infarct. Brain par enchyma appears normal. The ventricles and subarachnoid spaces are normal in size. The calvarium ap pears normal. The visualized paranasal sinuses and mastoid air cells are clear. Impression: No significant abnormality seen. Reviewed, dictated and finalized at location . Impression: No significant abnormality seen.
[2024-01-13 18:52] LABS: Basophils Percent Auto 0.1 % (0.2-1.2); Eosinophils Percent Auto 0.1 % (0-4.4); Hematocrit 34.6 % (42.0-52.0); Hemoglobin 11.2 g/dL (14.0-18.0); Immature Granulocyte Absolute 0.03 K/mm3 (0.00-0.031); Immature Granulocyte Percent A 0.4 % (0-0.5); Lymphocytes Absolute Auto 0.37 K/mm3 (0.9-3.2); Lymphocytes Percent Auto 4.9 % (18.3-44.2); Mean Corpuscular HGB Conc 32.4 g/dl (32-36); Mean Corpuscular Hemoglobin 27.8 pg (26-34); Mean Corpuscular Volume 85.9 fl (80-100); Mean Platelet Volume 12.9 fl (7.4-10.4); Monocytes Absolute Auto 0.6 K/mm3 (0.1-0.6); Monocytes Percent Auto 7.7 % (2.6-8.5); Neutrophils Absolute Auto 6.5 K/mm3 (1.3-6.7); Neutrophils Percent Auto 86.8 % (45.5-73.1); Platelet Count Result 104 k/mm3 (150-375); Red Blood Count 4.03 M/mm3 (4.6-6.20); Red Cell Distribution Width 15.2 % (11.5-14.5); White Blood Count 7.5 K/mm3 (4.5-10.0)
[2024-01-13 18:58] LABS: Appearance Urine Clear (Clear); Bacteria Urine Rare /hpf; Bilirubin Urine Negative (Negative); Blood Urine 1+ (Negative); Budding Yeast Urine Present /hpf; Color Urine Yellow (Yellow); Glucose Urine UA 1+ mg/dL (Negative); Ketones Urine Negative (Negative); Leukocyte Esterase Ur 2+ LEU/UL (Negative); Need Manual Microscopic Reviewed; Nitrate Urine Negative (Negative); Non Pathogenic Casts 0-2; Protein Urine Trace mg/dL (Negative); RBC Urine 0-2 /hpf (0-2); Specific Grav Ur 1.007 (1.001-1.035); Squamous Epithelial Cell Urine None Seen /hpf (Few); Urobilinogen Urine 0.2 mg/dL (<2.0); WBC Urine 21-50 /hpf (0-3); pH Urine 5.5 (5.0-9.0)
[2024-01-13 18:59] LABS: Add Urine Microscopic? YES
[2024-01-13 19:04] LABS: Alanine Aminotransferase 93 U/L (6-50); Albumin Level 4.1 g/dL (3.5-5.1); Alkaline Phosphatase 172 U/L (38-126); Anion Gap 9 mmol/L (4-12); Aspartate Amino Transferase 62 U/L (17-59); Bilirubin,Total 3.6 mg/dL (0.2-1.3); Blood Urea Nitrogen 25 mg/dL (9-20); Calcium 8.6 mg/dL (8.4-10.2); Carbon Dioxide 19 mmol/L (22-30); Chloride 105 mmol/L (98-107); Estimated Glomerular Filt Rate 38; Glucose 177 mg/dL (65-110); Sodium 133 mmol/L (137-145)
[2024-01-13 19:26] LABS: Influenza A QL RT-PCR Negative (Negative); Influenza B QL RT-PCR Negative (Negative); RSV RNA, RT-PCR Negative (Negative); SARS-CoV-2 RNA PCR Negative (Negative)
[2024-01-13 19:34] LABS: Lipase 20 U/L (23-300)
[2024-01-13] MEDS: ONDANSETRON INJ 4 MG/2 ML VIAL IV PUSH (19:43)
[2024-01-13] MEDS: SODIUM CHLORIDE 0.9% IV 1,000 ML 999 ML IV CONT ×3 (19:43→23:53)
[2024-01-13] MEDS: MORPHINE SULFATE (*CRX) 4 MG/ML INJ IV PUSH (19:49)
[2024-01-13 20:04] LABS: Lactic Acid Reflex 0.7 mmol/L (0.7-2.0)
[2024-01-13 20:07] LABS: Hepatitis B Surface Antigen Negative (Negative)
[2024-01-13 20:13] LABS: HAV RESULT Negative (Negative); Hepatitis B Core IgM Result Negative (Negative)
[2024-01-13 20:25] LABS: Hepatitis C Virus Antibody Negative (Negative)
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
--- NOTE | 2024-01-13 22:56 | PC.NURSE ---
patient began having full body shivering, restlessness, racing thoughts, and was hyperventilating. called provider to bedside and patient stated that they have a benzo prescription at home to take the edge off so would like to try this. patient also strongly requested Tylenol and stated that they typically don't have anxiety attacks so they are unsure if this could be one. provider LINDSEY requested 0.5mg of Lorazepam IV and 1,000mg of Tylenol PO to be given to patient. after administration of lorazepam symptoms began to resolve. patient is still currently uncomfortable, however vitals are wnl and they are now able to lay comfortably and focus on breathing at a normal rate.
[2024-01-13] MEDS: LORazepam INJ (*CRX) 2 MG/ML VIAL 0.5 MG IV PUSH (23:04)
[2024-01-13] MEDS: ACETAMINOPHEN 500 MG TABLET 1000 MG PO (23:16)
--- NOTE | 2024-01-13 23:35 | PC.NURSE ---
care and report given to AVIVA Stapleton. all questions answered.
[2024-01-13] MEDS: LORazepam INJ (*CRX) 2 MG/ML VIAL 1 MG IV PUSH (23:48)
[2024-01-13] MEDS: PIPERACILLN/TAZ 3.375GM/NS50ML 3.375 GM/50 ML BAG IVPB (23:53)
[2024-01-14] VITALS (27 sets, daily range): BP systolic 105–159; BP diastolic 54–77; PULSE 52–135; RESP 12–25; TEMP 36.1–40.2; O2SAT 93–99; BMI 29.5
[2024-01-14] MEDS: KETOROLAC 30 MG/ML VIAL (*BKC) IV PUSH (00:10)
--- NOTE | 2024-01-14 00:27 | PC.NURSE ---
Addendum entered by Daya Galdamez RN 01/14/24 00:35: at [id number] Original Note: Family called this RN to bedside. Pt found to be out of bed with unsteady gait. Pt A&Ox2, disoriented to situation and place, stating he is in his garage and wants to go inside. Pt placed back in but, but continues to attempt to get up and becomes agitated when staff informs him that he cannot get out of bed. Vitals checked, elevated temperature and HR noted. Security, SUZI Mcclellan, and TOÑO Moseley at bedside.
--- NOTE | 2024-01-14 00:41 | PC.NURSE ---
Pt resting on stretcher, calm, cooperative, A&ox4.
--- NOTE | 2024-01-14 02:16 | PM.IMHP ---
H&P: HPI History of Present Illness Date/Time: 01/14/24 02:16 Chief Complaint: chills Narrative: This is a 63-year-old male with past medical history significant for chronic pancreatitis, fatty liver disease, HIV/aids, on HAART, insulin-dependent diabetes mellitus, paroxysmal atrial fibrillation rate controlled anticoagulated, spinal stenosis hypertension, chronic kidney disease, chronic pain syndrome, depression anxiety. patient presents to the emergency room due to chills rigors generalized malaise lower back pain poor appetite diarrhea for 2 days. In emergency room preliminary workup was significant for urinalysis with numerous WBCs present, creatinine 1.8, bilirubin 3.6, acute on chronic hepatitis panel was negative. patient received 2 L of normal saline in the emergency room had episode of rigors chills and confusion. Patient has been admitted for further evaluation, management and treatment. EXAMINATION: CT abdomen pelvis wo con DATE: 01/13/2024 18:26 INDICATION: b/l flank pain TECHNIQUE: Computed tomography (CT) of the abdomen and pelvis was performed without intravenous contrast. Automated exposure control and iterative reconstruction technique were employed. The dose-length product was 736.68 mGy-cm. COMPARISON: 06/27/2022; MR abdomen 06/28/2022. FINDINGS: Lower thorax: Lobulated 2.3 cm right lower lobe pulmonary nodule. Bibasilar scar/atelectasis. Liver: Ill-defined right lobe hypodensities, smaller than the prior study, likely relating to interval treatment changes in the previously described hepatic masses. Biliary/Gallbladder: Gallbladder is absent. Mild common bile duct dilation likely related to surgical changes. Pancreas: Drain in the main pancreatic duct extending to the stomach. Fatty stranding about the head of the pancreas. No mass or duct dilation. Scattered calcifications consistent with chronic pancreatitis. Spleen: Normal. Adrenals:No mass. Kidneys: No suspicious mass, obstructing stone, or hydronephrosis. GI tract: Prior gastric surgery. Uncomplicated appearing small bowel anastomosis. Diffuse mild colonic wall thickening. No small or large bowel dilation. Appendix not confidently visualized. Mesentery/Peritoneum: Central mesenteric stranding. Multiple enlarged mesenteric lymph nodes with fat halos. Retroperitoneum: No mass. Atherosclerotic abdominal aortic and/or arterial calcifications. Pelvis: Moderate bladder wall thickening in a partially distended urinary bladder. Mild prostatomegaly. Soft Tissues: Soft tissues and body wall unremarkable. Bones: No acute osseous finding. IMPRESSION: 2.3 cm right lower lobe pulmonary nodule, recommend follow-up low-dose noncontrast CT of the chest in 3 months, PET/CT, or tissue sampling. Peripancreatic inflammatory changes, may represent chronic or acute on chronic hepatitis, correlate with pancreatic labs. Upper/central mesenteric stranding with mesenteric lymphadenopathy, may be reactive to the pancreatic process or related to mesenteric panniculitis. Chronic colonic wall thickening may represent chronic colitis or recurrent acute colitis. Cystitis versus bladder wall thickening from chronic outlet obstruction. EXAMINATION: US abdomen limited DATE: 01/13/2024 20:28 INDICATION: abnl lfts, pancreatic abnl on ct TECHNIQUE: Multiple grayscale and Doppler ultrasound images of limited portions of the abdomen were obtained. COMPARISON: CT abdomen pelvis, same date. FINDINGS: Pancreas obscured by bowel gas. Echogenic liver parenchyma. No surface nodularity. Turbulent flow in the main portal vein, which measures 2.1 cm. The gallbladder is surgically absent. The common bile duct measures 8 mm. IMPRESSION: Echogenic liver, most commonly due to steatosis but also can be seen with hepatitis and fibrosis. Turbulent flow within a dilated portal vein, may reflect presence of portal hypertension. Mildly dilated common bile duct, likely secondary to post surgical c
--- NOTE | 2024-01-14 03:57 | ADMGEN ---
This patient, Torito Escamilla III, was admitted to IMU Room 205-02. Patient/family oriented to hospital policies and general routines including ID bracelet, bed and alarms, visiting hours, pain management, procedures, bathroom and other care routines, personal items, smoking policy, room service/diet, and visiting hours. Information on how to activate the Rapid Response Team has been discussed. Patient/Family are encouraged to report perceived risks to care and to ask questions if they do not understand what they are told or what they should do.
[2024-01-14] MEDS: SODIUM CHLORIDE 0.9% IV 1,000 ML 100 ML IV CONT ×2 (04:34→16:14)
[2024-01-14 06:10] LABS: Glucose Point of Care 131 mg/dl (65-105)
[2024-01-14] MEDS: PIPERACILLIN/TAZ 2.25G/NS 50ML 2.25 GM/50 ML BAG IVPB ×2 (06:35→11:27)
--- NOTE | 2024-01-14 07:59 | P.CONGI_ITS ---
I, Pepe De Los Santos MD, have provided a substantive portion of the care of this patient and discussed the patient with my Nurse Practitioner. I have reviewed any new relevant radiographic and laboratory results including medications. I agree with her documentation as noted below.?I personally performed the medical decision making and much of the history and exam for this encounter. Briefly, he has complicated history with previous gastric bypass surgery many years ago. Approximately 10 years ago developed acute pancreatitis with necrotizing and bleeding. Ultimately treated in [place] with several surgical procedures including pancreatic stent placement, patient says that last time 2018. 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 Here admitted with fever and diagnosed with sepsis and UTI, started on abx. MRCP reviewed, s/p gastric bypass which will preclude ERCP in our institution, also possible stricture bile duct and changes in portal vein with possible occlusion or stricture, most likey inflammatory changes but can not rule out malignancy, also noted pancreatic stent with post surgical changes. No nausea or much of abdominal pain. Plan is to continue antibiotics, get HIV viral count/CD4, trend liver enzymes (hepatitis panel negative). Findings MRCP can explain elevated liver enzymes, if clinical status does not improve with antibiotics or he has persistent elevated liver enzymes then consider to transfer to tertiary center. Also there is not GI coverage this weekend. Assessment and Plan Assessment and plan (1) Left flank pain: Code(s): R10.9 - Unspecified abdominal pain Status: Acute (2) Chronic pancreatitis: Qualifiers: Pancreatitis type: idiopathic Qualified Code(s): K86.1 - Other chronic pancreatitis Code(s): K86.1 - Other chronic pancreatitis Status: Acute (3) Elevated LFTs: Code(s): R79.89 - Other specified abnormal findings of blood chemistry Status: Acute (4) Abnormal digestive system diagnostic imaging: Code(s): R93.3 - Abnormal findings on diagnostic imaging of other parts of digestive tract Status: Acute (5) Anemia of chronic disease: Code(s): D63.8 - Anemia in other chronic diseases classified elsewhere Status: Acute (6) UTI (urinary tract infection): Qualifiers: Urinary tract infection type: acute cystitis Hematuria presence: without hematuria Qualified Code(s): N30.00 - Acute cystitis without hematuria Code(s): N39.0 - Urinary tract infection, site not specified Status: Acute Plan 1) Left flank pain/chronic pancreatitis/elevated LFT's/nausea: Hx of severe episode on necrotizing and bleeding into the pancreas > 10 years ago. Patient has had several surgical cysts procedures as well as a stent. IGG4 pancreatitis Hx. Followed by Dr. Lackey. Last ERCP with pancreatic stent placement in 2019. Patient is on Creon 36,000 units 2 capsules with meals 1 with snacks. Hx of chronic alk phos and transaminase elevation but Total bilirubin acutely elevated at 3.6. labs on admission show total bilirubin 3.6, alkaline phosphatase 172, AST 62, ALT 93, and lipase 20. CT showed fatty stranding about the head of the pancreas. No mass or duct dilation. Scattered calcifications consistent with chronic pancreatitis. Patient scheduled for outpatient MRCP next . * Will repeat LFTs if bilirubin has increased may consider MRCP/ERCP to rule out obstruction of indwelling pancreatic biliary stent, if stable or improving we will hold off on any intervention and he can
--- NOTE | 2024-01-14 07:59 | WPDGICN ---
Assessment and Plan Assessment and plan (1) Left flank pain: Code(s): R10.9 - Unspecified abdominal pain Status: Acute (2) Chronic pancreatitis: Qualifiers: Pancreatitis type: idiopathic Qualified Code(s): K86.1 - Other chronic pancreatitis Code(s): K86.1 - Other chronic pancreatitis Status: Acute (3) Elevated LFTs: Code(s): R79.89 - Other specified abnormal findings of blood chemistry Status: Acute (4) Abnormal digestive system diagnostic imaging: Code(s): R93.3 - Abnormal findings on diagnostic imaging of other parts of digestive tract Status: Acute (5) Anemia of chronic disease: Code(s): D63.8 - Anemia in other chronic diseases classified elsewhere Status: Acute (6) UTI (urinary tract infection): Qualifiers: Urinary tract infection type: acute cystitis Hematuria presence: without hematuria Qualified Code(s): N30.00 - Acute cystitis without hematuria Code(s): N39.0 - Urinary tract infection, site not specified Status: Acute Plan 1) Left flank pain/chronic pancreatitis/elevated LFT's/nausea: Hx of severe episode on necrotizing and bleeding into the pancreas > 10 years ago. Patient has had several surgical cysts procedures as well as a stent. IGG4 pancreatitis Hx. Followed by Dr. Lackey. Last ERCP with pancreatic stent placement in 2019. Patient is on Creon 36,000 units 2 capsules with meals 1 with snacks. Hx of chronic alk phos and transaminase elevation but Total bilirubin acutely elevated at 3.6. labs on admission show total bilirubin 3.6, alkaline phosphatase 172, AST 62, ALT 93, and lipase 20. CT showed fatty stranding about the head of the pancreas. No mass or duct dilation. Scattered calcifications consistent with chronic pancreatitis. Patient scheduled for outpatient MRCP next . Will repeat LFTs if bilirubin has increased may consider MRCP/ERCP to rule out obstruction of indwelling pancreatic biliary stent, if stable or improving we will hold off on any intervention and he can continue his care outpatient with Dr. Lackey If LFT's stable or improved, ok from GI standpoint to advance diet as tolerated 2) Chronic anemia: Patient with anemia of chronic disease. Labs on admission show HGB 11, HCT 35, MCV 86, and platelets 104. Patient denies any signs of active GI bleeding to include hematemesis, hematochezia, or melena. Primary care team to continue monitoring H&H and transfuse as needed to keep Hct>7 3) Abnormal imaging digestive: CT showed upper/ central mesenteric stranding with mesenteric lymphadenopathy, may be reactive to the pancreatic process or related to mesenteric panniculitis. Chronic colonic wall thickening also present which may represent chronic colitis or recurrent acute colitis. Patient denies any recent change in bowel habits. He is having to soft formed stools daily without urgency or bleeding. patient already on antibiotics, continue continue supportive care 4) UTI: patient noted to have UTI on admission currently receiving antibiotics. Wbc's 8 on admission. Primary care team to continue management Thank you very much for allowing me to share in the care of this very complex patient. This report may have been done utilizing a voice recognition system. Attempts have been made to correct errors. However, there may be uncorrected grammatical, spelling, and recognition errors present. GI Consult Note Consult date/time: 01/14/24 07:59 Reason for consult: Acute pancreatitis HPI: Torito Escamilla III is a 63 year old male With past medical-surgical history of chronic anemia, chronic kidney disease, chronic pain syndrome, depression, anxiety, HLD, empyema, HTN, IG G4 deficiency, insulin dependent diabetes, Ortiz, chronic pancreatitis, AFib (On Xarelto and aspirin 81 mg daily), psoriasis, history of TIA, appendectomy, cholecystectomy, personal history of colon polyps,
[2024-01-14] MEDS: MORPHINE SULFATE (*CRX) 4 MG/ML INJ IV PUSH ×2 (09:55→14:00)
[2024-01-14 10:23] LABS: Alanine Aminotransferase 72 U/L (6-50); Albumin Level 3.8 g/dL (3.5-5.1); Alkaline Phosphatase 173 U/L (38-126); Aspartate Amino Transferase 63 U/L (17-59); Bilirubin Direct 1.6 mg/dL (0-0.3); Bilirubin,Total 3.8 mg/dL (0.2-1.3)
[2024-01-14] MEDS: ACETAMINOPHEN 500 MG TABLET 1000 MG PO (10:53)
[2024-01-14] MEDS: LORazepam INJ (*CRX) 2 MG/ML VIAL 0.5 MG IV PUSH (11:26)
--- NOTE | 2024-01-14 13:00 | PM.IMPN ---
Progress Note: A&P Assessment and Plan (1) Sepsis: Qualifiers: Sepsis acute organ dysfunction status: unspecified Sepsis type: sepsis due to unspecified organism Qualified Code(s): A41.9 - Sepsis, unspecified organism Code(s): A41.9 - Sepsis, unspecified organism Status: Acute Assessment and Plan: admit to IMU likely secondary to urinary tract infection on broad-spectrum antibiotic early goal-directed therapy ongoing supportive care await cultures (2) UTI (urinary tract infection): Qualifiers: Hematuria presence: without hematuria Urinary tract infection type: acute cystitis Qualified Code(s): N30.00 - Acute cystitis without hematuria Code(s): N39.0 - Urinary tract infection, site not specified Status: Acute Assessment and Plan: on Zosyn (3) Hyperbilirubinemia: Code(s): E80.6 - Other disorders of bilirubin metabolism Status: Acute Assessment and Plan: likely secondary to sepsis GI consult for MRCP (4) Nondisplaced fracture of medial condyle of femur: Qualifiers: Encounter type: initial encounter Fracture type: closed Laterality: right Qualified Code(s): S72.434A - Nondisplaced fracture of medial condyle of right femur, initial encounter for closed fracture Code(s): S72.436A - Nondisplaced fracture of medial condyle of unspecified femur, initial encounter for closed fracture Status: Acute Assessment and Plan: brace in place (5) Paroxysmal atrial fibrillation: Code(s): I48.0 - Paroxysmal atrial fibrillation Status: Acute Assessment and Plan: rate controlled anticoagulated (6) Chronic pancreatitis: Qualifiers: Pancreatitis type: idiopathic Qualified Code(s): K86.1 - Other chronic pancreatitis Code(s): K86.1 - Other chronic pancreatitis Status: Acute Assessment and Plan: continue to monitor (7) Chronic pain syndrome: Code(s): G89.4 - Chronic pain syndrome Status: Acute Assessment and Plan: pain management (8) Chronic kidney disease, stage 3: Code(s): N18.30 - Chronic kidney disease, stage 3 unspecified Status: Chronic Assessment and Plan: continue to monitor BUN and creatinine (9) Insulin dependent type 2 diabetes mellitus: Code(s): E11.9 - Type 2 diabetes mellitus without complications; Z79.4 - senior living (current) use of insulin Status: Acute Assessment and Plan: resume home meds as needed Plan 63 year male who presented to the ED with intermittent fever severe shaking chills and diaphoresis since Wednesday. T-max 101?. Bilateral flank pain with urinary symptoms. Vitals were stable upon arrival and was afebrile. CBC with normal WBC H 7.5 mild anemia at 11.2. Platelets were 104 consistent with previous records. CMP with bicarb of 19 creatinine 1.8 baseline creatinine of 1.1-1.5. Recently was 1.6. Total bilirubin elevated at 3.6 AST 62 ALT 93 alkaline phosphatase 172 indicative of mildly elevated liver enzymes. Lipase within normal limits at 20. Urinalysis suggestive of UTI. Blood culture were sent. Lactic acid was normal at 0.7. Hepatitis panel was negative. Viral swab was negative. Blood culture came back positive for Gram-negative bacilli /. On IV Zosyn CT scan of the abdomen pelvis showed some peripancreatic inflammation acute versus chronic pancreatitis changes. Possible colitis and cystitis. Right upper quadrant ultrasound showed evidence of hepatic steatosis portal hypertension and mild common bile duct dilation at 8 mm likely related to previous cholecystectomy. No obvious obstructing stone. History of hemorrhagic/necrotizing pancreatitis in 2012 status post pancreatic stent placement states in 2019. History of hepatic masses and IgG [address] Tavares MRCP planned to rule out obstructive disease/biliary cholangitis Altered mental status/acute encep
[2024-01-14] MEDS: metFORMIN HCL XR 500 MG TAB.SR.24H 1000 MG PO (13:44)
[2024-01-14] MEDS: METOPROLOL SUCCINATE EXT REL 25 MG TABCR PO (13:44)
[2024-01-14] MEDS: GABAPENTIN 300 MG CAPSULE 600 MG PO ×2 (13:44→16:14)
[2024-01-14] MEDS: RIVAROXABAN 20 MG TABLET PO (13:44)
[2024-01-14] MEDS: EMTRICITABINE-TENOFOVIR 100 MG-150 MG TABLET 2 TAB PO (13:45)
[2024-01-14] MEDS: LIPASE/AMYLASE/PROTEASE 12,000 UNITS CAP 6 CAP PO (13:45)
[2024-01-14 14:20] LABS: Basophils Percent Auto 0.5 % (0.2-1.2); Eosinophils Percent Auto 0.2 % (0-4.4); Hematocrit 38.7 % (42.0-52.0); Hemoglobin 11.9 g/dL (14.0-18.0); Immature Granulocyte Absolute 0.01 K/mm3 (0.00-0.031); Immature Granulocyte Percent A 0.2 % (0-0.5); Lymphocytes Absolute Auto 0.35 K/mm3 (0.9-3.2); Mean Corpuscular HGB Conc 30.7 g/dl (32-36); Mean Corpuscular Volume 91.1 fl (80-100); Mean Platelet Volume 12.3 fl (7.4-10.4); Monocytes Absolute Auto 0.4 K/mm3 (0.1-0.6); Monocytes Percent Auto 7.1 % (2.6-8.5); Platelet Count Result 79 k/mm3 (150-375); Red Blood Count 4.25 M/mm3 (4.6-6.20); Red Cell Distribution Width 15.9 % (11.5-14.5); White Blood Count 5.8 K/mm3 (4.5-10.0)
[2024-01-14 15:26] LABS: Crenated RBC 1+; Hypochromasia 1+; Platelet Estimate Decreased (Adequate); Schistocytes Rare
[2024-01-14 15:27] LABS: Anisocytosis 1+
[2024-01-14] MEDS: IBUPROFEN IV 400 MG in SODIUM CHLORIDE 0.9% IV 100 ML 208 MG IVPB (16:52)
[2024-01-14] MEDS: PIPERACILLN/TAZ 3.375GM/NS50ML 3.375 GM/50 ML BAG IVPB (17:15)
[2024-01-14 17:17] LABS: Glucose Point of Care 289 mg/dl (65-105)
[2024-01-14 17:31] LABS: Albumin Level 4.2 g/dL (3.5-5.1); Anion Gap 14 mmol/L (4-12); Bilirubin,Total 4.4 mg/dL (0.2-1.3); Blood Urea Nitrogen 27 mg/dL (9-20); Calcium 8.7 mg/dL (8.4-10.2); Carbon Dioxide 13 mmol/L (22-30); Chloride 110 mmol/L (98-107); Estimated CRCL calculation 39 ml/min; Estimated Glomerular Filt Rate 38; Glucose 97 mg/dL (65-110); Sodium 137 mmol/L (137-145)
[2024-01-14 17:34] LABS: Alanine Aminotransferase 75 U/L (6-50); Aspartate Amino Transferase 82 U/L (17-59); Potassium 4.7 mmol/L (3.4-5.0)
[2024-01-14] MEDS: INSULIN ASPART (*BKC) 100 UNITS/ML SUB-Q (17:58)
[2024-01-14] MEDS: INSULIN GLARGINE (*BKC) 100 UNITS/ML 20 UNITS SUB-Q (18:39)
[2024-01-14 18:50] LABS: Alkaline Phosphatase 178 U/L (38-126)
[2024-01-15] VITALS (13 sets, daily range): BP systolic 98–118; BP diastolic 50–72; PULSE 43–70; RESP 15–20; TEMP 35.9–36.8; O2SAT 97–100
[2024-01-15 00:12] LABS: Anion Gap 8 mmol/L (4-12); Blood Urea Nitrogen 22 mg/dL (9-20); Calcium 8.2 mg/dL (8.4-10.2); Carbon Dioxide 19 mmol/L (22-30); Chloride 109 mmol/L (98-107); Estimated CRCL calculation 37 ml/min; Estimated Glomerular Filt Rate 36; Glucose 156 mg/dL (65-110); Potassium 4.3 mmol/L (3.4-5.0); Sodium 136 mmol/L (137-145)
[2024-01-15 00:27] LABS: Glucose Point of Care 175 mg/dl (65-105)
[2024-01-15] MEDS: PIPERACILLN/TAZ 3.375GM/NS50ML 3.375 GM/50 ML BAG IVPB ×4 (00:56→17:12)
[2024-01-15] MEDS: MORPHINE SULFATE (*CRX) 4 MG/ML INJ IV PUSH ×5 (03:03→21:46)
[2024-01-15 04:52] LABS: Magnesium 2.1 mg/dL (1.6-2.3)
[2024-01-15] MEDS: SODIUM CHLORIDE 0.9% IV 1,000 ML 100 ML IV CONT (05:22)
[2024-01-15 06:52] LABS: Glucose Point of Care 178 mg/dl (65-105)
[2024-01-15 10:15] LABS: Basophils Percent Auto 0.3 % (0.2-1.2); Eosinophils Percent Auto 0.8 % (0-4.4); Hematocrit 32.8 % (42.0-52.0); Hemoglobin 10.6 g/dL (14.0-18.0); Immature Granulocyte Absolute 0.02 K/mm3 (0.00-0.031); Immature Granulocyte Percent A 0.5 % (0-0.5); Immature Platelet Fraction Pct 13.7 % (0.9-11.2); Lymphocytes Absolute Auto 0.42 K/mm3 (0.9-3.2); Lymphocytes Percent Auto 11.5 % (18.3-44.2); Mean Corpuscular HGB Conc 32.3 g/dl (32-36); Mean Corpuscular Hemoglobin 28.3 pg (26-34); Mean Corpuscular Volume 87.5 fl (80-100); Mean Platelet Volume 13.1 fl (7.4-10.4); Monocytes Absolute Auto 0.4 K/mm3 (0.1-0.6); Monocytes Percent Auto 11.2 % (2.6-8.5); Neutrophils Absolute Auto 2.8 K/mm3 (1.3-6.7); Neutrophils Percent Auto 75.7 % (45.5-73.1); Platelet Count Result 65 k/mm3 (150-375); Red Blood Count 3.75 M/mm3 (4.6-6.20); White Blood Count 3.7 K/mm3 (4.5-10.0)
[2024-01-15 10:40] LABS: Alanine Aminotransferase 54 U/L (6-50); Albumin Level 3.3 g/dL (3.5-5.1); Alkaline Phosphatase 145 U/L (38-126); Anion Gap 8 mmol/L (4-12); Aspartate Amino Transferase 48 U/L (17-59); Bilirubin,Total 2.6 mg/dL (0.2-1.3); Blood Urea Nitrogen 22 mg/dL (9-20); Calcium 8.4 mg/dL (8.4-10.2); Carbon Dioxide 19 mmol/L (22-30); Chloride 109 mmol/L (98-107); Estimated CRCL calculation 39 ml/min; Estimated Glomerular Filt Rate 38; Glucose 275 mg/dL (65-110); Magnesium 2.1 mg/dL (1.6-2.3); Potassium 3.9 mmol/L (3.4-5.0); Sodium 136 mmol/L (137-145)
[2024-01-15] MEDS: LIPASE/AMYLASE/PROTEASE 12,000 UNITS CAP 6 CAP PO (10:55)
[2024-01-15] MEDS: GABAPENTIN 300 MG CAPSULE 600 MG PO (10:57)
[2024-01-15] MEDS: ASPIRIN 81 MG ENTERIC TABLET PO (10:58)
[2024-01-15] MEDS: METOPROLOL SUCCINATE EXT REL 25 MG TABCR PO (10:58)
[2024-01-15] MEDS: CHOLECALCIFEROL 5,000 UNITS TABLET 10000 UNITS PO (10:58)
[2024-01-15] MEDS: RIVAROXABAN 20 MG TABLET PO (10:59)
[2024-01-15] MEDS: EMTRICITABINE-TENOFOVIR 100 MG-150 MG TABLET 2 TAB PO (11:07)
[2024-01-15] MEDS: INSULIN ASPART (*BKC) 100 UNITS/ML SUB-Q ×2 (12:58→17:59)
[2024-01-15 13:02] LABS: Glucose Point of Care 288 mg/dl (65-105)
--- NOTE | 2024-01-15 14:23 | PM.IMPN ---
Progress Note: A&P Assessment and Plan (1) Sepsis: Qualifiers: Sepsis acute organ dysfunction status: unspecified Sepsis type: sepsis due to unspecified organism Qualified Code(s): A41.9 - Sepsis, unspecified organism Code(s): A41.9 - Sepsis, unspecified organism Status: Acute (2) UTI (urinary tract infection): Qualifiers: Hematuria presence: without hematuria Urinary tract infection type: acute cystitis Qualified Code(s): N30.00 - Acute cystitis without hematuria Code(s): N39.0 - Urinary tract infection, site not specified Status: Acute (3) Hyperbilirubinemia: Code(s): E80.6 - Other disorders of bilirubin metabolism Status: Acute (4) Nondisplaced fracture of medial condyle of femur: Qualifiers: Encounter type: initial encounter Fracture type: closed Laterality: right Qualified Code(s): S72.434A - Nondisplaced fracture of medial condyle of right femur, initial encounter for closed fracture Code(s): S72.436A - Nondisplaced fracture of medial condyle of unspecified femur, initial encounter for closed fracture Status: Acute (5) Paroxysmal atrial fibrillation: Code(s): I48.0 - Paroxysmal atrial fibrillation Status: Acute (6) Chronic pancreatitis: Qualifiers: Pancreatitis type: idiopathic Qualified Code(s): K86.1 - Other chronic pancreatitis Code(s): K86.1 - Other chronic pancreatitis Status: Acute (7) Chronic pain syndrome: Code(s): G89.4 - Chronic pain syndrome Status: Acute (8) Chronic kidney disease, stage 3: Code(s): N18.30 - Chronic kidney disease, stage 3 unspecified Status: Chronic (9) Insulin dependent type 2 diabetes mellitus: Code(s): E11.9 - Type 2 diabetes mellitus without complications; Z79.4 - [employer] (current) use of insulin Status: Acute Plan 63 year male who presented to the ED with intermittent fever severe shaking chills and diaphoresis since Wednesday. T-max 101?. Bilateral flank pain with urinary symptoms. Vitals were stable upon arrival and was afebrile. CBC with normal WBC H 7.5 mild anemia at 11.2. Platelets were 104 consistent with previous records. CMP with bicarb of 19 creatinine 1.8 baseline creatinine of 1.1-1.5. Recently was 1.6. Total bilirubin elevated at 3.6 AST 62 ALT 93 alkaline phosphatase 172 indicative of mildly elevated liver enzymes. Lipase within normal limits at 20. Urinalysis suggestive of UTI. Blood culture were sent. Lactic acid was normal at 0.7. Hepatitis panel was negative. Viral swab was negative. Blood culture came back positive for Gram-negative bacilli /. On IV Zosyn. Blood culture and urine culture identified as E coli sensitive to Zosyn CT scan of the abdomen pelvis showed some peripancreatic inflammation acute versus chronic pancreatitis changes. Possible colitis and cystitis. Right upper quadrant ultrasound showed evidence of hepatic steatosis portal hypertension and mild common bile duct dilation at 8 mm likely related to previous cholecystectomy. No obvious obstructing stone. MRCP 01/06/2024: Dilatation of the common bile duct measuring up to 14 mm which tapers distally at the head of pancreas. This occurs in the same location as a focal stricture in the main portal vein with the low signal intensity intraluminal contrast with suggest possibility of high velocity jet. No intraluminal filling defect to suggest choledocholithiasis. There is also mild intrahepatic biliary duct dilation. There is a stricture with no discernible fluid signal within a segment of the bile duct.. Also appears to be occlusion of the portal vein branch to segment 5 with secondary transient hepatic attenuation difference with increased arterial phase enhancement in segment 5. There is also parenchymal atrophy with retraction of the overlying liver capsule in segment 5. Findings are concerning for malignancy but could also be related
[2024-01-15] MEDS: SODIUM CHLORIDE 0.9% IV 1,000 ML 125 ML IV CONT (17:11)
[2024-01-15 17:58] LABS: Glucose Point of Care 249 mg/dl (65-105)
[2024-01-15 19:31] LABS: Toxigenic C. Diff NEGATIVE (NEGATIVE)
[2024-01-15 21:24] LABS: Glucose Point of Care 331 mg/dl (65-105)
[2024-01-15] MEDS: INSULIN GLARGINE (*BKC) 100 UNITS/ML 20 UNITS SUB-Q (21:36)
[2024-01-16] VITALS (15 sets, daily range): BP systolic 114–135; BP diastolic 58–71; PULSE 46–70; RESP 16–20; TEMP 35.7–36.8; O2SAT 98–100
[2024-01-16] MEDS: INSULIN ASPART (*BKC) 100 UNITS/ML SUB-Q ×3 (00:30→17:55)
[2024-01-16] MEDS: PIPERACILLN/TAZ 3.375GM/NS50ML 3.375 GM/50 ML BAG IVPB ×2 (00:31→06:52)
[2024-01-16 00:42] LABS: Glucose Point of Care 229 mg/dl (65-105)
[2024-01-16] MEDS: MORPHINE SULFATE (*CRX) 4 MG/ML INJ IV PUSH ×3 (00:43→21:43)
[2024-01-16] MEDS: SODIUM CHLORIDE 0.9% IV 1,000 ML 125 ML IV CONT ×3 (04:17→22:30)
[2024-01-16 04:38] LABS: Basophils Percent Auto 0.5 % (0.2-1.2); Eosinophils Absolute Auto 0.1 K/mm3 (0-0.3); Eosinophils Percent Auto 1.8 % (0-4.4); Hemoglobin 10.2 g/dL (14.0-18.0); Immature Granulocyte Absolute 0.02 K/mm3 (0.00-0.031); Immature Granulocyte Percent A 0.5 % (0-0.5); Immature Platelet Fraction Pct 13.7 % (0.9-11.2); Lymphocytes Absolute Auto 0.57 K/mm3 (0.9-3.2); Lymphocytes Percent Auto 14.7 % (18.3-44.2); Mean Corpuscular HGB Conc 32.9 g/dl (32-36); Mean Corpuscular Hemoglobin 28.3 pg (26-34); Mean Corpuscular Volume 86.1 fl (80-100); Mean Platelet Volume 12.9 fl (7.4-10.4); Monocytes Absolute Auto 0.5 K/mm3 (0.1-0.6); Monocytes Percent Auto 13.1 % (2.6-8.5); Neutrophils Absolute Auto 2.7 K/mm3 (1.3-6.7); Neutrophils Percent Auto 69.4 % (45.5-73.1); Platelet Count Result 77 k/mm3 (150-375); White Blood Count 3.9 K/mm3 (4.5-10.0)
[2024-01-16 05:02] LABS: Alanine Aminotransferase 51 U/L (6-50); Albumin Level 3.2 g/dL (3.5-5.1); Alkaline Phosphatase 148 U/L (38-126); Anion Gap 5 mmol/L (4-12); Aspartate Amino Transferase 44 U/L (17-59); Bilirubin,Total 1.9 mg/dL (0.2-1.3); Blood Urea Nitrogen 15 mg/dL (9-20); Calcium 8.4 mg/dL (8.4-10.2); Carbon Dioxide 24 mmol/L (22-30); Chloride 107 mmol/L (98-107); Estimated CRCL calculation 39 ml/min; Estimated Glomerular Filt Rate 38; Glucose 192 mg/dL (65-110); Magnesium 1.9 mg/dL (1.6-2.3); Potassium 3.8 mmol/L (3.4-5.0); Sodium 136 mmol/L (137-145)
[2024-01-16 05:06] LABS: Anisocytosis 1+; Burr Cells 1+; Hypochromasia 1+; Platelet Estimate Decreased (Adequate); Schistocytes Rare
[2024-01-16 06:33] LABS: Glucose Point of Care 156 mg/dl (65-105)
[2024-01-16] MEDS: LIPASE/AMYLASE/PROTEASE 12,000 UNITS CAP 6 CAP PO ×3 (08:17→16:38)
[2024-01-16] MEDS: GABAPENTIN 300 MG CAPSULE 600 MG PO ×3 (08:17→16:39)
[2024-01-16] MEDS: CHOLECALCIFEROL 5,000 UNITS TABLET 10000 UNITS PO (08:18)
[2024-01-16] MEDS: METOPROLOL SUCCINATE EXT REL 25 MG TABCR PO (08:19)
[2024-01-16] MEDS: ASPIRIN 81 MG ENTERIC TABLET PO (08:19)
[2024-01-16] MEDS: EMTRICITABINE-TENOFOVIR 100 MG-150 MG TABLET 2 TAB PO (08:20)
[2024-01-16] MEDS: RIVAROXABAN 20 MG TABLET PO (08:21)
[2024-01-16] MEDS: HYDROcodone/acetaminophen (*CRX) 5-325 MG TABLET 1 TAB PO ×2 (08:27→16:42)
--- NOTE | 2024-01-16 12:15 | PM.IMPN ---
Progress Note: A&P Assessment and Plan (1) Sepsis: Qualifiers: Sepsis acute organ dysfunction status: unspecified Sepsis type: sepsis due to unspecified organism Qualified Code(s): A41.9 - Sepsis, unspecified organism Code(s): A41.9 - Sepsis, unspecified organism Status: Acute (2) UTI (urinary tract infection): Qualifiers: Hematuria presence: without hematuria Urinary tract infection type: acute cystitis Qualified Code(s): N30.00 - Acute cystitis without hematuria Code(s): N39.0 - Urinary tract infection, site not specified Status: Acute (3) Hyperbilirubinemia: Code(s): E80.6 - Other disorders of bilirubin metabolism Status: Acute (4) Nondisplaced fracture of medial condyle of femur: Qualifiers: Encounter type: initial encounter Fracture type: closed Laterality: right Qualified Code(s): S72.434A - Nondisplaced fracture of medial condyle of right femur, initial encounter for closed fracture Code(s): S72.436A - Nondisplaced fracture of medial condyle of unspecified femur, initial encounter for closed fracture Status: Acute (5) Paroxysmal atrial fibrillation: Code(s): I48.0 - Paroxysmal atrial fibrillation Status: Acute (6) Chronic pancreatitis: Qualifiers: Pancreatitis type: idiopathic Qualified Code(s): K86.1 - Other chronic pancreatitis Code(s): K86.1 - Other chronic pancreatitis Status: Acute (7) Chronic pain syndrome: Code(s): G89.4 - Chronic pain syndrome Status: Acute (8) Chronic kidney disease, stage 3: Code(s): N18.30 - Chronic kidney disease, stage 3 unspecified Status: Chronic (9) Insulin dependent type 2 diabetes mellitus: Code(s): E11.9 - Type 2 diabetes mellitus without complications; Z79.4 - terminal gauger (current) use of insulin Status: Acute Plan 63 year male who presented to the ED with intermittent fever severe shaking chills and diaphoresis since Wednesday. T-max 101?. Bilateral flank pain with urinary symptoms. Vitals were stable upon arrival and was afebrile. CBC with normal WBC H 7.5 mild anemia at 11.2. Platelets were 104 consistent with previous records. CMP with bicarb of 19 creatinine 1.8 baseline creatinine of 1.1-1.5. Recently was 1.6. Total bilirubin elevated at 3.6 AST 62 ALT 93 alkaline phosphatase 172 indicative of mildly elevated liver enzymes. Lipase within normal limits at 20. Urinalysis suggestive of UTI. Blood culture were sent. Lactic acid was normal at 0.7. Hepatitis panel was negative. Viral swab was negative. Blood culture came back positive for Gram-negative bacilli /. On IV Zosyn. Blood culture and urine culture identified as E coli sensitive to Zosyn. Will switch to IV ceftriaxone CT scan of the abdomen pelvis showed some peripancreatic inflammation acute versus chronic pancreatitis changes. Possible colitis and cystitis. Right upper quadrant ultrasound showed evidence of hepatic steatosis portal hypertension and mild common bile duct dilation at 8 mm likely related to previous cholecystectomy. No obvious obstructing stone. MRCP 01/06/2024: Dilatation of the common bile duct measuring up to 14 mm which tapers distally at the head of pancreas. This occurs in the same location as a focal stricture in the main portal vein with the low signal intensity intraluminal contrast with suggest possibility of high velocity jet. No intraluminal filling defect to suggest choledocholithiasis. There is also mild intrahepatic biliary duct dilation. There is a stricture with no discernible fluid signal within a segment of the bile duct.. Also appears to be occlusion of the portal vein branch to segment 5 with secondary transient hepatic attenuation difference with increased arterial phase enhancement in segment 5. There is also parenchymal atrophy with retraction of the overlying liver capsule in segment 5. Findings are concerning for francisco
[2024-01-16 12:24] LABS: Glucose Point of Care 238 mg/dl (65-105)
[2024-01-16] MEDS: cefTRIAXone 2 GM/NS 100 ML 2 GM/100 ML BAG IVPB (12:39)
--- NOTE | 2024-01-16 15:11 | ECG_ITS ---
Test Date: 2024-01-16 17:04:20 Measurements Intervals [place] Rate: 52 P: 44 ME: 206 QRS: 17 QRSD: 97 T: 19 QT: 451 QTc: 421 Interpretive Statements SINUS BRADYCARDIA EARLY PRECORDIAL R/S TRANSITION EARLY REPOLARIZATION BORDERLINE ECG No previous ECG available for comparison Electronically Signed On 01-17-2024 11:32:28 CDT by Damian Randhawa D.O.
[2024-01-16 17:50] LABS: Glucose Point of Care 334 mg/dl (65-105)
[2024-01-16] MEDS: INSULIN GLARGINE (*BKC) 100 UNITS/ML 20 UNITS SUB-Q (21:40)
[2024-01-17] VITALS (9 sets, daily range): BP systolic 133–160; BP diastolic 69–74; PULSE 48–59; RESP 15–20; TEMP 36.1–36.8; O2SAT 97–100
[2024-01-17 00:31] LABS: Glucose Point of Care 213 mg/dl (65-105)
[2024-01-17] MEDS: INSULIN ASPART (*BKC) 100 UNITS/ML SUB-Q ×2 (00:33→12:12)
[2024-01-17 05:54] LABS: Basophils Percent Auto 0.2 % (0.2-1.2); Eosinophils Absolute Auto 0.1 K/mm3 (0-0.3); Eosinophils Percent Auto 2.5 % (0-4.4); Hematocrit 35.5 % (42.0-52.0); Hemoglobin 11.4 g/dL (14.0-18.0); Immature Granulocyte Absolute 0.03 K/mm3 (0.00-0.031); Immature Granulocyte Percent A 0.7 % (0-0.5); Immature Platelet Fraction Pct 14.4 % (0.9-11.2); Lymphocytes Absolute Auto 0.74 K/mm3 (0.9-3.2); Lymphocytes Percent Auto 18.4 % (18.3-44.2); Mean Corpuscular HGB Conc 32.1 g/dl (32-36); Mean Corpuscular Hemoglobin 27.5 pg (26-34); Mean Corpuscular Volume 85.7 fl (80-100); Monocytes Absolute Auto 0.4 K/mm3 (0.1-0.6); Monocytes Percent Auto 9.2 % (2.6-8.5); Neutrophils Absolute Auto 2.8 K/mm3 (1.3-6.7); Platelet Count Result 96 k/mm3 (150-375); Red Blood Count 4.14 M/mm3 (4.6-6.20)
[2024-01-17 06:01] LABS: Glucose Point of Care 128 mg/dl (65-105)
[2024-01-17 06:08] LABS: Alanine Aminotransferase 51 U/L (6-50); Albumin Level 3.6 g/dL (3.5-5.1); Alkaline Phosphatase 187 U/L (38-126); Anion Gap 8 mmol/L (4-12); Aspartate Amino Transferase 36 U/L (17-59); Bilirubin,Total 1.3 mg/dL (0.2-1.3); Blood Urea Nitrogen 16 mg/dL (9-20); Calcium 8.4 mg/dL (8.4-10.2); Carbon Dioxide 24 mmol/L (22-30); Chloride 107 mmol/L (98-107); Estimated CRCL calculation 43 ml/min; Estimated Glomerular Filt Rate 44; Glucose 118 mg/dL (65-110); Hypochromasia 1+; Magnesium 2.1 mg/dL (1.6-2.3); Platelet Estimate Decreased (Adequate); Potassium 3.6 mmol/L (3.4-5.0); Sodium 139 mmol/L (137-145)
[2024-01-17 06:09] LABS: Anisocytosis 1+; Microcytosis 1+ (NORMAL); Schistocytes None Seen
[2024-01-17] MEDS: SODIUM CHLORIDE 0.9% IV 1,000 ML 125 ML IV CONT (06:25)
[2024-01-17] MEDS: LIPASE/AMYLASE/PROTEASE 12,000 UNITS CAP 6 CAP PO ×2 (09:15→12:13)
[2024-01-17] MEDS: GABAPENTIN 300 MG CAPSULE 600 MG PO ×2 (09:15→12:13)
[2024-01-17] MEDS: RIVAROXABAN 20 MG TABLET PO (09:16)
[2024-01-17] MEDS: CHOLECALCIFEROL 5,000 UNITS TABLET 10000 UNITS PO (09:16)
[2024-01-17] MEDS: EMTRICITABINE-TENOFOVIR 100 MG-150 MG TABLET 2 TAB PO (09:16)
[2024-01-17] MEDS: ASPIRIN 81 MG ENTERIC TABLET PO (09:17)
--- NOTE | 2024-01-17 10:01 | PC.NURSE ---
Spoke with [facility] transfer center Shannan fox, updated vitals and labs provided per request. No bed available at this time but will notify us when. Per manager night RN the patient would rather discharge from this hospital so that he may return to work and follow up with the physician at [facility] as an outpatient as he is already established with the accepting provider. However, he states that if that provider believes that it is important enough that he transfer to [facility] he is willing to do so. Attempted to speak with Dr. Hernandez regarding these details but am unable to reach him at this time.
[2024-01-17 12:07] LABS: Glucose Point of Care 377 mg/dl (65-105)
[2024-01-17] MEDS: cefTRIAXone 2 GM/NS 100 ML 2 GM/100 ML BAG IVPB (12:13)
--- NOTE | 2024-01-17 14:16 | PM.DS ---
DS: Admitting Diagnosis Discharge Date 01/17/2024 Admitting Diagnosis Sepsis DS: Discharge Diagnosis Discharge Diagnosis (1) Sepsis: Qualifiers: Sepsis acute organ dysfunction status: unspecified Sepsis type: sepsis due to unspecified organism Qualified Code(s): A41.9 - Sepsis, unspecified organism Code(s): A41.9 - Sepsis, unspecified organism Status: Acute (2) UTI (urinary tract infection): Qualifiers: Hematuria presence: without hematuria Urinary tract infection type: acute cystitis Qualified Code(s): N30.00 - Acute cystitis without hematuria Code(s): N39.0 - Urinary tract infection, site not specified Status: Acute (3) Hyperbilirubinemia: Code(s): E80.6 - Other disorders of bilirubin metabolism Status: Acute (4) Nondisplaced fracture of medial condyle of femur: Qualifiers: Encounter type: initial encounter Fracture type: closed Laterality: right Qualified Code(s): S72.434A - Nondisplaced fracture of medial condyle of right femur, initial encounter for closed fracture Code(s): S72.436A - Nondisplaced fracture of medial condyle of unspecified femur, initial encounter for closed fracture Status: Acute (5) Paroxysmal atrial fibrillation: Code(s): I48.0 - Paroxysmal atrial fibrillation Status: Acute (6) Chronic pancreatitis: Qualifiers: Pancreatitis type: idiopathic Qualified Code(s): K86.1 - Other chronic pancreatitis Code(s): K86.1 - Other chronic pancreatitis Status: Acute (7) Chronic pain syndrome: Code(s): G89.4 - Chronic pain syndrome Status: Acute (8) Chronic kidney disease, stage 3: Code(s): N18.30 - Chronic kidney disease, stage 3 unspecified Status: Chronic (9) Insulin dependent type 2 diabetes mellitus: Code(s): E11.9 - Type 2 diabetes mellitus without complications; Z79.4 - [facility] (current) use of insulin Status: Acute DS: Summary Hospital Course Hospital Course: 63 year male who presented to the ED with intermittent fever severe shaking chills and diaphoresis since Wednesday. T-max 101?. Bilateral flank pain with urinary symptoms. Vitals were stable upon arrival and was afebrile. CBC with normal WBC H 7.5 mild anemia at 11.2. Platelets were 104 consistent with previous records. CMP with bicarb of 19 creatinine 1.8 baseline creatinine of 1.1-1.5. Recently was 1.6. Total bilirubin elevated at 3.6 AST 62 ALT 93 alkaline phosphatase 172 indicative of mildly elevated liver enzymes. Lipase within normal limits at 20. Urinalysis suggestive of UTI. Blood culture were sent. Lactic acid was normal at 0.7. Hepatitis panel was negative. Viral swab was negative. Blood culture came back positive for Gram-negative bacilli /. On IV Zosyn. Blood culture and urine culture identified as E coli sensitive to Zosyn. Antibiotics switched ceftriaxone. Resolved with repeat blood culture on 01/15/2024. Sources urine culture as well. With bacteremia [address] scan of the abdomen pelvis showed some peripancreatic inflammation acute versus chronic pancreatitis changes. Possible colitis and cystitis. Right upper quadrant ultrasound showed evidence of hepatic steatosis portal hypertension and mild common bile duct dilation at 8 mm likely related to previous cholecystectomy. No obvious obstructing stone. MRCP 01/06/2024: Dilatation of the common bile duct measuring up to 14 mm which tapers distally at the head of pancreas. This occurs in the same location as a focal stricture in the main portal vein with the low signal intensity intraluminal contrast with suggest possibility of high velocity jet. No intraluminal filling defect to suggest choledocholithiasis. There is also mild intrahepatic biliary duct dilation. There is a stricture with no discernible fluid signal within a segment of the bile duct.. Also appears to be occlusion of the portal vein branch to se
--- NOTE | 2024-01-17 16:27 | WPDGIPROGNO ---
Progress Note: A&P Assessment and Plan (1) Sepsis: Qualifiers: Sepsis acute organ dysfunction status: unspecified Sepsis type: sepsis due to unspecified organism Qualified Code(s): A41.9 - Sepsis, unspecified organism Code(s): A41.9 - Sepsis, unspecified organism Status: Acute Assessment and Plan: resolved e coli bacteremia is treated probably going home (2) E coli bacteremia: Code(s): R78.81 - Bacteremia; B96.20 - Unspecified Escherichia coli [E. coli] as the cause of diseases classified elsewhere Status: Acute Assessment and Plan: source if pyelonephritis (3) Anemia of chronic disease: Code(s): D63.8 - Anemia in other chronic diseases classified elsewhere Status: Acute (4) Abnormal digestive system diagnostic imaging: Code(s): R93.3 - Abnormal findings on diagnostic imaging of other parts of digestive tract Status: Acute Assessment and Plan: completed MRCP he already is scheduled to see GI doctor at [facility] (5) Elevated LFTs: Code(s): R79.89 - Other specified abnormal findings of blood chemistry Status: Acute Assessment and Plan: normalization of bilirubin after sepsis was treated also will follow-up with gi doctor regarding MRCP findings, can not do ERCP given s/p gastric bypass (6) History of gastric bypass: Onset Date: 05/2003 Code(s): Z98.84 - Bariatric surgery status Status: Acute (7) Pyelonephritis due to Escherichia coli: Code(s): N12 - Tubulo-interstitial nephritis, not specified as acute or chronic; B96.20 - Unspecified Escherichia coli [E. coli] as the cause of diseases classified elsewhere Status: Acute (8) HIV (human immunodeficiency virus infection): Code(s): Z21 - Asymptomatic human immunodeficiency virus [HIV] infection status Status: Acute Subjective Date/time seen: 01/17/24 16:27 Interval history: he is doing much better and ready to go home Review of Systems Review of Systems: All systems reviewed & are unremarkable except as noted in HPI and below Exam Narrative: GENERAL: Mildly ill appearing, well-nourished, non-toxic, in no acute distress. HEAD: Normocephalic, atraumatic. EYES: PERRL/EOMI RESPIRATORY: Airway patent, respirations nonlabored. Clear to auscultation bilaterally, no rales, rhonchi, wheezing. CARDIOVASCULAR: Regular rate and rhythm without murmurs, rubs, or gallops. ABDOMINAL: Soft, mild diffuse tenderness nondistended. Normoactive BS. MUSCULOSKELETAL: Moves all extremities. No gross deformities. SKIN: Warm, dry, normal color. No overt jaundice. NEURO: A&O X3. Speech clear. Cranial nerves II-XII grossly intact. Steady gait. No ataxic movements. PSYCHIATRIC: Appropriate mood and affect. Normal interaction. Objective Data Vital Signs Vital Signs: Vital Signs - 24 hr 01/16/24 18:00 01/16/24 20:00 01/17/24 00:00 Temperature 97.7 F 98.2 F Pulse Rate 61 52 L 57 L Respiratory Rate 16 16 Blood Pressure 135/71 140/71 Pulse Oximetry 100 99 Oxygen Delivery 01/16/24 20:00 01/17/24 00:00 01/16/24 20:00 Temperature Pulse Rate 70 Respiratory Rate Blood Pressure Pulse Oximetry Oxygen Delivery Room Air Room Air 01/17/24 00:00 01/16/24 22:00 01/17/24 02:00 Temperature Pulse Rate 48 L 56 L 57 L Respiratory Rate Blood Pressure Pulse Oximetry Oxygen Delivery 01/17/24 04:00 01/17/24 04:00 01/17/24 04:00 Temperature 97.6 F Pulse Rate 49 L 54 L Respiratory Rate 16 Blood Pressure 137/69 Pulse Oximetry 99 Oxygen Delivery Room Air 01/17/24 06:00 01/17/24 07:46 01/17/24 12:00 Temperature 97.0 F L 97.2 F L Pulse Rate 59 L 50 L 51 L Respiratory Rate 20 18 Blood Pressure 133/74 160/72 H Pulse Oximetry 99 100 Oxygen Delivery 01/17/24 08:00 01/17/24 10:00 01/17/24 12:00 Temperature Pulse Rate 54 L 56 L 50 L Respiratory Rate Blood Pressure Pulse
--- NOTE | 2024-01-17 16:47 | PC.NURSE ---
[facility] transfer line notified of patient discharge and will no longer be requiring a bed. Plan to follow up as an outpatient
[2024-01-17 18:55] LABS: Absolute CD4 Count 269 cells/uL (490-1740); Lymphocytes, Absolute 631 cells/uL (850-3900); Percent CD4 Cells 43 % (30-61)
[2024-01-19 00:09] LABS: HIV 1 RNA PCR NOT DETECTED (NOT DETECTED); HIV 1 RNA PCR NOT DETECTED copies/mL (NOT DETECTED)
== END 2024-01-17 16:00 | disposition home or self-care (01) | DRG 975 ==
LOC: ANHED 01-14 02:27 → ANHIMU 01-14 03:02
PROVIDERS: Emergency Medicine; Internal Medicine Gastroenterology; Nurse Practitioner Family; Admitting Provider Internal Medicine; Emergency Provider Physician Assistant; Visit Provider Internal Medicine
DX: A41.51 Sepsis due to Escherichia coli [E. coli] (principal); K86.1 Other chronic pancreatitis; B20 Human immunodeficiency virus [HIV] disease; S72.434A Nondisplaced fracture of medial condyle of right femur, initial encounter for closed fracture; N39.0 Urinary tract infection, site not specified; G93.41 Metabolic encephalopathy; E80.6 Other disorders of bilirubin metabolism; I48.0 Paroxysmal atrial fibrillation; G89.4 Chronic pain syndrome; I12.9 Hypertensive chronic kidney disease with stage 1 through stage 4 chronic kidney disease, or unspecified chronic kidney disease; E11.22 Type 2 diabetes mellitus with diabetic chronic kidney disease; N18.30 Chronic kidney disease, stage 3 unspecified; F41.8 Other specified anxiety disorders; E78.5 Hyperlipidemia, unspecified; D50.9 Iron deficiency anemia, unspecified; L40.9 Psoriasis, unspecified; M48.00 Spinal stenosis, site unspecified; M85.80 Other specified disorders of bone density and structure, unspecified site; R93.3 Abnormal findings on diagnostic imaging of other parts of digestive tract; D63.8 Anemia in other chronic diseases classified elsewhere; X58.XXXA Exposure to other specified factors, initial encounter; K75.81 Nonalcoholic steatohepatitis (NASH); F17.290 Nicotine dependence, other tobacco product, uncomplicated; Z79.4 Long term (current) use of insulin; Z86.73 Personal history of transient ischemic attack (TIA), and cerebral infarction without residual deficits; Z90.49 Acquired absence of other specified parts of digestive tract; Z98.84 Bariatric surgery status
CPT/HCPCS: 36415; 70450; 74176; 74183; 76376; 76705; 80048; 80053; 80074; 80076; 81001; 82948; 83605; 83690; 83735; 85025; 85055; 86361; 86850; 87040; 87077; 87086; 87088; 87186; 87493; 87536; 87637; 93005; 96361; 96365; 96367; 96375; 99285; A9270; A9577; G0378; J0696; J1741; J1815; J1885; J2060; J2270; J2405; J2543; J7030

== ENCOUNTER 2024-02-11 06:40 | Emergency (ER) | payer OTHER, MEDICARE, SELFPAY ==
[2024-02-11] VITALS (24 sets, daily range): BP systolic 133–145; BP diastolic 66–92; PULSE 66–75; RESP 16–18; TEMP 36.9; O2SAT 98–100
--- NOTE | ~2024-02-11 | CT_ITS ---
CT abdomen pelvis wo con Ordering provider: Hunter Zarate MD History: 64 years Male with . flank pain, hematuria . Comparison: January 13, 2024 Technique: CT abdomen and pelvis without IV and without oral contrast. Automated exposure control and iterative reconstruction technique were employed. The dose-length product was 644.06 mGy-cm. Findings: VISUALIZED LOWER CHEST: Nodule seen in the right lower lobe posteriorly measuring 2.2 x 1.8 cm. Adjac ent atelectasis seen. Follow-up and further evaluation advised. UPPER ABDOMINAL ORGANS: Liver: Normal. Gallbladder: Status post cholecystectomy. Slightly dilated CBD measuring 1.1 cm. Stent is seen in the distal CBD and in the stomach. Spleen: Normal. Stomach/duodenum: Postoperative changes in the stomach. Pancreas: Normal. Adrenals: Normal. Kidneys: Slightly hypodense area seen in the right kidney upper pole which may be hemorrhagic cyst. T his measures 7 mm. Follow-up advised. PELVIC ORGANS: The bladder is normal. BOWEL AND MESENTERY: Colon: No evidence of diverticulitis. Thickened wall of the rectum is seen which may indicate proctit is. Clinical correlation advised. No evidence of appendicitis.. Small Bowel: Normal. No obstruction. Peritoneum/mesentery: No free air or free fluid. Sclerotic mesenteritis/panniculitis present with lym ph nodes is seen around the area of the superior mesenteric artery. Numerous lymph nodes are seen. RETROPERITONEUM: Mild atheromatous disease of the abdominal aorta. No retroperitoneal lymphadenopat hy. MUSCULOSKELETAL: Superficial soft tissues: Small fat-containing left inguinal hernia. Otherwise, The superficial soft tissues are normal. Bones: Age appropriate degenerative changes of the spine. Fusion is seen in the right sacroiliac join t anteriorly. IMPRESSION: 1. Sclerosing mesenteritis/panniculitis is seen around the superior mesenteric artery. 2. Nodule in the right lower lobe. Follow-up advised. 3. Multiple small lymph nodes in the mesentery. 4. Slightly dilated CBD with a stent extending from the stomach to the CBD. 5. No definite kidney stones. small hyperdense area seen in the right kidney upper pole. Follow-up advised. Reviewed, dictated and finalized at location A.
[2024-02-11 07:57] LABS: Appearance Urine Clear (Clear); Bacteria Urine None Seen /hpf; Bilirubin Urine Negative (Negative); Blood Urine Negative (Negative); Color Urine Yellow (Yellow); Glucose Urine UA 3+ mg/dL (Negative); Ketones Urine Negative (Negative); Leukocyte Esterase Ur Negative LEU/UL (Negative); Nitrate Urine Negative (Negative); Non Pathogenic Casts 0-2; Protein Urine Trace mg/dL (Negative); Specific Grav Ur 1.018 (1.001-1.035); Squamous Epithelial Cell Urine None Seen /hpf (Few); Urobilinogen Urine 0.2 mg/dL (<2.0); WBC Urine 0-5 /hpf (0-3); pH Urine 5.5 (5.0-9.0)
[2024-02-11 08:05] LABS: Alanine Aminotransferase 36 U/L (6-50); Alkaline Phosphatase 145 U/L (38-126); Anion Gap 10 mmol/L (4-12); Aspartate Amino Transferase 38 U/L (17-59); Bilirubin,Total 0.7 mg/dL (0.2-1.3); Blood Urea Nitrogen 16 mg/dL (9-20); Calcium 8.4 mg/dL (8.4-10.2); Carbon Dioxide 24 mmol/L (22-30); Chloride 101 mmol/L (98-107); Estimated CRCL calculation 45 ml/min; Estimated Glomerular Filt Rate 47; Glucose 206 mg/dL (65-110); Lactic Acid Reflex 1.1 mmol/L (0.7-2.0); Potassium 3.9 mmol/L (3.4-5.0); Sodium 135 mmol/L (137-145)
[2024-02-11 08:11] LABS: Add Urine Microscopic? YES
[2024-02-11 08:21] LABS: Basophils Percent Auto 0.6 % (0.2-1.2); Eosinophils Absolute Auto 0.1 K/mm3 (0-0.3); Eosinophils Percent Auto 1.6 % (0-4.4); Hematocrit 38.6 % (42.0-52.0); Hemoglobin 12.4 g/dL (14.0-18.0); Immature Granulocyte Absolute 0.01 K/mm3 (0.00-0.031); Immature Granulocyte Percent A 0.3 % (0-0.5); Lymphocytes Absolute Auto 0.67 K/mm3 (0.9-3.2); Lymphocytes Percent Auto 20.9 % (18.3-44.2); Mean Corpuscular HGB Conc 32.1 g/dl (32-36); Mean Corpuscular Volume 87.1 fl (80-100); Mean Platelet Volume 12.3 fl (7.4-10.4); Monocytes Absolute Auto 0.3 K/mm3 (0.1-0.6); Monocytes Percent Auto 9.7 % (2.6-8.5); Neutrophils Absolute Auto 2.2 K/mm3 (1.3-6.7); Neutrophils Percent Auto 66.9 % (45.5-73.1); Platelet Count Result 104 k/mm3 (150-375); Red Blood Count 4.43 M/mm3 (4.6-6.20); Red Cell Distribution Width 15.9 % (11.5-14.5); White Blood Count 3.2 K/mm3 (4.5-10.0)
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
[2024-02-11] MEDS: HYDROmorphone HCL INJ (*CRX) 1 MG/ML SYR 0.5 MG IV PUSH (08:32)
--- NOTE | 2024-02-11 09:24 | PC.NURSE ---
Patient called out stating that his blood glucose was getting low. patient blood glucose checked and was 63. MD Zarate notified and patient given juice at this time. patient is alert and oriented x4.
[2024-02-11 10:03] LABS: Glucose Point of Care 215 mg/dl (65-105)
[2024-02-11 10:03] LABS: Glucose Point of Care 63 mg/dl (65-105)
[2024-02-11] MEDS: ONDANSETRON INJ 4 MG/2 ML VIAL IV PUSH (10:20)
[2024-02-11] MEDS: predniSONE 20 MG TABLET 40 MG PO (11:04)
== END 2024-02-11 11:12 | disposition home or self-care (01) ==
PROVIDERS: Emergency Provider Emergency Medicine
DX: K65.4 Sclerosing mesenteritis (principal); E11.22 Type 2 diabetes mellitus with diabetic chronic kidney disease; I12.9 Hypertensive chronic kidney disease with stage 1 through stage 4 chronic kidney disease, or unspecified chronic kidney disease; N18.30 Chronic kidney disease, stage 3 unspecified; I48.0 Paroxysmal atrial fibrillation; E55.9 Vitamin D deficiency, unspecified; G89.4 Chronic pain syndrome; D89.84 IgG4-related disease; D50.9 Iron deficiency anemia, unspecified; L40.9 Psoriasis, unspecified; M85.80 Other specified disorders of bone density and structure, unspecified site; F41.8 Other specified anxiety disorders; F17.290 Nicotine dependence, other tobacco product, uncomplicated; Z98.84 Bariatric surgery status; Z86.14 Personal history of Methicillin resistant Staphylococcus aureus infection; Z86.73 Personal history of transient ischemic attack (TIA), and cerebral infarction without residual deficits; Z87.442 Personal history of urinary calculi; Z87.440 Personal history of urinary (tract) infections; Z90.49 Acquired absence of other specified parts of digestive tract; Z79.899 Other long term (current) drug therapy; Z79.4 Long term (current) use of insulin; Z79.84 Long term (current) use of oral hypoglycemic drugs; Z79.82 Long term (current) use of aspirin; Z79.01 Long term (current) use of anticoagulants
CPT/HCPCS: 36415; 74176; 80053; 81001; 82948; 83605; 85025; 96374; 96375; 99284; J1170; J2405; J7512